=== PATIENT | male | born 1965 | race Caucasian/White ===

== ENCOUNTER → 2020-07-01 11:28 | Outpatient (BNVA) | payer MEDICARE, MEDICAID, SELFPAY | PROVIDERS: PCP Internal Medicine; Referring Provider Internal Medicine; Visit Provider Nurse Practitioner | DX: K21.9 Gastro-esophageal reflux disease without esophagitis (principal); K59.04 Chronic idiopathic constipation; K64.8 Other hemorrhoids; K22.70 Barrett's esophagus without dysplasia; Z79.899 Other long term (current) drug therapy | CPT/HCPCS: 99212 ==

== ENCOUNTER 2020-09-01 10:44 | Outpatient (REF) | payer MEDICARE, MEDICAID, SELFPAY | END 2020-09-01 10:45 | disposition home or self-care (01) | LOC: HO.LAB 10:44 | PROVIDERS: PCP Internal Medicine; Visit Provider Internal Medicine | DX: Z20.828 Contact with and (suspected) exposure to other viral communicable diseases (principal) | CPT/HCPCS: C9803; U0003 ==

== ENCOUNTER → 2020-12-08 13:27 | Outpatient (BNVA) | payer MEDICARE, MEDICAID, SELFPAY | PROVIDERS: PCP Internal Medicine; Visit Provider Nurse Practitioner ==

== ENCOUNTER 2020-12-29 15:49 | Outpatient (REF) | payer MEDICARE, MEDICAID, SELFPAY ==
[2020-12-29 18:36] LABS: Gamma Glutamyl Transpeptidase 95 U/L (11-51)
[2020-12-29 18:48] LABS: Ferritin 52 ng/mL (20-250)
[2020-12-31 08:50] LABS: HBc Num1 0.06 S/CO (0.00-0.79); HIV AB/AG Nonreactive (Nonreactive); HIV Num 1 0.11 S/CO (0.00-0.99); Hepatitis B Core Antibody Nonreactive (Nonreactive); ~Hepatitis B Surface Antibody NONREACTIVE (Nonreactive)
[2020-12-31 09:04] LABS: HBsAGNum1 0.16 S/CO (0.00-0.99); Hepatitis A Antibody IgM 0.09 Index (0-0.79); Hepatitis B Surface Antigen Negative (Negative); ~HepC Num1 0.05 S/CO (0.00-0.79); ~Hepatitis A Antibody IgM Nonreactive (Nonreactive); ~Hepatitis C Antibody Nonreactive (Nonreactive)
[2020-12-31 13:07] LABS: Alpha Fetoprotein 2.5 ng/mL (<6.1)
[2020-12-31 17:37] LABS: Mitochondrial Antibodies NEGATIVE (NEGATIVE)
[2020-12-31 23:52] LABS: Anti Nuclear Antibody Screen NEGATIVE (NEGATIVE)
[2021-01-05 12:42] LABS: Smooth Muscle Antibody <20 U (<20)
== END 2020-12-29 15:50 | disposition home or self-care (01) ==
LOC: HO.LAB 15:49
PROVIDERS: PCP Internal Medicine; Visit Provider Nurse Practitioner
DX: K21.9 Gastro-esophageal reflux disease without esophagitis (principal); K59.04 Chronic idiopathic constipation; K22.70 Barrett's esophagus without dysplasia; K64.8 Other hemorrhoids; R79.89 Other specified abnormal findings of blood chemistry; Z79.899 Other long term (current) drug therapy
CPT/HCPCS: 36415; 82105; 82728; 82977; 86038; 86039; 86255; 86256; 86704; 86706; 86709; 86803; 87340; 87389; 99212

== ENCOUNTER 2021-01-03 08:36 | Outpatient (REF) | payer MEDICARE, MEDICAID, SELFPAY ==
--- NOTE | 2021-01-03 08:41 | ECG_ITS ---
Test Reason : HTN Blood Pressure : / mmHG Vent. Rate : 065 BPM Atrial Rate : 065 BPM P-R Int : 176 ms QRS Dur : 082 ms QT Int : 424 ms P-R-T Axes : 064 -01 057 degrees QTc Int : 440 ms Normal sinus rhythm Normal ECG When compared with ECG of 22-JAN-2020 22:31, No significant change was found Referred By: Franchesca Batista Electronically Signed By:ELVIS SHERWOOD
[2021-01-03 09:22] LABS: MANUAL DIFF FLAG NO
[2021-01-03 09:29] LABS: Basophils Percent Auto 0.4 % (0-2); Eosinophils Absolute Auto 0.4 X10*3/uL (0.0-0.4); Eosinophils Percent Auto 3.6 % (0-4); Hematocrit 43.2 % (42-52); Hemoglobin 14.4 g/dl (14.0-18.0); Imm Gran Abs Auto 0.09 X10*3/uL (0.00-0.03); Imm Gran Pct Auto 0.9 % (0.0-0.4); Lymphocytes Absolute Auto 2.3 X10*3/uL (1.2-4.9); Lymphocytes Percent Auto 22.6 % (20-40); Mean Corpuscular HGB Conc 33.3 g/dl (31.0-36.0); Mean Corpuscular Volume 86.9 fL (80-98); Mean Platelet Volume 9.9 fL (9.4-12.4); Monocytes Absolute Auto 0.7 X10*3/uL (0.1-1.2); Monocytes Percent Auto 6.9 % (2-11); Neutrophils Absolute Auto 6.7 X10*3/uL (2.0-8.3); Neutrophils Percent Auto 65.6 % (45-73); Platelet Count 258 X10*3/uL (160-400); Red Blood Count 4.97 X10*6/uL (4.60-5.80); Red Cell Distribution Width 14.6 % (11.0-16.0); White Blood Count 10.3 X10*3/uL (4.8-10.8)
[2021-01-03 10:01] LABS: Alanine Aminotransferase 52 U/L (0-40); Anion Gap 12 (12-20); Aspartate Amino Transferase 35 U/L (5-37); Blood Urea Nitrogen 15 mg/dL (9-16); Calcium 9.7 mg/dL (8.4-10.2); Carbon Dioxide 26 mmol/L (22-29); Chloride 107 mmol/L (96-108); Cholesterol 168 mg/dL; Estimated Glomerular Filt Rate > 60; Glucose Fasting 140 mg/dL (60-99); HDL Cholesterol 40 mg/dL; LDL Cholesterol Calculated 74 mg/dl; Potassium 4.3 mmol/L (3.3-5.1); Sodium 141 mmol/L (135-145); Triglycerides 270 mg/dL
== END 2021-01-03 08:37 | disposition home or self-care (01) ==
LOC: HO.LAB 08:36
PROVIDERS: PCP Internal Medicine; Visit Provider Internal Medicine
DX: I11.0 Hypertensive heart disease with heart failure (principal); I50.30 Unspecified diastolic (congestive) heart failure; E78.5 Hyperlipidemia, unspecified; I25.10 Atherosclerotic heart disease of native coronary artery without angina pectoris; K22.70 Barrett's esophagus without dysplasia; G47.31 Primary central sleep apnea; K64.8 Other hemorrhoids
CPT/HCPCS: 36415; 80048; 80061; 84450; 84460; 85025; 93005

== ENCOUNTER 2021-01-17 10:34 | Outpatient (REF) | payer MEDICARE, MEDICAID, SELFPAY ==
--- NOTE | ~2021-01-17 | US_ITS ---
EXAMINATION: US COMPLETE ABDOMEN WITH LIVER ELASTOGRAPHY CLINICAL INFORMATION: Elevated liver function tests COMPARISON: Previous CT of the abdomen and pelvis June 2018 TECHNIQUE: Real-time imaging of the abdominal viscera. Noninvasive ultrasound liver fibrosis assessment is performed using [place] ElastPQ point quantification shear wave elastography (pSWE) with a C5-2 MHz transducer. Multiple elastography samples are obtained. FINDINGS: PANCREAS: Not well visualized due to bowel gas ABDOMINAL AORTA: Not well visualized due to bowel gas INFERIOR VENA CAVA: Not well visualized due to bowel gas LIVER: Liver echotexture is increased probably representing fatty infiltration. There is a focal hypoechoic area adjacent to the gallbladder, characteristic location of focal fatty sparing. There is a 1.6 x 1.7 x 1.6 cm cyst in the right lobe of the liver. No other focal liver lesion is seen. The liver is enlarged.. No intrahepatic biliary duct dilatation. The right lobe measures 19 cm in length. The left lobe measures 9 cm in length. Portal flow is normal/hepatopedal Shear wave liver elastography median stiffness is 1.4 m/s (reference: normal median stiffness is 1.3 m/s or less). IQR/median stiffness to assess sampling precision is 0.2 (reference: good quality data set is IQR/median stiffness of 0.15 or less). GALLBLADDER: Normal. The gallbladder is physiologically distended without evidence of stones, sludge, polyps, wall thickening or pericholecystic fluid. COMMON BILE DUCT: Normal in caliber measuring 0.2 cm in diameter. RIGHT KIDNEY: Normal. No hydronephrosis. No renal calculi or focal parenchymal lesions. The kidney measures 14 cm in maximum dimension. LEFT KIDNEY: There is mild left renal cortical thinning. No hydronephrosis. No renal calculi or focal parenchymal lesion. The kidney measures 12 cm in maximum dimension. SPLEEN: Normal. The spleen measures 11.6 cm in maximum dimension. FREE FLUID: None. US/US abdomen comp w elastography IMPRESSION: 1. Impression: Echogenic liver probably representing fatty infiltration. Limited visualization of the pancreas, aorta and IVC. 2. Liver elastography: Slightly limited due to sampling error. In the absence of other known clinical signs, suggests no evidence of compensated advanced chronic liver disease. REFERENCE: Society of Radiologists in Ultrasound Liver Stiffness Thresholds (2020): LIVER STIFFNESS THRESHOLDS: *Liver Stiffness equal or less than 1.3 m/s: High probability of being normal. *Liver Stiffness less than 1.7 m/s: In the absence of other known clinical signs, rules out compensated advanced chronic liver disease. *Liver Stiffness 1.7-2.1 m/s: Suggestive of compensated advanced chronic liver disease but need further test for confirmation. *Liver Stiffness over 2.1 m/s: Rules in compensated advanced chronic liver disease. *Liver Stiffness over 2.4 m/s: Suggestive of clinically significant portal hypertension. QUALITY OF DATA SET: *IQR/Median value equal or less than 0.15 implies a quality data set. *IQR/Median value over 0.15 implies a poor quality data set. SIGNIFICANT CHANGE FROM PRIOR EXAM: Significant change if liver stiffness measurement is 10% or greater from prior exam. OTHER CONSIDERATIONS: The stage of liver fibrosis may be overestimated in the setting of acute hepatitis, liver inflammation, elevated liver function tests, hepatic vascular congestion, obstructive cholestasis, non-fasting state, and infiltrative diseases such as amyloidosis and lymphoma. In some patients with NAFLD, the liver stiffness thresholds for compensated advanced chronic liver disease may be lower. In causes other than viral hepatitis and NAFLD, liver stiffness thresholds are not well established.
== END 2021-01-17 10:35 | disposition home or self-care (01) ==
LOC: HO.US 10:34
PROVIDERS: Visit Provider Nurse Practitioner
DX: R79.89 Other specified abnormal findings of blood chemistry (principal)
CPT/HCPCS: 76705; 76981

== ENCOUNTER → 2021-01-21 08:56 | Outpatient (BNVA) | payer MEDICARE, MEDICAID, SELFPAY | PROVIDERS: PCP Internal Medicine; Visit Provider Nurse Practitioner | DX: K59.04 Chronic idiopathic constipation (principal); K21.9 Gastro-esophageal reflux disease without esophagitis; K22.70 Barrett's esophagus without dysplasia; K64.8 Other hemorrhoids; K75.81 Nonalcoholic steatohepatitis (NASH) | CPT/HCPCS: Q3014 ==

== ENCOUNTER 2021-04-01 11:15 | Inpatient (IN) | payer MEDICARE, MEDICAID, SELFPAY ==
[2021-04-01] VITALS (7 sets, daily range): BP systolic 105–157; BP diastolic 61–94; PULSE 62–82; RESP 16–22; TEMP 37.2–37.4; O2SAT 90–98; BMI 35.9; BMI 36.0
--- NOTE | ~2021-04-01 | CT_ITS ---
EXAMINATION: CT ANGIOGRAM OF THE CHEST WITH AND WITHOUT CONTRAST (CT PULMONARY ANGIOGRAM FOR PE) CLINICAL INFORMATION: Reason for Exam chest pain, h/o DVT COMPARISON: None TECHNIQUE: Prior to contrast administration, noncontrast localization images were obtained. Subsequently, multidetector volumetric imaging was performed from the thoracic inlet to below the diaphragms following the administration of 80 mL Omnipaque 350 intravenous contrast. No contrast reaction reported Sagittal, coronal, and MIP oblique sagittal reformatted images were obtained on the CT workstation, uploaded to PACS, and reviewed. This CT examination was performed using dose optimization techniques as appropriate, variously including the following: *Automated exposure control *Adjustment of mA and/or kV according to patient size (this includes techniques or standardized protocols for targeted exams where dose is matched to indication/reason for exam; i.e. extremities or head) *Use of iterative reconstruction technique Total exam dose-length product 363 mGy-cm FINDINGS: QUALITY OF STUDY/CONTRAST BOLUS: Satisfactory. PULMONARY ARTERIES: No central or segmental pulmonary emboli. THORACIC AORTA: No aneurysm or dissection. LUNG: The lungs are expanded with diffuse groundglass attenuation seen in both upper lobes, right lower lobe, right middle lobe and lingular infectious inflammatory etiology. No consolidation seen. PLEURA: No pleural effusion or pneumothorax. MEDIASTINUM: Normal heart size. No pericardial effusion. Few scattered para-aortic and pretracheal lymph nodes are seen. No evidence of septal bowing or right heart strain. CHEST WALL/AXILLA: No axillary or internal mammary lymphadenopathy. OSSEOUS STRUCTURES: There is mild ventral spondylosis dorsal spine. No lytic process seen. UPPER ABDOMEN: There is a 1.6 cm lesion in the right hepatic lobe No reflux of contrast into the hepatic veins to suggest elevated right heart pressures. CT/CT angio chest PE protocol IMPRESSION: No evidence of PE. No evidence of aortic dissection or aneurysm. Diffuse groundglass inflammatory changes in both lungs. Question Covid related infection Right hepatic lobe lesion likely cyst VTE: negative
--- NOTE | ~2021-04-01 | XR_ITS ---
EXAMINATION: XR CHEST CLINICAL INFORMATION: SOB. COMPARISON: Chest 01/06/2020 TECHNIQUE: 2 views of the chest were obtained. FINDINGS: The lungs are well-expanded with patchy opacities seen in right middle and lower lobe suggestive of developing infiltrates. The left lung is expanded and clear. The heart size and pulmonary vascularity is normal. There is mild spondylosis dorsal spine. No lytic process seen. XR/XR chest 2V IMPRESSION: Patchy infiltrate right middle lobe and right lower lobe.
--- NOTE | ~2021-04-01 | XR_ITS ---
EXAMINATION: XR CHEST CLINICAL INFORMATION: Dyspnea COMPARISON: Previous chest x-ray and chest CTA 04/01/2021 TECHNIQUE: Frontal view of the chest was obtained. FINDINGS: The cardiac and mediastinal contours are stable. There is significant improvement in the bilateral pulmonary infiltrates from previous exam 04/01/2021. There is no pleural effusion or pneumothorax. There is mild thoracic scoliosis and degenerative changes of the spine. XR/XR chest 1V IMPRESSION: Significant improvement in the bilateral pulmonary infiltrates from 04/01/2021.
--- NOTE | 2021-04-01 13:24 | ED.URI ---
HPI - URI/Sore Throat General Chief Complaint: Upper Respiratory Symptoms Stated Complaint: flu like symptoms Time Seen by Provider: 04/01/21 13:19 Source: patient Mode of arrival: ambulatory Limitations: no limitations History of Present Illness HPI Narrative: THIS IS A 55 YEARS OLD MALE PRESENTED TO THE ED WITH BODY ACHES COUGH X3 DAYS CHILLS. HE HAS BEEN FULLY VACCINATED FOR COVID IN OCTOBER DENIES ANY FEVER VOMITING MD elicited complaint: cough Onset (ago): day(s) (3) Consistency: constant Severity: moderate Description of mucous: clear Able to tolerate fluids by mouth: Yes Exacerbating factors: nothing Relieving factors: nothing Related Data Home Medications Medication Instructions Recorded Confirmed amlodipine 5 mg tablet 5 mg PO DAILY 10/05/20 04/01/21 aspirin 81 mg tablet,delayed 81 mg PO DAILY 10/05/20 04/01/21 release atorvastatin 80 mg tablet 80 mg PO BEDTIME 10/05/20 04/01/21 clopidogrel 75 mg tablet 75 mg PO DAILY 10/05/20 04/01/21 lisinopril 5 mg tablet 5 mg PO DAILY 10/05/20 04/01/21 venlafaxine 150 mg 300 mg PO DAILY 10/05/20 04/01/21 capsule,extended release 24 hr furosemide 20 mg tablet 20 mg PO DAILY 12/08/20 04/01/21 zolpidem 5 mg tablet 5 mg PO BEDTIME 12/29/20 04/01/21 metoprolol succinate 50 mg 150 mg PO DAILY tab 01/21/21 04/01/21 tablet,extended release 24 hr acetaminophen 325 mg tablet 650 mg PO Q4H PRN 04/01/21 04/01/21 aripiprazole 20 mg tablet 20 mg PO DAILY 04/01/21 04/01/21 aripiprazole 5 mg tablet 5 mg PO DAILY 04/01/21 04/01/21 clonidine HCl 0.2 mg tablet 0.2 mg PO BID 04/01/21 04/01/21 gabapentin 300 mg capsule 300 mg PO TID 04/01/21 04/01/21 hydroxyzine pamoate 50 mg capsule 50 mg PO BID PRN 04/01/21 04/01/21 mirtazapine 15 mg tablet 15 mg PO BEDTIME 04/01/21 04/01/21 wnhefdmsqfha-hphrouda-fhwfwn tablet 1 tab PO DAILY 04/01/21 04/01/21 Previous Rx's Medication Instructions Recorded pantoprazole 40 mg tablet,delayed 40 mg PO BID 30 Days #60 tab 03/15/21 release Allergies Allergy/AdvReac Type Severity Reaction Status Date / Time No Known Allergies Allergy Verified 01/21/21 08:49 [No Known Allergies*] Review of Systems Review of Systems: Yes all other systems are reviewed and are negative Constitutional: Constitutional: Reports no additional constitutional complaints ENT: Reports system reviewed and no additional complaints, except as documented Cardiovascular: Cardiovascular: Reports no additional cardiovascular complaints and Denies dyspnea Respiratory: Respiratory: Reports cough, Denies hemoptysis, Denies pain on inspiration and Denies dyspnea Gastrointestinal: Gastrointestinal: Denies diarrhea and Denies vomiting Neurologic: Reports system reviewed and no additional complaints, except as documented [facility] Past Medical History Attestation statement: The following information was validated with the patient. Medical History Farias's esophagus CAD (coronary artery disease) Central sleep apnea Reid-Demarco breathing disorder Chronic idiopathic constipation Degenerative joint disease of left knee Depression Diastolic congestive heart failure Dyslipidemia Essential hypertension Hiatal hernia History of deep venous thrombosis (DVT) of distal vein of left lower extremity Lesion of skin of face SILVA (nonalcoholic steatohepatitis) Recurrent kidney stones Skin cancer STEMI (ST elevation myocardial infarction) Surgical History History of esophagogastroduodenoscopy (EGD) History of total knee arthroplasty Hx of colonoscopy Family History Family History Father Brain cancer Lung cancer Mother Emphysema, unspecified Social History Social History (Updated 04/01/21 @ 16:38 by ROSANNA Moseley) Household Members: Spouse Housing: House Do you presently have visiting nurse or other home services: No Alcohol intake: current Alcohol intake frequency: does not drink Patient Tobacco Use Status: Current everyday Tobacco user Tobacco use type: Cigarette Cigarette Packs Per Day: 1 Cigarettes Per Day: 20.0 Years Smoked: 40 Smoked in Last 30 Days: Yes Patient Interested in Nicotine Replacement: Yes Patient Given Instructions on How to Stop Smoking: Yes Date Education Initiated: 04/01/21 Second Hand Smoke Exposure: No Use of substances other than those prescribed or required for medical reasons: No Currently Displaying Signs/Symptoms of Drug Intoxication Withdrawal: No Any prior treatment program specific to substance use: No Have you been hit, kicked, punched, or otherwise hurt by someone within the past year? If so, by whom?: No Do you feel safe in your current relationship?: Yes Is there a partner from a previous relationship who is making you feel unsafe now?: No Are you made to feel afraid or neglected: No Advance Directives: No Advance Directives Information Provided: No Advance Directives on File: No Do you have thoughts of harming others: None Do you have a plan to hurt others: No Plan Recently lost weight without trying: Unsure How much weight loss: Unsure Eating poorly because of decreased appetite: No Nutrition screen score: 4 Nutrition Risks: No Nutritional Risk Poor oral hygiene: No Physical Exam Vital Signs: Vital Signs: Last Vital Signs Temp 98.1 F 04/02/21 03:41 Pulse 74 04/02/21 03:41 Resp 18 04/02/21 03:41 BP 130/71 04/02/21 03:41 Pulse Ox 95 04/02/21 03:41 Oxygen Flow Rate 2 04/01/21 14:50 Body Mass Index 35.9 Const: Other: HE IS NOT IN DISTRESS, SITTING UP IN THE BED APPEAR COMFORTABLE General: cooperative Orientation/consciousness: oriented to person, oriented to place, oriented to time and patient oriented x3 HENMT: Head: Yes normal to inspection Ears: hearing grossly normal bilaterally General nose exam: Normal external nose present Face and sinus: Yes normal facial exam Neck: Other: SUPPLE Chest: Chest palpation & inspection: normal inspection of the chest Resp: Effort & Inspection: normal respiratory effort Auscultation: clear to auscultation bilaterally Cardio: Jugular venous distension: no JVD Rate: regular rate Rhythm: regular rhythm GI: Inspection: Yes normal to inspection Palpation (GI): Soft to palpation, nontender and no guarding Auscultation: normal bowel sounds Skin: General skin exam: no rashes or lesions noted Neuro: General: oriented to person, oriented to place, oriented to time and patient oriented x3 Cranial nerves: Yes CN's II-XII intact bilaterally Course Course Course Narrative: HIS CHEST X-RAY SHOWS PATCHY INFILTRATE IN THE RIGHT MIDDLE LOBE AND RIGHT LOWER LOBE AT THIS POINT WE ARE GOING TO DO CBC CHEMISTRY BLOOD CULTURE WE GIVE A DOSE OF IV ANTIBIOTIC AND IV FLUIDS WILL REASSESS AFTER ABOVE Reevaluation(s) Reevaluation #1: Patient drop with the Sat to 90% at 2.45 PM at this time will admit the patient he has an oxygen requirement of 2 L and he has a bile about pneumonia Discharge Plan Discharge Clinical Impression: Pneumonia Patient Disposition: Admitted As Inpatient Interventions: Admission Worksheet (ED) Last Done: 04/01/21 19:18 Discharge Date/Time: 04/01/21 19:34
[2021-04-01 14:45] LABS: MANUAL DIFF FLAG NO
[2021-04-01] MEDS: cefTRIAXone sodium 1 GM in 0.9 % Sodium Chloride 50 ML IV (14:45)
[2021-04-01 14:49] LABS: Basophils Percent Auto 0.2 % (0-2); Eosinophils Absolute Auto 0.2 X10*3/uL (0.0-0.4); Hematocrit 38.1 % (42-52); Hemoglobin 12.7 g/dl (14.0-18.0); Imm Gran Pct Auto 0.7 % (0.0-0.4); Lymphocytes Absolute Auto 1.7 X10*3/uL (1.2-4.9); Lymphocytes Percent Auto 11.3 % (20-40); Mean Corpuscular HGB Conc 33.3 g/dl (31.0-36.0); Mean Corpuscular Hemoglobin 28.4 pg (27.0-33.0); Mean Corpuscular Volume 85.2 fL (80-98); Monocytes Absolute Auto 1.5 X10*3/uL (0.1-1.2); Neutrophils Absolute Auto 11.3 X10*3/uL (2.0-8.3); Neutrophils Percent Auto 76.8 % (45-73); Platelet Count 245 X10*3/uL (160-400); Red Blood Count 4.47 X10*6/uL (4.60-5.80); Red Cell Distribution Width 13.2 % (11.0-16.0); White Blood Count 14.7 X10*3/uL (4.8-10.8)
[2021-04-01 15:14] LABS: Alanine Aminotransferase 26 U/L (0-40); Albumin Level 4.1 g/dL (3.5-5.0); Alkaline Phosphatase 95 U/L (39-117); Anion Gap 14 (12-20); Aspartate Amino Transferase 23 U/L (5-37); Bilirubin Total 0.8 mg/dL (0.0-1.0); Blood Urea Nitrogen 19 mg/dL (9-16); Calcium 9.2 mg/dL (8.4-10.2); Carbon Dioxide 25 mmol/L (22-29); Chloride 107 mmol/L (96-108); Creatinine Clr Calc Pharmacy 66.9; Estimated Glomerular Filt Rate 58; Glucose Random 106 mg/dL (60-115); Potassium 4.2 mmol/L (3.3-5.1); Sodium 142 mmol/L (135-145); Total Protein 6.7 g/dL (6.5-8.0)
[2021-04-01 15:25] LABS: COVID-19 Test Negative (Negative)
[2021-04-01] MEDS: Doxycycline Hyclate 100 MG in 0.9 % Sodium Chloride 250 ML 166.67 MG IV (16:06)
--- NOTE | 2021-04-01 16:34 | PM.IMHP ---
History of Present Illness Date of Service: 04/01/21 <ROSANNA Moseley - Last Filed: 04/01/21 17:10> Chief Complaint: Shortness of breath <ROSANNA Moseley - Last Filed: 04/01/21 17:10> This is a 55-year-old male who presents to the emergency department with complaints of shortness of breath. For the past 3 days patient has had a dry cough, body aches, chills. He has had associated shortness of breath. He denies any recent sick contacts. He is fully vaccinated against COVID-19, received the pfizer vaccine and completed vaccination in October. He denies any recent travel. Labwork was significant for leukocytosis of 14.7. Chest x-ray showed multifocal pneumonia. COVID swab was negative. Patient was started on IV ceftriaxone and doxycycline. He had 1 low oxygen saturation documented at 90%. The decision was made to admit him for further management. <ROSANNA Moseley - Last Filed: 04/01/21 17:10> Review of Systems Review of Systems: Yes all other systems are reviewed and are negative <ROSANNA Moseley - Last Filed: 04/01/21 17:10> Constitutional: Constitutional: Reports body ache(s), Reports chills, Denies fever(s) and Reports malaise <ROSANNA Moseley - Last Filed: 04/01/21 17:10> Cardiovascular: Cardiovascular: Denies chest pain <ROSANNA Moseley - Last Filed: 04/01/21 17:10> Respiratory: Respiratory: Reports cough <ROSANNA Moseley Last Filed: 04/01/21 17:10> Gastrointestinal: Gastrointestinal: Denies abdominal pain <ROSANNA Moseley - Last Filed: 04/01/21 17:10> [facility], [facility] Medical History: Medical History (Updated 04/18/21 @ 00:34 by Franchesca Batista MD) Atherosclerotic cardiovascular disease Farias's esophagus CAD (coronary artery disease) Central sleep apnea Reid-Demarco breathing disorder Chronic idiopathic constipation Degenerative joint disease of left knee Depression Diastolic congestive heart failure Dyslipidemia Essential hypertension Hiatal hernia History of deep venous thrombosis (DVT) of distal vein of left lower extremity History of pneumonia Lesion of skin of face SILVA (nonalcoholic steatohepatitis) WILTON (obstructive sleep apnea) Pneumonitis Recurrent kidney stones Skin cancer STEMI (ST elevation myocardial infarction) <ROSANNA Moseley - Last Filed: 04/01/21 17:10> Functional capacity: independent ambulation <ROSANNA Moseley - Last Filed: 04/01/21 17:10> Family History: Family History Father Brain cancer Lung cancer Substance use disorder Mother Emphysema, unspecified Substance use disorder Mental health disorder <ROSANNA Moseley - Last Filed: 04/01/21 17:10> Surgical History: Surgical History History of esophagogastroduodenoscopy (EGD) History of total knee arthroplasty Hx of colonoscopy <ROSANNA Moseley - Last Filed: 04/01/21 17:10> Social History: Social History Household Members: Spouse Housing: House Do you presently have visiting nurse or other home services: No Alcohol intake: current Alcohol intake frequency: does not drink Patient Tobacco Use Status: Current everyday Tobacco user Tobacco use type: Cigarette Cigarette Packs Per Day: 1 Cigarettes Per Day: 20.0 Years Smoked: 40 Second Hand Smoke Exposure: No Current occupational status: employed 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 <ROSANNA Moseley - Last Filed: 04/01/21 17:10> Meds Allergies/Adverse reactions: Allergies Allergy/AdvReac Type Severity Reaction Status Date / Time No Known Allergies Allergy Verified 04/18/21 00:02 [No Known Allergies*] <ROSANNA Moseley - Last Filed: 04/01/21 17:10> Active Medications: Current Medications Generic Name Dose Route Start Last Admin Trade Name Freq PRN Reason Stop Dose Admin Ceftriaxone Sodium 1 gm/ 50 mls @ 100 mls/hr 04/01/21 14:15 04/01/21 15:32 Sodium Chloride IV Infused Q12H ALEC Infusion Doxycycline Hyclate 100 mg/ 250 mls @ 166.67 mls/hr 04/01/21 15:57 07/30/21 16:06 Sodium Chloride IV 04/01/21 17:26 166.67 mls/hr ONCE ONE Administration Pharmacy Consult 1 each 04/01/21 16:26 Consult Rx Perform Med Rec MISCELLANE ONCE PRN Consult order <ROSANNA Moseley - Last Filed: 04/01/21 17:10> Home medications: Home Medications Medication Instructions Recorded Confirmed Last Taken Type aspirin 81 mg tablet,delayed 81 mg PO DAILY 10/05/20 04/18/21 04/01/21 History release atorvastatin 80 mg tablet 80 mg PO BEDTIME 10/05/20 04/18/21 03/31/21 History clopidogrel 75 mg tablet 75 mg PO DAILY 10/05/20 04/18/21 04/01/21 History lisinopril 5 mg tablet 5 mg PO DAILY 10/05/20 04/18/21 04/01/21 History venlafaxine 150 mg 300 mg PO DAILY 10/05/20 04/18/21 04/01/21 History capsule,extended release 24 hr furosemide 20 mg tablet 20 mg PO DAILY 12/08/20 04/18/21 04/01/21 History zolpidem 5 mg tablet 5 mg PO BEDTIME 12/29/20 04/18/21 03/31/21 History acetaminophen 325 mg tablet 650 mg PO Q4H PRN 04/01/21 04/18/21 Unknown History aripiprazole 20 mg tablet 20 mg PO DAILY 04/01/21 04/18/21 04/01/21 History aripiprazole 5 mg tablet 5 mg PO DAILY 04/01/21 04/18/21 04/01/21 History gabapentin 300 mg capsule 300 mg PO TID 04/01/21 04/18/21 04/01/21 History hydroxyzine pamoate 50 mg capsule 50 mg PO BID PRN 04/01/21 04/18/21 04/01/21 History mirtazapine 15 mg tablet 15 mg PO BEDTIME 04/01/21 04/18/21 03/31/21 History zsjfxhtirwtn-tbxqdtre-kvfyln tablet 1 tab PO DAILY 04/01/21 04/18/21 04/01/21 History <ROSANNA Moseley - Last Filed: 04/01/21 17:10> Physical Exam Vital Signs and Narrative: Vital Signs: Last Vital Signs Temp 99.0 F 04/01/21 13:04 Pulse 62 04/01/21 16:11 Resp 16 04/01/21 16:11 BP 105/61 04/01/21 16:11 Pulse Ox 98 04/01/21 16:11 Oxygen Flow Rate 2 04/01/21 14:50 Body Mass Index 35.9 <ROSANNA Moseley - Last Filed: 04/01/21 17:10> Const: General: comfortable, no acute distress, alert and awake <ROSANNA Moseley - Last Filed: 04/01/21 17:10> Nutritional Appearance: overweight <ROSANNA Moseley - Last Filed: 04/01/21 17:10> Orientation/consciousness: patient oriented x3 <ROSANNA Moseley - Last Filed: 04/01/21 17:10> HENMT: Head: Yes normocephalic and Yes atraumatic <ROSANNA Moseley - Last Filed: 04/01/21 17:10> Eyes: Sclerae: sclerae normal <ROSANNA Moseley - Last Filed: 04/01/21 17:10> Pupils: Equal, round and reactive pupils present <ROSANNA Moseley - Last Filed: 04/01/21 17:10> EOM: EOMs intact bilaterally <ROSANNA Moseley - Last Filed: 04/01/21 17:10> Resp: Effort & Inspection: normal respiratory effort and no respiratory distress <ROSANNA Moseley - Last Filed: 04/01/21 17:10> Cardio: Jugular venous distension: no JVD <RSOANNA Moseley - Last Filed: 04/01/21 17:10> Rate: regular rate <ROSANNA Moseley - Last Filed: 04/01/21 17:10> Rhythm: regular rhythm <ROSANNA Moseley - Last Filed: 04/01/21 17:10> GI: Palpation (GI): Soft to palpation and nontender <ROSANNA Moseley - Last Filed: 04/01/21 17:10> Neuro: General: patient oriented x3 <ROSANNA Moseley - Last Filed: 04/01/21 17:10> Cranial nerves: Yes CN's II-XII intact bilaterally, Yes Equal, round and reactive pupils present and Yes Bilaterally intact EOM present <ROSANNA Moseley - Last Filed: 04/01/21 17:10> Extrem: Other: no leg edema <ROSANNA Moseley - Last Filed: 04/01/21 17:10> Results Labs CBC and Chem 7: : 04/03/21 04:37 04/03/21 04:37 <ROSANNA Moseley - Last Filed: 04/01/21 17:10> Labs: Laboratory Results - last 24 hr 04/01/21 04/01/21 04/01/21 14:33 14:33 14:33 MCV 85.2 MCH 28.4 MCHC 33.3 RDW 13.2 Plt Count 245 MPV 10.0 Immature Gran % (Auto) 0.7 H Neut % (Auto) 76.8 H Lymph % (Auto) 11.3 L Traverse % (Auto) 10.0 Eos % (Auto) 1.0 Baso % (Auto) 0.2 Lymph # (Auto) 1.7 Traverse # (Auto) 1.5 H Eos # (Auto) 0.2 Baso # (Auto) 0.0 Abs Immat Gran (auto) 0.10 H Absolute Neuts (auto) 11.3 H Absolute Nucleated RBC 0.000 Nucleated RBC % (auto) 0.0 Anion Gap 14 Estim Creat Clear Calc 66.9 Estimated GFR 58 Random Glucose 106 Calcium 9.2 Total Bilirubin 0.8 AST 23 ALT 26 Alkaline Phosphatase 95 Total Protein 6.7 Albumin 4.1 COVID-19 (MIK) Negative COVID-19 Clin Com See Note <ROSANNA Moseley - Last Filed: 04/01/21 17:10> Imaging Radiologist's Impressions: Impressions Chest X-Ray 04/01/21 13:24 IMPRESSION: Patchy infiltrate right middle lobe and right lower lobe. <ROSANNA Moseley - Last Filed: 04/01/21 17:10> Assessment and Plan (1) Pneumonia: Status: Resolved <ROSANNA Moseley - Last Filed: 04/01/21 17:10> This is a 55-year-old male with history of CAD s/p stent placement, chronic diastolic CHF, hypertension, dyslipidemia, WILTON (no cpap machine at home), active smoker who presents to the emergency room with 3 day history of cough, chills, body aches found to have multifocal pneumonia Multifocal pneumonia No evidence of sepsis covid negative -IV ceftriaxone, doxycycline -cough suppresion Tobacco dependence Smoking cessation advised -NRT WILTON Officially diagnosed with sleep apnea but has not received CPAP machine -will order CPAP while in house Obesity BMI 35.9 Likely contributing to respiratory status weight reduction recommended med rec pending. will continue home meds when complete. dvt ppx - lovenox code status - full code attending: dr masters <ROSANNA Moseley - Last Filed: 04/01/21 17:10> Quality Stroke Does the patient have a stroke diagnosis?: No <ROSANNA Moseley - Last Filed: 04/01/21 17:10> VTE Prior VTE?: No <ROSANNA Moseley - Last Filed: 04/01/21 17:10> VTE Risk Level:: Medical - moderate - high <ROSANNA Moseley - Last Filed: 04/01/21 17:10> VTE Device Contraindication: Treatment Not Indicated <ROSANNA Moseley - Last Filed: 04/01/21 17:10> VTE Drug Contraindication: N/A - Med Ordered <ROSANNA Moseley - Last Filed: 04/01/21 17:10>
--- NOTE | 2021-04-01 17:01 | PC.NURSE ---
Patient O2 91 percent after walk to bathroom. Respirations 26. Oxygen up to 93 on RA after 1-2 minutes.
--- NOTE | 2021-04-01 17:07 | PM.EVENT ---
Event Note Date of Service: 04/01/21 Event Note: Patient seen and examined-patient came with 3 days symptom of cough shortness of breath found to have pneumonia and admission was given because of that. This patient is seen and examined with APC. Lab imaging, EKG reviewed. Physical exam : Cvs: rrr, [id number] , no murmur res: fair air entry, air entry diminshed breath. abd: no rebound or guarding ,nt, bs present. ext pulses present , no cyanosis neuro: axo3 , nonfocal. assessment and plan coordinated in APCs note, Agree with the plan in addition: continue iv antibiotics , blood culture pending
--- NOTE | 2021-04-01 17:13 | PHA.MEDREC ---
Pharmacy Consult ? Medication Reconciliation Pharmacy has completed the medication reconciliation. Patient's list stated metoprolol ER 50mg take 3 tablets however, patient's filled history has metoprolol 50mg daily and metoprolol 25mg daily being filled. Jada Weaver, PharmD
[2021-04-01] MEDS: Gabapentin 300 MG CAPSULE PO (21:00)
[2021-04-01] MEDS: Enoxaparin Sodium 40 MG/0.4 ML SYRINGE SUBCUT (21:00)
[2021-04-01] MEDS: Acetaminophen 325 MG TABLET 650 MG PO (21:00)
[2021-04-01] MEDS: Atorvastatin Calcium 80 MG TABLET PO (21:01)
[2021-04-01] MEDS: Zolpidem Tartrate 5 MG TABLET PO (21:01)
[2021-04-01] MEDS: cloNIDine HCL 0.2 MG TABLET PO (21:01)
[2021-04-01] MEDS: Mirtazapine 15 MG TABLET PO (21:01)
[2021-04-01] MEDS: 0.9 % Sodium Chloride Flush 3 ML SYRINGE IVFLUSH (21:08)
[2021-04-02] VITALS (9 sets, daily range): BP systolic 112–143; BP diastolic 68–82; PULSE 61–78; RESP 15–24; TEMP 36–36.9; O2SAT 92–95
[2021-04-02] MEDS: cefTRIAXone sodium 1 GM in 0.9 % Sodium Chloride 50 ML IV ×2 (03:00→14:39)
[2021-04-02] MEDS: Omeprazole 20 MG CAPSULE.DR PO ×2 (06:19→16:37)
[2021-04-02] MEDS: Doxycycline Hyclate 100 MG in 0.9 % Sodium Chloride 250 ML 166.67 MG IV ×2 (06:19→18:28)
--- NOTE | 2021-04-02 07:08 | PM.EVENT ---
Event Note Date of Service: 04/02/21 Event Note: pt with 3.6 seconds pause asymptomatic
[2021-04-02 07:28] LABS: Hematocrit 38.6 % (42-52); Hemoglobin 12.8 g/dl (14.0-18.0); Mean Corpuscular HGB Conc 33.2 g/dl (31.0-36.0); Mean Corpuscular Hemoglobin 28.4 pg (27.0-33.0); Mean Corpuscular Volume 85.6 fL (80-98); Mean Platelet Volume 10.5 fL (9.4-12.4); Platelet Count 278 X10*3/uL (160-400); Red Blood Count 4.51 X10*6/uL (4.60-5.80); Red Cell Distribution Width 13.1 % (11.0-16.0); White Blood Count 15.2 X10*3/uL (4.8-10.8)
[2021-04-02 07:40] LABS: Anion Gap 16 (12-20); Blood Urea Nitrogen 24 mg/dL (9-16); Calcium 9.1 mg/dL (8.4-10.2); Carbon Dioxide 22 mmol/L (22-29); Chloride 108 mmol/L (96-108); Estimated Glomerular Filt Rate > 60; Glucose Random 100 mg/dL (60-115); Potassium 4.2 mmol/L (3.3-5.1); Sodium 142 mmol/L (135-145)
[2021-04-02] MEDS: Clopidogrel Bisulfate 75 MG TABLET PO (08:18)
[2021-04-02] MEDS: Furosemide 20 MG TABLET PO (08:18)
[2021-04-02] MEDS: Venlafaxine HCl ER 150 MG CAP.ER.24H 300 MG PO (08:18)
[2021-04-02] MEDS: Gabapentin 300 MG CAPSULE PO ×3 (08:18→20:46)
[2021-04-02] MEDS: Aspirin Enteric Coated 81 MG TABLET.DR PO (08:18)
[2021-04-02] MEDS: Nicotine 14 MG PATCH.TD24 TRANSDERMA (08:19)
[2021-04-02] MEDS: 0.9 % Sodium Chloride Flush 3 ML SYRINGE IVFLUSH ×3 (08:19→20:47)
[2021-04-02] MEDS: cloNIDine HCL 0.2 MG TABLET PO ×2 (08:19→20:46)
[2021-04-02] MEDS: amLODIPine Besylate 5 MG TABLET PO (08:19)
[2021-04-02] MEDS: ARIPiprazole 5 MG TABLET PO (08:19)
[2021-04-02] MEDS: ARIPiprazole 20 MG TABLET PO (08:19)
--- NOTE | 2021-04-02 09:37 | HO.PM.IMPN ---
Subjective Subjective Date of Service: 04/02/21 <ROSANAN Moseley - Last Filed: 04/02/21 09:53> 04/02/21 <Holland Vargas MD - Last Filed: 04/02/21 10:47> Interval History: seen and examined this morning follow up for pneumonia still reporting dyspnea, dry cough had 3.6 second pause on telemetry overnight <ROSANNA Moseley - Last Filed: 04/02/21 09:53> Review of Systems Review of Systems: Yes all other systems are reviewed and are negative <ROSANNA Moseley - Last Filed: 04/02/21 09:53> Constitutional Constitutional: Denies chills and Denies fever(s) <ROSANNA Moseley - Last Filed: 04/02/21 09:53> Cardiovascular Cardiovascular: Reports dyspnea <ROSANNA Moseley - Last Filed: 04/02/21 09:53> Respiratory Respiratory: Reports cough, Reports pain with cough and Reports dyspnea <ROSANNA Moseley - Last Filed: 04/02/21 09:53> Gastrointestinal Gastrointestinal: Denies abdominal pain <ROSANNA Moseley Last Filed: 04/02/21 09:53> Physical Exam Vital Signs: Vital Signs: Last Vital Signs Temp 98.4 F 04/02/21 08:16 Pulse 75 04/02/21 08:19 Resp 24 H 04/02/21 08:16 BP 143/81 H 04/02/21 08:19 Pulse Ox 93 04/02/21 08:16 Oxygen Flow Rate 2 04/01/21 14:50 Body Mass Index 36.0 <ROSANNA Moseley - Last Filed: 04/02/21 09:53> Const: General: comfortable, no acute distress, alert and awake <ROSANNA Moseley Last Filed: 04/02/21 09:53> Nutritional Appearance: overweight <ROSANNA Moseley Last Filed: 04/02/21 09:53> Orientation/consciousness: patient oriented x3 <ROSANNA Moseley Last Filed: 04/02/21 09:53> HENMT: Head: Yes normocephalic and Yes atraumatic <ROSANNA Moseley Last Filed: 04/02/21 09:53> Eyes: Sclerae: sclerae normal <ROSANNA Moseley Last Filed: 04/02/21 09:53> Pupils: Equal, round and reactive pupils present <ROSANNA Moseley Last Filed: 04/02/21 09:53> EOM: EOMs intact bilaterally <ROSANNA Moseley Last Filed: 04/02/21 09:53> Resp: Effort & Inspection: no respiratory distress, tachypneic and no use of accessory muscles <ROSANNA Moseley Last Filed: 04/02/21 09:53> Cardio: Rate: regular rate <ROSANNA Moseley Last Filed: 04/02/21 09:53> Rhythm: regular rhythm <ROSANNA Moseley Last Filed: 04/02/21 09:53> GI: Palpation (GI): Soft to palpation and nontender <ROSANNA Moseley Last Filed: 04/02/21 09:53> Neuro: General: patient oriented x3 <ROSANNA Moseley Last Filed: 04/02/21 09:53> Cranial nerves: Yes CN's II-XII intact bilaterally, Yes Equal, round and reactive pupils present and Yes Bilaterally intact EOM present <ROSANNA Moseley Last Filed: 04/02/21 09:53> Extrem: Other: no leg edema <ROSANNA Moseley Last Filed: 04/02/21 09:53> Objective Data Current Medications Generic Name Dose Route Start Last Admin Trade Name Freq PRN Reason Stop Dose Admin Acetaminophen 650 mg 04/01/21 17:46 04/01/21 21:00 Acetaminophen 325 Mg Tablet PO 650 mg Q4H PRN Administration Pain Amlodipine Besylate 5 mg 04/02/21 09:00 04/02/21 08:19 Amlodipine Besylate 5 Mg Tablet PO 5 mg DAILY ALEC Administration Protocol Aripiprazole 5 mg 04/02/21 09:00 04/02/21 08:19 Aripiprazole 5 Mg Tablet PO 5 mg DAILY ALEC Administration Aripiprazole 20 mg 04/02/21 09:00 04/02/21 08:19 Aripiprazole 20 Mg Tablet PO 20 mg DAILY ALEC Administration Aspirin 81 mg 04/02/21 09:00 04/02/21 08:18 Aspirin Enteric Coated 81 Mg Tablet.Dr PO 81 mg DAILY ALEC Administration Atorvastatin Calcium 80 mg 04/01/21 21:00 04/01/21 21:01 Atorvastatin Calcium 80 Mg Tablet PO 80 mg BEDTIME ALEC Administration Benzonatate 100 mg 04/01/21 17:53 Benzonatate 100 Mg Capsule PO TID PRN Cough Clonidine HCl 0.2 mg 04/01/21 21:00 04/02/21 08:19 Clonidine Hcl 0.2 Mg Tablet PO 0.2 mg BID ALEC Administration Protocol Clopidogrel Bisulfate 75 mg 04/02/21 09:00 04/02/21 08:18 Clopidogrel Bisulfate 75 Mg Tablet PO 75 mg DAILY ALEC Administration Docusate Sodium 100 mg 04/01/21 17:53 Docusate Sodium 100 Mg Capsule PO DAILY PRN Constipation Enoxaparin Sodium 40 mg 04/01/21 20:00 04/01/21 21:00 Enoxaparin Sodium 40 Mg/0.4 Ml Syringe SUBCUT 40 mg Q24H ALEC Administration Furosemide 20 mg 04/02/21 09:00 04/02/21 08:18 Furosemide 20 Mg Tablet PO 20 mg DAILY ALEC Administration Protocol Gabapentin 300 mg 04/01/21 21:00 04/02/21 08:18 Gabapentin 300 Mg Capsule PO 300 mg TID ALEC Administration Guaifenesin/Dextromethorphan 5 ml 04/01/21 17:53 Guaifenesin Dm 100/10/5 Ml 5 Ml Syrup PO Q6H PRN Cough Hydroxyzine HCl 50 mg 04/01/21 17:46 Hydroxyzine Hcl 50 Mg Tablet PO BID PRN Anxiety Doxycycline Hyclate 100 mg/ 250 mls @ 166.67 mls/hr 04/02/21 06:00 04/02/21 08:03 Sodium Chloride IV Infused Q12H ALEC Infusion Ceftriaxone Sodium 1 gm/ 50 mls @ 100 mls/hr 04/02/21 14:00 Sodium Chloride IV Q24H ALEC Lisinopril 5 mg 04/02/21 09:00 04/02/21 08:18 Lisinopril 5 Mg Tablet PO 5 mg DAILY ALEC Administration Protocol Metoprolol Succinate 150 mg 04/02/21 09:00 Metoprolol Succinate Er 50 Mg Tab.Er.24h PO DAILY ALEC Protocol Mirtazapine 15 mg 04/01/21 21:00 04/01/21 21:01 Mirtazapine 15 Mg Tablet PO 15 mg BEDTIME ALEC Administration Multivitamins/Minerals 1 tab 04/02/21 09:00 04/02/21 08:19 Multivitamin With Minerals Tablet PO 1 tab DAILY ALEC Administration Nicotine 14 mg 04/01/21 17:53 04/02/21 08:19 Nicotine 14 Mg Patch.Td24 TRANSDERMA 14 mg DAILY ALEC Administration Omeprazole 20 mg 04/02/21 06:30 04/02/21 06:19 Omeprazole 20 Mg Capsule.Dr PO 20 mg BID@0630,0720 ALEC Administration Ondansetron HCl 4 mg 04/01/21 17:53 Ondansetron Hcl 4 Mg/2 Ml Vial IVPUSH Q8H PRN Nausea and Vomiting Pharmacy Consult 1 each 04/01/21 16:26 Consult Rx Perform Med Rec MISCELLANE ONCE PRN Consult order Sodium Chloride 3 ml 04/02/21 00:00 04/02/21 08:19 0.9 % Sodium Chloride Flush 3 Ml Syringe IVFLUSH 3 ml QSHIFT ALEC Administration Venlafaxine HCl 300 mg 04/02/21 09:00 04/02/21 08:18 Venlafaxine Hcl Er 150 Mg Cap.Er.24h PO 300 mg DAILY ALEC Administration Zolpidem Tartrate 5 mg 04/01/21 21:00 04/01/21 21:01 Zolpidem Tartrate 5 Mg Tablet PO 5 mg BEDTIME ALEC Administration <ROSANNA Moseley - Last Filed: 04/02/21 09:53> Labs CBC & Chem 7: : 04/02/21 05:56 04/02/21 05:56 <ROSANNA Moseley - Last Filed: 04/02/21 09:53> Labs: Laboratory Results - last 24 hr 04/01/21 04/01/21 04/01/21 14:33 14:33 14:33 MCV 85.2 MCH 28.4 MCHC 33.3 RDW 13.2 Plt Count 245 MPV 10.0 Immature Gran % (Auto) 0.7 H Neut % (Auto) 76.8 H Lymph % (Auto) 11.3 L [place] % (Auto) 10.0 Eos % (Auto) 1.0 Baso % (Auto) 0.2 Lymph # (Auto) 1.7 [place] # (Auto) 1.5 H Eos # (Auto) 0.2 Baso # (Auto) 0.0 Abs Immat Gran (auto) 0.10 H Absolute Neuts (auto) 11.3 H Absolute Nucleated RBC 0.000 Nucleated RBC % (auto) 0.0 Anion Gap 14 Estim Creat Clear Calc 66.9 Estimated GFR 58 Random Glucose 106 Calcium 9.2 Total Bilirubin 0.8 AST 23 ALT 26 Alkaline Phosphatase 95 Total Protein 6.7 Albumin 4.1 COVID-19 (MIK) Negative COVID-19 Clin Com See Note 04/02/21 04/02/21 05:56 05:56 MCV 85.6 MCH 28.4 MCHC 33.2 RDW 13.1 Plt Count 278 MPV 10.5 Immature Gran % (Auto) Neut % (Auto) Lymph % (Auto) [place] % (Auto) Eos % (Auto) Baso % (Auto) Lymph # (Auto) [place] # (Auto) Eos # (Auto) Baso # (Auto) Abs Immat Gran (auto) Absolute Neuts (auto) Absolute Nucleated RBC 0.000 Nucleated RBC % (auto) 0.0 Anion Gap 16 Estim Creat Clear Calc 74.0 Estimated GFR > 60 Random Glucose 100 Calcium 9.1 Total Bilirubin AST ALT Alkaline Phosphatase Total Protein Albumin COVID-19 (MIK) COVID-19 Clin Com <ROSANNA Moseley - Last Filed: 04/02/21 09:53> Assessment and Plan (1) Pneumonia: Status: Acute <ROSANNA Moseley - Last Filed: 04/02/21 09:53> Assessment and Plan: This is a 55-year-old male with history of CAD s/p stent placement, chronic diastolic CHF, hypertension, dyslipidemia, WILTON (no cpap machine at home), active smoker who presents to the emergency room with 3 day history of cough, chills, body aches found to have multifocal pneumonia Multifocal pneumonia. persistent leukocytosis No evidence of sepsis covid negative -Continue IV ceftriaxone, doxycycline (started 04/01) -cough suppression Sinus pause 3.6 second pause overnight -cardiology consult -BB on hold for now Tobacco dependence Smoking cessation advised -NRT WILTON Officially diagnosed with sleep apnea but has not received CPAP machine -will order CPAP while in house CAD -continue asa, plavix, statin HTN -continue norvasc, lisinopril, clonidine HFpEF no acute exacerbation -continue home dose of lasix Mood -continue abilify, remeron, effexor Obesity BMI 35.9 Likely contributing to respiratory status weight reduction recommended dvt ppx - lovenox code status - full code attending: dr vargas <ROSANNA Moseley - Last Filed: 04/02/21 09:53> Quality Stroke Does the patient have a stroke diagnosis?: No <ROSANNA Moseley - Last Filed: 04/02/21 09:53> VTE Prior VTE?: No <ROSANNA Moseley - Last Filed: 04/02/21 09:53> VTE Risk Level:: Medical - moderate - high <ROSANNA Moseley - Last Filed: 04/02/21 09:53> VTE Device Contraindication: Treatment Not Indicated <ROSANNA Moseley - Last Filed: 04/02/21 09:53> VTE Drug Contraindication: N/A - Med Ordered <ROSANNA Moseley - Last Filed: 04/02/21 09:53>
--- NOTE | 2021-04-02 11:17 | P.CONCA_ITS ---
History of Present Illness History of Present Illness Date of Service: 04/02/21 Consult reason: other (pause on telemetry) Chief complaint: pneumonia Narrative: This is a cardiology consultation for pause noted on telemetry for about 3.6 seconds. Patient has a history of coronary disease. He sees Dr. Farley. Per his last office note that is scanned, he had STEMI. Anatomy is not mentioned but from a different note there is also scanned in, it appears that he had STEMI in April 2019 for which she underwent drug-eluting stent to the 1st diagonal branch of the LAD. Otherwise, patient has multiple vascular risk factors include hypertension, dyslipidemia, smoking, alcohol excess among others. Current admission is for symptoms of dry cough, aches, chills, shortness of breath. No cardiac symptoms at all. He is diagnosed with pneumonia. While on telemetry he had a 3.2second pause and hence we have been asked to see him. He does not have any dizzy spells or syncopal episodes. He states that he has obstructive sleep apnea but he is not on CPAP. Review of Systems Review of Systems: Yes all other systems are reviewed and are negative Cardiovascular: Cardiovascular: Reports as per HPI, Reports no additional ca rdiovascular complaints, Denies acrocyanosis, Denies cool extremities, Denies painful fingertips, Denies chest pain, Denies chest pain at rest, Denies diaphoresis, Denies syncope, Denies irregular heart rhythm, Denies claudication, Denies leg edema, Denies lightheadedness, Denies palpitations and Reports dyspnea Respiratory: Respiratory: Reports cough and Reports dyspnea Neurologic: Denies syncope Endocrine: Endocrine: Denies palpitations [facility] Past Medical History Medical History (Updated 04/02/21 @ 11:23 by Adrian Sanchez MD) Atherosclerotic cardiovascular disease Farias's esophagus CAD (coronary artery disease) Central sleep apnea Reid-Demarco breathing disorder Chronic idiopathic constipation Degenerative joint disease of left knee Depression Diastolic congestive heart failure Dyslipidemia Essential hypertension Hiatal hernia History of deep venous thrombosis (DVT) of distal vein of left lower extremity Lesion of skin of face SILVA (nonalcoholic steatohepatitis) Recurrent kidney stones Skin cancer STEMI (ST elevation myocardial infarction) Functional capacity: independent ambulation Family History Family History Father Brain cancer Lung cancer Mother Emphysema, unspecified Surgical History Surgical History History of esophagogastroduodenoscopy (EGD) History of total knee arthroplasty Hx of colonoscopy Social History Social History (Updated 04/01/21 @ 16:38 by ROSANNA Moseley) Household Members: Spouse Housing: House Do you presently have visiting nurse or other home services: No Alcohol intake: current Alcohol intake frequency: does not drink Patient Tobacco Use Status: Current everyday Tobacco user Tobacco use type: Cigarette Cigarette Packs Per Day: 1 Cigarettes Per Day: 20.0 Years Smoked: 40 Smoked in Last 30 Days: Yes Patient Interested in Nicotine Replacement: Yes Patient Given Instructions on How to Stop Smoking: Yes Date Education Initiated: 04/01/21 Second Hand Smoke Exposure: No Use of substances other than those prescribed or required for medical reasons: No Currently Displaying Signs/Symptoms of Drug Intoxication Withdrawal: No Any prior treatment program specific to substance use: No Have you been hit, kicked, punched, or otherwise hurt by someone within the past year? If so, by whom?: No Do you feel safe in your current relationship?: Yes Is there a partner from a previous relationship who is making you feel unsafe now?: No Are you made to feel afraid or neglected: No Advance Directives: No Advance Directives Information Provided: No Advance Directives on File: No Do you have thoughts of harming others: None Do you have a plan to hurt others: No Plan Recently lost weight without trying: Unsure How much weight loss: Unsure Eating poorly because of decreased appetite: No Nutrition screen score: 4 Nutrition Risks: No Nutritional Risk Poor oral hygiene: No Meds Allergies Allergy/AdvReac Type Severity Reaction Status Date / Time No Known Allergies Allergy Verified 01/21/21 08:49 [No Known Allergies*] Active Medications: Current Medications Generic Name Dose Route Start Last Admin Trade Name Freq PRN Reason Stop Dose Admin Acetaminophen 650 mg 04/01/21 17:46 04/01/21 21:00 Acetaminophen 325 Mg Tablet PO 650 mg Q4H PRN Administration Pain Amlodipine Besylate 5 mg 04/02/21 09:00 04/02/21 08:19 Amlodipine Besylate 5 Mg Tablet PO 5 mg DAILY ALEC Administration Protocol Aripiprazole 5 mg 04/02/21 09:00 04/02/21 08:19 Aripiprazole 5 Mg Tablet PO 5 mg DAILY ALEC Administration Aripiprazole 20 mg 04/02/21 09:00 04/02/21 08:19 Aripiprazole 20 Mg Tablet PO 20 mg DAILY ALEC Administration Aspirin 81 mg 04/02/21 09:00 04/02/21 08:18 Aspirin Enteric Coated 81 Mg Tablet.Dr PO 81 mg DAILY ALEC Administration Atorvastatin Calcium 80 mg 04/01/21 21:00 04/01/21 21:01 Atorvastatin Calcium 80 Mg Tablet PO 80 mg BEDTIME ALEC Administration Benzonatate 100 mg 04/01/21 17:53 Benzonatate 100 Mg Capsule PO TID PRN Cough Clonidine HCl 0.2 mg 04/01/21 21:00 04/02/21 08:19 Clonidine Hcl 0.2 Mg Tablet PO 0.2 mg BID ALEC Administration Protocol Clopidogrel Bisulfate 75 mg 04/02/21 09:00 04/02/21 08:18 Clopidogrel Bisulfate 75 Mg Tablet PO 75 mg DAILY ALEC Administration Docusate Sodium 100 mg 04/01/21 17:53 Docusate Sodium 100 Mg Capsule PO DAILY PRN Constipation Enoxaparin Sodium 40 mg 04/01/21 20:00 04/01/21 21:00 Enoxaparin Sodium 40 Mg/0.4 Ml Syringe SUBCUT 40 mg Q24H ALEC Administration Furosemide 20 mg 04/02/21 09:00 04/02/21 08:18 Furosemide 20 Mg Tablet PO 20 mg DAILY ALEC Administration Protocol Gabapentin 300 mg 04/01/21 21:00 04/02/21 08:18 Gabapentin 300 Mg Capsule PO 300 mg TID [facility] Administration Guaifenesin/Dextromethorphan 5 ml 04/01/21 17:53 Guaifenesin Dm 100/10/5 Ml 5 Ml Syrup PO Q6H PRN Cough Hydroxyzine HCl 50 mg 04/01/21 17:46 Hydroxyzine Hcl 50 Mg Tablet PO BID PRN Anxiety Doxycycline Hyclate 100 mg/ 250 mls @ 166.67 mls/hr 04/02/21 06:00 04/02/21 08:03 Sodium Chloride IV Infused Q12H ALEC Infusion Ceftriaxone Sodium 1 gm/ 50 mls @ 100 mls/hr 04/02/21 14:00 Sodium Chloride IV Q24H [facility] Lisinopril 5 mg 04/02/21 09:00 04/02/21 08:18 Lisinopril 5 Mg Tablet PO 5 mg DAILY ALEC Administration Protocol Metoprolol Succinate 150 mg 04/02/21 09:00 Metoprolol Succinate Er 50 Mg Tab.Er.24h PO DAILY ALEC Protocol Mirtazapine 15 mg 04/01/21 21:00 04/01/21 21:01 Mirtazapine 15 Mg Tablet PO 15 mg BEDTIME ALEC Administration Multivitamins/Minerals 1 tab 04/02/21 09:00 04/02/21 08:19 Multivitamin With Minerals Tablet PO 1 tab DAILY ALEC Administration Nicotine 14 mg 04/01/21 17:53 04/02/21 08:19 Nicotine 14 Mg Patch.Td24 TRANSDERMA 14 mg DAILY ALEC Administration Omeprazole 20 mg 04/02/21 06:30 04/02/21 06:19 Omeprazole 20 Mg Capsule.Dr PO 20 mg BID@0630,2220 ALEC Administration Ondansetron HCl 4 mg 04/01/21 17:53 Ondansetron Hcl 4 Mg/2 Ml Vial IVPUSH Q8H PRN Nausea and Vomiting Pharmacy Consult 1 each 04/01/21 16:26 Consult Rx Perform Med Rec MISCELLANE ONCE PRN Consult order Sodium Chloride 3 ml 04/02/21 00:00 04/02/21 08:19 0.9 % Sodium Chloride Flush 3 Ml Syringe IVFLUSH 3 ml QSHIFT ALEC Administration Venlafaxine HCl 300 mg 04/02/21 09:00 04/02/21 08:18 Venlafaxine Hcl Er 150 Mg Cap.Er.24h PO 300 mg DAILY ALEC Administration Zolpidem Tartrate 5 mg 04/01/21 21:00 04/01/21 21:01 Zolpidem Tartrate 5 Mg Tablet PO 5 mg BEDTIME ALEC Administration Home Medications Medication Instructions Recorded Confirmed Last Taken Type amlodipine 5 mg tablet 5 mg PO DAILY 10/05/20 04/01/21 04/01/21 History aspirin 81 mg tablet,delayed 81 mg PO DAILY 10/05/20 04/01/21 04/01/21 History release atorvastatin 80 mg tablet 80 mg PO BEDTIME 10/05/20 04/01/21 03/31/21 History clopidogrel 75 mg tablet 75 mg PO DAILY 10/05/20 04/01/21 04/01/21 History lisinopril 5 mg tablet 5 mg PO DAILY 10/05/20 04/01/21 04/01/21 History venlafaxine 150 mg 300 mg PO DAILY 10/05/20 04/01/21 04/01/21 History capsule,extended release 24 hr furosemide 20 mg tablet 20 mg PO DAILY 12/08/20 04/01/21 04/01/21 History zolpidem 5 mg tablet 5 mg PO BEDTIME 12/29/20 04/01/21 03/31/21 History metoprolol succinate 50 mg 150 mg PO DAILY tab 01/21/21 04/01/21 04/01/21 History tablet,extended release 24 hr acetaminophen 325 mg tablet 650 mg PO Q4H PRN 04/01/21 04/01/21 Unknown History aripiprazole 20 mg tablet 20 mg PO DAILY 04/01/21 04/01/21 04/01/21 History aripiprazole 5 mg tablet 5 mg PO DAILY 04/01/21 04/01/21 04/01/21 History clonidine HCl 0.2 mg tablet 0.2 mg PO BID 04/01/21 04/01/21 04/01/21 History gabapentin 300 mg capsule 300 mg PO TID 04/01/21 04/01/21 04/01/21 History hydroxyzine pamoate 50 mg capsule 50 mg PO BID PRN 04/01/21 04/01/21 04/01/21 History mirtazapine 15 mg tablet 15 mg PO BEDTIME 04/01/21 04/01/21 03/31/21 History epyodvvwcvpc-yymxodkn-jfhuyl tablet 1 tab PO DAILY 04/01/21 04/01/21 04/01/21 History Physical Exam Vital Signs: Vital Signs: Last Vital Signs Temp 98.4 F 04/02/21 08:16 Pulse 75 04/02/21 08:19 Resp 24 H 04/02/21 08:16 BP 143/81 H 04/02/21 08:19 Pulse Ox 93 04/02/21 08:16 Oxygen Flow Rate 2 04/01/21 14:50 Body Mass Index 36.0 Const: General: cooperative and no acute distress HENMT: Other: Unremarkable Neck: Neck: Yes normal visual inspection Chest: Chest palpation & inspection: normal inspection of the chest Resp: Auscultation: clear to auscultation bilaterally, no crackles and no wheezes Cardio: Jugular venous distension: no JVD Palpation: normal PMI Heart sounds: S1 normal heart sound present, S2 normal heart sound present, no gallops, no murmurs and no rubs GI: Palpation (GI): Soft to palpation Back/Spine/Pelvis: Other: unremarkable Skin: General skin exam: no rashes or lesions noted Neuro: Cranial nerves: Yes Other cranial nerve findings present Extrem: General: Yes no clubbing, cyanosis or edema Psych: Mental Status: other Results Labs and Meds Result diagrams: 04/02/21 05:56 04/02/21 05:56 Lab results: Laboratory Results - last 24 hr 04/01/21 04/01/21 04/01/21 14:33 14:33 14:33 WBC 14.7 H RBC 4.47 L Hgb 12.7 L Hct 38.1 L MCV 85.2 MCH 28.4 MCHC 33.3 RDW 13.2 Plt Count 245 MPV 10.0 Immature Gran % (Auto) 0.7 H Neut % (Auto) 76.8 H Lymph % (Auto) 11.3 L [place] % (Auto) 10.0 Eos % (Auto) 1.0 Baso % (Auto) 0.2 Lymph # (Auto) 1.7 [place] # (Auto) 1.5 H Eos # (Auto) 0.2 Baso # (Auto) 0.0 Abs Immat Gran (auto) 0.10 H Absolute Neuts (auto) 11.3 H Absolute Nucleated RBC 0.000 Nucleated RBC % (auto) 0.0 Sodium 142 Potassium 4.2 Chloride 107 Carbon Dioxide 25 Anion Gap 14 BUN 19 H Creatinine 1.28 Estim Creat Clear Calc 66.9 Estimated GFR 58 Random Glucose 106 Calcium 9.2 Total Bilirubin 0.8 AST 23 ALT 26 Alkaline Phosphatase 95 Total Protein 6.7 Albumin 4.1 COVID-19 (MIK) Negative COVID-19 Clin Com See Note 04/02/21 04/02/21 05:56 05:56 WBC 15.2 H RBC 4.51 L Hgb 12.8 L Hct 38.6 L MCV 85.6 MCH 28.4 MCHC 33.2 RDW 13.1 Plt Count 278 MPV 10.5 Immature Gran % (Auto) Neut % (Auto) Lymph % (Auto) [place] % (Auto) Eos % (Auto) Baso % (Auto) Lymph # (Auto) [place] # (Auto) Eos # (Auto) Baso # (Auto) Abs Immat Gran (auto) Absolute Neuts (auto) Absolute Nucleated RBC 0.000 Nucleated RBC % (auto) 0.0 Sodium 142 Potassium 4.2 Chloride 108 Carbon Dioxide 22 Anion Gap 16 BUN 24 H Creatinine 1.16 Estim Creat Clear Calc 74.0 Estimated GFR > 60 Random Glucose 100 Calcium 9.1 Total Bilirubin AST ALT Alkaline Phosphatase Total Protein Albumin COVID-19 (MKI) COVID-19 Clin Com ECG Interpretation: Admission EKG with sinus rhythm and no acute ischemic changes. There is a short pauses of 3.6 seconds at 06:35 which seems to be rather a transient heart block as there are nonconducted P waves. Imaging Radiologist's impression: Impressions Chest X-Ray 04/01/21 13:24 IMPRESSION: Patchy infiltrate right middle lobe and right lower lobe. Assessment and Plan (1) Heart block atrioventricular: Status: Acute (2) WILTON (obstructive sleep apnea): Status: Acute (3) Atherosclerotic cardiovascular disease: Status: Acute Transiet AV block likely from untreated WILTON. No need for any pacing therapy. He sees in this regard but not recently. Needs evaluation and treatment of WILTON. Otherwise, doubt any ACS or any other acute cardiac issue, but considering the hx of STEMI, may check Trops. Procedures Date of Service Date of Service: 04/02/21
[2021-04-02 12:56] LABS: Troponin-I High Sensitivity 6.7 ng/L (<3.5-35.0)
--- NOTE | 2021-04-02 13:25 | PM.CNPUL ---
History of Present Illness History of Present Illness Consult date: 04/02/21 Chief complaint: pneumonia Narrative: This is a 55-year-old man with a history of complex sleep apnea, CAD, DVT now off anticoagulation who now presents with 3 days patient of worsening dry cough, body aches, chills and shortness and pleuritic chest pain. He denies any recent sick contacts.? He is fully vaccinated against COVID-19, received the pfizer vaccine and completed vaccination in October.? He denies any recent travel.? Labwork was significant for leukocytosis of 14.7.? Chest x-ray showed multifocal pneumonia.? COVID swab was negative.? Patient was started on IV ceftriaxone and doxycycline.? He had 1 low oxygen saturation documented at 90%. The decision was made to admit him for further management. He was evaluated by cardiology due to a cardiac pause and cardiology emphysized the importance of treating the underlying sleep apnea. The patient has had sleep studies in the past non that are available to me at this time. The patient's major complaint is the pleuritic chest pain the right that feels like a knife when breathing in. The patient did not have a Ddimer done, but he does have a history of DVT and has been off anticoagulation at this time. Review of Systems Constitutional: Constitutional: Reports chills and Denies night sweats ENT: Denies change in voice, Denies lip swelling, Denies mouth pain, Reports nasal congestion, Reports nasal discharge and Denies tongue swelling Cardiovascular: Cardiovascular: Denies chest pain and Reports dyspnea on exertion Respiratory: Respiratory: Denies chest congestion, Reports cough, Reports pain on inspiration, Reports pain with cough and Reports dyspnea on exertion Gastrointestinal: Gastrointestinal: Denies abdominal pain Musculoskeletal: Musculoskeletal: Denies no additional musculoskeletal complaints Neurologic: Denies Neuro-related abnormal movements Psychiatric: Psychiatric: Denies no additional psychiatric complaints Hematologic/Lymphatic: Hematologic/Lymphatic: Denies easy bleeding and Denies lymphadenopathy Allergic/Immunologic: Allergic/Immunologic: Denies lip swelling and Denies tongue swelling [facility] Past Medical History Medical History (Updated 04/02/21 @ 13:33 by Dustin Faria MD) Atherosclerotic cardiovascular disease Farias's esophagus CAD (coronary artery disease) Central sleep apnea Reid-Demarco breathing disorder Chronic idiopathic constipation Degenerative joint disease of left knee Depression Diastolic congestive heart failure Dyslipidemia Essential hypertension Hiatal hernia History of deep venous thrombosis (DVT) of distal vein of left lower extremity Lesion of skin of face SILVA (nonalcoholic steatohepatitis) Recurrent kidney stones Skin cancer Sleep apnea STEMI (ST elevation myocardial infarction) Functional capacity: independent ambulation Family History Family History Father Brain cancer Lung cancer Mother Emphysema, unspecified Surgical History Surgical History History of esophagogastroduodenoscopy (EGD) History of total knee arthroplasty Hx of colonoscopy Social History Social History (Updated 04/01/21 @ 16:38 by ROSANNA Moseley) Household Members: Spouse Housing: House Do you presently have visiting nurse or other home services: No Alcohol intake: current Alcohol intake frequency: does not drink Patient Tobacco Use Status: Current everyday Tobacco user Tobacco use type: Cigarette Cigarette Packs Per Day: 1 Cigarettes Per Day: 20.0 Years Smoked: 40 Smoked in Last 30 Days: Yes Patient Interested in Nicotine Replacement: Yes Patient Given Instructions on How to Stop Smoking: Yes Date Education Initiated: 04/01/21 Second Hand Smoke Exposure: No Use of substances other than those prescribed or required for medical reasons: No Currently Displaying Signs/Symptoms of Drug Intoxication Withdrawal: No Any prior treatment program specific to substance use: No Have you been hit, kicked, punched, or otherwise hurt by someone within the past year? If so, by whom?: No Do you feel safe in your current relationship?: Yes Is there a partner from a previous relationship who is making you feel unsafe now?: No Are you made to feel afraid or neglected: No Advance Directives: No Advance Directives Information Provided: No Advance Directives on File: No Do you have thoughts of harming others: None Do you have a plan to hurt others: No Plan Recently lost weight without trying: Unsure How much weight loss: Unsure Eating poorly because of decreased appetite: No Nutrition screen score: 4 Nutrition Risks: No Nutritional Risk Poor oral hygiene: No Meds Allergies Allergy/AdvReac Type Severity Reaction Status Date / Time No Known Allergies Allergy Verified 01/21/21 08:49 [No Known Allergies*] Active Medications: Current Medications Generic Name Dose Route Start Last Admin Trade Name Freq PRN Reason Stop Dose Admin Acetaminophen 650 mg 04/01/21 17:46 04/01/21 21:00 Acetaminophen 325 Mg Tablet PO 650 mg Q4H PRN Administration Pain Amlodipine Besylate 5 mg 04/02/21 09:00 04/02/21 08:19 Amlodipine Besylate 5 Mg Tablet PO 5 mg DAILY A[facility]C Administration Protocol Aripiprazole 5 mg 04/02/21 09:00 04/02/21 08:19 Aripiprazole 5 Mg Tablet PO 5 mg DAILY A[facility]C Administration Aripiprazole 20 mg 04/02/21 09:00 04/02/21 08:19 Aripiprazole 20 Mg Tablet PO 20 mg DAILY A[facility]C Administration Aspirin 81 mg 04/02/21 09:00 04/02/21 08:18 Aspirin Enteric Coated 81 Mg Tablet.Dr PO 81 mg DAILY ALEC Administration Atorvastatin Calcium 80 mg 04/01/21 21:00 04/01/21 21:01 Atorvastatin Calcium 80 Mg Tablet PO 80 mg BEDTIME ALEC Administration Benzonatate 100 mg 04/01/21 17:53 Benzonatate 100 Mg Capsule PO TID PRN Cough Clonidine HCl 0.2 mg 04/01/21 21:00 04/02/21 08:19 Clonidine Hcl 0.2 Mg Tablet PO 0.2 mg BID ALEC Administration Protocol Clopidogrel Bisulfate 75 mg 04/02/21 09:00 04/02/21 08:18 Clopidogrel Bisulfate 75 Mg Tablet PO 75 mg DAILY ALEC Administration Docusate Sodium 100 mg 04/01/21 17:53 Docusate Sodium 100 Mg Capsule PO DAILY PRN Constipation Enoxaparin Sodium 40 mg 04/01/21 20:00 04/01/21 21:00 Enoxaparin Sodium 40 Mg/0.4 Ml Syringe SUBCUT 40 mg Q24H ALEC Administration Furosemide 20 mg 04/02/21 09:00 04/02/21 08:18 Furosemide 20 Mg Tablet PO 20 mg DAILY ALEC Administration Protocol Gabapentin 300 mg 04/01/21 21:00 04/02/21 08:18 Gabapentin 300 Mg Capsule PO 300 mg TID ALEC Administration Guaifenesin/Dextromethorphan 5 ml 04/01/21 17:53 Guaifenesin Dm 100/10/5 Ml 5 Ml Syrup PO Q6H PRN Cough Hydroxyzine HCl 50 mg 04/01/21 17:46 Hydroxyzine Hcl 50 Mg Tablet PO BID PRN Anxiety Doxycycline Hyclate 100 mg/ 250 mls @ 166.67 mls/hr 04/02/21 06:00 04/02/21 08:03 Sodium Chloride IV Infused Q12H ALEC Infusion Ceftriaxone Sodium 1 gm/ 50 mls @ 100 mls/hr 04/02/21 14:00 Sodium Chloride IV Q24H ALEC Lisinopril 5 mg 04/02/21 09:00 04/02/21 08:18 Lisinopril 5 Mg Tablet PO 5 mg DAILY ALEC Administration Protocol Metoprolol Succinate 150 mg 04/02/21 09:00 Metoprolol Succinate Er 50 Mg Tab.Er.24h PO DAILY [facility] Protocol Mirtazapine 15 mg 04/01/21 21:00 04/01/21 21:01 Mirtazapine 15 Mg Tablet PO 15 mg BEDTIME ALEC Administration Multivitamins/Minerals 1 tab 04/02/21 09:00 04/02/21 08:19 Multivitamin With Minerals Tablet PO 1 tab DAILY [facility] Administration Nicotine 14 mg 04/01/21 17:53 04/02/21 08:19 Nicotine 14 Mg Patch.Td24 TRANSDERMA 14 mg DAILY [facility] Administration Omeprazole 20 mg 04/02/21 06:30 04/02/21 06:19 Omeprazole 20 Mg Capsule. PO 20 mg BID@0630,1630 ALEC Administration Ondansetron HCl 4 mg 04/01/21 17:53 Ondansetron Hcl 4 Mg/2 Ml Vial IVPUSH Q8H PRN Nausea and Vomiting Pharmacy Consult 1 each 04/01/21 16:26 Consult Rx Perform Med Rec MISCELLANE ONCE PRN Consult order Prednisone 20 mg 04/02/21 13:30 Prednisone 20 Mg Tablet PO DAILY [facility] Sodium Chloride 3 ml 04/02/21 00:00 04/02/21 08:19 0.9 % Sodium Chloride Flush 3 Ml Syringe IVFLUSH 3 ml QSHIFT ALEC Administration Venlafaxine HCl 300 mg 04/02/21 09:00 04/02/21 08:18 Venlafaxine Hcl Er 150 Mg Cap.Er.24h PO 300 mg DAILY [facility] Administration Zolpidem Tartrate 5 mg 04/01/21 21:00 04/01/21 21:01 Zolpidem Tartrate 5 Mg Tablet PO 5 mg BEDTIME [facility]C Administration Home Medications Medication Instructions Recorded Confirmed Last Taken Type amlodipine 5 mg tablet 5 mg PO DAILY 10/05/20 04/01/21 04/01/21 History aspirin 81 mg tablet,delayed 81 mg PO DAILY 10/05/20 04/01/21 04/01/21 History release atorvastatin 80 mg tablet 80 mg PO BEDTIME 10/05/20 04/01/21 03/31/21 History clopidogrel 75 mg tablet 75 mg PO DAILY 10/05/20 04/01/21 04/01/21 History lisinopril 5 mg tablet 5 mg PO DAILY 10/05/20 04/01/21 04/01/21 History venlafaxine 150 mg 300 mg PO DAILY 10/05/20 04/01/21 04/01/21 History capsule,extended release 24 hr furosemide 20 mg tablet 20 mg PO DAILY 12/08/20 04/01/21 04/01/21 History zolpidem 5 mg tablet 5 mg PO BEDTIME 12/29/20 04/01/21 03/31/21 History metoprolol succinate 50 mg 150 mg PO DAILY tab 01/21/21 04/01/21 04/01/21 History tablet,extended release 24 hr acetaminophen 325 mg tablet 650 mg PO Q4H PRN 04/01/21 04/01/21 Unknown History aripiprazole 20 mg tablet 20 mg PO DAILY 04/01/21 04/01/21 04/01/21 History aripiprazole 5 mg tablet 5 mg PO DAILY 04/01/21 04/01/21 04/01/21 History clonidine HCl 0.2 mg tablet 0.2 mg PO BID 04/01/21 04/01/21 04/01/21 History gabapentin 300 mg capsule 300 mg PO TID 04/01/21 04/01/21 04/01/21 History hydroxyzine pamoate 50 mg capsule 50 mg PO BID PRN 04/01/21 04/01/21 04/01/21 History mirtazapine 15 mg tablet 15 mg PO BEDTIME 04/01/21 04/01/21 03/31/21 History vxofugzhcqzb-sqwpukpl-ltfmuc tablet 1 tab PO DAILY 04/01/21 04/01/21 04/01/21 History Physical Exam Vital Signs: Vital Signs: Last Vital Signs Temp 98.3 F 04/02/21 12:40 Pulse 78 04/02/21 12:40 Resp 22 H 04/02/21 12:40 BP 112/82 04/02/21 12:40 Pulse Ox 93 04/02/21 12:40 Oxygen Flow Rate 2 04/01/21 14:50 Body Mass Index 36.0 Const: General: alert Neck: Neck: Yes normal visual inspection, Yes full ROM and Yes no lymphadenopathy Chest: Chest palpation & inspection: normal inspection of the chest Resp: Auscultation: diminished lung sounds Cardio: Rate: regular rate Rhythm: regular rhythm Heart sounds: S1 normal heart sound present and S2 normal heart sound present GI: Palpation (GI): Soft to palpation and nontender Auscultation: normal bowel sounds Skin: General skin exam: rashes and/or lesions noted Results Laboratory Findings CBC and BMP: 04/02/21 05:56 04/02/21 05:56 Abnormal lab findings: Abnormal Labs 04/01/21 04/01/21 04/02/21 14:33 14:33 05:56 WBC 14.7 H 15.2 H RBC 4.47 L 4.51 L Hgb 12.7 L 12.8 L Hct 38.1 L 38.6 L Immature Gran % (Auto) 0.7 H Neut % (Auto) 76.8 H Lymph % (Auto) 11.3 L [place] # (Auto) 1.5 H Abs Immat Gran (auto) 0.10 H Absolute Neuts (auto) 11.3 H BUN 19 H 04/02/21 05:56 WBC RBC Hgb Hct Immature Gran % (Auto) Neut % (Auto) Lymph % (Auto) [place] # (Auto) Abs Immat Gran (auto) Absolute Neuts (auto) BUN 24 H Assessment and Plan (1) Sleep apnea: Qualifiers: Sleep apnea type: central sleep apnea associated with underlying condition Qualified Code(s): G47.37 - Central sleep apnea in conditions classified elsewhere Status: Acute (2) Pneumonia: Qualifiers: Pneumonia type: due to unspecified organism Laterality: right Lung location: unspecified part of lung Qualified Code(s): J18.9 - Pneumonia, unspecified organism Status: Acute (3) Pleuritic chest pain: Status: Acute Will arrange f/u in our pulmonary office to make sure that his sleep apnea is dealt with In the meantime, will request a CTA to r/o PE Toradol x 1 Prednisone 20 mg to help with the pleurisy Continue CTX/Doxy Procedures Date of Service Date of Service: 04/02/21
[2021-04-02] MEDS: Ketorolac Tromethamine 15 MG/ML VIAL 30 MG IVPUSH (14:39)
[2021-04-02] MEDS: predniSONE 20 MG TABLET PO (14:39)
--- NOTE | 2021-04-02 16:08 | MHC.CM.PN ---
CM ATTEMPTED TO SEE PT WHO WAS SLEEPING. CM ATTEMPTED TO CONTACT PTS , [facility] AT THE NUMBER LISTED ) WHICH WAS OUT OF SERVICE. CM WILL REVISIT
[2021-04-02] MEDS: Atorvastatin Calcium 80 MG TABLET PO (20:46)
[2021-04-02] MEDS: Mirtazapine 15 MG TABLET PO (20:46)
[2021-04-02] MEDS: Enoxaparin Sodium 40 MG/0.4 ML SYRINGE SUBCUT (20:48)
[2021-04-03] VITALS (8 sets, daily range): BP systolic 113–165; BP diastolic 67–92; PULSE 68–80; RESP 16–22; TEMP 36.3–36.9; O2SAT 96–97
[2021-04-03 05:37] LABS: Hematocrit 37.9 % (42-52); Hemoglobin 12.6 g/dl (14.0-18.0); Mean Corpuscular HGB Conc 33.2 g/dl (31.0-36.0); Mean Corpuscular Hemoglobin 28.4 pg (27.0-33.0); Mean Corpuscular Volume 85.6 fL (80-98); Mean Platelet Volume 10.1 fL (9.4-12.4); Platelet Count 304 X10*3/uL (160-400); Red Blood Count 4.43 X10*6/uL (4.60-5.80); Red Cell Distribution Width 12.9 % (11.0-16.0); White Blood Count 13.6 X10*3/uL (4.8-10.8)
[2021-04-03] MEDS: Omeprazole 20 MG CAPSULE.DR PO ×2 (05:38→14:53)
[2021-04-03] MEDS: Doxycycline Hyclate 100 MG in 0.9 % Sodium Chloride 250 ML 166.67 MG IV ×2 (05:39→17:13)
[2021-04-03 06:05] LABS: Anion Gap 15 (12-20); Blood Urea Nitrogen 26 mg/dL (9-16); Calcium 9.1 mg/dL (8.4-10.2); Carbon Dioxide 24 mmol/L (22-29); Chloride 107 mmol/L (96-108); Creatinine Clr Calc Pharmacy 73.4; Estimated Glomerular Filt Rate > 60; Glucose Random 171 mg/dL (60-115); Potassium 4.5 mmol/L (3.3-5.1); Sodium 141 mmol/L (135-145)
[2021-04-03 07:59] LABS: Adenovirus PCR Not Detected (Not Detect.); Bordetella parapertussis PCR Not Detected (Not Detect.); Bordetella pertussis PCR Not Detected (Not Detect.); Chlamydia pneumoniae PCR Not Detected (Not Detect.); Coronavirus 229E PCR Not Detected (Not Detect.); Coronavirus HKU1 PCR Not Detected (Not Detect.); Coronavirus NL63 PCR Not Detected (Not Detect.); Coronavirus OC43 PCR Not Detected (Not Detect.); Human metapneumovirus PCR Not Detected (Not Detect.); Influenza A PCR Not Detected (Not Detect.); Influenza B PCR Not Detected (Not Detect.); Mycoplasma pneumoniae PCR Not Detected (Not Detect.); Parainfluenza 1 PCR Not Detected (Not Detect.); Parainfluenza 2 PCR Not Detected (Not Detect.); Parainfluenza 3 PCR Not Detected (Not Detect.); Parainfluenza 4 PCR Not Detected (Not Detect.); RSV PCR Not Detected (Not Detect.); Rhino/Enterovirus PCR Not Detected (Not Detect.); SARS-CoV-2 PCR Not Detected (Not Detect.)
[2021-04-03] MEDS: Nicotine 14 MG PATCH.TD24 TRANSDERMA (08:17)
[2021-04-03] MEDS: Gabapentin 300 MG CAPSULE PO ×3 (08:17→20:47)
[2021-04-03] MEDS: ARIPiprazole 20 MG TABLET PO (08:17)
[2021-04-03] MEDS: Venlafaxine HCl ER 150 MG CAP.ER.24H 300 MG PO (08:17)
[2021-04-03] MEDS: predniSONE 20 MG TABLET PO (08:17)
[2021-04-03] MEDS: Clopidogrel Bisulfate 75 MG TABLET PO (08:17)
[2021-04-03] MEDS: ARIPiprazole 5 MG TABLET PO (08:17)
[2021-04-03] MEDS: Aspirin Enteric Coated 81 MG TABLET.DR PO (08:17)
[2021-04-03] MEDS: Furosemide 20 MG TABLET PO (08:17)
[2021-04-03] MEDS: amLODIPine Besylate 5 MG TABLET PO (08:17)
[2021-04-03] MEDS: 0.9 % Sodium Chloride Flush 3 ML SYRINGE IVFLUSH ×2 (08:18→14:53)
--- NOTE | 2021-04-03 09:26 | HO.PM.IMPN ---
Subjective Subjective Date of Service: 04/03/21 <ROSANNA Moseley - Last Filed: 04/03/21 09:52> 04/04/21 <Holland Vargas MD - Last Filed: 04/04/21 13:14> Interval History: seen and examined this morning 8 second sinus pause noted on telemetry. has had multiple shorter pauses overnight during sleep. ongoing dry cough and pain with coughing. feels short of breath without oxygen although no hypoxia documented <ROSANNA Moseley - Last Filed: 04/03/21 09:52> Review of Systems Review of Systems: Yes all other systems are reviewed and are negative <ROSANNA Moseley Last Filed: 04/03/21 09:52> Constitutional Constitutional: Denies chills and Denies fever(s) <ROSANNA Moseley Last Filed: 04/03/21 09:52> Cardiovascular Cardiovascular: Reports dyspnea <ROSANNA Moseley Last Filed: 04/03/21 09:52> Respiratory Respiratory: Reports cough, Reports pain with cough and Reports dyspnea <ROSANNA Moseley - Last Filed: 04/03/21 09:52> Gastrointestinal Gastrointestinal: Denies abdominal pain <ROSANNA Moseley Last Filed: 04/03/21 09:52> Physical Exam Vital Signs: Vital Signs: Last Vital Signs Temp 97.4 F 04/03/21 07:33 Pulse 68 04/03/21 08:17 Resp 16 04/03/21 07:33 BP 152/86 H 04/03/21 08:17 Pulse Ox 97 04/03/21 07:33 Oxygen Flow Rate 2 04/01/21 14:50 Body Mass Index 36.0 <ROSANNA Moseley Last Filed: 04/03/21 09:52> Const: General: comfortable, no acute distress, alert and awake <ROSANNA Moseley Last Filed: 04/03/21 09:52> Nutritional Appearance: overweight <ROSANNA Moseley Last Filed: 04/03/21 09:52> Orientation/consciousness: patient oriented x3 <ROSANNA Moseley Last Filed: 04/03/21 09:52> HENMT: Head: Yes normocephalic and Yes atraumatic <ROSANNA Moseley Last Filed: 04/03/21 09:52> Eyes: Sclerae: sclerae normal <ROSANNA Moseley Last Filed: 04/03/21 09:52> Chest: Chest palpation & inspection: normal inspection of the chest <ROSANNA Moseley Last Filed: 04/03/21 09:52> Resp: Other: diminished, no wheezed, rales <ROSANNA Moseley Last Filed: 04/03/21 09:52> Effort & Inspection: normal respiratory effort and no respiratory distress <ROSANNA Moseley Last Filed: 04/03/21 09:52> Cardio: Rate: regular rate <ROSANNA Moseley Last Filed: 04/03/21 09:52> Rhythm: regular rhythm <ROSANNA Moseley Last Filed: 04/03/21 09:52> GI: Palpation (GI): Soft to palpation and nontender <ROSANNA Moseley Last Filed: 04/03/21 09:52> Neuro: General: patient oriented x3 <ROSANNA Moseley Last Filed: 04/03/21 09:52> Cranial nerves: Yes CN's II-XII intact bilaterally and Yes Bilaterally intact EOM present <ROSANNA Moseley Last Filed: 04/03/21 09:52> Extrem: General: Yes normal to inspection <ROSANNA Moseley Last Filed: 04/03/21 09:52> Objective Data Current Medications Generic Name Dose Route Start Last Admin Trade Name Freq PRN Reason Stop Dose Admin Acetaminophen 650 mg 04/01/21 17:46 04/01/21 21:00 Acetaminophen 325 Mg Tablet PO 650 mg Q4H PRN Administration Pain Amlodipine Besylate 5 mg 04/02/21 09:00 04/03/21 08:17 Amlodipine Besylate 5 Mg Tablet PO 5 mg DAILY [facility] Administration Protocol Aripiprazole 5 mg 04/02/21 09:00 04/03/21 08:17 Aripiprazole 5 Mg Tablet PO 5 mg DAILY [facility] Administration Aripiprazole 20 mg 04/02/21 09:00 04/03/21 08:17 Aripiprazole 20 Mg Tablet PO 20 mg DAILY [facility] Administration Aspirin 81 mg 04/02/21 09:00 04/03/21 08:17 Aspirin Enteric Coated 81 Mg Tablet.Dr PO 81 mg DAILY [facility] Administration Atorvastatin Calcium 80 mg 04/01/21 21:00 04/02/21 20:46 Atorvastatin Calcium 80 Mg Tablet PO 80 mg BEDTIME [facility] Administration Atropine Sulfate 0.5 mg 04/03/21 07:13 Atropine Sulfate 1 Mg/Ml Vial IVPUSH ONCE PRN HR<45 Benzonatate 100 mg 04/01/21 17:53 Benzonatate 100 Mg Capsule PO TID PRN Cough Clopidogrel Bisulfate 75 mg 04/02/21 09:00 04/03/21 08:17 Clopidogrel Bisulfate 75 Mg Tablet PO 75 mg DAILY [facility] Administration Docusate Sodium 100 mg 04/01/21 17:53 Docusate Sodium 100 Mg Capsule PO DAILY PRN Constipation Enoxaparin Sodium 40 mg 04/01/21 20:00 04/02/21 20:48 Enoxaparin Sodium 40 Mg/0.4 Ml Syringe SUBCUT 40 mg Q24H [facility] Administration Furosemide 20 mg 04/02/21 09:00 04/03/21 08:17 Furosemide 20 Mg Tablet PO 20 mg DAILY [facility] Administration Protocol Gabapentin 300 mg 04/01/21 21:00 04/03/21 08:17 Gabapentin 300 Mg Capsule PO 300 mg TID [facility] Administration Guaifenesin/Dextromethorphan 5 ml 04/01/21 17:53 Guaifenesin Dm 100/10/5 Ml 5 Ml Syrup PO Q6H PRN Cough Hydroxyzine HCl 50 mg 04/01/21 17:46 Hydroxyzine Hcl 50 Mg Tablet PO BID PRN Anxiety Doxycycline Hyclate 100 mg/ 250 mls @ 166.67 mls/hr 04/02/21 06:00 04/03/21 07:59 Sodium Chloride IV Infused Q12H [facility] Infusion Ceftriaxone Sodium 1 gm/ 50 mls @ 100 mls/hr 04/02/21 14:00 04/02/21 15:36 Sodium Chloride IV Infused Q24H [facility] Infusion Lisinopril 5 mg 04/02/21 09:00 04/03/21 08:17 Lisinopril 5 Mg Tablet PO 5 mg DAILY [facility] Administration Protocol Mirtazapine 15 mg 04/01/21 21:00 04/02/21 20:46 Mirtazapine 15 Mg Tablet PO 15 mg BEDTIME [facility] Administration Multivitamins/Minerals 1 tab 04/02/21 09:00 04/03/21 08:17 Multivitamin With Minerals Tablet PO 1 tab DAILY [facility] Administration Nicotine 14 mg 04/01/21 17:53 04/03/21 08:17 Nicotine 14 Mg Patch.Td24 TRANSDERMA 14 mg DAILY [facility] Administration Omeprazole 20 mg 04/02/21 06:30 04/03/21 05:38 Omeprazole 20 Mg Capsule. PO 20 mg BID@0630,9110 [facility] Administration Ondansetron HCl 4 mg 04/01/21 17:53 Ondansetron Hcl 4 Mg/2 Ml Vial IVPUSH Q8H PRN Nausea and Vomiting Pharmacy Consult 1 each 04/01/21 16:26 Consult Rx Perform Med Rec MISCELLANE ONCE PRN Consult order Prednisone 20 mg 04/02/21 13:30 04/03/21 08:17 Prednisone 20 Mg Tablet PO 20 mg DAILY [facility] Administration Sodium Chloride 3 ml 04/02/21 00:00 04/03/21 08:18 0.9 % Sodium Chloride Flush 3 Ml Syringe IVFLUSH 3 ml QSHIFT [facility] Administration Venlafaxine HCl 300 mg 04/02/21 09:00 04/03/21 08:17 Venlafaxine Hcl Er 150 Mg Cap.Er.24h PO 300 mg DAILY [facility] Administration Zolpidem Tartrate 5 mg 04/01/21 21:00 04/02/21 20:47 Zolpidem Tartrate 5 Mg Tablet PO Not Given BEDTIME [facility] <ROSANNA Moseley - Last Filed: 04/03/21 09:52> Labs CBC & Chem 7: : 04/03/21 04:37 04/03/21 04:37 <ROSANNA Moseley - Last Filed: 04/03/21 09:52> Labs: Laboratory Results - last 24 hr 04/02/21 04/03/21 04/03/21 12:23 04:37 04:37 MCV 85.6 MCH 28.4 MCHC 33.2 RDW 12.9 Plt Count 304 MPV 10.1 Absolute Nucleated RBC 0.000 Nucleated RBC % (auto) 0.0 Anion Gap 15 Estim Creat Clear Calc 73.4 Estimated GFR > 60 Random Glucose 171 H D Calcium 9.1 Troponin I High Sens 6.7 <ROSANNA Moseley - Last Filed: 04/03/21 09:52> Microbiology Microbiology Results: Microbiology 04/01/21 14:33 Blood Culture - Preliminary Blood - Venous No growth after 24 hours. 04/01/21 14:33 Blood Culture - Preliminary Blood - Venous No growth after 24 hours. <ROSANNA Moseley - Last Filed: 04/03/21 09:52> Assessment and Plan (1) Sleep apnea: Status: Acute <ROSANNA Moseley - Last Filed: 04/03/21 09:52> (2) Heart block atrioventricular: Status: Acute <ROSANNA Moseley - Last Filed: 04/03/21 09:52> (3) Pneumonia: Status: Acute <ROSANNA Moseley - Last Filed: 04/03/21 09:52> Assessment and Plan: This is a 55-year-old male with history of CAD s/p stent placement, chronic diastolic CHF, hypertension, dyslipidemia, WIL[place] (no cpap machine at home), active smoker who presents to the emergency room with 3 day history of cough, chills, body aches found to have multifocal pneumonia Multifocal pneumonia. leukocytosis trending down No evidence of sepsis covid negative seen by pulmonology CTA negative for PE -RPP pending -Continue IV ceftriaxone, doxycycline (started 04/01) -cough suppression -started on prednisone Sinus pause Initially thought to be related to [place]IL[place], 8 second pause overnight -pulm on board for management of [place] -cardiology consult, will re-eval -BB, clonidine on hold -pacer pads, prn atropine ordered WIL[place] Sleep study 06/2019, showing complex sleep apnea. CPAP titration not successful b/c central component got worse -seen by pulm, rec overnight oximetry test -pulmonology following Tobacco dependence Smoking cessation advised -NRT CAD -continue asa, plavix, statin HTN -continue norvasc, lisinopril -clonidine, metoprolol on hold HFpEF no acute exacerbation -continue home dose of lasix Mood -continue abilify, remeron, effexor Obesity BMI 35.9 Likely contributing to respiratory status weight reduction recommended dvt ppx - lovenox code status - full code attending: dr vargas <ROSANNA Moseley - Last Filed: 04/03/21 09:52> Quality Stroke Does the patient have a stroke diagnosis?: No <ROSANNA oMseley - Last Filed: 04/03/21 09:52> VTE Prior VTE?: No <ROSANNA Moseley - Last Filed: 04/03/21 09:52> VTE Risk Level:: Medical - moderate - high <ROSANNA Moseley - Last Filed: 04/03/21 09:52> VTE Device Contraindication: Treatment Not Indicated <ROSANNA Moseley - Last Filed: 04/03/21 09:52> VTE Drug Contraindication: N/A - Med Ordered <ROSANNA Moseley - Last Filed: 04/03/21 09:52>
--- NOTE | 2021-04-03 10:27 | P.PNCA_ITS ---
Subjective Subjective Date of Service: 04/03/21 Interval history: Had another pause this morning; at that time, he was sleeping but woke up from sleep. Review of Systems Review of Systems Yes all other systems are reviewed and are negative Cardiovascular: Reports as per HPI, Reports no additional cardiovascular complaints, Denies acrocyanosis, Denies cool extremities, Denies painful fingertips, Denies chest pain, Denies chest pain at rest, Denies diaphoresis, Denies syncope, Denies irregular heart rhythm, Denies claudication, Denies leg edema, Denies lightheadedness, Denies palpitations and Reports dyspnea Respiratory: Reports cough and Reports dyspnea Denies syncope Endocrine: Denies palpitations Physical Exam Vital Signs: Last Vital Signs Temp 97.4 F 04/03/21 07:33 Pulse 68 04/03/21 08:17 Resp 16 04/03/21 07:33 BP 152/86 H 04/03/21 08:17 Pulse Ox 97 04/03/21 07:33 Oxygen Flow Rate 2 04/01/21 14:50 Body Mass Index 36.0 Const General: cooperative and no acute distress [facility] Other: Unremarkable Neck Neck: Yes normal visual inspection Chest Chest palpation & inspection: normal inspection of the chest Resp Auscultation: clear to auscultation bilaterally, no crackles and no wheezes Cardio Jugular venous distension: no JVD Palpation: normal PMI Heart sounds: S1 normal heart sound present, S2 normal heart sound present, no gallops, no murmurs and no rubs GI Palpation (GI): Soft to palpation Back/Spine/Pelvis Other: unremarkable Skin General skin exam: no rashes or lesions noted Neuro Cranial nerves: Yes Other cranial nerve findings present Extrem General: Yes no clubbing, cyanosis or edema Psych Mental Status: other Results Labs and Meds Result diagrams: 04/03/21 04:37 04/03/21 04:37 Lab results: Laboratory Results - last 24 hr 04/02/21 04/03/21 04/03/21 12:23 04:37 04:37 WBC 13.6 H RBC 4.43 L Hgb 12.6 L Hct 37.9 L MCV 85.6 MCH 28.4 MCHC 33.2 RDW 12.9 Plt Count 304 MPV 10.1 Absolute Nucleated RBC 0.000 Nucleated RBC % (auto) 0.0 Sodium 141 Potassium 4.5 Chloride 107 Carbon Dioxide 24 Anion Gap 15 BUN 26 H Creatinine 1.17 Estim Creat Clear Calc 73.4 Estimated GFR > 60 Random Glucose 171 H D Calcium 9.1 Troponin I High Sens 6.7 Imaging Radiologist's impression: Impressions Chest CTA 04/02/21 14:25 IMPRESSION: No evidence of PE. No evidence of aortic dissection or aneurysm. Diffuse groundglass inflammatory changes in both lungs. Question Covid related infection Right hepatic lobe lesion likely cyst VTE: negative Progress Note: A&P Assessment and plan (1) Sinus arrest: Status: Acute (2) Heart block atrioventricular: Status: Acute (3) Atherosclerotic cardiovascular disease: Status: Acute (4) WILTON (obstructive sleep apnea): Status: Acute (5) Central sleep apnea: Status: Acute Assessment and Plan: Today am at around 6:55am, 8 sec pause; at that time, he woke up from sleep; he his central/obstructive sleep apnea will need to be treated as that is the most likely etiology. If still gets symptomatic daytime pauses (or nighttime which is profound/symptomatic), then possible pacemaker. Echo am. 12 lead EKG. Discussed with ROSANNA Mac; , Pulmonary. Fall Risk Details Current Medications: Current Medications Generic Name Dose Route Start Last Admin Trade Name Freq PRN Reason Stop Dose Admin Acetaminophen 650 mg 04/01/21 17:46 04/01/21 21:00 Acetaminophen 325 Mg Tablet PO 650 mg Q4H PRN Administration Pain Amlodipine Besylate 5 mg 04/02/21 09:00 04/03/21 08:17 Amlodipine Besylate 5 Mg Tablet PO 5 mg DAILY ALEC Administration Protocol Aripiprazole 5 mg 04/02/21 09:00 04/03/21 08:17 Aripiprazole 5 Mg Tablet PO 5 mg DAILY ALEC Administration Aripiprazole 20 mg 04/02/21 09:00 04/03/21 08:17 Aripiprazole 20 Mg Tablet PO 20 mg DAILY ALEC Administration Aspirin 81 mg 04/02/21 09:00 04/03/21 08:17 Aspirin Enteric Coated 81 Mg Tablet. PO 81 mg DAILY ALEC Administration Atorvastatin Calcium 80 mg 04/01/21 21:00 04/02/21 20:46 Atorvastatin Calcium 80 Mg Tablet PO 80 mg BEDTIME ALEC Administration Atropine Sulfate 0.5 mg 04/03/21 07:13 Atropine Sulfate 1 Mg/Ml Vial IVPUSH ONCE PRN HR<45 Benzonatate 100 mg 04/01/21 17:53 Benzonatate 100 Mg Capsule PO TID PRN Cough Clopidogrel Bisulfate 75 mg 04/02/21 09:00 04/03/21 08:17 Clopidogrel Bisulfate 75 Mg Tablet PO 75 mg DAILY ALEC Administration Docusate Sodium 100 mg 04/01/21 17:53 Docusate Sodium 100 Mg Capsule PO DAILY PRN Constipation Enoxaparin Sodium 40 mg 04/01/21 20:00 04/02/21 20:48 Enoxaparin Sodium 40 Mg/0.4 Ml Syringe SUBCUT 40 mg Q24H ALEC Administration Furosemide 20 mg 04/02/21 09:00 04/03/21 08:17 Furosemide 20 Mg Tablet PO 20 mg DAILY ALEC Administration Protocol Gabapentin 300 mg 04/01/21 21:00 04/03/21 08:17 Gabapentin 300 Mg Capsule PO 300 mg TID ALEC Administration Guaifenesin/Dextromethorphan 5 ml 04/01/21 17:53 Guaifenesin Dm 100/10/5 Ml 5 Ml Syrup PO Q6H PRN Cough Hydroxyzine HCl 50 mg 04/01/21 17:46 Hydroxyzine Hcl 50 Mg Tablet PO BID PRN Anxiety Doxycycline Hyclate 100 mg/ 250 mls @ 166.67 mls/hr 04/02/21 06:00 04/03/21 07:59 Sodium Chloride IV Infused Q12H ALEC Infusion Ceftriaxone Sodium 1 gm/ 50 mls @ 100 mls/hr 04/02/21 14:00 04/02/21 15:36 Sodium Chloride IV Infused Q24H ALEC Infusion Lisinopril 5 mg 04/02/21 09:00 04/03/21 08:17 Lisinopril 5 Mg Tablet PO 5 mg DAILY ALEC Administration Protocol Mirtazapine 15 mg 04/01/21 21:00 04/02/21 20:46 Mirtazapine 15 Mg Tablet PO 15 mg BEDTIME ALEC Administration Multivitamins/Minerals 1 tab 04/02/21 09:00 04/03/21 08:17 Multivitamin With Minerals Tablet PO 1 tab DAILY ALEC Administration Nicotine 14 mg 04/01/21 17:53 04/03/21 08:17 Nicotine 14 Mg Patch.Td24 TRANSDERMA 14 mg DAILY ALEC Administration Omeprazole 20 mg 04/02/21 06:30 04/03/21 05:38 Omeprazole 20 Mg Capsule. PO 20 mg BID@2533,4052 ALEC Administration Ondansetron HCl 4 mg 04/01/21 17:53 Ondansetron Hcl 4 Mg/2 Ml Vial IVPUSH Q8H PRN Nausea and Vomiting Pharmacy Consult 1 each 04/01/21 16:26 Consult Rx Perform Med Rec MISCELLANE ONCE PRN Consult order Prednisone 20 mg 04/02/21 13:30 04/03/21 08:17 Prednisone 20 Mg Tablet PO 20 mg DAILY ALEC Administration Sodium Chloride 3 ml 04/02/21 00:00 04/03/21 08:18 0.9 % Sodium Chloride Flush 3 Ml Syringe IVFLUSH 3 ml QSHIFT ALEC Administration Venlafaxine HCl 300 mg 04/02/21 09:00 04/03/21 08:17 Venlafaxine Hcl Er 150 Mg Cap.Er.24h PO 300 mg DAILY ALEC Administration Zolpidem Tartrate 5 mg 04/01/21 21:00 04/02/21 20:47 Zolpidem Tartrate 5 Mg Tablet PO Not Given BEDTIME [facility] Time Spent With Patient Time: Total time spent is greater than 50% in coordination of care (as documented) at patient's floor/unit and/or counseling patient: Time with patient: less than 15 minutes Progress Note: Quality Stroke Does the patient have a stroke diagnosis?: No Procedures Date of Service Date of Service: 04/03/21
--- NOTE | 2021-04-03 10:32 | ECG_ITS ---
Test Reason : CHEST PAIN Blood Pressure : / mmHG Vent. Rate : 063 BPM Atrial Rate : 063 BPM P-R Int : 182 ms QRS Dur : 078 ms QT Int : 416 ms P-R-T Axes : 052 024 045 degrees QTc Int : 425 ms Normal sinus rhythm Normal ECG When compared with ECG of 03-JAN-2021 08:59, No significant change was found Referred By: Nettie Mac Electronically Signed By:ELVIS SHERWOOD
[2021-04-03 11:06] LABS: Erythrocyte Sedimentation Rate 81 MM/HR (0-15)
--- NOTE | 2021-04-03 11:52 | PM.PNPUL ---
Subjective Subjective Date of Service: 04/03/21 Interval history: The patient was seen and examined. He is having more cardiac positive specially at nighttime. He has been evaluated for sleep apnea felt to be more complex central sleep apnea. Did not benefit from CPAP during the last evaluation by Pulmonary as an outpatient. In the meantime the patient is having increasing shortness of breath along with pleuritic chest pain. He did receive a dose of Toradol and also received a dose of prednisone with some partial improvement of the symptoms. His respiratory viral panel was all negative. 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 Denies any tick exposures that he is aware of. Objective Data Labs CBC & Chem 7: 04/03/21 04:37 04/03/21 04:37 Labs: Laboratory Results - last 24 hr 04/02/21 04/03/21 04/03/21 12:23 04:37 04:37 WBC 13.6 H RBC 4.43 L Hgb 12.6 L Hct 37.9 L MCV 85.6 MCH 28.4 MCHC 33.2 RDW 12.9 Plt Count 304 MPV 10.1 Absolute Nucleated RBC 0.000 Nucleated RBC % (auto) 0.0 ESR Sodium 141 Potassium 4.5 Chloride 107 Carbon Dioxide 24 Anion Gap 15 BUN 26 H Creatinine 1.17 Estim Creat Clear Calc 73.4 Estimated GFR > 60 Random Glucose 171 H D Calcium 9.1 Troponin I High Sens 6.7 Respiratory Panel Agarwal Adenovirus (Rapid PCR) B.pert (TEM-PCR) B.parapertussis DNA PCR C. pneumoniae DNA (PCR) Coronavirus OC43 (PCR) Coronavirus HKU1 (PCR) Coronavirus 229E (PCR) Coronavirus NL63 (PCR) Human Metapneumovir PCR Influenza A (RT-PCR) Influenza B (RT-PCR) M. pneumoniae (PCR) Parainfluenza 1 (PCR) Parainfluenza 2 (PCR) Parainfluenza 3 (PCR) Parainfluenza 4 (PCR) RSV (PCR) Entero/Rhino (PCR) SARS-CoV-2 RNA (RT-PCR) 04/03/21 04/03/21 04:37 07:48 WBC RBC Hgb Hct MCV MCH MCHC RDW Plt Count MPV Absolute Nucleated RBC Nucleated RBC % (auto) ESR 81 H Sodium Potassium Chloride Carbon Dioxide Anion Gap BUN Creatinine Estim Creat Clear Calc Estimated GFR Random Glucose Calcium Troponin I High Sens Respiratory Panel Agarwal See Note Adenovirus (Rapid PCR) Not Detected B.pert (TEM-PCR) Not Detected B.parapertussis DNA PCR Not Detected C. pneumoniae DNA (PCR) Not Detected Coronavirus OC43 (PCR) Not Detected Coronavirus HKU1 (PCR) Not Detected Coronavirus 229E (PCR) Not Detected Coronavirus NL63 (PCR) Not Detected Human Metapneumovir PCR Not Detected Influenza A (RT-PCR) Not Detected Influenza B (RT-PCR) Not Detected M. pneumoniae (PCR) Not Detected Parainfluenza 1 (PCR) Not Detected Parainfluenza 2 (PCR) Not Detected Parainfluenza 3 (PCR) Not Detected Parainfluenza 4 (PCR) Not Detected RSV (PCR) Not Detected Entero/Rhino (PCR) Not Detected SARS-CoV-2 RNA (RT-PCR) Not Detected Microbiology Microbiology Results: Microbiology 04/01/21 14:33 Blood - Venous Blood Culture - Preliminary No growth after 24 hours. 04/01/21 14:33 Blood - Venous Blood Culture - Preliminary No growth after 24 hours. Review of Systems Constitutional: Reports chills and Denies night sweats Denies change in voice, Denies lip swelling, Denies mouth pain, Reports nasal congestion, Reports nasal discharge and Denies tongue swelling Cardiovascular: Denies chest pain and Reports dyspnea on exertion Respiratory: Denies chest congestion, Reports cough, Reports pain on inspiration, Reports pain with cough and Reports dyspnea on exertion Gastrointestinal: Denies abdominal pain Musculoskeletal: Denies no additional musculoskeletal complaints Denies Neuro-related abnormal movements Psychiatric: Denies no additional psychiatric complaints Hematologic/Lymphatic: Denies easy bleeding and Denies lymphadenopathy Allergic/Immunologic: Denies lip swelling and Denies tongue swelling Physical Exam Vital Signs: Vital Signs: Last Vital Signs Temp 98.2 F 04/03/21 10:48 Pulse 79 04/03/21 10:48 Resp 18 04/03/21 10:48 BP 133/92 H 04/03/21 10:48 Pulse Ox 96 04/03/21 10:48 Oxygen Flow Rate 2 04/01/21 14:50 Body Mass Index 36.0 Const: General: alert Chest: Chest palpation & inspection: normal inspection of the chest Resp: Auscultation: diminished lung sounds Cardio: Rate: regular rate Rhythm: regular rhythm Heart sounds: S1 normal heart sound present and S2 normal heart sound present Skin: General skin exam: rashes and/or lesions noted Procedures Date of Service Date of Service: 04/03/21 Assessment and Plan Assessment and plan (1) Pleuritic chest pain: Status: Acute (2) Central sleep apnea: Status: Acute (3) Heart block atrioventricular: Status: Acute (4) Pneumonitis: Status: Acute Assessment and Plan: Stop prednisone Start Solu-Medrol Blood work pending looking for inflammatory conditions to explain the pneumonitis Lyme titers Overnight oximetry Will need to undergo a repeat titration study to address the question of benefit of PAP therapy. With his history of central sleep apnea he may benefit from Adaptive Servo Ventilation (ASV) Time Spent With Patient Time: Total time spent is greater than 50% in coordination of care (as documented) at patient's floor/unit and/or counseling patient: Time with patient: 25 - 35 minutes Progress Note: Quality Stroke Does the patient have a stroke diagnosis?: No
[2021-04-03] MEDS: Ketorolac Tromethamine 15 MG/ML VIAL IVPUSH (12:11)
[2021-04-03] MEDS: methylPREDNISolone Sod Succ 125 MG/2 ML VIAL 60 MG IVPUSH ×2 (12:11→20:47)
[2021-04-03] MEDS: hydrOXYzine HCL 50 MG TABLET PO (12:15)
[2021-04-03 13:10] LABS: Troponin-I High Sensitivity < 3.5 ng/L (<3.5-35.0)
[2021-04-03] MEDS: cefTRIAXone sodium 1 GM in 0.9 % Sodium Chloride 50 ML IV (14:53)
--- NOTE | 2021-04-03 16:28 | MHC.CM.PN ---
CM MET WITH PT WHO REPORTS HE LIVES AT HOME WITH HIS AND KIDS AND IS INDEPENDENT WITH ALL CARE. PT HAS NO SERVICES AND NO DME. PT BELIEVES HE HAS A HCP BUT IS AWARE CM CAN ASSIST IN COMPLETING ONE AT ANY TIME DURING HIS ADMISSION. PT CONFIRMS HIS PCP IS BRIDGER JOSHI. IMM DELIVERED CURRENT DC PLAN IS HOME WITH NO SERVICES FAMILY TO TRANSPORT
[2021-04-03] MEDS: Morphine Sulfate 2 MG/ML CARTRIDGE IVPUSH (17:42)
[2021-04-03] MEDS: Mirtazapine 15 MG TABLET PO (20:47)
[2021-04-03] MEDS: Atorvastatin Calcium 80 MG TABLET PO (20:47)
[2021-04-03] MEDS: Enoxaparin Sodium 40 MG/0.4 ML SYRINGE SUBCUT (20:48)
[2021-04-03] MEDS: guaiFENesin DM 100/10/5 ML 5 ML SYRUP PO (20:55)
[2021-04-03] MEDS: traMADoL HCL 50 MG TABLET PO (21:38)
[2021-04-03] MEDS: Zolpidem Tartrate 5 MG TABLET PO (22:15)
[2021-04-04] VITALS (8 sets, daily range): BP systolic 105–160; BP diastolic 54–90; PULSE 69–76; RESP 16–20; TEMP 36.2–37; O2SAT 96–98
--- NOTE | 2021-04-04 | ECG_ITS ---
Test Reason : chest pain Blood Pressure : / mmHG Vent. Rate : 082 BPM Atrial Rate : 082 BPM P-R Int : 186 ms QRS Dur : 084 ms QT Int : 400 ms P-R-T Axes : 036 -09 028 degrees QTc Int : 467 ms Normal sinus rhythm Normal ECG When compared with ECG of 03-APR-2021 12:21, No significant change was found Referred By: José Luis Adams Electronically Signed By:Michi Roy
[2021-04-04] MEDS: methylPREDNISolone Sod Succ 125 MG/2 ML VIAL 60 MG IVPUSH ×3 (04:05→20:15)
[2021-04-04] MEDS: 0.9 % Sodium Chloride Flush 3 ML SYRINGE IVFLUSH ×4 (04:07→20:15)
[2021-04-04] MEDS: Doxycycline Hyclate 100 MG in 0.9 % Sodium Chloride 250 ML 166.67 MG IV ×2 (05:33→18:20)
[2021-04-04] MEDS: Omeprazole 20 MG CAPSULE.DR PO ×2 (05:33→16:08)
[2021-04-04] MEDS: oxyCODONE HCl Immed Release 5 MG TABLET PO ×2 (05:52→22:22)
[2021-04-04] MEDS: guaiFENesin DM 100/10/5 ML 5 ML SYRUP PO (05:54)
[2021-04-04] MEDS: Ibuprofen 600 MG TABLET PO (06:33)
--- NOTE | 2021-04-04 07:30 | CA_ITS ---
Transthoracic Echocardiogram Patient (Last, First, Middle): Carlin Diaz M Gender: Male Date of : 1965 Age: 55 Procedure Date: 04/04/2021 Procedure Type: Transthoracic Echocardiogram Location: [facility] Height: 162.56 cm Weight: 95.26 kg BSA: 2.00 m2 Heart Rate: bpm BP: 153 / 78 mmHg Plasma Table Operator: NAPOLEON Referring MD: Adrian Sanchez MD Symptoms: Pauses on telemetry Study Quality: Fair/Contrast Conclusions: - Normal left ventricular size, thickness, systolic function, and wall motion. - Normal right ventricular cavity size and systolic function. - No significant valvular or pericardial pathology. Findings Procedure Information Contrast agent, definity, is being given per protocol without apparent complications. Left Ventricle Normal left ventricular size, thickness, systolic function, and wall motion. The visually estimated ejection fraction is between 55-60%. Diastolic function is normal for age. Right Ventricle Normal right ventricular cavity size and systolic function. Atria The left atrium is normal in size. Aortic Valve Normal aortic valve structure and function. There is no aortic valve stenosis. There is no aortic valve regurgitation. Mitral Valve Normal mitral valve structure and function. There is no mitral valve regurgitation. There is no mitral valve stenosis. Pulmonic Valve Normal pulmonic valve structure and function. There is trace pulmonic valve regurgitation. Tricuspid Valve Normal tricuspid valve structure and function. There is no tricuspid valve regurgitation. Normal right atrial pressure. There is no evidence of pulmonary hypertension. Great Vessels There is mild dilatation of the ascending aorta. The visualized portions of the pulmonary artery and branches are normal. Venous The inferior vena cava is normal in size and collapses greater than 50% with inspiration. Pericardium/Pleural There is no evidence of pericardial effusion. Prior Study Comparison No prior study available for comparison. Measurements 2D Linear Measurements IVSd: 0.89 0.6-0.9/0.6-1.0 cm LVIDd: 4.69 3.9-5.3/4.2-5.9 cm LVIDd Index: 2.35 2.4-3.2/2.2-3.1 cm/m2 LVIDs: 3.10 2.0-3.6 cm LVPWd: 0.85 0.7-1.1 cm Ao Root: 3.60 2.1-3.5 cm LA Diam: 3.70 2.7-3.8/3.0-4.0 cm LAIDs Index: 1.85 1.5-2.3 cm/m2 LV Mass: 169.58 67-162/88-224 g LV Mass Index: 84.79 43-95/49-115 g/m2 LVOT Diam: 2.00 3.0+(-)1.3 cm 2D Systolic Function EF 4C: 59.00 >55% EF 2C: 54.60 >55% EF BiP: 57.20 >55% Mitral Valve MV Pk E: 1.14 MV PK A: 1.39 MV Decel Time: 282.00 E/A: 0.80 E'Lateral: 9.36 E'Medial: 7.72 E/E' Med: 14.80 E/E' Lat: 12.20 PHT: 83.00 MVA PHT: 2.65 Decel [place]: 4.06 Aortic Valve AoV Pk Vitaliy: 1.78 AoV Mn Vitaliy: 1.21 AoV VTI: 0.37 AoV Pk Grad: 13.00 Aov Mn Grad: 7.00 MEHNAZ Cont.VTI: 2.38 LVOT LVOT Pk Vitaliy: 1.35 LVOT Mn Vitaliy: 0.91 LVOT VTI: 0.28 LVOT Pk Grad: 7.00 LVOT Mn Grad: 4.00 LVOT Diam: 2.00 LVOT Area: 3.14 Diastolic Function MV Pk E: 1.14 MV Pk A: 1.39 E/A: 0.80 E'Medial: 7.72 E/E' Med: 14.80 E' Laterial: 9.36 E/E' Lat: 12.20 Right Ventricle TAPSE (mm): 1.84 Tricuspid Valve TR Pk Vitaliy: 2.70 TR Pk Grad: 29.00 RA Press: 3.00 RVSP: 32.00 Great Vessels Aorta Ao Root-2D: 3.60 2.0-3.7 cm Ao Asc: 3.60 2.1-3.4 cm Updated in Other Vendor System with Status of Final Michi Roy MD electronically signed on 04/04/2021 9:11:12 PM with status of Final
[2021-04-04] MEDS: Aspirin Enteric Coated 81 MG TABLET.DR PO (07:44)
[2021-04-04] MEDS: Venlafaxine HCl ER 150 MG CAP.ER.24H 300 MG PO (07:45)
[2021-04-04] MEDS: Furosemide 20 MG TABLET PO (07:45)
[2021-04-04] MEDS: Gabapentin 300 MG CAPSULE PO ×3 (07:48→20:14)
[2021-04-04] MEDS: ARIPiprazole 5 MG TABLET PO (07:49)
[2021-04-04] MEDS: Clopidogrel Bisulfate 75 MG TABLET PO (07:49)
[2021-04-04] MEDS: ARIPiprazole 20 MG TABLET PO (07:50)
[2021-04-04] MEDS: Nicotine 14 MG PATCH.TD24 TRANSDERMA (07:50)
[2021-04-04] MEDS: amLODIPine Besylate 5 MG TABLET PO (07:50)
--- NOTE | 2021-04-04 11:43 | P.PNCA_ITS ---
Subjective Subjective Date of Service: 04/04/21 <FERMÍN Riddle - Last Filed: 04/04/21 12:55> 04/04/21 <Michi Roy MD - Last Filed: 04/04/21 14:50> Principal diagnosis: PNA, sinus arrest ( pause), WILTON <FERMÍN Riddle - Last Filed: 04/04/21 12:55> Interval history: Cardiology follow up for sinus pause. Seen at 1000. Today he reports that his breathing is improved since admission. He is wearing O2 with nasal cannula. States he had restless night sleep. No dizziness, presyncope, syncope. No sob, palpitations PND, orthopnea or edema. He does have discomfort in his chest with deep inspiration. Steady on feet this am. <FERMÍN Riddle - Last Filed: 04/04/21 12:55> Review of Systems Review of Systems as above <FERMÍN Riddle - Last Filed: 04/04/21 12:55> Yes all other systems are reviewed and are negative <FERMÍN Riddle - Last Filed: 04/04/21 12:55> Physical Exam Vital Signs: Last Vital Signs Temp 98.2 F 04/04/21 11:27 Pulse 76 04/04/21 11:27 Resp 20 04/04/21 11:27 BP 140/80 H 04/04/21 11:27 Pulse Ox 97 04/04/21 11:27 Oxygen Flow Rate 2 04/01/21 14:50 Body Mass Index 36.0 <FERMÍN Riddle - Last Filed: 04/04/21 12:55> Const General: cooperative, no acute distress, alert and awake <FERMÍN Riddle - Last Filed: 04/04/21 12:55> Orientation/consciousness: patient oriented x3 <FERMÍN Riddle Last Filed: 04/04/21 12:55> Neck Neck: Yes normal visual inspection and Yes no JVD <FERMÍN Riddle Last Filed: 04/04/21 12:55> Resp Effort & Inspection: normal respiratory effort, able to speak in complete sentences and not labored <FERMÍN Riddle Last Filed: 04/04/21 12:55> Auscultation: clear to auscultation bilaterally, no crackles, no rales, no rhonchi and no wheezes <Anne-Marie Figueroa CHRISTIANC - Last Filed: 04/04/21 12:55> Cardio Palpation: normal PMI <Anne-Marie Figueroa CHRISTIANC - Last Filed: 04/04/21 12:55> Rate: regular rate <Anne-Marie Figueroa INSURANCE MARKETING SPECIALISTC - Last Filed: 04/04/21 12:55> Rhythm: regular rhythm <Anne-Marie Figueroa INSURANCE MARKETING SPECIALISTC - Last Filed: 04/04/21 12:55> Heart sounds: S1 normal heart sound present and S2 normal heart sound present <Anne-Marie FigueroaSENTHILC - Last Filed: 04/04/21 12:55> Peripheral pulses: Peripheral pulses 2+ throughout <Anne-Marie FigueroaSENTHIL-C - Last Filed: 04/04/21 12:55> GI Inspection: Yes normal to inspection <Anne-Marie FigueroaSENTHIL-C - Last Filed: 04/04/21 12 :55> Neuro General: patient oriented x3 <Anne-Marie Figueroa CHRISTIANC - Last Filed: 04/04/21 12:55> Extrem General: Yes normal to inspection and No edema <Anne-Marie FigueroaSENTHIL-C - Last Filed: 04/04/21 12:55> Results Labs and Meds Result diagrams: : 04/03/21 04:37 04/03/21 04:37 <Anne-Marie FigueroaSENTHILC - Last Filed: 04/04/21 12:55> Lab results: Laboratory Results - last 24 hr 04/03/21 11:56 Troponin I High Sens < 3.5 <Anne-Marie Figueroa INSURANCE MARKETING SPECIALIST-C - Last Filed: 04/04/21 12:55> Progress Note: A&P Assessment and plan (1) Sinus arrest: Status: Acute <Anne-Marie Figueroa SENTHILKermitC - Last Filed: 04/04/21 12:55> Assessment and Plan: This admit with 3.6 sec transient heart block in early am, then the following day had a 8 sec sinus pause early am during sleep. He has known hx of untreated sleep apnea. Pulmonology is following him. No pauses last night or this am. No daytime pauses. Wearing O2 with nasal cannula. Lyme testing is pending. Echo pending. Ongoing Tele monitoring while inpt. Discussed case with Dr Roy - longer pause could be vasovagal type event. - Will plan for Cardiac event monitoring following discharge. If he continues to have pauses, inspite of WILTON treatment or symptomatic events during daytime then may need PPM. He is aware of this possibility. We will follow. <FERMÍN Riddle - Last Filed: 04/04/21 12:55> (2) Heart block atrioventricular: Status: Acute <FERMÍN Riddle - Last Filed: 04/04/21 12:55> Assessment and Plan: episode as above <FERMÍN Riddle - Last Filed: 04/04/21 12:55> (3) WILTON (obstructive sleep apnea): Status: Acute <FERMÍN Riddle - Last Filed: 04/04/21 12:55> Assessment and Plan: Needs treatment. Pulmonology following. <FERMÍN Riddle - Last Filed: 04/04/21 12:55> (4) Pneumonia: Status: Acute <FERMÍN Riddle - Last Filed: 04/04/21 12:55> Assessment and Plan: Improving clinically. Being managed by Hospitalist/ pulmonology. <FERMÍN Riddle - Last Filed: 04/04/21 12:55> Fall Risk Details Current Medications: Current Medications Generic Name Dose Route Start Last Admin Trade Name Freq PRN Reason Stop Dose Admin Acetaminophen 650 mg 04/01/21 17:46 04/01/21 21:00 Acetaminophen 325 Mg Tablet PO 650 mg Q4H PRN Administration Pain Amlodipine Besylate 5 mg 04/02/21 09:00 04/04/21 07:50 Amlodipine Besylate 5 Mg Tablet PO 5 mg DAILY ALEC Administration Protocol Aripiprazole 5 mg 04/02/21 09:00 04/04/21 07:49 Aripiprazole 5 Mg Tablet PO 5 mg DAILY ALEC Administration Aripiprazole 20 mg 04/02/21 09:00 04/04/21 07:50 Aripiprazole 20 Mg Tablet PO 20 mg DAILY ALEC Administration Aspirin 81 mg 04/02/21 09:00 04/04/21 07:44 Aspirin Enteric Coated 81 Mg Tablet.Dr PO 81 mg DAILY ALEC Administration Atorvastatin Calcium 80 mg 04/01/21 21:00 04/03/21 20:47 Atorvastatin Calcium 80 Mg Tablet PO 80 mg BEDTIME ALEC Administration Atropine Sulfate 0.5 mg 04/03/21 07:13 Atropine Sulfate 1 Mg/Ml Vial IVPUSH ONCE PRN HR<45 Benzonatate 100 mg 04/01/21 17:53 Benzonatate 100 Mg Capsule PO TID PRN Cough Clopidogrel Bisulfate 75 mg 04/02/21 09:00 04/04/21 07:49 Clopidogrel Bisulfate 75 Mg Tablet PO 75 mg DAILY ALEC Administration Docusate Sodium 100 mg 04/01/21 17:53 Docusate Sodium 100 Mg Capsule PO DAILY PRN Constipation Enoxaparin Sodium 40 mg 04/01/21 20:00 04/03/21 20:48 Enoxaparin Sodium 40 Mg/0.4 Ml Syringe SUBCUT 40 mg Q24H ALEC Administration Furosemide 20 mg 04/02/21 09:00 04/04/21 07:45 Furosemide 20 Mg Tablet PO 20 mg DAILY ALEC Administration Protocol Gabapentin 300 mg 04/01/21 21:00 04/04/21 07:48 Gabapentin 300 Mg Capsule PO 300 mg TID ALEC Administration Guaifenesin/Dextromethorphan 5 ml 04/01/21 17:53 04/04/21 05:54 Guaifenesin Dm 100/10/5 Ml 5 Ml Syrup PO 5 ml Q6H PRN Administration Cough Hydroxyzine HCl 50 mg 04/01/21 17:46 04/03/21 12:15 Hydroxyzine Hcl 50 Mg Tablet PO 50 mg BID PRN Administration Anxiety Doxycycline Hyclate 100 mg/ 250 mls @ 166.67 mls/hr 04/02/21 06:00 04/04/21 07:25 Sodium Chloride IV Infused Q12H ALEC Infusion Ceftriaxone Sodium 1 gm/ 50 mls @ 100 mls/hr 04/02/21 14:00 04/03/21 15:56 Sodium Chloride IV Infused Q24H ALEC Infusion Lisinopril 5 mg 04/02/21 09:00 04/04/21 07:49 Lisinopril 5 Mg Tablet PO 5 mg DAILY ALEC Administration Protocol Methylprednisolone Sodium Succinate 60 mg 04/03/21 12:00 04/04/21 04:05 Methylprednisolone Sod Succ 125 Mg/2 Ml Vial IVPUSH 60 mg Q8H ALEC Administration Mirtazapine 15 mg 04/01/21 21:00 04/03/21 20:47 Mirtazapine 15 Mg Tablet PO 15 mg BEDTIME ALEC Administration Multivitamins/Minerals 1 tab 04/02/21 09:00 04/04/21 07:49 Multivitamin With Minerals Tablet PO 1 tab DAILY ALEC Administration Nicotine 14 mg 04/01/21 17:53 04/04/21 07:50 Nicotine 14 Mg Patch.Td24 TRANSDERMA 14 mg DAILY ALEC Administration Omeprazole 20 mg 04/02/21 06:30 04/04/21 05:33 Omeprazole 20 Mg Capsule.Dr PO 20 mg BID@0630,6720 ALEC Administration Ondansetron HCl 4 mg 04/01/21 17:53 Ondansetron Hcl 4 Mg/2 Ml Vial IVPUSH Q8H PRN Nausea and Vomiting Pharmacy Consult 1 each 04/01/21 16:26 Consult Rx Perform Med Rec MISCELLANE ONCE PRN Consult order Sodium Chloride 3 ml 04/02/21 00:00 04/04/21 07:51 0.9 % Sodium Chloride Flush 3 Ml Syringe IVFLUSH 3 ml QSHIFT ALEC Administration Venlafaxine HCl 300 mg 04/02/21 09:00 04/04/21 07:45 Venlafaxine Hcl Er 150 Mg Cap.Er.24h PO 300 mg DAILY ALEC Administration Zolpidem Tartrate 5 mg 04/01/21 21:00 04/03/21 22:15 Zolpidem Tartrate 5 Mg Tablet PO 5 mg BEDTIME ALEC Administration <FERMÍN Riddle - Last Filed: 04/04/21 12:55> Time Spent With Patient Time: Total time spent is greater than 50% in coordination of care (as documented) at patient's floor/unit and/or counseling patient: <FERMÍN Riddle - Last Filed: 04/04/21 12:55> Time with patient: 15 - 24 minutes <FERMÍN Riddle - Last Filed: 04/04/21 12:55> Progress Note: Quality Stroke Does the patient have a stroke diagnosis?: No <FERMÍN Riddle - Last Filed: 04/04/21 12:55> Procedures Date of Service Date of Service: 04/04/21 <FERMÍN Riddle - Last Filed: 04/04/21 12:55>
--- NOTE | 2021-04-04 12:02 | MHC.CLN ---
RE; CONSULT RECOMMEND 1700CALORIES PER DAY TO PROMOTE SLOW WT LOSS UPON DISCHARGE CURRENT DIET 2GM NA-APPROPRIATE
--- NOTE | 2021-04-04 13:18 | HO.PM.IMPN ---
Subjective Subjective Date of Service: 04/04/21 Interval History: seen and examined this morning No more long pause on monitor, feels good otherwise Physical Exam Vital Signs: Vital Signs: Last Vital Signs Temp 98.2 F 04/04/21 11:27 Pulse 76 04/04/21 11:27 Resp 20 04/04/21 11:27 BP 140/80 H 04/04/21 11:27 Pulse Ox 97 04/04/21 11:27 Oxygen Flow Rate 2 04/01/21 14:50 Body Mass Index 36.0 Const: General: comfortable, no acute distress, alert and awake Nutritional Appearance: overweight Orientation/consciousness: patient oriented x3 Eyes: Pupils: Equal, round and reactive pupils present Resp: Other: diminished, no wheezed, rales Effort & Inspection: normal respiratory effort, no respiratory distress, tachypneic and no use of accessory muscles Cardio: Jugular venous distension: no JVD Rate: regular rate Rhythm: regular rhythm GI: Palpation (GI): Soft to palpation and nontender Neuro: General: patient oriented x3 Cranial nerves: Yes CN's II-XII intact bilaterally, Yes Equal, round and reactive pupils present and Yes Bilaterally intact EOM present Extrem: Other: no leg edema General: Yes normal to inspection Objective Data Current Medications Generic Name Dose Route Start Last Admin Trade Name Freq PRN Reason Stop Dose Admin Acetaminophen 650 mg 04/01/21 17:46 04/01/21 21:00 Acetaminophen 325 Mg Tablet PO 650 mg Q4H PRN Administration Pain Amlodipine Besylate 5 mg 04/02/21 09:00 04/04/21 07:50 Amlodipine Besylate 5 Mg Tablet PO 5 mg DAILY ALEC Administration Protocol Aripiprazole 5 mg 04/02/21 09:00 04/04/21 07:49 Aripiprazole 5 Mg Tablet PO 5 mg DAILY ALEC Administration Aripiprazole 20 mg 04/02/21 09:00 04/04/21 07:50 Aripiprazole 20 Mg Tablet PO 20 mg DAILY ALEC Administration Aspirin 81 mg 04/02/21 09:00 04/04/21 07:44 Aspirin Enteric Coated 81 Mg Tablet. PO 81 mg DAILY ALEC Administration Atorvastatin Calcium 80 mg 04/01/21 21:00 04/03/21 20:47 Atorvastatin Calcium 80 Mg Tablet PO 80 mg BEDTIME ALEC Administration Atropine Sulfate 0.5 mg 04/03/21 07:13 Atropine Sulfate 1 Mg/Ml Vial IVPUSH ONCE PRN HR<45 Benzonatate 100 mg 04/01/21 17:53 Benzonatate 100 Mg Capsule PO TID PRN Cough Clopidogrel Bisulfate 75 mg 04/02/21 09:00 04/04/21 07:49 Clopidogrel Bisulfate 75 Mg Tablet PO 75 mg DAILY ALEC Administration Docusate Sodium 100 mg 04/01/21 17:53 Docusate Sodium 100 Mg Capsule PO DAILY PRN Constipation Enoxaparin Sodium 40 mg 04/01/21 20:00 04/03/21 20:48 Enoxaparin Sodium 40 Mg/0.4 Ml Syringe SUBCUT 40 mg Q24H ALEC Administration Furosemide 20 mg 04/02/21 09:00 04/04/21 07:45 Furosemide 20 Mg Tablet PO 20 mg DAILY ALEC Administration Protocol Gabapentin 300 mg 04/01/21 21:00 04/04/21 07:48 Gabapentin 300 Mg Capsule PO 300 mg TID ALEC Administration Guaifenesin/Dextromethorphan 5 ml 04/01/21 17:53 04/04/21 05:54 Guaifenesin Dm 100/10/5 Ml 5 Ml Syrup PO 5 ml Q6H PRN Administration Cough Hydroxyzine HCl 50 mg 04/01/21 17:46 04/03/21 12:15 Hydroxyzine Hcl 50 Mg Tablet PO 50 mg BID PRN Administration Anxiety Doxycycline Hyclate 100 mg/ 250 mls @ 166.67 mls/hr 04/02/21 06:00 04/04/21 07:25 Sodium Chloride IV Infused Q12H ALEC Infusion Ceftriaxone Sodium 1 gm/ 50 mls @ 100 mls/hr 04/02/21 14:00 04/03/21 15:56 Sodium Chloride IV Infused Q24H ALEC Infusion Lisinopril 5 mg 04/02/21 09:00 04/04/21 07:49 Lisinopril 5 Mg Tablet PO 5 mg DAILY ALEC Administration Protocol Methylprednisolone Sodium Succinate 60 mg 04/03/21 12:00 04/04/21 04:05 Methylprednisolone Sod Succ 125 Mg/2 Ml Vial IVPUSH 60 mg Q8H ALEC Administration Mirtazapine 15 mg 04/01/21 21:00 04/03/21 20:47 Mirtazapine 15 Mg Tablet PO 15 mg BEDTIME ALEC Administration Multivitamins/Minerals 1 tab 04/02/21 09:00 04/04/21 07:49 Multivitamin With Minerals Tablet PO 1 tab DAILY ALEC Administration Nicotine 14 mg 04/01/21 17:53 04/04/21 07:50 Nicotine 14 Mg Patch.Td24 TRANSDERMA 14 mg DAILY ALEC Administration Omeprazole 20 mg 04/02/21 06:30 04/04/21 05:33 Omeprazole 20 Mg Capsule.Dr PO 20 mg BID@0630,7290 ALEC Administration Ondansetron HCl 4 mg 04/01/21 17:53 Ondansetron Hcl 4 Mg/2 Ml Vial IVPUSH Q8H PRN Nausea and Vomiting Pharmacy Consult 1 each 04/01/21 16:26 Consult Rx Perform Med Rec MISCELLANE ONCE PRN Consult order Sodium Chloride 3 ml 04/02/21 00:00 04/04/21 07:51 0.9 % Sodium Chloride Flush 3 Ml Syringe IVFLUSH 3 ml QSHIFT ALEC Administration Venlafaxine HCl 300 mg 04/02/21 09:00 04/04/21 07:45 Venlafaxine Hcl Er 150 Mg Cap.Er.24h PO 300 mg DAILY ALEC Administration Zolpidem Tartrate 5 mg 04/01/21 21:00 04/03/21 22:15 Zolpidem Tartrate 5 Mg Tablet PO 5 mg BEDTIME ALEC Administration Labs CBC & Chem 7: 04/03/21 04:37 04/03/21 04:37 Microbiology Microbiology Results: Microbiology 04/01/21 14:33 Blood Culture - Preliminary Blood - Venous No growth after 48 hours. 04/01/21 14:33 Blood Culture - Preliminary Blood - Venous No growth after 48 hours. Assessment and Plan (1) Pneumonitis: Status: Acute Assessment and Plan: 55-year-old male with history of CAD s/p stent placement, chronic diastolic CHF, hypertension, dyslipidemia, PRIYANKA (no cpap machine at home), active smoker who presents to the emergency room with 3 day history of cough, chills, body aches found to have multifocal pneumonia Multifocal pneumonia. leukocytosis trending down No evidence of sepsis covid negative seen by pulmonology CTA negative for PE -Respiratory panel negative for covid -Continue IV ceftriaxone, doxycycline (started 04/01) -cough suppression -Continue Prednisone for now Sinus pause--up to 8 sec Probably related to PRIYANKA, no significant day time pauses, -pulm on board for management of priyanka -Cardiology recommend monitor for now -BB, clonidine on hold -pacer pads, prn atropine ordered PRIYANKA Sleep study 06/2019, showing complex sleep apnea. CPAP titration not successful b/c central component got worse -seen by pulm, rec overnight oximetry test--result pending -pulmonology following Tobacco dependence Smoking cessation advised -NRT CAD -continue asa, plavix, statin HTN -continue norvasc, lisinopril -clonidine, metoprolol on hold HFpEF no acute exacerbation -continue home dose of lasix Mood -continue abilify, remeron, effexor Obesity BMI 35.9 Likely contributing to respiratory status weight reduction recommended DC by tomorrow dvt ppx - lovenox code status - full code attending: dr tomas Quality Stroke Does the patient have a stroke diagnosis?: No VTE Prior VTE?: No VTE Risk Level:: Medical - moderate - high VTE Device Contraindication: Treatment Not Indicated VTE Drug Contraindication: N/A - Med Ordered
[2021-04-04] MEDS: cefTRIAXone sodium 1 GM in 0.9 % Sodium Chloride 50 ML IV (13:19)
[2021-04-04] MEDS: Acetaminophen 325 MG TABLET 650 MG PO (13:25)
[2021-04-04] MEDS: Atorvastatin Calcium 80 MG TABLET PO (20:14)
[2021-04-04] MEDS: Mirtazapine 15 MG TABLET PO (20:14)
[2021-04-04] MEDS: Enoxaparin Sodium 40 MG/0.4 ML SYRINGE SUBCUT (20:15)
[2021-04-04] MEDS: Zolpidem Tartrate 5 MG TABLET PO (22:08)
[2021-04-04 23:32] LABS: Anti Nuclear Antibody Screen NEGATIVE (NEGATIVE)
[2021-04-05] VITALS (7 sets, daily range): BP systolic 142–166; BP diastolic 82–93; PULSE 73–87; RESP 17–20; TEMP 36.3–36.9; O2SAT 91–98
[2021-04-05] MEDS: methylPREDNISolone Sod Succ 125 MG/2 ML VIAL 60 MG IVPUSH ×3 (03:56→20:38)
[2021-04-05] MEDS: Doxycycline Hyclate 100 MG in 0.9 % Sodium Chloride 250 ML 166.67 MG IV ×2 (05:38→17:50)
[2021-04-05] MEDS: Omeprazole 20 MG CAPSULE.DR PO ×2 (05:39→15:22)
[2021-04-05] MEDS: 0.9 % Sodium Chloride Flush 3 ML SYRINGE IVFLUSH ×3 (07:50→20:38)
[2021-04-05] MEDS: Venlafaxine HCl ER 150 MG CAP.ER.24H 300 MG PO (08:32)
[2021-04-05] MEDS: Clopidogrel Bisulfate 75 MG TABLET PO (08:32)
[2021-04-05] MEDS: Aspirin Enteric Coated 81 MG TABLET.DR PO (08:32)
[2021-04-05] MEDS: oxyCODONE HCl Immed Release 5 MG TABLET PO ×2 (08:33→15:23)
[2021-04-05] MEDS: amLODIPine Besylate 5 MG TABLET PO (08:33)
[2021-04-05] MEDS: ARIPiprazole 20 MG TABLET PO (08:33)
[2021-04-05] MEDS: ARIPiprazole 5 MG TABLET PO (08:33)
[2021-04-05] MEDS: Gabapentin 300 MG CAPSULE PO ×3 (08:33→20:38)
[2021-04-05] MEDS: Nicotine 14 MG PATCH.TD24 TRANSDERMA (08:34)
[2021-04-05] MEDS: Furosemide 20 MG TABLET PO (08:34)
--- NOTE | 2021-04-05 10:25 | PM.PNCARD ---
Subjective Subjective Date of Service: 04/05/21 <FERMÍN Riddle - Last Filed: 04/05/21 10:47> 04/05/21 <Michi Roy MD - Last Filed: 04/05/21 12:14> Principal diagnosis: PNA, sinus arrest ( pause), WILTON <FERMÍN Riddle - Last Filed: 04/05/21 10:47> Interval history: Cardiology follow up for sinus pause. Seen at 0930. Today he reports feeling good. He states he breathing is improved, not coughing. Not wearing O2 at present. Has anterior chest discomfort with deep breath in, unchanged from prior. No palpitation, dizziness, presyncope, syncope, falls. No PND, orthopnea or edema. <FERMÍN Riddle - Last Filed: 04/05/21 10:47> Review of Systems Review of Systems as above <FERMÍN Riddle - Last Filed: 04/05/21 10:47> Yes all other systems are reviewed and are negative <FERMÍN Riddle - Last Filed: 04/05/21 10:47> Physical Exam Vital Signs: Last Vital Signs Temp 97.5 F 04/05/21 07:13 Pulse 81 04/05/21 08:33 Resp 17 04/05/21 07:13 BP 144/93 H 04/05/21 08:33 Pulse Ox 98 04/05/21 07:13 Oxygen Flow Rate 2 04/01/21 14:50 Body Mass Index 36.0 <FERMÍN Riddle - Last Filed: 04/05/21 10:47> Const General: cooperative, no acute distress, alert and awake <FERMÍN Riddle - Last Filed: 04/05/21 10:47> Orientation/consciousness: patient oriented x3 <FERMÍN Riddle Last Filed: 04/05/21 10:47> Neck Neck: Yes normal visual inspection and Yes no JVD <FERMÍN Riddle Last Filed: 04/05/21 10:47> Resp Effort & Inspection: normal respiratory effort, able to speak in complete sentences and not labored <FERMÍN Riddle - Last Filed: 04/05/21 10:47> Auscultation: clear to auscultation bilaterally, no crackles, no rales, no rhonchi and no wheezes <CHRISTIAN RiddleC - Last Filed: 04/05/21 10:47> Cardio Palpation: normal PMI <CHRISTIAN RiddleC - Last Filed: 04/05/21 10:47> Rate: regular rate <CHRISTIAN RiddleC - Last Filed: 04/05/21 10:47> Rhythm: regular rhythm <Anne-Marie Figueroa NP-C - Last Filed: 04/05/21 10:47> Heart sounds: S1 normal heart sound present and S2 normal heart sound present <CHRISTIAN RiddleC - Last Filed: 04/05/21 10:47> Peripheral pulses: Peripheral pulses 2+ throughout <Anne-Marie Figueroa NP-C - Last Filed: 04/05/21 10:47> GI Inspection: Yes normal to inspection <CHRISTIAN RiddleC - Last Filed: 04/05/21 10:47> Neuro General: patient oriented x3 <Anne-Marie Figueroa NP-C - Last Filed: 04/05/21 10:47> Extrem General: Yes normal to inspection and No edema <Anne-Marie Figueroa NP-C - Last Filed: 04/05/21 10:47> Results Labs and Meds Result diagrams: : 04/03/21 04:37 04/03/21 04:37 <Anne-Marie Figueroa CHRISTIANC - Last Filed: 04/05/21 10:47> Lab results: Laboratory Results - last 24 hr 04/03/21 11:56 HANSA Screen NEGATIVE HANSA Titer TNP HANSA Titer 2 TNP HANSA Titer 3 TNP HANSA Pattern TNP HANSA Pattern 2 TNP HANSA Pattern 3 TNP <Anne-Marie Figueroa NP-C - Last Filed: 04/05/21 10:47> Progress Note: A&P Assessment and plan (1) Sinus arrest: Status: Acute <Anne-Marie Figueroa CHRISTIANC - Last Filed: 04/05/21 10:47> Assessment and Plan: This admit with 3.6 sec transient heart block in early am, then the following day (04/03) had a 8 sec sinus pause early am during sleep. He has known hx of untreated sleep apnea. Pulmonology is following him and he reports having a sleep study last night. No recurrent pauses noted since 04/03 am. Lyme testing is pending. Echo shows normal LV and RV. Ongoing Tele monitoring while inpt. ? Dr Roy reviewed his tele strips yesterday and stated that longer pause could be vasovagal type event. - Will plan for Cardiac event monitoring following discharge. If he continues to have pauses, inspite of WILTON treatment or symptomatic events during daytime then may need PPM. He is aware of this possibility. We will arrange for outpt DAVID and follow up. <FERMÍN Riddle - Last Filed: 04/05/21 10:47> (2) WILTON (obstructive sleep apnea): Status: Acute <FERMÍN Riddle - Last Filed: 04/05/21 10:47> Assessment and Plan: Pulmonology following <FERMÍN Riddle - Last Filed: 04/05/21 10:47> (3) Pneumonia: Status: Acute <FERMÍN Riddle - Last Filed: 04/05/21 10:47> Assessment and Plan: Hospitalist and pulmonology following. Clinically improved. <FERMÍN Riddle - Last Filed: 04/05/21 10:47> Fall Risk Details Current Medications: Current Medications Generic Name Dose Route Start Last Admin Trade Name Freq PRN Reason Stop Dose Admin Acetaminophen 650 mg 04/01/21 17:46 04/04/21 13:25 Acetaminophen 325 Mg Tablet PO 650 mg Q4H PRN Administration Pain Acetaminophen/Codeine Phosphate 1 tab 04/04/21 15:11 04/04/21 16:07 Acetaminophen With Codeine # 3 Tablet PO 1 tab Q6H PRN Administration Pain, Mild (Pain Scale 1-3) Amlodipine Besylate 5 mg 04/02/21 09:00 04/05/21 08:33 Amlodipine Besylate 5 Mg Tablet PO 5 mg DAILY ALEC Administration Protocol Aripiprazole 5 mg 04/02/21 09:00 04/05/21 08:33 Aripiprazole 5 Mg Tablet PO 5 mg DAILY ALEC Administration Aripiprazole 20 mg 04/02/21 09:00 04/05/21 08:33 Aripiprazole 20 Mg Tablet PO 20 mg DAILY ALEC Administration Aspirin 81 mg 04/02/21 09:00 04/05/21 08:32 Aspirin Enteric Coated 81 Mg Tablet.Dr PO 81 mg DAILY ALEC Administration Atorvastatin Calcium 80 mg 04/01/21 21:00 04/04/21 20:14 Atorvastatin Calcium 80 Mg Tablet PO 80 mg BEDTIME ALEC Administration Atropine Sulfate 0.5 mg 04/03/21 07:13 Atropine Sulfate 1 Mg/Ml Vial IVPUSH ONCE PRN HR<45 Benzonatate 100 mg 04/01/21 17:53 Benzonatate 100 Mg Capsule PO TID PRN Cough Clopidogrel Bisulfate 75 mg 04/02/21 09:00 04/05/21 08:32 Clopidogrel Bisulfate 75 Mg Tablet PO 75 mg DAILY ALEC Administration Docusate Sodium 100 mg 04/01/21 17:53 Docusate Sodium 100 Mg Capsule PO DAILY PRN Constipation Enoxaparin Sodium 40 mg 04/01/21 20:00 04/04/21 20:15 Enoxaparin Sodium 40 Mg/0.4 Ml Syringe SUBCUT 40 mg Q24H ALEC Administration Furosemide 20 mg 04/02/21 09:00 04/05/21 08:34 Furosemide 20 Mg Tablet PO 20 mg DAILY ALEC Administration Protocol Gabapentin 300 mg 04/01/21 21:00 04/05/21 08:33 Gabapentin 300 Mg Capsule PO 300 mg TID ALEC Administration Guaifenesin/Dextromethorphan 5 ml 04/01/21 17:53 04/04/21 05:54 Guaifenesin Dm 100/10/5 Ml 5 Ml Syrup PO 5 ml Q6H PRN Administration Cough Hydroxyzine HCl 50 mg 04/01/21 17:46 04/03/21 12:15 Hydroxyzine Hcl 50 Mg Tablet PO 50 mg BID PRN Administration Anxiety Doxycycline Hyclate 100 mg/ 250 mls @ 166.67 mls/hr 04/02/21 06:00 04/05/21 07:30 Sodium Chloride IV Infused Q12H ALEC Infusion Ceftriaxone Sodium 1 gm/ 50 mls @ 100 mls/hr 04/02/21 14:00 04/04/21 13:53 Sodium Chloride IV Infused Q24H ALEC Infusion Lisinopril 5 mg 04/02/21 09:00 04/05/21 08:33 Lisinopril 5 Mg Tablet PO 5 mg DAILY ALEC Administration Protocol Methylprednisolone Sodium Succinate 60 mg 04/03/21 12:00 04/05/21 03:56 Methylprednisolone Sod Succ 125 Mg/2 Ml Vial IVPUSH 60 mg Q8H ALEC Administration Mirtazapine 15 mg 04/01/21 21:00 04/04/21 20:14 Mirtazapine 15 Mg Tablet PO 15 mg BEDTIME ALEC Administration Multivitamins/Minerals 1 tab 04/02/21 09:00 04/05/21 08:33 Multivitamin With Minerals Tablet PO 1 tab DAILY ALEC Administration Nicotine 14 mg 04/01/21 17:53 04/05/21 08:34 Nicotine 14 Mg Patch.Td24 TRANSDERMA 14 mg DAILY ALEC Administration Omeprazole 20 mg 04/02/21 06:30 04/05/21 05:39 Omeprazole 20 Mg Capsule. PO 20 mg BID@6874,9220 ALEC Administration Ondansetron HCl 4 mg 04/01/21 17:53 Ondansetron Hcl 4 Mg/2 Ml Vial IVPUSH Q8H PRN Nausea and Vomiting Oxycodone HCl 5 mg 04/04/21 21:59 04/05/21 08:33 Oxycodone Hcl Immed Release 5 Mg Tablet PO 5 mg Q6H PRN Administration [facility] Consult 1 each 04/01/21 16:26 Consult Rx Perform Med Rec MISCELLANE ONCE PRN Consult order Sodium Chloride 3 ml 04/02/21 00:00 04/05/21 07:50 0.9 % Sodium Chloride Flush 3 Ml Syringe IVFLUSH 3 ml QSHIFT ALEC Administration Venlafaxine HCl 300 mg 04/02/21 09:00 04/05/21 08:32 Venlafaxine Hcl Er 150 Mg Cap.Er.24h PO 300 mg DAILY ALEC Administration Zolpidem Tartrate 5 mg 04/01/21 21:00 04/04/21 22:08 Zolpidem Tartrate 5 Mg Tablet PO 5 mg BEDTIME ALEC Administration <FERMÍN Riddle - Last Filed: 04/05/21 10:47> Time Spent With Patient Time: Total time spent is greater than 50% in coordination of care (as documented) at patient's floor/unit and/or counseling patient: <FERMÍN Riddle - Last Filed: 04/05/21 10:47> Time with patient: 15 - 24 minutes <FERMÍN Riddle - Last Filed: 04/05/21 10:47> Progress Note: Quality Stroke Does the patient have a stroke diagnosis?: No <FERMÍN Riddle - Last Filed: 04/05/21 10:47> Procedures Date of Service Date of Service: 04/05/21 <FERMÍN Riddle - Last Filed: 04/05/21 10:47>
--- NOTE | 2021-04-05 12:19 | HO.PM.IMPN ---
Subjective Subjective Date of Service: 04/05/21 Interval History: seen and examined this morning, no sob, no sinus pause since 04/03 Physical Exam Vital Signs: Vital Signs: Last Vital Signs Temp 98.0 F 04/05/21 10:51 Pulse 87 04/05/21 10:51 Resp 18 04/05/21 10:51 BP 161/83 H 04/05/21 10:51 Pulse Ox 97 04/05/21 10:51 Oxygen Flow Rate 2 04/01/21 14:50 Body Mass Index 36.0 Const: General: comfortable, no acute distress, alert and awake Nutritional Appearance: overweight Orientation/consciousness: patient oriented x3 Eyes: Pupils: Equal, round and reactive pupils present Resp: Other: diminished, no wheezed, rales Effort & Inspection: normal respiratory effort, no respiratory distress, tachypneic and no use of accessory muscles Cardio: Jugular venous distension: no JVD Rate: regular rate Rhythm: regular rhythm GI: Palpation (GI): Soft to palpation and nontender Neuro: General: patient oriented x3 Cranial nerves: Yes CN's II-XII intact bilaterally, Yes Equal, round and reactive pupils present and Yes Bilaterally intact EOM present Extrem: Other: no leg edema General: Yes normal to inspection Objective Data Current Medications Generic Name Dose Route Start Last Admin Trade Name Freq PRN Reason Stop Dose Admin Acetaminophen 650 mg 04/01/21 17:46 04/04/21 13:25 Acetaminophen 325 Mg Tablet PO 650 mg Q4H PRN Administration Pain Acetaminophen/Codeine Phosphate 1 tab 04/04/21 15:11 04/04/21 16:07 Acetaminophen With Codeine # 3 Tablet PO 1 tab Q6H PRN Administration Pain, Mild (Pain Scale 1-3) Amlodipine Besylate 5 mg 04/02/21 09:00 04/05/21 08:33 Amlodipine Besylate 5 Mg Tablet PO 5 mg DAILY ALEC Administration Protocol Aripiprazole 5 mg 04/02/21 09:00 04/05/21 08:33 Aripiprazole 5 Mg Tablet PO 5 mg DAILY ALEC Administration Aripiprazole 20 mg 04/02/21 09:00 04/05/21 08:33 Aripiprazole 20 Mg Tablet PO 20 mg DAILY ALEC Administration Aspirin 81 mg 04/02/21 09:00 04/05/21 08:32 Aspirin Enteric Coated 81 Mg Tablet. PO 81 mg DAILY ALEC Administration Atorvastatin Calcium 80 mg 04/01/21 21:00 04/04/21 20:14 Atorvastatin Calcium 80 Mg Tablet PO 80 mg BEDTIME ALEC Administration Atropine Sulfate 0.5 mg 04/03/21 07:13 Atropine Sulfate 1 Mg/Ml Vial IVPUSH ONCE PRN HR<45 Benzonatate 100 mg 04/01/21 17:53 Benzonatate 100 Mg Capsule PO TID PRN Cough Clopidogrel Bisulfate 75 mg 04/02/21 09:00 04/05/21 08:32 Clopidogrel Bisulfate 75 Mg Tablet PO 75 mg DAILY ALEC Administration Docusate Sodium 100 mg 04/01/21 17:53 Docusate Sodium 100 Mg Capsule PO DAILY PRN Constipation Enoxaparin Sodium 40 mg 04/01/21 20:00 04/04/21 20:15 Enoxaparin Sodium 40 Mg/0.4 Ml Syringe SUBCUT 40 mg Q24H ALEC Administration Furosemide 20 mg 04/02/21 09:00 04/05/21 08:34 Furosemide 20 Mg Tablet PO 20 mg DAILY ALEC Administration Protocol Gabapentin 300 mg 04/01/21 21:00 04/05/21 08:33 Gabapentin 300 Mg Capsule PO 300 mg TID ALEC Administration Guaifenesin/Dextromethorphan 5 ml 04/01/21 17:53 04/04/21 05:54 Guaifenesin Dm 100/10/5 Ml 5 Ml Syrup PO 5 ml Q6H PRN Administration Cough Hydroxyzine HCl 50 mg 04/01/21 17:46 04/03/21 12:15 Hydroxyzine Hcl 50 Mg Tablet PO 50 mg BID PRN Administration Anxiety Doxycycline Hyclate 100 mg/ 250 mls @ 166.67 mls/hr 04/02/21 06:00 04/05/21 07:30 Sodium Chloride IV Infused Q12H ALEC Infusion Ceftriaxone Sodium 1 gm/ 50 mls @ 100 mls/hr 04/02/21 14:00 04/04/21 13:53 Sodium Chloride IV Infused Q24H ALEC Infusion Lisinopril 5 mg 04/02/21 09:00 04/05/21 08:33 Lisinopril 5 Mg Tablet PO 5 mg DAILY ALEC Administration Protocol Methylprednisolone Sodium Succinate 60 mg 04/03/21 12:00 04/05/21 03:56 Methylprednisolone Sod Succ 125 Mg/2 Ml Vial IVPUSH 60 mg Q8H ALEC Administration Mirtazapine 15 mg 04/01/21 21:00 04/04/21 20:14 Mirtazapine 15 Mg Tablet PO 15 mg BEDTIME ALEC Administration Multivitamins/Minerals 1 tab 04/02/21 09:00 04/05/21 08:33 Multivitamin With Minerals Tablet PO 1 tab DAILY ALEC Administration Nicotine 14 mg 04/01/21 17:53 04/05/21 08:34 Nicotine 14 Mg Patch.Td24 TRANSDERMA 14 mg DAILY ALEC Administration Omeprazole 20 mg 04/02/21 06:30 04/05/21 05:39 Omeprazole 20 Mg Capsule. PO 20 mg BID@0630,1630 ALEC Administration Ondansetron HCl 4 mg 04/01/21 17:53 Ondansetron Hcl 4 Mg/2 Ml Vial IVPUSH Q8H PRN Nausea and Vomiting Oxycodone HCl 5 mg 04/04/21 21:59 04/05/21 08:33 Oxycodone Hcl Immed Release 5 Mg Tablet PO 5 mg Q6H PRN Administration [facility] Consult 1 each 04/01/21 16:26 Consult Rx Perform Med Rec MISCELLANE ONCE PRN Consult order Sodium Chloride 3 ml 04/02/21 00:00 04/05/21 07:50 0.9 % Sodium Chloride Flush 3 Ml Syringe IVFLUSH 3 ml QSHIFT ALEC Administration Venlafaxine HCl 300 mg 04/02/21 09:00 04/05/21 08:32 Venlafaxine Hcl Er 150 Mg Cap.Er.24h PO 300 mg DAILY ALEC Administration Zolpidem Tartrate 5 mg 04/01/21 21:00 04/04/21 22:08 Zolpidem Tartrate 5 Mg Tablet PO 5 mg BEDTIME ALEC Administration Labs CBC & Chem 7: 04/03/21 04:37 04/03/21 04:37 Labs: Laboratory Results - last 24 hr 04/03/21 11:56 HANSA Screen NEGATIVE HANSA Titer TNP HANSA Titer 2 TNP HANSA Titer 3 TNP HANSA Pattern TNP HANSA Pattern 2 TNP HANSA Pattern 3 TNP Assessment and Plan (1) Pneumonitis: Status: Acute Assessment and Plan: 55-year-old male with history of CAD s/p stent placement, chronic diastolic CHF, hypertension, dyslipidemia, WILTON (no cpap machine at home), active smoker who presents to the emergency room with 3 day history of cough, chills, body aches found to have multifocal pneumonia Multifocal pneumonia. leukocytosis trending down No evidence of sepsis covid negative seen by pulmonology CTA negative for PE -Respiratory panel negative for covid -Continue IV ceftriaxone, doxycycline (started 04/01) -cough suppression -Continue Prednisone for now -change Abx to Ceftin and PO Doxy in anticipation of DC Sinus pause--up to 8 sec on 04/03, none since, believed to be realted to untreated WILTON, plan is if he gets pauseds with treatment of WILTON then will need PPM. For now avoid, BB, clonidine or CCB. WILTON--Overnight sleep study was positive, awaiting what he will need after discharge Tobacco dependence Smoking cessation advised -NRT CAD -continue asa, plavix, statin HTN -continue norvasc, lisinopril -clonidine, metoprolol on hold HFpEF no acute exacerbation -continue home dose of lasix Mood -continue abilify, remeron, effexor Obesity BMI 35.9 Likely contributing to respiratory status weight reduction recommended dvt ppx - lovenox code status - full code Quality Stroke Does the patient have a stroke diagnosis?: No VTE Prior VTE?: No VTE Risk Level:: Medical - moderate - high VTE Device Contraindication: Treatment Not Indicated VTE Drug Contraindication: N/A - Med Ordered
[2021-04-05] MEDS: cefTRIAXone sodium 1 GM in 0.9 % Sodium Chloride 50 ML IV (13:07)
[2021-04-05] MEDS: Enoxaparin Sodium 40 MG/0.4 ML SYRINGE SUBCUT (20:37)
[2021-04-05] MEDS: Atorvastatin Calcium 80 MG TABLET PO (20:38)
[2021-04-05] MEDS: Mirtazapine 15 MG TABLET PO (20:38)
[2021-04-05] MEDS: Zolpidem Tartrate 5 MG TABLET PO (20:38)
[2021-04-06] VITALS (7 sets, daily range): BP systolic 139–168; BP diastolic 76–95; PULSE 65–87; RESP 16–20; TEMP 36.4–36.8; O2SAT 94–97
[2021-04-06 01:46] LABS: Lyme Abs Screen <0.90 index
[2021-04-06 03:02] LABS: Immunoglobulin E 46 kU/L (<OR=114)
[2021-04-06] MEDS: methylPREDNISolone Sod Succ 125 MG/2 ML VIAL 60 MG IVPUSH ×2 (03:29→11:48)
[2021-04-06] MEDS: Omeprazole 20 MG CAPSULE.DR PO (05:53)
[2021-04-06] MEDS: Doxycycline Hyclate 100 MG in 0.9 % Sodium Chloride 250 ML 166.67 MG IV (05:53)
[2021-04-06] MEDS: Nicotine 14 MG PATCH.TD24 TRANSDERMA (07:49)
[2021-04-06] MEDS: 0.9 % Sodium Chloride Flush 3 ML SYRINGE IVFLUSH (07:50)
[2021-04-06] MEDS: ARIPiprazole 5 MG TABLET PO (07:51)
[2021-04-06] MEDS: Furosemide 20 MG TABLET PO (07:51)
[2021-04-06] MEDS: Venlafaxine HCl ER 150 MG CAP.ER.24H 300 MG PO (07:51)
[2021-04-06] MEDS: Clopidogrel Bisulfate 75 MG TABLET PO (07:51)
[2021-04-06] MEDS: Aspirin Enteric Coated 81 MG TABLET.DR PO (07:52)
[2021-04-06] MEDS: Gabapentin 300 MG CAPSULE PO ×2 (07:52→14:21)
[2021-04-06] MEDS: amLODIPine Besylate 5 MG TABLET PO (09:47)
[2021-04-06] MEDS: ARIPiprazole 20 MG TABLET PO (09:48)
--- NOTE | 2021-04-06 11:43 | MHC.CM.PN ---
PER MULTIDISCIPLINARY ROUNDS PT MAY D/C HOWEVER HOSPITALIST NEEDS TO CONSULT W/RESPIRATORY WAS TESTED AND FOUND TO HAVE SLEEP APNEA, POSSIBILITY PT WILL NEED CPAP SET UP PRIOR TO D/C. D/C PLAN: HOME SELF-CARE, ?NEW CPAP, TO TRANSPORT.
--- NOTE | 2021-04-06 13:26 | MHC.CM.PN ---
Addendum entered by Kacie Booth RN 04/06/21 14:33: PER RESPIRATORY PT WILL BE SET UP W/HOME O2 W/INSTRUSTIONS TO USE 2L NC AT NIGHT D/T NOT BEING ABLE TO D/C ON CPAP. Original Note: CM MET W/RESPIRATORY THERAPY WHO REPORTED PT WILL NEED TO COME IN FOR AN INPT OVERNIGHT SLEEP STUDY, RESPIRATORY ALSO REPORTED THEY COULD NOT LOCATE PREVIOUS SLEEP STUDY THAT PT HAD REPORTED IN THE PAST AND PT DOES NOT HAVE APPROPRIATE DIAGNOSIS FOR RESPIRATORY TO SET PT UP W/CPAP. PER RESPIRATORY REFERRAL WILL NEED TO COME FROM PCP, CM CONTACTED DR BRIDGER JOSHI OFFICE AND LEFT MESSAGE AT 1310, CM MET W/ PT WHO SIGNED IMM AND GAVE CM AN ADDITIONAL CONTACT NUMBER HE HAS LOST HIS PHONE AND UNSURE OF 'S NUMBER. PER RESPIRATORY PT WILL BE PLACED ON A WAIT LIST SO HE CAN BE SEEN SOONER THEN NEXT AVAILABLE APPT ON 05/11/21. D/C PLAN: HOME TODAY SELF-CARE, PT TO ARRANGE TRANSPORT, CM TO FOLLOW UP IF NEEDED REGARDING SLEEP STUDY AND NEW CONTACT INFO GIVEN TO JUICE TESTER WHO IS FOLLOWING PT. PLEASE CONTACT PT THROUGH FRIEND CLAYTON ROBERTS [phone]
--- NOTE | 2021-04-06 13:35 | HO.PM.IMPN ---
Subjective Subjective Date of Service: 05/14/21 Interval History: seen and examined this morning, no sob, no sinus pause since 04/03 Physical Exam Vital Signs: Vital Signs: Last Vital Signs Temp 98.2 F 04/06/21 11:19 Pulse 86 04/06/21 11:19 Resp 18 04/06/21 11:19 BP 156/93 H 04/06/21 11:19 Pulse Ox 95 04/06/21 11:19 Oxygen Flow Rate 2 04/01/21 14:50 Body Mass Index 36.0 Const: General: comfortable, no acute distress, alert and awake Nutritional Appearance: overweight Orientation/consciousness: patient oriented x3 Eyes: Pupils: Equal, round and reactive pupils present Resp: Other: diminished, no wheezed, rales Effort & Inspection: normal respiratory effort, no respiratory distress, tachypneic and no use of accessory muscles Cardio: Jugular venous distension: no JVD Rate: regular rate Rhythm: regular rhythm GI: Palpation (GI): Soft to palpation and nontender Neuro: General: patient oriented x3 Cranial nerves: Yes CN's II-XII intact bilaterally, Yes Equal, round and reactive pupils present and Yes Bilaterally intact EOM present Extrem: Other: no leg edema General: Yes normal to inspection Objective Data Current Medications Generic Name Dose Route Start Last Admin Trade Name Freq PRN Reason Stop Dose Admin Acetaminophen 650 mg 04/01/21 17:46 04/04/21 13:25 Acetaminophen 325 Mg Tablet PO 650 mg Q4H PRN Administration Pain Acetaminophen/Codeine Phosphate 1 tab 04/04/21 15:11 04/06/21 07:52 Acetaminophen With Codeine # 3 Tablet PO 1 tab Q6H PRN Administration Pain, Mild (Pain Scale 1-3) Amlodipine Besylate 5 mg 04/02/21 09:00 04/06/21 09:47 Amlodipine Besylate 5 Mg Tablet PO 5 mg DAILY ALEC Administration Protocol Aripiprazole 5 mg 04/02/21 09:00 04/06/21 07:51 Aripiprazole 5 Mg Tablet PO 5 mg DAILY ALEC Administration Aripiprazole 20 mg 04/02/21 09:00 04/06/21 09:48 Aripiprazole 20 Mg Tablet PO 20 mg DAILY ALEC Administration Aspirin 81 mg 04/02/21 09:00 04/06/21 07:52 Aspirin Enteric Coated 81 Mg Tablet. PO 81 mg DAILY ALEC Administration Atorvastatin Calcium 80 mg 04/01/21 21:00 04/05/21 20:38 Atorvastatin Calcium 80 Mg Tablet PO 80 mg BEDTIME ALEC Administration Atropine Sulfate 0.5 mg 04/03/21 07:13 Atropine Sulfate 1 Mg/Ml Vial IVPUSH ONCE PRN HR<45 Benzonatate 100 mg 04/01/21 17:53 Benzonatate 100 Mg Capsule PO TID PRN Cough Clopidogrel Bisulfate 75 mg 04/02/21 09:00 04/06/21 07:51 Clopidogrel Bisulfate 75 Mg Tablet PO 75 mg DAILY ALEC Administration Docusate Sodium 100 mg 04/01/21 17:53 Docusate Sodium 100 Mg Capsule PO DAILY PRN Constipation Enoxaparin Sodium 40 mg 04/01/21 20:00 04/05/21 20:37 Enoxaparin Sodium 40 Mg/0.4 Ml Syringe SUBCUT 40 mg Q24H ALEC Administration Furosemide 20 mg 04/02/21 09:00 04/06/21 07:51 Furosemide 20 Mg Tablet PO 20 mg DAILY ALEC Administration Protocol Gabapentin 300 mg 04/01/21 21:00 04/06/21 07:52 Gabapentin 300 Mg Capsule PO 300 mg TID ALEC Administration Guaifenesin/Dextromethorphan 5 ml 04/01/21 17:53 04/04/21 05:54 Guaifenesin Dm 100/10/5 Ml 5 Ml Syrup PO 5 ml Q6H PRN Administration Cough Hydroxyzine HCl 50 mg 04/01/21 17:46 04/03/21 12:15 Hydroxyzine Hcl 50 Mg Tablet PO 50 mg BID PRN Administration Anxiety Doxycycline Hyclate 100 mg/ 250 mls @ 166.67 mls/hr 04/02/21 06:00 04/06/21 07:54 Sodium Chloride IV Infused Q12H ALEC Infusion Ceftriaxone Sodium 1 gm/ 50 mls @ 100 mls/hr 04/02/21 14:00 04/05/21 13:41 Sodium Chloride IV Infused Q24H ALEC Infusion Lisinopril 5 mg 04/02/21 09:00 04/06/21 07:53 Lisinopril 5 Mg Tablet PO 5 mg DAILY ALEC Administration Protocol Methylprednisolone Sodium Succinate 60 mg 04/03/21 12:00 04/06/21 11:48 Methylprednisolone Sod Succ 125 Mg/2 Ml Vial IVPUSH 60 mg Q8H ALEC Administration Mirtazapine 15 mg 04/01/21 21:00 04/05/21 20:38 Mirtazapine 15 Mg Tablet PO 15 mg BEDTIME ALEC Administration Multivitamins/Minerals 1 tab 04/02/21 09:00 04/06/21 07:51 Multivitamin With Minerals Tablet PO 1 tab DAILY ALEC Administration Nicotine 14 mg 04/01/21 17:53 04/06/21 07:49 Nicotine 14 Mg Patch.Td24 TRANSDERMA 14 mg DAILY ALEC Administration Omeprazole 20 mg 04/02/21 06:30 04/06/21 05:53 Omeprazole 20 Mg Capsule. PO 20 mg BID@0630,1630 ALEC Administration Ondansetron HCl 4 mg 04/01/21 17:53 Ondansetron Hcl 4 Mg/2 Ml Vial IVPUSH Q8H PRN Nausea and Vomiting Oxycodone HCl 5 mg 04/04/21 21:59 04/05/21 15:23 Oxycodone Hcl Immed Release 5 Mg Tablet PO 5 mg Q6H PRN Administration [facility] Consult 1 each 04/01/21 16:26 Consult Rx Perform Med Rec MISCELLANE ONCE PRN Consult order Sodium Chloride 3 ml 04/02/21 00:00 04/06/21 07:50 0.9 % Sodium Chloride Flush 3 Ml Syringe IVFLUSH 3 ml QSHIFT ALEC Administration Venlafaxine HCl 300 mg 04/02/21 09:00 04/06/21 07:51 Venlafaxine Hcl Er 150 Mg Cap.Er.24h PO 300 mg DAILY ALEC Administration Zolpidem Tartrate 5 mg 04/01/21 21:00 04/05/21 20:38 Zolpidem Tartrate 5 Mg Tablet PO 5 mg BEDTIME ALEC Administration Labs CBC & Chem 7: 04/03/21 04:37 04/03/21 04:37 Labs: Laboratory Results - last 24 hr 04/03/21 04/03/21 17:38 Unknown IgE 46 Lyme Screen IgG & IgM <0.90 Lyme Progressive Test TNP Assessment and Plan (1) CAD (coronary artery disease): Status: Acute Assessment and Plan: 55-year-old male with history of CAD s/p stent placement, chronic diastolic CHF, hypertension, dyslipidemia, WILTON (no cpap machine at home), active smoker who presents to the emergency room with 3 day history of cough, chills, body aches found to have multifocal pneumonia Multifocal pneumonia. leukocytosis trending down No evidence of sepsis covid negative seen by pulmonology CTA negative for PE -Respiratory panel negative for covid -Continue IV ceftriaxone, doxycycline (started 04/01) -cough suppression -Continue Prednisone for now -change Abx to Ceftin and PO Doxy in anticipation of DC Sinus pause--up to 8 sec on 04/03, none since, believed to be realted to untreated WILTON, plan is if he gets pauseds with treatment of WILTON then will need PPM. For now avoid, BB, clonidine or CCB. WILTON--Overnight sleep study was positive, awaiting what he will need after discharge Tobacco dependence Smoking cessation advised -NRT CAD -continue asa, plavix, statin HTN -continue norvasc, lisinopril -clonidine, metoprolol on hold HFpEF no acute exacerbation -continue home dose of lasix Mood -continue abilify, remeron, effexor Obesity BMI 35.9 Likely contributing to respiratory status weight reduction recommended dvt ppx - lovenox code status - full code Quality Stroke Does the patient have a stroke diagnosis?: No VTE Prior VTE?: No VTE Risk Level:: Medical - moderate - high VTE Device Contraindication: Treatment Not Indicated VTE Drug Contraindication: N/A - Med Ordered
[2021-04-06] MEDS: cefTRIAXone sodium 1 GM in 0.9 % Sodium Chloride 50 ML IV (14:20)
--- NOTE | 2021-04-06 14:34 | P.PNPL_ITS ---
Subjective Subjective Date of Service: 04/06/21 Principal diagnosis: PNA, sinus arrest ( pause), WILTON Interval history: 55-year-old gentleman with underlying what appears to be a combination of central and obstructive sleep apnea with loss study of a 3 years ago, noted to have nocturnal hypoxemia on overnight oximetry and possible pneumonitis versus pulmonary edema on chest imaging, now significantly improved after diuresis and systemic glucocorticoids. Objective Data Labs CBC & Chem 7: 04/03/21 04:37 04/03/21 04:37 Labs: Laboratory Results - last 24 hr 04/03/21 04/03/21 17:38 Unknown IgE 46 Lyme Screen IgG & IgM <0.90 Lyme Progressive Test TNP Microbiology Microbiology Results: Microbiology 04/01/21 14:33 Blood - Venous Blood Culture - Preliminary No growth after 48 hours. 04/01/21 14:33 Blood - Venous Blood Culture - Preliminary No growth after 48 hours. Review of Systems Constitutional: Denies daytime sleepiness, Denies excessive sweating, Denies fatigue, Denies fever(s), Denies lethargy, Denies malaise, Denies night sweats, Denies snoring and Denies weight loss Eyes: Denies blurry vision and Denies itchy eyes Denies nasal congestion, Denies post nasal drip, Denies sinus pain, Denies sinus pressure and Denies other ( Thrush) Cardiovascular: Denies chest pain, Denies pedal edema, Denies dyspnea, Denies orthopnea and Denies paroxysmal nocturnal dyspnea Respiratory: Denies cough, Denies hemoptysis, Denies excessive phlegm production, Denies dyspnea, Denies snoring and Denies wheezing Gastrointestinal: Denies abdominal pain and Denies heartburn Musculoskeletal: Denies myalgias, Denies arthralgias and Denies joint swelling Skin/Breast: Denies rash Denies memory loss and Denies seizure-like activity Psychiatric: Denies abnormal sleep pattern, Denies anxiety and Denies memory loss Endocrine: Denies excessive sweating, Denies fatigue and Denies heat intolerance Hematologic/Lymphatic: Denies easy bruising Allergic/Immunologic: Denies itchy eyes, Denies seasonal rhinorrhea and Denies wheezing Physical Exam Vital Signs: Vital Signs: Last Vital Signs Temp 98.2 F 04/06/21 11:19 Pulse 86 04/06/21 11:19 Resp 18 04/06/21 11:19 BP 156/93 H 04/06/21 11:19 Pulse Ox 95 04/06/21 11:19 Oxygen Flow Rate 2 04/01/21 14:50 Body Mass Index 36.0 Const: General: no acute distress, alert and awake Eyes: Sclerae: sclerae normal EOM: EOMs intact bilaterally Neck: Neck: Yes no lymphadenopathy, Yes trachea midline and Yes supple Resp: Effort & Inspection: normal respiratory effort and no respiratory distress Auscultation: clear to auscultation bilaterally Cardio: Rate: regular rate Rhythm: regular rhythm Heart sounds: no gallops, no murmurs and no rubs GI: Palpation (GI): Soft to palpation and Other GI palpation findings present ( Nontender) Auscultation: normal bowel sounds Extrem: General: Yes no pedal edema, No clubbing and No cyanosis Procedures Date of Service Date of Service: 04/06/21 Assessment and Plan Assessment and plan (1) Sleep apnea: Status: Acute Assessment and Plan: Impression: Underlying history of complex obstructive sleep apnea with no recent sleep study available, however noted to have nocturnal hypoxemia on overnight oximetry. Also, hypoxemia with peribronchovascular ground-glass infiltrates on CT chest of unclear etiology, pulmonary edema vs. pneumonitis. Now thin Shiley resolved. Recommendation: Would suggest to start on supplemental oxygen at 2 L continuous flow at night until patient gets a titration sleep outpatient study. Etiology of pulmonary infiltrates is not clear, but likely related to underlying right- sided dysfunction that improved with diuresis. (2) Pulmonary infiltrates: Status: Acute Time Spent With Patient Time: Total time spent is greater than 50% in coordination of care (as documented) at patient's floor/unit and/or counseling patient: Time with patient: 25 - 35 minutes Progress Note: Quality Stroke Does the patient have a stroke diagnosis?: No
--- NOTE | 2021-04-06 14:47 | P.DS_ITS ---
DS: Providers Provider Date of Service: 04/06/21 Date of admission: 04/01/21 16:34 Primary care physician: Franchesca Batista MD Consults: 04/02/21 07:56 Consult to Cardiology Routine Consulting Provider: Adrian Sanchez Reason for consultation: Bradycardia, 3.6 sec pause 04/02/21 10:59 Consult to Pulmonology Routine Consulting Provider: Dustin Faria Reason for consultation: sleep apnea Has provider been notified: No DS: Diagnosis Discharge Diagnosis (1) Sleep apnea: Status: Deleted (2) Pulmonary infiltrates: Status: Deleted DS: Summary Hospital Course Hospital Course: 55-year-old male with history of CAD s/p stent placement, chronic diastolic CHF, hypertension, dyslipidemia, WILTON (no cpap machine at home), active smoker who p resents to the emergency room with 3 day history of cough, chills, body aches found to have multifocal pneumonia and during hospitalization was noted to have cardiac pauses and bradycardia when sleeping. Apparaently he has history WILTON and has sleep study done in the pass but did not go through titration. Multifocal pneumonia and pneumonitits--No sepsis No evidence of sepsis covid negative seen by pulmonology CTA negative for PE -Respiratory panel negative for covid. He has been treated with Ceftriaxone and Doxyclyine and clinically is doing much better, no hypoxia. Will transition to oral Ceftin for total of 10 days of antiboitics. For compoment of penumonitis pulmonology recommended steroid and has been on IV solumedrol and will transition to oral Prednisone. He was also diurese for possible component of pulmonry edema Sinus pause--up to 8 sec on 04/03, this happened while asleep, believed to be realted to untreated WILTON, never during the day, he has been having episodes of bradycardia however into 30s with no signficant pauses, cardillogy is recommending PPM only after WILTON is treate, unfortunately he does not qualify for CPAP until he can hav sleep study done again with proper titration, in place of this he had overnight oxygen study done and qualify for nocturnal O2 and therefore will discharge home with O2 at night and respiratory is helping coordinating home O2. Should avoid BB, clonidine or CCB. Discuss with cardilogy and there is high degree of confidence that this is related to WILTON and oxygen should help and ultimtely CPAP as definitive treatment--patient is confident with plan WILTON--Overnight sleep study was positive--SEE above Tobacco dependence Smoking cessation advised CAD -continue asa, plavix, statin HTN -continue norvasc, lisinopril -clonidine, metoprolol discontinued due to bradycardia above. HFpEF no acute exacerbation -continue home dose of lasix Mood -continue abilify, remeron, effexor Obesity BMI 35.9 Likely contributing to respiratory status weight reduction recommended dvt ppx - lovenox code status - full code He would like to go home with home O2 since he's unable to get CPAP or bipap while in the hospital and will use oxgyen at night Time Spent with Patient Time attestation: Total time spent providing and/or coordinating discharge services: Discharge coordination time: Greater than 30 minutes Quality: Stroke Does the patient have a stroke diagnosis?: No Physical Exam Vital Signs: Vital Signs: Last Vital Signs Temp 98.2 F 04/06/21 11:19 Pulse 86 04/06/21 11:19 Resp 18 04/06/21 11:19 BP 156/93 H 04/06/21 11:19 Pulse Ox 95 04/06/21 11:19 Oxygen Flow Rate 2 04/01/21 14:50 Body Mass Index 36.0 DS: Data Data Completed and Pending Labs on day of discharge: Laboratory Results - last 24 hr 04/03/21 04/03/21 17:38 Unknown IgE 46 Lyme Screen IgG & IgM <0.90 Lyme Progressive Test TNP Preliminary micro results at discharge 04/01/21 14:33 Blood Culture - Preliminary Blood - Venous No growth after 48 hours. 04/01/21 14:33 Blood Culture - Preliminary Blood - Venous No growth after 48 hours. Discharge Plan Discharge Anticipated Discharge Date/Time: 04/06/21 14:34 Patient Disposition: Home, Self-Care Discharge Diagnosis: Pneumonitis, WILTON, sinus pause Referrals: Franchesca Batista MD [Primary Care Provider] - 1 Week Discharge Medications: New amlodipine [Norvasc] 10 mg tablet 10 mg PO DAILY Qty: 30 RF: 0 prednisone 20 mg tablet 20 mg PO DAILY Qty: 5 RF: 0 Continued pantoprazole 40 mg tablet,delayed release (DR/EC) 40 mg PO BID 30 Days Qty: 60 RF: 2 gabapentin 300 mg capsule 300 mg PO TID RF: 0 mirtazapine 15 mg tablet 15 mg PO BEDTIME RF: 0 aripiprazole 20 mg tablet 20 mg PO DAILY RF: 0 aripiprazole 5 mg tablet 5 mg PO DAILY RF: 0 acetaminophen 325 mg Tablet 650 mg PO Q4H PRN (Reason: Pain) RF: 0 glwlfbqkkvio-knolmqqj-pzpiby Tablet 1 tab PO DAILY RF: 0 lisinopril 5 mg tablet 5 mg PO DAILY RF: 0 clopidogrel 75 mg tablet 75 mg PO DAILY RF: 0 atorvastatin 80 mg tablet 80 mg PO BEDTIME RF: 0 venlafaxine 150 mg capsule,extended release 24hr 300 mg PO DAILY RF: 0 aspirin 81 mg tablet,delayed release (DR/EC) 81 mg PO DAILY RF: 0 furosemide 20 mg tablet 20 mg PO DAILY RF: 0 zolpidem 5 mg tablet 5 mg PO BEDTIME RF: 0 Discontinued clonidine HCl 0.2 mg tablet 0.2 mg PO BID RF: 0 metoprolol succinate 50 mg tablet extended release 24 hr 150 mg PO DAILY RF: 0 No Action venlafaxine 150 mg capsule,extended release 24hr 300 mg PO QPM RF: 0 Discharge Orders: Discharge Order (Routine); Ordered 04/06/21 Ordered By: Holland Vargas Diet: advance to usual diet Activity on Discharge: As tolerated Stand Alone Forms: Patient Portal Discharge page Care Plan Goals: prevent rehospitalization Health Concerns: Sleep apnea, bradycardia with sleep apne Plan of Treatment: Do not take Clonidine or Metoprolol, follow up with Dr. Huff Follow up with Sleep lab to get Sleep study and ultimately CPAP Use oxygen at night while sleeping Assessment: as above Discharge Date/Time: 04/06/21 17:03
[2021-04-07 22:36] LABS: Angiotensin Converting Enzyme 7 U/L (9-67)
== END 2021-04-06 17:03 | disposition home or self-care (01) | DRG 194 ==
LOC: HO.ED 16:22 → HO.IMC 17:23
PROVIDERS: Hospitalist; Admitting Provider Physician Assistant Medical; Emergency Provider Emergency Medicine; PCP Internal Medicine; Visit Provider Internal Medicine
DX: J18.9 Pneumonia, unspecified organism (principal); I50.32 Chronic diastolic (congestive) heart failure; I49.5 Sick sinus syndrome; I25.10 Atherosclerotic heart disease of native coronary artery without angina pectoris; D72.829 Elevated white blood cell count, unspecified; F17.210 Nicotine dependence, cigarettes, uncomplicated; I11.0 Hypertensive heart disease with heart failure; E66.9 Obesity, unspecified; I44.30 Unspecified atrioventricular block; Z68.35 Body mass index [BMI] 35.0-35.9, adult; I25.2 Old myocardial infarction; G47.31 Primary central sleep apnea; Z86.718 Personal history of other venous thrombosis and embolism; Z71.6 Tobacco abuse counseling; Z79.02 Long term (current) use of antithrombotics/antiplatelets; Z79.82 Long term (current) use of aspirin; Z79.899 Other long term (current) drug therapy
CPT/HCPCS: 11104; 36415; 71045; 71046; 71275; 80048; 80053; 82164; 82785; 84484; 85025; 85027; 85652; 86038; 86039; 86617; 86618; 87040; 87633; 87635; 93005; 93306; 94660; 96365; 96366; 96367; 99285; J0696; J1650; J1885; J2270; J2930; Q9957

== ENCOUNTER → 2021-04-15 10:59 | Outpatient (REF) | payer MEDICARE, MEDICAID, SELFPAY ==
--- NOTE | 2021-04-15 11:03 | HM_ITS ---
The patient is a 55-year-old female. REQUESTING PROVIDER: Anne-Marie Figueroa NP. REASON FOR THE TEST: Unspecified heart block. FINDINGS: The patient was hooked up to cardiac event monitor from 04/15/2021 to 05/15/2021 for a total period of 30 days. Only 1 rhythm strip was provided, which was at baseline with no symptoms. This showed sinus rhythm with PVCs. There were no other strips provided. There were no other patient reported events. CONCLUSION: 1. Cardiac event monitor is unremarkable from baseline normal sinus rhythm with isolated PVCs. 2. No other strips were provided and the patient did not report any symptoms. Pedro Luis Caputo MD NRS/MODL / [id number]
== END ==
LOC: HO.CARD 10:59
PROVIDERS: Visit Provider Nurse Practitioner Family
DX: I45.5 Other specified heart block (principal); G47.37 Central sleep apnea in conditions classified elsewhere; G47.33 Obstructive sleep apnea (adult) (pediatric)
CPT/HCPCS: 93270

== ENCOUNTER → 2021-04-19 14:38 | Outpatient (BNVA) | payer MEDICARE, MEDICAID, SELFPAY | PROVIDERS: PCP Internal Medicine; Visit Provider Internal Medicine | DX: G47.31 Primary central sleep apnea (principal); G47.34 Idiopathic sleep related nonobstructive alveolar hypoventilation; E66.9 Obesity, unspecified; I25.10 Atherosclerotic heart disease of native coronary artery without angina pectoris; I50.30 Unspecified diastolic (congestive) heart failure; Z87.01 Personal history of pneumonia (recurrent) | CPT/HCPCS: 99212 ==

== ENCOUNTER → 2021-05-15 20:21 | Outpatient (REF) | payer MEDICARE, MEDICAID, SELFPAY | LOC: HO.SL 20:21 | PROVIDERS: PCP Internal Medicine; Visit Provider Internal Medicine | DX: G47.31 Primary central sleep apnea (principal) | CPT/HCPCS: 95811 ==

== ENCOUNTER → 2021-05-25 10:33 | Outpatient (BNVA) | payer MEDICARE, MEDICAID, SELFPAY | PROVIDERS: PCP Internal Medicine; Visit Provider Internal Medicine | DX: G47.34 Idiopathic sleep related nonobstructive alveolar hypoventilation (principal); G47.31 Primary central sleep apnea; E66.9 Obesity, unspecified | CPT/HCPCS: 99212 ==

== ENCOUNTER 2021-08-25 12:34 | Emergency (ER) | payer MEDICARE, MEDICAID, SELFPAY ==
[2021-08-25 13:26] VITALS: BP 118/72; PULSE 76; RESP 16; TEMP 36.6; O2SAT 94; BMI 34.3
--- NOTE | 2021-08-25 14:16 | ED.GENADULT ---
HPI - General Adult General Chief complaint: Upper Respiratory Symptoms Stated complaint: Covid Symptoms Time Seen by Provider: 08/25/21 14:16 Source: patient Limitations: no limitations History of Present Illness HPI narrative: Patient presents to the ER with a 1 day history of sinus congestion nasal pressure. Patient states the onset of symptoms yesterday. Patient does have a longstanding history of heart disease. Patient states he has been fully vaccinated for COVID-19 but on has been not been boosted yet. Patient has no past history of COVID-19. No cough shortness of breath at this time. Patient states some body aches. Related Data Home Medications Medication Instructions Recorded Confirmed aspirin 81 mg tablet,delayed 81 mg PO DAILY 10/05/20 04/18/21 release atorvastatin 80 mg tablet 80 mg PO BEDTIME 10/05/20 04/18/21 clopidogrel 75 mg tablet 75 mg PO DAILY 10/05/20 04/18/21 lisinopril 5 mg tablet 5 mg PO DAILY 10/05/20 04/18/21 venlafaxine 150 mg 300 mg PO DAILY 10/05/20 04/18/21 capsule,extended release 24 hr furosemide 20 mg tablet 20 mg PO DAILY 12/08/20 04/18/21 zolpidem 5 mg tablet 5 mg PO BEDTIME 12/29/20 04/18/21 acetaminophen 325 mg tablet 650 mg PO Q4H PRN 04/01/21 04/18/21 aripiprazole 20 mg tablet 20 mg PO DAILY 04/01/21 04/18/21 mirtazapine 15 mg tablet 15 mg PO BEDTIME 04/01/21 04/18/21 wbnnxygxqrkh-bqztsayo-topzeh tablet 1 tab PO DAILY 04/01/21 04/18/21 Previous Rx's Medication Instructions Recorded amlodipine 10 mg tablet (Norvasc) 10 mg PO DAILY #30 tab 04/06/21 pantoprazole 40 mg tablet,delayed 40 mg PO BID 30 Days #60 tab 06/17/21 release azithromycin 250 mg tablet 250 mg PO DAILY #6 tab 08/25/21 (Zithromax Z-Donte) Allergies Allergy/AdvReac Type Severity Reaction Status Date / Time No Known Allergies Allergy Verified 05/25/21 10:43 [No Known Allergies*] Review of Systems Constitutional: Constitutional: Reports body ache(s), Denies chills, Denies fever(s) and Denies headache(s) ENT: Denies headache(s), Reports nasal congestion, Denies nasal obstruction and Denies sore throat Comments: Sinus pressure Cardiovascular: Cardiovascular: Denies chest pain and Denies dyspnea Respiratory: Respiratory: Denies dyspnea Gastrointestinal: Gastrointestinal: Denies nausea and Denies vomiting Musculoskeletal: Musculoskeletal: Denies back pain Neurologic: Denies headache(s) [facility] Past Medical History Medical History Atherosclerotic cardiovascular disease Farias's esophagus CAD (coronary artery disease) Central sleep apnea Reid-Demarco breathing disorder Chronic idiopathic constipation Complex sleep apnea 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 Depression Diastolic congestive heart failure Dyslipidemia Essential hypertension Hiatal hernia History of deep venous thrombosis (DVT) of distal vein of left lower extremity History of pneumonia Lesion of skin of face SILVA (nonalcoholic steatohepatitis) Nocturnal hypoxemia Obesity (BMI 30-39.9) WILTON (obstructive sleep apnea) Pneumonitis Recurrent kidney stones Skin cancer STEMI (ST elevation myocardial infarction) Surgical History History of esophagogastroduodenoscopy (EGD) History of total knee arthroplasty Hx of colonoscopy Family History Family History Father Brain cancer Lung cancer Substance use disorder Mother Emphysema, unspecified Substance use disorder Mental health disorder Social History Social History Household Members: Spouse Housing: House Do you presently have visiting nurse or other home services: No Alcohol intake: current Alcohol intake frequency: does not drink Patient Tobacco Use Status: Current everyday Tobacco user Tobacco use type: Cigarette Cigarette Packs Per Day: 1 Cigarettes Per Day: 20.0 Years Smoked: 40 Second Hand Smoke Exposure: No Advance Directives: No Advance Directives Information Provided: Yes Current occupational status: employed 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 Blood pressure normal. Heart rate normal. Respiration rate normal. Temperature normal. Oxygen saturation normal. Appearance: Alert. Oriented X3. No acute distress. Head: Normal external exam. Normocephalic. Atraumatic. Eyes: PERRLA. EOMI. Conjunctiva and sclera normal. Eyelids normal. ENT: Pharynx normal. Uvula midline. Moist mucous membranes. Sinus pressure nasal discharge Neck: Soft full range of motion, no JVD CVS: Heart regular rate and rhythm no murmurs and rubs Respiratory: Breath sounds are clear to auscultation bilaterally. No accessory muscle use noted. Back: Full range of motion noted. Skin: Skin warm dry no rashes no ecchymosis Extremities: No lower extremity edema. Extremities exhibit normal range of motion. Extremities nontender. Neuro: Oriented X 3. No motor deficit. No sensory deficit. Reflexes normal. Course Course Course Narrative: COVID-19. Viral URI Sinusitis Pharyngitis 2:48 p.m. Patient is negative for COVID-19 influenza a and B and RSV. Patient has symptoms concerning for sinusitis will treat at this time. Medical Decision Making Lab Data Labs: Lab Results 08/25/21 Range/Units 13:32 Influenza Type A (PCR) NEGATIVE (Negative) Influenza Type B (PCR) NEGATIVE (Negative) RSV RNA Qual (PCR) NEGATIVE (Negative) SARS-CoV-2 RNA (RT-PCR) NEGATIVE (Negative) Discharge Plan Discharge Clinical Impression: Sinusitis Qualifiers: Sinusitis location: frontal Chronicity: acute Recurrence: non-recurrent Qualified Code(s): J01.10 - Acute frontal sinusitis, unspecified Patient Disposition: Home, Self-Care Instructions: Sinusitis (ED) Additional Instructions: Your swab was negative for COVID-19 influenza a and B and RSV. Your symptoms are somewhat concerning for sinusitis will treat with antibiotics at this time If her symptoms continue after treatment is recommended you get recent 1 for COVID-19. Prescriptions: New azithromycin [Zithromax Z-Donte] 250 mg tablet 250 mg PO DAILY Qty: 6 RF: 0 No Action pantoprazole 40 mg tablet,delayed release (DR/EC) 40 mg PO BID 30 Days Qty: 60 RF: 2 mirtazapine 15 mg tablet 15 mg PO BEDTIME RF: 0 aripiprazole 20 mg tablet 20 mg PO DAILY RF: 0 acetaminophen 325 mg Tablet 650 mg PO Q4H PRN (Reason: Pain) RF: 0 lsejpesdyfyx-sebccmlq-ekuaqo Tablet 1 tab PO DAILY RF: 0 amlodipine [Norvasc] 10 mg tablet 10 mg PO DAILY Qty: 30 RF: 0 lisinopril 5 mg tablet 5 mg PO DAILY RF: 0 clopidogrel 75 mg tablet 75 mg PO DAILY RF: 0 atorvastatin 80 mg tablet 80 mg PO BEDTIME RF: 0 venlafaxine 150 mg capsule,extended release 24hr 300 mg PO DAILY RF: 0 aspirin 81 mg tablet,delayed release (DR/EC) 81 mg PO DAILY RF: 0 furosemide 20 mg tablet 20 mg PO DAILY RF: 0 zolpidem 5 mg tablet 5 mg PO BEDTIME RF: 0
[2021-08-25 14:29] LABS: Influenza A PCR NEGATIVE (Negative); Influenza B PCR NEGATIVE (Negative); Resp Syncy Virus RNA Qual PCR NEGATIVE (Negative); SARS COV2 PCR INHOUSE NEGATIVE (Negative)
== END 2021-08-25 14:58 | disposition home or self-care (01) ==
PROVIDERS: Emergency Provider Emergency Medicine; PCP Internal Medicine
DX: J01.10 Acute frontal sinusitis, unspecified (principal); I11.0 Hypertensive heart disease with heart failure; I50.30 Unspecified diastolic (congestive) heart failure; Z86.718 Personal history of other venous thrombosis and embolism; I25.2 Old myocardial infarction; Z20.822 Contact with and (suspected) exposure to COVID-19
CPT/HCPCS: 0241U; 99283

== ENCOUNTER 2021-09-11 12:06 | Emergency (ER) | payer MEDICARE, MEDICAID, SELFPAY ==
--- NOTE | ~2021-09-11 | XR_ITS ---
EXAMINATION: XR CHEST CLINICAL INFORMATION: Cough COMPARISON: Chest x-ray 04/06/2021 TECHNIQUE: 2 views of the chest were obtained. FINDINGS: Cardiac silhouette is normal in size. The lungs are well aerated. There is no lobar consolidation. No pleural effusion or pneumothorax. A few small nodular foci bilaterally statistically represent vessels on end. Mild to moderate degenerative changes of the spine. XR/XR chest 2V IMPRESSION: No acute pulmonary pathology.
[2021-09-11 12:23] VITALS: BP 108/63; PULSE 76; RESP 20; TEMP 35.9; O2SAT 96; BMI 30.9
[2021-09-11 12:59] LABS: COVID-19 Test Negative (Negative)
--- NOTE | 2021-09-11 14:44 | ED_ITS ---
HPI - URI/Sore Throat General Chief Complaint: Upper Respiratory Symptoms Stated Complaint: Sinus infection? Time Seen by Provider: 09/11/21 13:54 Source: patient Mode of arrival: ambulatory Limitations: no limitations History of Present Illness HPI Narrative: 55-year-old male here with reports of sinus pressure, sinus pain, headache, cough for 3-4 days patient has received COVID vaccine and booster. He denies any shortness of breath, chest pain, fevers or chills. Related Data Home Medications Medication Instructions Recorded Confirmed aspirin 81 mg tablet,delayed 81 mg PO DAILY 10/05/20 04/18/21 release atorvastatin 80 mg tablet 80 mg PO BEDTIME 10/05/20 04/18/21 clopidogrel 75 mg tablet 75 mg PO DAILY 10/05/20 04/18/21 lisinopril 5 mg tablet 5 mg PO DAILY 10/05/20 04/18/21 venlafaxine 150 mg 300 mg PO DAILY 10/05/20 04/18/21 capsule,extended release 24 hr furosemide 20 mg tablet 20 mg PO DAILY 12/08/20 04/18/21 zolpidem 5 mg tablet 5 mg PO BEDTIME 12/29/20 04/18/21 acetaminophen 325 mg tablet 650 mg PO Q4H PRN 04/01/21 04/18/21 aripiprazole 20 mg tablet 20 mg PO DAILY 04/01/21 04/18/21 mirtazapine 15 mg tablet 15 mg PO BEDTIME 04/01/21 04/18/21 bgkypezfnccy-fjflrlmm-enfbpb tablet 1 tab PO DAILY 04/01/21 04/18/21 Previous Rx's Medication Instructions Recorded amlodipine 10 mg tablet (Norvasc) 10 mg PO DAILY #30 tab 04/06/21 pantoprazole 40 mg tablet,delayed 40 mg PO BID 30 Days #60 tab 06/17/21 release azithromycin 250 mg tablet 250 mg PO DAILY #6 tab 08/25/21 (Zithromax Z-Donte) amoxicillin 875 mg-potassium 1 tab PO BID #14 tab 09/11/21 clavulanate 125 mg tablet (Augmentin) Allergies Allergy/AdvReac Type Severity Reaction Status Date / Time No Known Allergies Allergy Verified 05/25/21 10:43 [No Known Allergies*] Review of Systems Review of Systems: Yes all other systems are reviewed and are negative Constitutional: Constitutional: Reports no additional constitutional complaints, Denies body ache(s), Denies chills, Denies fever(s), Reports headache(s) and Denies weakness Eyes: Eyes: Reports no additional eye complaints and Denies change in vision ENT: Reports system reviewed and no additional complaints, except as documented, Denies dizziness, Reports headache(s), Reports nasal congestion, Denies nasal discharge, Denies neck pain, Reports sinus pain and Reports sinus pressure Cardiovascular: Cardiovascular: Reports no additional cardiovascular complaints, Denies chest pain, Denies leg edema and Denies dyspnea Respiratory: Respiratory: Reports no additional respiratory complaints, Reports cough and Denies dyspnea Gastrointestinal: Gastrointestinal: Reports no additional gastrointestinal complaints, Denies abdominal pain, Denies diarrhea, Denies nausea and Denies vomiting Genitourinary: Genitourinary: Denies urinary incontinence Musculoskeletal: Musculoskeletal: Reports no additional musculoskeletal complaints, Denies back pain, Denies arthralgias, Denies joint swelling, Denies neck pain, Denies numbness and Denies tingling Integumentary/Breasts: Skin/Breast: Reports system reviewed and no additional complaints, except as docu and Denies rash Neurologic: Reports system reviewed and no additional complaints, except as documented, Denies Abnormal speech present, Denies dizziness, Reports headache(s), Denies numbness, Denies tingling and Denies weakness [facility] Past Medical History Attestation statement: The following information was validated with the patient. 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 Depression Diastolic congestive heart failure Dyslipidemia Essential hypertension Hiatal hernia History of deep venous thrombosis (DVT) of distal vein of left lower extremity History of pneumonia Lesion of skin of face SILVA (nonalcoholic steatohepatitis) Nocturnal hypoxemia Obesity (BMI 30-39.9) WILTON (obstructive sleep apnea) Pneumonitis Recurrent kidney stones Skin cancer STEMI (ST elevation myocardial infarction) Surgical History History of esophagogastroduodenoscopy (EGD) History of total knee arthroplasty Hx of colonoscopy Family History Family History Father Brain cancer Lung cancer Substance use disorder Mother Emphysema, unspecified Substance use disorder Mental health disorder Social History Social History Household Members: Spouse Housing: House Do you presently have visiting nurse or other home services: No Alcohol intake: current Alcohol intake frequency: does not drink Patient Tobacco Use Status: Current everyday Tobacco user Tobacco use type: Cigarette Cigarette Packs Per Day: 1 Cigarettes Per Day: 20.0 Years Smoked: 40 Second Hand Smoke Exposure: No Advance Directives: No Current occupational status: employed 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 Physical Exam Vital Signs: Vital Signs: Last Vital Signs Temp 96.7 F L 09/11/21 12:23 Pulse 76 09/11/21 12:23 Resp 20 09/11/21 12:23 BP 108/63 09/11/21 12:23 Pulse Ox 96 09/11/21 12:23 BMI result Body Mass Index 30.9 Const: General: cooperative, healthy appearing, comfortable and no acute distress Orientation/consciousness: patient oriented x3 Limitations: no limitations HENMT: Head: Yes normal to inspection Ears: hearing grossly normal bilaterally and TM abnormal (Bilateral bulging with no erythema) General nose exam: Normal external nose present and Other nasal findings present (Bilateral nasal turbinate erythema) Face and sinus: Yes normal facial exam and Yes sinus tenderness (Frontal and maxillary) Mouth: Normal oral and palatal mucosa present Throat: Yes posterior oropharynx normal Eyes: General: appearance normal, both eyes and all related structures Pupils: Equal, round and reactive pupils present Neck: Neck: Yes normal visual inspection Chest: Chest palpation & inspection: normal inspection of the chest Resp: Effort & Inspection: normal respiratory effort Auscultation: clear to auscultation bilaterally Cardio: Rate: regular rate Rhythm: regular rhythm Peripheral pulses: Peripheral pulses 2+ throughout GI: Inspection: Yes normal to inspection Palpation (GI): Soft to palpation and nontender Auscultation: normal bowel sounds Back/Spine/Pelvis: Thoracic/Lumbar Spine: thoracic and lumbar spine normal to inspection Skin: General skin exam: no rashes or lesions noted Neuro: General: patient oriented x3, no focal motor deficits and normal sensation to monofilament Cranial nerves: Yes Equal, round and reactive pupils present Cognition (Neuro): normal cognition Speech: No Abnormal speech present Gait exam (Neuro): Normal gait present Motor exam (neuro): 5/5 motor strength present throughout Extrem: General: Yes normal to inspection, Yes no pedal edema and Yes no calf tenderness Course Course Course Narrative: [age] year old male here with complaints of nasal congestion, headache, sinus pressure and sinus sprain for several days. Rapid COVID and chest x-ray are negative. Exam is consistent with sinusitis. Will treat with course of antibiotics. Reviewed worrisome signs and symptoms of when to return to the emergency department. Comfortable discharge home. MDM - URI/Sore Throat Medical Records Attestation: I reviewed the patient's medical records. Lab Data Attestation: I reviewed the patient's lab results. Labs: Lab Results 09/11/21 Range/Units 12:29 COVID-19 (MIK) Negative (Negative) COVID-19 Clin Com See Note Imaging Data Chest x-ray: Attestation: I personally reviewed and interpreted this imaging study as follows: Radiologist's impression: EXAMINATION: XR CHEST CLINICAL INFORMATION: Cough COMPARISON: Chest x-ray 04/06/2021 TECHNIQUE: 2 views of the chest were obtained. FINDINGS: Cardiac silhouette is normal in size. The lungs are well aerated. There is no lobar consolidation. No pleural effusion or pneumothorax. A few small nodular foci bilaterally statistically represent vessels on end. Mild to moderate degenerative changes of the spine. XR/XR chest 2V IMPRESSION: No acute pulmonary pathology. Discharge Plan Discharge Clinical Impression: Sinusitis Patient Disposition: Home, Self-Care Instructions: Sinusitis (ED) Additional Instructions: COVID test is negative Chest x-ray is normal Buy an ygaf-guc-fqneclu nasal spray like Nasacort or Flonase and use daily Buy an eozs-vtb-isxwoas allergy medication like Claritin and Zyrtec and use daily Increase fluids, rest Prescriptions: New amoxicillin-pot clavulanate [Augmentin] 875-125 mg tablet 1 tab PO BID Qty: 14 RF: 0 No Action pantoprazole 40 mg tablet,delayed release (DR/EC) 40 mg PO BID 30 Days Qty: 60 RF: 2 mirtazapine 15 mg tablet 15 mg PO BEDTIME RF: 0 aripiprazole 20 mg tablet 20 mg PO DAILY RF: 0 acetaminophen 325 mg Tablet 650 mg PO Q4H PRN (Reason: Pain) RF: 0 klmcdantlkcs-njkakrpi-vtclqq Tablet 1 tab PO DAILY RF: 0 amlodipine [Norvasc] 10 mg tablet 10 mg PO DAILY Qty: 30 RF: 0 azithromycin [Zithromax Z-Donte] 250 mg tablet 250 mg PO DAILY Qty: 6 RF: 0 lisinopril 5 mg tablet 5 mg PO DAILY RF: 0 clopidogrel 75 mg tablet 75 mg PO DAILY RF: 0 atorvastatin 80 mg tablet 80 mg PO BEDTIME RF: 0 venlafaxine 150 mg capsule,extended release 24hr 300 mg PO DAILY RF: 0 aspirin 81 mg tablet,delayed release (DR/EC) 81 mg PO DAILY RF: 0 furosemide 20 mg tablet 20 mg PO DAILY RF: 0 zolpidem 5 mg tablet 5 mg PO BEDTIME RF: 0 Referrals: Franchesca Batista MD [Primary Care Provider] - 2 days Stand Alone Forms: Work/School Release Interventions: ED Discharge Assessment Last Done: 09/11/21 13:59 Discharge Date/Time: 09/11/21 13:59
== END 2021-09-11 13:59 | disposition home or self-care (01) ==
PROVIDERS: Emergency Provider Internal Medicine; PCP Internal Medicine
DX: J32.9 Chronic sinusitis, unspecified (principal); Z20.822 Contact with and (suspected) exposure to COVID-19; I11.0 Hypertensive heart disease with heart failure; I50.32 Chronic diastolic (congestive) heart failure; E78.5 Hyperlipidemia, unspecified; F17.200 Nicotine dependence, unspecified, uncomplicated; Z86.718 Personal history of other venous thrombosis and embolism; Z79.02 Long term (current) use of antithrombotics/antiplatelets; Z79.899 Other long term (current) drug therapy; Z79.82 Long term (current) use of aspirin
CPT/HCPCS: 71046; 87635; 99283

== ENCOUNTER 2022-06-09 10:58 | Outpatient (REF) | payer MEDICARE, MEDICAID, SELFPAY ==
[2022-06-09 13:48] LABS: MANUAL DIFF FLAG NO
[2022-06-09 13:52] LABS: Basophils Absolute Auto 0.1 X10*3/uL (0.0-0.2); Basophils Percent Auto 0.8 % (0-2); Eosinophils Absolute Auto 0.2 X10*3/uL (0.0-0.4); Eosinophils Percent Auto 1.9 % (0-4); Hematocrit 40.6 % (42.0-52.0); Hemoglobin 13.2 g/dl (14.0-18.0); Imm Gran Abs Auto 0.06 X10*3/uL (0.00-0.03); Imm Gran Pct Auto 0.7 % (0.0-0.4); Lymphocytes Percent Auto 22.1 % (20-40); Mean Corpuscular HGB Conc 32.5 g/dl (31.0-36.0); Mean Corpuscular Hemoglobin 26.9 pg (27.0-33.0); Mean Corpuscular Volume 82.9 fL (80.0-98.0); Mean Platelet Volume 9.7 fL (9.4-12.4); Monocytes Absolute Auto 0.5 X10*3/uL (0.1-1.2); Monocytes Percent Auto 5.6 % (2-11); Neutrophils Absolute Auto 6.3 x10*3/uL (2.0-8.3); Neutrophils Percent Auto 68.9 % (45-73); Platelet Count 353 X10*3/uL (160-400); Red Cell Distribution Width 14.1 % (11.0-16.0); White Blood Count 9.1 X10*3/uL (4.8-10.8)
[2022-06-09 14:02] LABS: Anion Gap 17 (12-20); Blood Urea Nitrogen 15 mg/dL (9-16); Calcium 9.2 mg/dL (8.4-10.2); Carbon Dioxide 23 mmol/L (22-29); Chloride 104 mmol/L (96-108); Cholesterol 214 mg/dL; Estimated Glomerular Filt Rate > 60; Glucose Random 128 mg/dL (60-115); HDL Cholesterol 25 mg/dL; INTERNATIONAL NORM RATIO 1.1 (0.9-1.1); LDL Cholesterol Calculated 153 mg/dl; Potassium 3.8 mmol/L (3.3-5.1); Prothrombin Time 12.3 SEC (10.0-13.1); Sodium 140 mmol/L (135-145); Triglycerides 183 mg/dL
== END 2022-06-09 10:59 | disposition home or self-care (01) ==
LOC: HO.HMGCLDS 10:58
PROVIDERS: PCP Internal Medicine; Visit Provider Internal Medicine Cardiovascular Disease
DX: R07.9 Chest pain, unspecified (principal); E78.5 Hyperlipidemia, unspecified
CPT/HCPCS: 36415; 80048; 80061; 85025; 85610

== ENCOUNTER 2023-01-30 09:03 | Outpatient (REF) | payer MEDICARE, MEDICAID, SELFPAY ==
--- NOTE | ~2023-01-30 | XR_ITS ---
EXAMINATION: XR CHEST CLINICAL INFORMATION: Hemoptysis COMPARISON: Previous chest x-ray September 2021 TECHNIQUE: 2 views of the chest were obtained. FINDINGS: The cardiac and mediastinal contours are stable. Small 2 mm right upper lobe nodule unchanged. Lungs are otherwise clear. No pleural effusion or pneumothorax. Degenerative changes of the spine. XR/XR chest 2V IMPRESSION: No evidence for acute disease in the chest. If hemoptysis persists, follow-up contrast-enhanced chest CT or bronchoscopy should be considered.
== END 2023-01-30 09:04 | disposition home or self-care (01) ==
LOC: HO.HMGCX 09:03
PROVIDERS: PCP Internal Medicine; Visit Provider Internal Medicine
DX: R04.2 Hemoptysis (principal)
CPT/HCPCS: 71046

== ENCOUNTER 2023-09-08 08:21 | Emergency (ER) | payer MEDICARE, MEDICAID, SELFPAY ==
[2023-09-08 08:27] VITALS: BP 111/67; PULSE 102; RESP 18; TEMP 36.7; O2SAT 96; BMI 32.7
--- NOTE | 2023-09-08 09:40 | ED.GENADULT ---
HPI - General Adult General Chief complaint: Ear Problems Stated complaint: blockage in both ears Time Seen by Provider: 09/08/23 09:28 Source: patient Mode of arrival: ambulatory Limitations: no limitations History of Present Illness HPI narrative: Patient is a 57 year old assigned male at with a history of HTN presenting to the emergency department today with bilateral ear irritations. Patient states that over the last 4 days he has felt like he has wax stuck in his ear and has been trying to get out with different means. Patient denies any dizziness, lightheadedness, abdominal pain, nausea, vomiting, fever, chills, blurry vision, double vision, loss of vision, chest pain, difficulty breathing, shortness of breath, back pain, night sweats, pain with urination, increased urinary frequency, increased urinary urgency, blood in his urine or stool, syncope or a near syncopal episode, recent trauma or falls, bowel incontinence, bladder incontinence, bowel retention, bladder retention, or any other complaints at this time. Onset (ago): day(s) (4) Severity: mild Severity scale (1-10): 3 Relieving factors: none Exacerbating factors: none Associated symptoms: denies other symptoms Treatments prior to arrival: other (wax removal) Related Data Home Medications Medication Instructions Recorded Confirmed aspirin 81 mg tablet,delayed 81 mg PO DAILY 10/05/20 01/30/23 release atorvastatin 80 mg tablet 80 mg PO BEDTIME 10/05/20 01/30/23 lisinopril 5 mg tablet 5 mg PO DAILY 10/05/20 01/30/23 venlafaxine 150 mg 300 mg PO DAILY 10/05/20 01/30/23 capsule,extended release 24 hr aripiprazole 20 mg tablet 20 mg PO DAILY 04/01/21 01/30/23 kuoqmgeknvpb-bgzfrrbx-hbmatx tablet 1 tab PO DAILY 04/01/21 01/30/23 amlodipine 5 mg tablet 5 mg PO DAILY 09/12/22 01/30/23 aripiprazole 5 mg tablet 5 mg PO DAILY 09/12/22 01/30/23 clonidine HCl 0.2 mg tablet 0.2 mg PO BID 09/12/22 01/30/23 clopidogrel 75 mg tablet 75 mg PO DAILY 09/12/22 01/30/23 hydroxyzine pamoate 50 mg capsule 50 mg PO BID PRN 09/12/22 01/30/23 Previous Rx's Medication Instructions Recorded pantoprazole 40 mg tablet,delayed 40 mg PO BID 30 days #60 tabs 12/13/21 release azithromycin 250 mg tablet See Rx Instructions PO .COMPLEX #6 01/30/23 tabs prednisone 20 mg tablet 60 mg (3 x 20 mg) PO DAILY #9 tabs 01/30/23 amoxicillin 875 mg-potassium 1 tab PO BID 7 days #14 tabs 09/08/23 clavulanate 125 mg tablet loratadine 10 mg tablet 10 mg PO DAILY #30 tabs 09/08/23 Allergies Allergy/AdvReac Type Severity Reaction Status Date / Time No Known Allergies Allergy Verified 09/08/23 08:27 [No Known Allergies*] Review of Systems Constitutional: Constitutional: Reports no additional constitutional complaints, Denies chills, Denies fever(s) and Denies night sweats Eyes: Eyes: Reports no additional eye complaints, Denies blurry vision, Denies change in vision, Denies diplopia, Denies eye discharge, Denies loss of vision and Denies eye pain ENT: Denies dizziness Comments: bilateral ear irritation / feeling of fullness Cardiovascular: Cardiovascular: Reports no additional cardiovascular complaints, Denies chest pain, Denies lightheadedness, Denies Loss of Consciousness and Denies dyspnea Respiratory: Respiratory: Reports no additional respiratory complaints and Denies dyspnea Gastrointestinal: Gastrointestinal: Reports no additional gastrointestinal complaints, Denies abdominal pain, Denies melena, Denies hematochezia, Denies change in bowel habits and Denies change in stool character Genitourinary: Genitourinary: Reports no additional male genitourinary complaints, Denies hematuria, Denies oliguria, Denies difficulty urinating, Denies dysuria, Denies urinary frequency, Denies urinary hesitancy, Denies urinary incontinence and Denies urinary urgency Musculoskeletal: Musculoskeletal: Reports no additional musculoskeletal complaints, Denies numbness and Denies tingling Neurologic: Denies dizziness, Denies loss of vision, Denies numbness and Denies tingling Psychiatric: Psychiatric: Reports no additional psychiatric complaints Endocrine: Endocrine: Reports no additional endocrine complaints Hematologic/Lymphatic: Hematologic/Lymphatic: Reports no additional hematologic/lymphatic complaints Allergic/Immunologic: Allergic/Immunologic: Reports no additional allergic/immunologic complaints PMFSH Past Medical History Attestation statement: The following information was validated with the patient. Source: old records reviewed and nursing notes reviewed Onset Date is defined in the Problem List Problems that require an onset date and time if occurred within 24 hrs of arrival to the ED Aortic Dissection and Rupture; Neurologic impairment; Cardiopulmonary Arrest; Endotracheal Intubation; Insertion or Replacement of Mechanical Circulatory Assist Device Medical History Acute pharyngitis Nocturnal hypoxemia Obesity (BMI 30-39.9) History of pneumonia Central sleep apnea Complex sleep apnea syndrome Pneumonitis Atherosclerotic cardiovascular disease WILTON (obstructive sleep apnea) SILVA (nonalcoholic steatohepatitis) History of deep venous thrombosis (DVT) of distal vein of left lower extremity Skin cancer Depression Recurrent kidney stones Dyslipidemia Essential hypertension Central sleep apnea Reid-Demarco breathing disorder Hiatal hernia Degenerative joint disease of left knee Diastolic congestive heart failure STEMI (ST elevation myocardial infarction) CAD (coronary artery disease) Lesion of skin of face Farias's esophagus Chronic idiopathic constipation Surgical History Hx of colonoscopy History of total knee arthroplasty History of esophagogastroduodenoscopy (EGD) Family History Family History Father Brain cancer Lung cancer Substance use disorder Mother Emphysema, unspecified Substance use disorder Mental health disorder Social History Social History Household Members: Spouse Housing: House Do you presently have visiting nurse or other home services: No Alcohol intake: current Alcohol intake frequency: does not drink Patient Tobacco Use Status: Current everyday Tobacco user Tobacco use type: Cigarette Cigarette Packs Per Day: 1 Cigarettes Per Day: 20.0 Years Smoked: 40 Second Hand Smoke Exposure: No Advance Directives: No Advance Directives Information Provided: Yes Current occupational status: employed 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 Physical Exam ED Vital Signs: Vital Signs - 24 hr 09/08/23 08:27 Temperature 98.1 F Pulse Rate 102 H Respiratory Rate 18 Blood Pressure 111/67 Pulse Oximetry 96 Oxygen Delivery Method Room Air BMI result Body Mass Index 32.7 Const General: cooperative, no acute distress, alert and awake Nutritional Appearance: well nourished Orientation/consciousness: patient oriented x3 Limitations: no limitations HENMT Head: Yes normal to inspection and Yes atraumatic Ears: hearing grossly normal bilaterally, external ears normal, TM's normal bilaterally and Abnormal EAC present (erythema) General nose exam: Normal external nose present, no nasal discharge noted and no epistaxis Face and sinus: Yes normal facial exam, No abrasion and No laceration Mouth: Normal oral and palatal mucosa present, no drooling and no muffled voice Eyes General: appearance normal, both eyes and all related structures Periorbital: periorbital findings normal Eyelids: Yes eyelids normal Conjunctivae: conjunctivae normal Pupils: Equal, round and reactive pupils present EOM: EOMs intact bilaterally Neck Neck: Yes normal visual inspection, Yes full ROM and Yes no lymphadenopathy Chest Chest palpation & inspection: normal inspection of the chest Resp Effort & Inspection: normal respiratory effort and able to speak in complete sentences GI Inspection: Yes normal to inspection Neuro General: patient oriented x3 and moves all extremities Cranial nerves: Yes Equal, round and reactive pupils present Cognition (Neuro): normal cognition Motor exam (neuro): 5/5 motor strength present throughout Sensory Exam: Normal double simultaneous stimulation for sensation Coordination: kipmqh-[id number]-[id number] test normal Extrem General: Yes normal to inspection, Yes full ROM and Yes capillary refill normal Psych Appearance: grossly normal Mental Status: mental status grossly normal Affect: normal affect Attitude: cooperative Thought process: Normal thought process present Thought content: Normal thought content present Insight: Good insight present (Psych) Procedures Ear Wax Removal Both Ears: Cerumenolytic Used: other (elephant ear with warm water) Results: Re-examined: cerumen removed completely TM Examination: TM(s) intact, normal appearance Ear Canal Exam: atraumatic Patient Tolerated Procedure: well Complications: no problems Technique: ear canal irrigated Medical Decision Making Medical Decision Making MDM Narrative: Patient is a 57 year old assigned male at with a history of HTN presenting to the emergency department today with bilateral ear irritation and fullness. Patient's physical exam showed bilateral erythema of the ear canals with very minimal wax. I explained my physical exam findings to the patient. I answered all questions asked by the patient. Patient insisted on having his ears irrigated. Patient's ears were irrigated with little to no cerumen dislodged from the ear canals. I stressed the importance of the patient taking his medication as prescribed. I stressed the importance of the patient following up with his primary care provider and an ENT. I stressed the importance of the patient returning to the emergency department immediately if his symptoms were to worsen or if he were to develop any dizziness, shortness of breath, difficulty breathing, chest pain, blurry vision, loss of vision, nausea, vomiting, abdominal pain, fever, chills, back pain, or any other complaints. Patient verbalized agreement and understanding with this treatment plan and discharge. Differential Diagnosis Differential Diagnoses: The differential diagnosis associated with the presentation includes Otitis externa Otitis media Ear irritation Cerumen impaction Admission/Observation Consideration of admission/observation: Escalation of care including admission/observation considered Patient would have been admitted to the hospital had his clinical presentation warranted hospital admission. Prescription Management I considered prescription management with: Antibiotic (patient prescribed an antibiotic to cover for otitis media / externa.) Discharge Plan Discharge Clinical Impression: Irritation of ear Patient Disposition: Home, Self-Care Instructions: Tinnitus (ED) Additional Instructions: Follow up with your primary care provider and an ENT. Return to the emergency department immediately if your symptoms worsen or if you develop any dizziness, shortness of breath, difficulty breathing, chest pain, blurry vision, loss of vision, nausea, vomiting, abdominal pain, fever, chills, back pain, or any other complaints. Prescriptions: New amoxicillin-pot clavulanate 875-125 mg tablet 1 tab PO BID 7 Days Qty: 14 0RF loratadine 10 mg tablet 10 mg PO DAILY Qty: 30 0RF No Action pantoprazole 40 mg tablet,delayed release (DR/EC) 40 mg PO BID 30 Days Qty: 60 1RF aripiprazole 20 mg tablet 20 mg PO DAILY [id number] Tablet 1 tab PO DAILY lisinopril 5 mg tablet 5 mg PO DAILY atorvastatin 80 mg tablet 80 mg PO BEDTIME venlafaxine 150 mg capsule,extended release 24hr 300 mg PO DAILY aspirin 81 mg tablet,delayed release (DR/EC) 81 mg PO DAILY aripiprazole 5 mg tablet 5 mg PO DAILY hydroxyzine pamoate 50 mg capsule 50 mg PO BID PRN clonidine HCl 0.2 mg tablet 0.2 mg PO BID amlodipine 5 mg tablet 5 mg PO DAILY clopidogrel 75 mg tablet 75 mg PO DAILY azithromycin 250 mg tablet See Rx Instructions PO .COMPLEX Qty: 6 0RF Rx Instructions: take 500 mg today (day 1), then 250 mg for 4 days (days 2-5) PO prednisone 20 mg tablet 60 mg PO DAILY Qty: 9 0RF Referrals: [facility] [Provider Group] (Call to establish and follow up with an ENT.) Franchesca Batista MD [Primary Care Provider] - Interventions: ED Discharge Assessment Last Done: 09/08/23 10:21 Discharge Date/Time: 09/08/23 10:22 Print Language: Portuguese
== END 2023-09-08 10:22 | disposition home or self-care (01) ==
PROVIDERS: Emergency Provider Student in an Organized Health Care Education/Training Program; PCP Internal Medicine
DX: H61.23 Impacted cerumen, bilateral (principal); H92.03 Otalgia, bilateral
CPT/HCPCS: 69209; 99283

== ENCOUNTER 2024-04-15 20:39 | Emergency (ER) | payer MEDICARE, MEDICAID, SELFPAY ==
--- NOTE | ~2024-04-15 | XR_ITS ---
EXAMINATION: XR CHEST, 2 VIEWS CLINICAL INFORMATION: Productive cough. COMPARISON: 01/30/2023 TECHNIQUE: PA and lateral views of the chest were obtained. FINDINGS: Lungs are clear. No consolidation, pneumothorax, or pleural effusion. Cardiac and mediastinal contours are normal. Pulmonary vasculature is unremarkable. Trachea is midline. Mild multilevel degenerative disc disease is present in the thoracic spine. XR/XR chest 2V IMPRESSION: No acute cardiopulmonary findings.
[2024-04-15 20:53] VITALS: BP 147/81; PULSE 88; RESP 16; TEMP 37.1; O2SAT 96; BMI 32.2
--- NOTE | 2024-04-15 20:55 | ED_ITS ---
HPI - URI/Sore Throat General Chief Complaint: General Medical Stated Complaint: URI Time Seen by Provider: 04/15/24 22:45 History of Present Illness ED Provider: Jacinta JOHNS Narrative: The patient is a 58-year-old male who has felt unwell with a cough for about 3 days. He is a smoker but has never been diagnosed with COPD. He has been coughing and bringing up green sputum. No definite fever. Related Data Home Medications ?Medication ?Instructions ?Recorded ?Confirmed aspirin 81 mg tablet,delayed 81 mg PO DAILY 10/05/20 01/30/23 release atorvastatin 80 mg tablet 80 mg PO BEDTIME 10/05/20 01/30/23 lisinopril 5 mg tablet 5 mg PO DAILY 10/05/20 01/30/23 venlafaxine 150 mg 300 mg PO DAILY 10/05/20 01/30/23 capsule,extended release 24 hr aripiprazole 20 mg tablet 20 mg PO DAILY 04/01/21 01/30/23 [id number]-wcestcop-sxgcsx tablet 1 tab PO DAILY 04/01/21 01/30/23 amlodipine 5 mg tablet 5 mg PO DAILY 09/12/22 01/30/23 aripiprazole 5 mg tablet 5 mg PO DAILY 09/12/22 01/30/23 clonidine HCl 0.2 mg tablet 0.2 mg PO BID 09/12/22 01/30/23 clopidogrel 75 mg tablet 75 mg PO DAILY 09/12/22 01/30/23 hydroxyzine pamoate 50 mg capsule 50 mg PO BID PRN 09/12/22 01/30/23 Previous Rx's ?Medication ?Instructions ?Recorded pantoprazole 40 mg tablet,delayed 40 mg PO BID 30 days #60 tabs 12/13/21 release azithromycin 250 mg tablet See Rx Instructions PO .COMPLEX #6 01/30/23 tabs prednisone 20 mg tablet 60 mg (3 x 20 mg) PO DAILY #9 tabs 01/30/23 amoxicillin 875 mg-potassium 1 tab PO BID 7 days #14 tabs 09/08/23 clavulanate 125 mg tablet loratadine 10 mg tablet 10 mg PO DAILY #30 tabs 09/08/23 albuterol sulfate 90 mcg/actuation 2 puff inhalation Q4-6H PRN 04/16/24 aerosol inhaler shortness of breath or wheezing #8.5 grams azithromycin 250 mg tablet 250 mg PO DAILY 4 days #4 tabs 04/16/24 Allergies Allergy/AdvReac Type Severity Reaction Status Date / Time No Known Allergies Allergy Verified 04/15/24 20:56 [No Known Allergies*] Review of Systems Review of Systems: Yes all other systems are reviewed and are negative [facility] Past Medical History Medical History Acute pharyngitis Nocturnal hypoxemia Obesity (BMI 30-39.9) History of pneumonia Central sleep apnea Complex sleep apnea syndrome Pneumonitis Atherosclerotic cardiovascular disease WILTON (obstructive sleep apnea) SILVA (nonalcoholic steatohepatitis) History of deep venous thrombosis (DVT) of distal vein of left lower extremity Skin cancer Depression Recurrent kidney stones Dyslipidemia Essential hypertension Central sleep apnea Reid-Demarco breathing disorder Hiatal hernia Degenerative joint disease of left knee Diastolic congestive heart failure STEMI (ST elevation myocardial infarction) CAD (coronary artery disease) Lesion of skin of face Farias's esophagus Chronic idiopathic constipation Surgical History Hx of colonoscopy History of total knee arthroplasty History of esophagogastroduodenoscopy (EGD) Family History Family History Father Brain cancer Lung cancer Substance use disorder Mother Emphysema, unspecified Substance use disorder Mental health disorder Social History Social History Household Members: Spouse Housing: House Do you presently have visiting nurse or other home services: No Alcohol intake: current Alcohol intake frequency: does not drink Patient Tobacco Use Status: Current everyday Tobacco user Tobacco use type: Cigarette Cigarette Packs Per Day: 1 Cigarettes Per Day: 20.0 Years Smoked: 40 Second Hand Smoke Exposure: No Advance Directives: No Advance Directives Information Provided: No Do you have a plan to hurt others: No Plan Current occupational status: employed 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 He awoke easily. He did not seem in obvious distress. HEENT: Other: Face is symmetrical. Mucous membranes moist. Posterior pharynx is unremarkable. Eyes: General: appearance normal, both eyes and all related structures Neck: Neck: Yes full ROM and Yes no lymphadenopathy Resp: Other: Some very slight wheezes. For the most part air entry was fairly good. No crackles. Breath sounds were equal. Cardio: Rate: regular rate Rhythm: regular rhythm Heart sounds: S1 normal heart sound present and S2 normal heart sound present GI: Other: Abdomen is soft and nontender Skin: Other: Skin is dry and unremarkable Neuro: Other: The patient was sleeping but woke easily to a normal mental status. Cranial nerves are grossly intact. He moves his extremities normally and seems grossly neurologically intact. Extrem: Other: No calf swelling, no tenderness, no asymmetry, no pedal edema Course Course Course Narrative: This is a Rapid Medical Examination (RME) performed by Austin Haskins PA-C in triage. Full HPI, ROS, assessment and treatment plan per primary provider in the Main ED. 58 yo male presents to the ER for evaluation of 3 days of URI symptoms and productive cough. Patient recently exposed to his son who was sick with similar symptoms. Productive cough w/ green phlegm, chest wall pain with coughing, low grade fevers, nasal congestion. Active smoker, no hx COPD or asthma. No difficulty breathing. Plan: CXR, COVID swab, EKG Medications Administered Discontinued Medications Generic Name Dose Route Start Last Admin Trade Name Freq PRN Reason Stop Dose Admin Albuterol Sulfate 4 puff 04/16/24 00:00 04/16/24 00:10 Albuterol Sulfate 90 Mcg 8 Gm Inhaler INHALE 04/16/24 00:01 4 puff ONCE ONE Administration Azithromycin 500 mg 04/16/24 00:00 04/16/24 00:08 Azithromycin 500 Mg Tablet PO 04/16/24 00:01 500 mg ONCE ONE Administration Medical Decision Making Medical Decision Making [facility] Narrative: The patient is a 58-year-old male who presents with symptoms of a respiratory illness including nasal congestion, coughing, chest pain with coughing, and green sputum production. The patient does not appear obviously acutely ill. He has some very slight wheezes on his lung exam. A viral swab is negative for COVID, RSV, and the flu. Chest x-ray does not demonstrate a pneumonia. The patient has been a long-time smoker. He has some very slight wheezes on exam. I think he may have some element of asthmatic bronchitis in the setting of a viral respiratory infection. He will be instructed in the use of an albuterol inhaler and placed on a course of azithromycin. He should follow up with his PCP. Lab Data Labs: Lab Results 04/15/24 04/15/24 Range/Units 21:20 23:04 COVID-19 ([facility]K) Cancelled COVID-19 Clin Com Cancelled Influenza Type A (PCR) NEGATIVE (Negative) Influenza Type B (PCR) NEGATIVE (Negative) RSV RNA Qual (PCR) NEGATIVE (Negative) SARS-CoV-2 RNA (RT-PCR) NEGATIVE (Negative) Independent Interpretation I performed an independent interpretation of an: EKG Interpretation: EKG at 21:13 shows normal sinus rhythm at 80 beats per minute. No acute ischemic changes. Discharge Plan Discharge Clinical Impression: Acute asthmatic bronchitis Patient Disposition: Home, Self-Care Additional Instructions: Your chest x-ray is clear. You have tested negative for COVID, the flu, and RSV. I think you have a mild case of asthmatic bronchitis. Please take the antibiotic once a day as prescribed. Please use the albuterol inhaler 2 puffs every 4-6 hours as needed for cough or wheezing. Drink lot of fluids. Please plan on making a follow up appointment with your regular doctor in the next week or 2 for a recheck. Return to the emergency room if you feel significantly worse. Prescriptions: New albuterol sulfate 90 mcg/actuation HFA aerosol inhaler 2 puff inhalation Q4-6H PRN (Reason: shortness of breath or wheezing) Qty: 8.5 0RF azithromycin 250 mg tablet 250 mg PO DAILY 4 Days Qty: 4 0RF Rx Instructions: start on day 2 of therapy No Action pantoprazole 40 mg tablet,delayed release (DR/EC) 40 mg PO BID 30 Days Qty: 60 1RF aripiprazole 20 mg tablet 20 mg PO DAILY [id number] Tablet 1 tab PO DAILY amoxicillin-pot clavulanate 875-125 mg tablet 1 tab PO BID 7 Days Qty: 14 0RF loratadine 10 mg tablet 10 mg PO DAILY Qty: 30 0RF lisinopril 5 mg tablet 5 mg PO DAILY atorvastatin 80 mg tablet 80 mg PO BEDTIME venlafaxine 150 mg capsule,extended release 24hr 300 mg PO DAILY aspirin 81 mg tablet,delayed release (DR/EC) 81 mg PO DAILY aripiprazole 5 mg tablet 5 mg PO DAILY hydroxyzine pamoate 50 mg capsule 50 mg PO BID PRN clonidine HCl 0.2 mg tablet 0.2 mg PO BID amlodipine 5 mg tablet 5 mg PO DAILY clopidogrel 75 mg tablet 75 mg PO DAILY azithromycin 250 mg tablet See Rx Instructions PO .COMPLEX Qty: 6 0RF Rx Instructions: take 500 mg today (day 1), then 250 mg for 4 days (days 2-5) PO prednisone 20 mg tablet 60 mg PO DAILY Qty: 9 0RF Referrals: Franchesca Batista MD [Primary Care Provider] - (asthmatic bronchitis (early COPD?)) Stand Alone Forms: Work/School Release Interventions: ED Discharge Assessment Last Done: 04/16/24 00:13 Discharge Date/Time: 04/16/24 00:14 Print Language: Indian
--- NOTE | 2024-04-15 20:57 | ECG_ITS ---
Test Reason : chest discomfort with cough Blood Pressure : / mmHG Vent. Rate : 080 BPM Atrial Rate : 080 BPM P-R Int : 172 ms QRS Dur : 082 ms QT Int : 400 ms P-R-T Axes : 021 -53 044 degrees QTc Int : 461 ms Normal sinus rhythm Left anterior fascicular block Possible Inferior infarct , age undetermined Anteroseptal infarct , age undetermined Abnormal ECG When compared with ECG of 04-APR-2021 06:00, Left anterior fascicular block is now Present Anteroseptal infarct is now Present Referred By: Abigail Haskins Electronically Signed By:ELVIS SHERWOOD
[2024-04-15 23:12] VITALS: BP 148/76; PULSE 76; RESP 20; TEMP 36.9; O2SAT 97
[2024-04-15 23:47] LABS: Influenza A PCR NEGATIVE (Negative); Influenza B PCR NEGATIVE (Negative); Resp Syncy Virus RNA Qual PCR NEGATIVE (Negative); SARS COV2 PCR INHOUSE NEGATIVE (Negative)
[2024-04-16] MEDS: Azithromycin 500 MG TABLET PO (00:08)
[2024-04-16] MEDS: Albuterol Sulfate 90 MCG 8 GM INHALER 4 PUFF INHALE (00:10)
[2024-04-16 00:13] VITALS: BP 148/76; PULSE 76; RESP 20; TEMP 36.9; O2SAT 97
== END 2024-04-16 00:14 | disposition home or self-care (01) ==
PROVIDERS: Emergency Provider Emergency Medicine; PCP Internal Medicine
DX: J20.9 Acute bronchitis, unspecified (principal); R05.9 Cough, unspecified; Z03.818 Encounter for observation for suspected exposure to other biological agents ruled out; J44.9 Chronic obstructive pulmonary disease, unspecified
CPT/HCPCS: 0241U; 71046; 87635; 93005; 99284

== ENCOUNTER → 2024-04-15 20:57 | Outpatient (BNV) | payer MEDICARE, MEDICAID, SELFPAY | PROVIDERS: Emergency Provider Emergency Medicine; PCP Internal Medicine; Visit Provider Internal Medicine | DX: R94.31 Abnormal electrocardiogram [ECG] [EKG] (principal) | CPT/HCPCS: 93010 ==

== ENCOUNTER 2024-09-30 11:09 | Emergency (ER) | payer MEDICARE, MEDICAID, SELFPAY ==
[2024-09-30 11:55] VITALS: BP 163/92; PULSE 86; RESP 18; TEMP 37.3; O2SAT 95; BMI 34.3
--- NOTE | 2024-09-30 11:56 | ED.GENADULT ---
HPI - General Adult General Chief complaint: Ear Problems Stated complaint: Eye/ear infections Time Seen by Provider: 09/30/24 14:10 Source: patient and RN notes reviewed Mode of arrival: ambulatory Limitations: no limitations History of Present Illness ED Provider: Kay Whittaker PA-C HPI narrative: This is a 58-year-old male who presents emergency department with concerns for bilateral ear pain, and eye itchiness for the last 3 days. Patient denies any ear drainage. He does report decreased hearing from his left ear. Denies any changes to his vision. He does not wear contact lenses. He also reports coughing congestion. He denies any fevers, chills, chest pain, shortness of breath, palpitations, abdominal pain, nausea, vomiting or diarrhea. Denies any sick contacts. Denies any other complaints or concerns at this time. MD complaint: Bilateral ear pain, eye itchiness Onset (ago): day(s) Associated symptoms: denies other symptoms Treatments prior to arrival: none Related Data Home Medications ?Medication ?Instructions ?Recorded ?Confirmed aspirin 81 mg tablet,delayed 81 mg PO DAILY 10/05/20 01/30/23 release atorvastatin 80 mg tablet 80 mg PO BEDTIME 10/05/20 01/30/23 lisinopril 5 mg tablet 5 mg PO DAILY 10/05/20 01/30/23 venlafaxine 150 mg 300 mg PO DAILY 10/05/20 01/30/23 capsule,extended release 24 hr aripiprazole 20 mg tablet 20 mg PO DAILY 04/01/21 01/30/23 dvgicvgytvnn-jfbqsjcf-vkiwsk tablet 1 tab PO DAILY 04/01/21 01/30/23 amlodipine 5 mg tablet 5 mg PO DAILY 09/12/22 01/30/23 aripiprazole 5 mg tablet 5 mg PO DAILY 09/12/22 01/30/23 clonidine HCl 0.2 mg tablet 0.2 mg PO BID 09/12/22 01/30/23 clopidogrel 75 mg tablet 75 mg PO DAILY 09/12/22 01/30/23 hydroxyzine pamoate 50 mg capsule 50 mg PO BID PRN 09/12/22 01/30/23 Previous Rx's ?Medication ?Instructions ?Recorded pantoprazole 40 mg tablet,delayed 40 mg PO BID 30 days #60 tabs 12/13/21 release azithromycin 250 mg tablet See Rx Instructions PO .COMPLEX #6 01/30/23 tabs prednisone 20 mg tablet 60 mg (3 x 20 mg) PO DAILY #9 tabs 01/30/23 amoxicillin 875 mg-potassium 1 tab PO BID 7 days #14 tabs 09/08/23 clavulanate 125 mg tablet loratadine 10 mg tablet 10 mg PO DAILY #30 tabs 09/08/23 albuterol sulfate 90 mcg/actuation 2 puff inhalation Q4-6H PRN 04/16/24 aerosol inhaler shortness of breath or wheezing #8.5 grams azithromycin 250 mg tablet 250 mg PO DAILY 4 days #4 tabs 04/16/24 amoxicillin 875 mg tablet 875 mg PO BID 7 days #14 tabs 09/30/24 benzonatate 100 mg capsule 100 mg PO TID PRN cough #14 caps 09/30/24 erythromycin 5 mg/gram (0.5 %) eye 0.5 inch ophthalmic (eye) QID #3.5 09/30/24 ointment grams Allergies Allergy/AdvReac Type Severity Reaction Status Date / Time No Known Allergies Allergy Verified 09/30/24 11:57 [No Known Allergies*] Review of Systems Review of Systems: Yes all other systems are reviewed and are negative Constitutional: Constitutional: Reports as per HPI [facility] Past Medical History Medical History Acute pharyngitis Nocturnal hypoxemia Obesity (BMI 30-39.9) History of pneumonia Central sleep apnea Complex sleep apnea syndrome Pneumonitis Atherosclerotic cardiovascular disease WILTON (obstructive sleep apnea) SILVA (nonalcoholic steatohepatitis) History of deep venous thrombosis (DVT) of distal vein of left lower extremity Skin cancer Depression Recurrent kidney stones Dyslipidemia Essential hypertension Central sleep apnea Reid-Demarco breathing disorder Hiatal hernia Degenerative joint disease of left knee Diastolic congestive heart failure STEMI (ST elevation myocardial infarction) CAD (coronary artery disease) Lesion of skin of face Farias's esophagus Chronic idiopathic constipation Surgical History Hx of colonoscopy History of total knee arthroplasty History of esophagogastroduodenoscopy (EGD) Family History Family History Father Brain cancer Lung cancer Substance use disorder Mother Emphysema, unspecified Substance use disorder Mental health disorder Social History Social History Household Members: Spouse Housing: House Do you presently have visiting nurse or other home services: No Alcohol intake: current Alcohol intake frequency: does not drink Patient Tobacco Use Status: Current everyday Tobacco user Tobacco use type: Cigarette Cigarette Packs Per Day: 1 Cigarettes Per Day: 20.0 Years Smoked: 40 Second Hand Smoke Exposure: No Advance Directives: No Advance Directives Information Provided: Yes Current occupational status: employed 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 Right is erythematous and edematous; TM is intact. Head: Yes normal to inspection, Yes normocephalic and Yes atraumatic Ears: hearing grossly normal bilaterally General nose exam: Normal external nose present Face and sinus: Yes normal facial exam Mouth: Normal oral and palatal mucosa present, oropharynx normal and moist mucous membranes Throat: Yes posterior oropharynx normal Eyes Other: Bilateral conjunctiva is slightly injected, no excessive drainage seen bilaterally. No periorbital edema or erythema. EOMI, PERRLA intact General: appearance normal, both eyes and all related structures Eyelids: Yes eyelids normal Sclerae: sclerae normal Pupils: Equal, round and reactive pupils present EOM: EOMs intact bilaterally Neck Neck: Yes normal visual inspection, Yes full ROM and Yes no lymphadenopathy Lymphatic: no lymphadenopathy noted Chest Chest palpation & inspection: normal inspection of the chest Resp Effort & Inspection: normal respiratory effort and able to speak in complete sentences Auscultation: clear to auscultation bilaterally, no crackles, no rales, no rhonchi and no wheezes Cardio Rate: regular rate Rhythm: regular rhythm Heart sounds: S1 normal heart sound present and S2 normal heart sound present GI Inspection: Yes normal to inspection Skin General skin exam: no rashes or lesions noted Trauma: no lacerations or abrasions Wounds: no wounds Neuro General: patient oriented x3 and moves all extremities Cranial nerves: Yes Equal, round and reactive pupils present Extrem General: Yes normal to inspection Right upper extremity: normal to inspection Left upper extremity: normal to inspection Right lower extremity: normal to inspection Left lower extremity: normal to inspection Course Course Course Narrative: This is an RME: Additional HPI, ROS, PE not included below will be deferred to primary provider. RME assessment and note performed by: Kay Whittaker PA-C This is a 30-qmvk-tsi-male with a hx of STEMI with stents, who presents to the ER with complaints of BL ear pain and eye itchiness. Left TM is perforated, erythematous. Right TM is erythematous and bulging. He has had no chest pain, shortness for breath. Mildly hypertensive, he is speaking in full sentences under no acute distress. Plan: Viral swabs, further ER evaluation needed Medical Decision Making Medical Decision Making MDM Narrative: This is a 58-year-old male who presents emergency department with complaints of bilateral ear pain, and eye itching for the last several days. Dry cough heard during examination. He states that he has been sick with cold-like symptoms over the last several days. He denies any chest pain, shortness of breath. Bilateral conjunctiva is slightly injected, no periorbital edema or erythema. Bilateral ears are infected. Left TM is perforated. Patient's blood pressure mildly elevated 163/92. Patient was tested for flu, COVID and RSV. These are all negative. Lungs are clear to auscultation bilaterally. He is speaking full sentences under no acute distress. Patient will be discharged on a course of amoxicillin, also given prescription for Tessalon to help with cough as well as erythromycin ointment to help with conjunctivitis. Conjunctivitis is likely viral however will treat as bacterial. He has no vision changes therefore no further workup indicated. Given strict return precautions. He understands and agrees with plan. Patient stable for discharge. Differential Diagnosis Differential Diagnoses: The differential diagnosis associated with the presentation includes Otitis media, otitis externa, TM perforation, otalgia, conjunctivitis, viral URI, COVID, flu, RSV Lab Data [facility] Lab Attestation statement: I reviewed the patient's lab results. Labs: Lab Results 09/30/24 Range/Units 12:15 Influenza Type A (PCR) NEGATIVE (Negative) Influenza Type B (PCR) NEGATIVE (Negative) RSV RNA Qual (PCR) NEGATIVE (Negative) SARS-CoV-2 RNA (RT-PCR) NEGATIVE (Negative) Discharge Plan Discharge Clinical Impression: Conjunctivitis Otitis media Qualifiers: Otitis media type: unspecified Chronicity: acute Qualified Code(s): H66.90 - Otitis media, unspecified, unspecified ear Perforated tympanic membrane Qualifiers: Laterality: left Qualified Code(s): H72.92 - Unspecified perforation of tympanic membrane, left ear Patient Disposition: Home, Self-Care Instructions: Ear Infection (ED) Additional Instructions: You were seen in the emergency department due to bilateral ear pain and eye itchiness. You tested negative for COVID, flu, RSV. I am also treating your eyes with an antibiotic ointment. use as prescribed. Your left ear drum is perforated, you need follow-up with your primary care physician, they may refer you to an social sciences research scientist. Please take full course of antibiotics even if your symptoms improve. Drink plenty of fluids get plenty of rest. Alternate between ibuprofen and or Tylenol as needed for pain and symptoms. If any new or worsening symptoms occur including but not limited to severe chest pain or shortness of breath, please seek emergent care. Prescriptions: New amoxicillin 875 mg tablet 875 mg PO BID 7 Days Qty: 14 0RF benzonatate 100 mg capsule 100 mg PO TID PRN (Reason: cough) Qty: 14 0RF erythromycin 5 mg/gram (0.5 %) ointment 0.5 inch ophthalmic (eye) QID Qty: 3.5 0RF No Action pantoprazole 40 mg tablet,delayed release (DR/EC) 40 mg PO BID 30 Days Qty: 60 1RF aripiprazole 20 mg tablet 20 mg PO DAILY [id number]-gjzmqfgt-mptryq Tablet 1 tab PO DAILY amoxicillin-pot clavulanate 875-125 mg tablet 1 tab PO BID 7 Days Qty: 14 0RF loratadine 10 mg tablet 10 mg PO DAILY Qty: 30 0RF albuterol sulfate 90 mcg/actuation HFA aerosol inhaler 2 puff inhalation Q4-6H PRN (Reason: shortness of breath or wheezing) Qty: 8.5 0RF azithromycin 250 mg tablet 250 mg PO DAILY 4 Days Qty: 4 0RF Rx Instructions: start on day 2 of therapy lisinopril 5 mg tablet 5 mg PO DAILY atorvastatin 80 mg tablet 80 mg PO BEDTIME venlafaxine 150 mg capsule,extended release 24hr 300 mg PO DAILY aspirin 81 mg tablet,delayed release (DR/EC) 81 mg PO DAILY aripiprazole 5 mg tablet 5 mg PO DAILY hydroxyzine pamoate 50 mg capsule 50 mg PO BID PRN clonidine HCl 0.2 mg tablet 0.2 mg PO BID amlodipine 5 mg tablet 5 mg PO DAILY clopidogrel 75 mg tablet 75 mg PO DAILY azithromycin 250 mg tablet See Rx Instructions PO .COMPLEX Qty: 6 0RF Rx Instructions: take 500 mg today (day 1), then 250 mg for 4 days (days 2-5) PO prednisone 20 mg tablet 60 mg PO DAILY Qty: 9 0RF Interventions: ED Discharge Assessment Last Done: 09/30/24 14:12 Discharge Date/Time: 09/30/24 14:19 Print Language: [place]ese
[2024-09-30 13:23] LABS: Influenza A PCR NEGATIVE (Negative); Influenza B PCR NEGATIVE (Negative); Resp Syncy Virus RNA Qual PCR NEGATIVE (Negative); SARS COV2 PCR INHOUSE NEGATIVE (Negative)
[2024-09-30 14:12] VITALS: BP 163/92; PULSE 86; RESP 18; TEMP 37.3; O2SAT 95
--- OUTSIDE RECORDS SUMMARY | 2024-09-30 15:07 | XMS_ITS | Clinical Summary ---
Author Organization [facility] Address [address] [place] [address] Care Team Providers Care Police Commissioner Name Role Phone Unavailable Primary Care Provider Unavailabl e Surgical History Surgery Date Site/Laterality Comments OTHER SURGICAL HISTORY PROCEDURE: ---- OTHER ----; COMMENT: R inguinal hernia COLONOSCOPY February PROCEDURE: HISTORICAL COLONOSCOPY; COMMENT: hemorrhoids; repeat in ten years ESOPHAGOGASTRODUODENOSCOPY 02/07/10 PROCEDURE: [place] ESOPHAGOGASTRODUODENOSCOPY TRANSORAL DIAGNOSTIC; COMMENT: Farias's esophagus and Schatzki ring; 50 F dilator passed; repeat in two yrs ESOPHAGOGASTRODUODENOSCOPY 04/09/12 PROCEDURE: [place] EGD TRANSORAL BIOPSY SINGLE/MULTIPLE; COMMENT: Farias's esophagus and non-critical Schatzki ring; repeat in 3 yrs OTHER SURGICAL HISTORY 06/25/13 PROCEDURE: [place] EGD BALLOON DILATION ESOPHAGUS <30 MM DIAM; COMMENT: Schatzki ring dilated to 54 F; Farias's esophagus (not biopsied) with erosions; HH ESOPHAGOGASTRODUODENOSCOPY 21/03/15 PROCEDURE: [place] ESOPHAGOGASTRODUODENOSCOPY TRANSORAL DIAGNOSTIC; COMMENT: Farias's esophagus and HH; no dysplasia; repeat in 3 yrs. Medical History Medical History Date Comments Alcohol abuse DX:Alcohol abuse Back pain with radiation DX:Back pain with radiation Depression DX:Depression Esophageal reflux DX:Esophageal reflux Nonalcoholic hepatosteatosis 04/23/2013 DX: Nonalcoholic hepatosteatosis Nephrolithiasis 04/23/2013 DX:Nephrolithias is DVT (deep venous thrombosis) (CMS/HCC) 05/2018 DX:DVT (deep venous thrombosis) (HCC) Family History Medical History Relation Name Comments Lung cancer Father from lung ca at 62 Heart attack Maternal Grandfather 40's Other: blood clot Maternal Grandmother No her leg- No details available - maybe in her 70's Hypertension Mother 70,s Other: Other Paternal Grandfather unknown cancer Other: Other Paternal Grandmother unknown cancer No Known Problems Sister No Known Problems Son 1 No Known Problems Son 2 Blindness Neg Hx Cataracts Neg Hx Colon cancer Neg Hx Glaucoma Neg Hx Macular degeneration Neg Hx Strabismus Neg Hx Relation Name Status Comments Father (Age 63) brain and lung cancer Maternal Grandfather Maternal Grandmother Mother (Age 69) htn, dm,ca d Paternal Grandfather Paternal Grandmother Sister Alive Son 1 Alive Son 2 Alive Social History Tobacco Use Types Packs/Day Years Used Date Smoking Tobacco: Every Day Cigarettes 0.5 42.8 Started: 1981 Smokeless Tobacco: Never Alcohol Use Standard Drinks/Week Comments No 0 (1 standard drink = 0.6 oz pur e alcohol) Sex and Gender Information Value Date Recorded Sex Assigned at Not on file Gender Identity Not on file Sexual Orientation Not on file Obstetrics History Plan of Treatment Health Maintenance Due Date Last Done Comments Hepatitis B Vaccines (1 of 3 - 19+ 3-dose series) 12/13/1983 Zoster Vaccines (1 of 2) 2014 DTaP,Tdap,and Td Vaccines (2 - Td or Tdap) 11/10/2018 11/10/2008 COVID-19 Vaccine ( - 2023-2 5 season) 2024 Influenza Vaccine (#1) 2024 RSV Immunization Patients 60 + Years Old (1 - 1-dose 75+ series) 12/13/2039 HIB Vaccines Aged Out No longer eligi ble based on patient's age to complete this topic HPV Vaccines Aged Out No longer eligi ble based on patient's age to complete this topic Hepatitis A Vaccines Aged Out No long er eligible based on patient's age to complete this topic IPV Vaccines Aged Out No longer eligi ble based on patient's age to complete this topic MMR Vaccines Aged Out No longer eligi ble based on patient's age to complete this topic Meningococcal ACWY Vaccine Aged Out N o longer eligible based on patient's age to complete this topic Pneumococcal Vaccine: Pediat rics (0 to 5 Years) and At-Risk Patients (6 to 64 Years) Aged Out No longer eligi ble based on patient's age to complete this topic RSV Immunization Patients Un pardeep 20 months Aged Out No longer eligible b ased on patient's age to complete this topic Varicella Vaccines Aged Out No longer eligible based on patient's age to complete this topic
--- OUTSIDE RECORDS SUMMARY | 2024-09-30 15:07 | XMS_ITS ---
Author Organization [facility] on Address Unknown Problems Problem Status Start Date End Date ENCEPHALOPATHY, UNSPECIFIED (G93.40 - ICD-10-CM) ACTIV E 09/15/2016 OTHER SPECIFIED ARTHRITIS, M ULTIPLE SITES (M13.89 - ICD-10-CM) ACTIVE 09/15/2016 OTHER SEIZURES (G40.89 - ICD-10-CM) ACTIVE 09/15 ANXIETY DISORDER, UNSPECIFIED (F41.9 - ICD-10-CM) ACTI VE 09/15/2016 BIPOLAR DISORDER, UNSPECIFIED (F31.9 - ICD-10-CM) ACTI VE 09/15/2016 POST-TRAUMATIC STRESS DISORD ER, UNSPECIFIED (F43.10 - ICD-10-CM) ACTIVE 09/15/2016 ALCOHOL DEPENDENCE WITH WITH DRAWAL, UNSPECIFIED (F10.239 - ICD-10-CM) ACTIVE 09/15/2016 DIFFICULTY IN WALKING, NOT E LSEWHERE CLASSIFIED (R26.2 - ICD-10-CM) ACTIVE 09/15/2016 MUSCLE WEAKNESS (GENERALIZED) (M62.81 - ICD-10-CM) ACT ELI 09/15/2016 Results * BOUCHRA DOPPLER EXTREM/LONG Performed by: [employer] Component Value Range Date BOUCHRA DOPPLER EXTREM/LONG BOUCHRA DOPPLER EXTRE M/LIMVEN DOPPLER EXTREM/LONG, RIGHTClinical Indications: EDEMA, UNSPECIFIEDFindings: Right Lower Extremity Venous Duplex Ultrasound:ClinicalHistory: Pain and swelling.High-resolution real-time and Doppler ultrasound, including grayscale and color flowof the right lower extremity was performed. The vessels evaluated include the commonfemoral, superficial femoral, proximal deep femoral, greater saphenous, popliteal,posterior tibial, and calf veins.There is normal response to vascular compression and normal Doppler responses areobserved with spontaneous and augmented flow. No intraluminal thrombus is identified.Imaging of the contralateral common femoral vein demonstrates normal respiratorywaveform variation. No Gooden's cyst is identified.Impression: No evidence for deep venous thrombosis or Gooden's cyst.Ultrasoundis only of moderate sensitivity for the diagnosis of deep vein thrombosis of thecalf. If deep vein thrombosis of the calf is of clinical concern, follow-upultrasound examination in 4 to 7 days would be of value to exclude propagation ofclot from the calf.Electronically signed by KORIN MARTINEZ M.D. 09/22/2016 7:20:07 AM EST.Reason for Study: R60.9 EDEMA, UNSPECIFIEDPrincipal Result Erector Operator: KORIN MARTINEZ ([id number])Lead Cargoman: LAINA ZIMMERMAN ([email or web address])Harbormaster Lead Cargoman: JUAN 09/22/2016 07:22 am EST * KNEE AP OR LAT 1- 2V Performed by: [employer] Component Value Range Date KNEE AP OR LAT 1- 2V KNEE AP OR LAT 1- 2 VKNEE AP OR LAT 1- 2V, RIGHTResults: Views of the knee show mild joint space loss and subchondral sclerosiscompatible with osteoarthritis. No acute fracture or dislocation is seen. Nosignificant joint effusion is noted.Conclusion: Mild osteoarthritis, without fracture.Electronically signed by JAYSON GOOD M.D. 09/17/2016 4:51:35 PM EST.Reason for Study: R22.9 LOCALIZED SWELLING, MASS AND LUMP, UNSPECIFIEDPrincipal Result Erector Operator: JAYSON GOOD ([id number])Lead Cargoman: KELSEY CHURCH (BBIRKS)Harbormaster Lead Cargoman: JUAN 09/17/2016 04:55 pm EST Encounters Encounter Performer Performer Role Encounter Diagnoses Location Date Discharge - Discharged to home or self care - Home - Private home/apt. with no home health services [facility] 09/15/2016 12:00 am EST - 09/29/2016 04:03 pm EST Social History
== END 2024-09-30 14:19 | disposition home or self-care (01) ==
PROVIDERS: Physician Assistant Medical; Emergency Provider Emergency Medicine; PCP Internal Medicine
DX: H66.93 Otitis media, unspecified, bilateral (principal); H72.92 Unspecified perforation of tympanic membrane, left ear; R05.9 Cough, unspecified; F17.210 Nicotine dependence, cigarettes, uncomplicated; Z03.818 Encounter for observation for suspected exposure to other biological agents ruled out
CPT/HCPCS: 0241U; 99282; 99283

== ENCOUNTER 2024-10-14 11:31 | Outpatient (AMB) | payer MEDICARE, MEDICAID, SELFPAY ==
[2024-10-14 11:34] VITALS: BP 150/90; PULSE 66; O2SAT 98; BMI 31.9
--- NOTE | 2024-10-14 11:34 | MHC.PC.OV ---
Vital Signs 10/14/24 11:34 Height 5 ft 4 in Weight 186 lb BMI 31.9 BP 150/90 H Blood Pressure Location Lt brachial Position Sitting Pulse 66 Pulse Source Pulse Oximeter Pulse Oximetry (%) 98 Oxygen Delivery Method Room Air Intake Visit Reasons: ear infection Intake Note: Pt is here today c/o bilateral ear pain Allergies No Known Allergies [No Known Allergies*] Allergy (Verified 10/19/24 23:50) Medication List - Last Reconciled 10/14/24 by Franchesca Batista MD amlodipine 5 mg PO DAILY aripiprazole 20 mg PO DAILY aripiprazole 5 mg PO DAILY aspirin 81 mg PO DAILY atorvastatin 80 mg PO BEDTIME clonidine HCl 0.2 mg PO BID clopidogrel 75 mg PO DAILY lisinopril 5 mg PO DAILY loratadine 10 mg PO DAILY rfmtvktuzorr-pcfzvwrp-yevkgu 1 tab PO DAILY oavzglsx-vjylnzowj-BX 3.5-10,000-1 mg/mL-unit/mL-% 4 drps otic (ear) right Q8H 10 days venlafaxine ER 300 mg PO DAILY Tobacco use date assessed: 10/14/24 Dental Screening Dental Screen Date: 10/14/24 Did you have a dental visit in the last 12 months?: No Did you have a dental problem in the last 6 months where you did not have access to dental care?: No Was dental information given to patient?: Patient has dentist HPI ear infection HPI Details - The patient is a 58-year-old male presenting with ear and eye complaints. - Diagnosed with conjunctivitis and bilateral acute otitis media at the walk-in, the patient experienced a perforated left tympanic membrane and was treated with Amoxicillin and ocular ointments with limited effectiveness. - Persistent symptoms include grit sensation and heat in the right ear, mild redness remains without hearing loss. - Influenza, COVID-19, and RSV were ruled out initially; lungs were clear on examination. - Symptoms included no runny nose, and minimal cough was reported. [facility] Medical History (Updated 10/19/24 @ 23:54 by Franchesca Batista MD) Bipolar disorder Acute pharyngitis Nocturnal hypoxemia Obesity (BMI 30-39.9) History of pneumonia Central sleep apnea Complex sleep apnea syndrome Pneumonitis Atherosclerotic cardiovascular disease WILTON (obstructive sleep apnea) SILVA (nonalcoholic steatohepatitis) History of deep venous thrombosis (DVT) of distal vein of left lower extremity Skin cancer Depression Recurrent kidney stones Dyslipidemia Essential hypertension Central sleep apnea Reid-Demarco breathing disorder Hiatal hernia Degenerative joint disease of left knee Diastolic congestive heart failure STEMI (ST elevation myocardial infarction) CAD (coronary artery disease) Lesion of skin of face Farias's esophagus Chronic idiopathic constipation Surgical History Hx of colonoscopy History of total knee arthroplasty History of esophagogastroduodenoscopy (EGD) Family History Father Brain cancer Lung cancer Substance use disorder Mother Emphysema, unspecified Substance use disorder Mental health disorder Social History Household Members: Spouse Housing: House Do you presently have visiting nurse or other home services: No Alcohol intake: current Alcohol intake frequency: does not drink Patient Tobacco Use Status: Current everyday Tobacco user Tobacco use type: Cigarette Cigarette Packs Per Day: 1 Cigarettes Per Day: 20.0 Years Smoked: 40 e-Cigarette/Vaping Use: Never Used Second Hand Smoke Exposure: No service: No Current occupational status: unemployed 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 Cognitive needs: No Hearing needs: No Vision needs: Yes Review of Systems Const All systems reviewed & are unremarkable except as noted in HPI and below Physical exam (Primary Care) Vital Signs: Last Vital Signs Pulse 66 10/14/24 11:34 BP 150/90 H 10/14/24 11:34 Pulse Ox 98 10/14/24 11:34 Oxygen Delivery Method Room Air 10/14/24 11:34 BMI result Body Mass Index 31.9 Tobacco/Smoking Status: Tobacco use Status Tobacco use date assessed 10/14/24 10/14/24 11:43 Patient Tobacco Use Status Current everyday Tobacco 10/14/24 11:43 Tobacco use type Cigarette 10/14/24 11:43 e-Cigarette/Vaping Use Never Used 10/14/24 11:43 Const Other: Obese, Alert oriented x3, no acute distress noted ambulatory normal gait HENMT Head: Yes normocephalic and Yes atraumatic Ears: external ears normal and Abnormal EAC present erythema on the right and bilateral and EAC tenderness; no otic discharge General nose exam: Normal external nose present Face and sinus: Yes sinuses nontender Mouth: Normal oral and palatal mucosa present and moist mucous membranes Neck Neck: Yes full ROM, Yes no lymphadenopathy and Yes supple Resp Auscultation: clear to auscultation bilaterally Cardio Other: S1-S2 present regular rate and rhythm Coding Level of Care Code Est Pt Level 3 (00590) Diagnoses Otitis externa of both ears H60.93 Otitis externa type: unspecified type Assessment & Plan Assessment & Plan (1) Otitis externa of both ears: Code(s): H60.93 - Unspecified otitis externa, bilateral Category: Medical Qualifiers: Otitis externa type: unspecified type Plan: Prescription sent for neomycin polymyxin-HC otic solution, . Directions on how to apply drops given to patient. Do clinic if after 1 week no improvement of symptoms instill 4 drops in ear canal every 8 hours for 10 days Medications: New dunghoje-zwwbqbxzf-WR 3.5-10,000-1 mg/mL-unit/mL-% 4 drps otic (ear) right Q8H 10 mL 0RF 10 days
--- OUTSIDE RECORDS SUMMARY | 2024-10-14 13:10 | XMS_ITS | Clinical Summary ---
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 Name Role Phone Unavailable Primary Care Provider Unavailabl e Surgical History Surgery Date Site/Laterality Comments OTHER SURGICAL HISTORY PROCEDURE: ---- OTHER ----; COMMENT: R inguinal hernia COLONOSCOPY February PROCEDURE: HISTORICAL COLONOSCOPY; COMMENT: hemorrhoids; repeat in ten years ESOPHAGOGASTRODUODENOSCOPY 02/07/10 PROCEDURE: [place] ESOPHAGOGASTRODUODENOSCOPY TRANSORAL DIAGNOSTIC; COMMENT: Farias's esophagus and Schatzki ring; 50 F dilator passed; repeat in two yrs ESOPHAGOGASTRODUODENOSCOPY 04/09/12 PROCEDURE: IA EGD TRANSORAL BIOPSY SINGLE/MULTIPLE; COMMENT: Farias's esophagus and non-critical Schatzki ring; repeat in 3 yrs OTHER SURGICAL HISTORY 06/25/13 PROCEDURE: IA EGD BALLOON DILATION ESOPHAGUS <30 MM DIAM; COMMENT: Schatzki ring dilated to 54 F; Farias's esophagus (not biopsied) with erosions; HH ESOPHAGOGASTRODUODENOSCOPY 21/03/15 PROCEDURE: [place] ESOPHAGOGASTRODUODENOSCOPY TRANSORAL DIAGNOSTIC; COMMENT: Farias's esophagus and [...] Recorded Sex Assigned at Not on file Legal Sex Male 6:03 AM EST Gender Identity Not on file Sexual Orientation Not on file Obstetrics History Plan of Treatment Health Maintenance Due Date Last Done Comments Hepatitis B Vaccines (1 of 3 - 19+ 3-dose series) 12/13/1983 DTaP,Tdap,and Td Vaccines (2 - Td or Tdap) 12/08/2008 11/10/2008 Pneumococcal Vaccine: 50+ Ye ars (1 of 1 - PCV) 2014 Zoster Vaccines (1 of 2) 2014 COVID-19 Vaccine (2023-2 5 season) 2024 Influenza Vaccine (#1) 2024 [...] patient's age to complete this topic Meningococcal B Vacine Aged Out No lo nger eligible based on patient's age to complete [...]
== END 2024-10-14 12:04 | disposition home or self-care (01) ==
PROVIDERS: PCP Internal Medicine; Visit Provider Internal Medicine
DX: H60.93 Unspecified otitis externa, bilateral (principal)

== ENCOUNTER → 2024-10-14 11:31 | Outpatient (BNVA) | payer MEDICARE, MEDICAID, SELFPAY | PROVIDERS: PCP Internal Medicine; Visit Provider Internal Medicine | DX: H60.93 Unspecified otitis externa, bilateral (principal) | CPT/HCPCS: 99212 ==

== ENCOUNTER 2024-10-30 14:52 | Outpatient (AMB) | payer MEDICARE, MEDICAID, SELFPAY ==
[2024-10-30 15:01] VITALS: BP 140/88; PULSE 78; RESP 14; TEMP 36.7; O2SAT 96; BMI 32.3
--- NOTE | 2024-10-30 15:01 | MHC.PC.OV ---
Vital Signs 10/30/24 15:01 Height 5 ft 4 in Weight 188 lb BMI 32.3 BP 140/88 H Blood Pressure Location Rt brachial Position Sitting Respiration 14 Pulse 78 Pulse Source Pulse Oximeter Temp 98.0 F Temp Source Oral Pulse Oximetry (%) 96 Oxygen Delivery Method Room Air Intake Visit Reasons: object stuck R ear Allergies No Known Allergies [No Known Allergies*] Allergy (Verified 10/30/24 15:29) Medication List - Last Reconciled 10/30/24 by Franchesca Batista MD amlodipine 5 mg PO DAILY aripiprazole 20 mg PO DAILY aripiprazole 5 mg PO DAILY aspirin 81 mg PO DAILY atorvastatin 80 mg PO BEDTIME clonidine HCl 0.2 mg PO BID clopidogrel 75 mg PO DAILY lisinopril 5 mg PO DAILY loratadine 10 mg PO DAILY gffdfiuneyjo-nywpzmou-gjrsce 1 tab PO DAILY venlafaxine ER 300 mg PO DAILY Tobacco use date assessed: 10/30/24 Dental Screening Dental Screen Date: 10/30/24 Did you have a dental visit in the last 12 months?: No Did you have a dental problem in the last 6 months where you did not have access to dental care?: No Was dental information given to patient?: Patient has dentist HPI object stuck R ear HPI Details 58-year-old male here today complaining pain in his right ear canal , which has not improved with using Cortisporin otic drops, and has a sensation of something stuck inside his right ear. Denies any accompanying fever, no decreased hearing, no difficulty swallowing sore throat.. [facility] Medical History (Updated 10/30/24 @ 23:16 by Franchesca Batista MD) Acute otitis media Bipolar disorder Acute pharyngitis Nocturnal hypoxemia Obesity (BMI 30-39.9) History of pneumonia Central sleep apnea Complex sleep apnea syndrome Pneumonitis Atherosclerotic cardiovascular disease WILTON (obstructive sleep apnea) SILVA (nonalcoholic steatohepatitis) History of deep venous thrombosis (DVT) of distal vein of left lower extremity Skin cancer Depression Recurrent kidney stones Dyslipidemia Essential hypertension Central sleep apnea Erid-Demarco breathing disorder Hiatal hernia Degenerative joint disease of left knee Diastolic congestive heart failure STEMI (ST elevation myocardial infarction) CAD (coronary artery disease) Lesion of skin of face Farias's esophagus Chronic idiopathic constipation Surgical History Hx of colonoscopy History of total knee arthroplasty History of esophagogastroduodenoscopy (EGD) Family History Father Brain cancer Lung cancer Substance use disorder Mother Emphysema, unspecified Substance use disorder Mental health disorder Social History Household Members: Spouse Housing: House Do you presently have visiting nurse or other home services: No Alcohol intake: current Alcohol intake frequency: does not drink Patient Tobacco Use Status: Current everyday Tobacco user Tobacco use type: Cigarette Cigarette Packs Per Day: 1 Cigarettes Per Day: 20.0 Years Smoked: 40 Packs Per Year: 40 Packs per year/per ci.00 e-Cigarette/Vaping Use: Never Used Second Hand Smoke Exposure: No service: No Current occupational status: unemployed 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 Cognitive needs: No Hearing needs: No Vision needs: Yes Review of Systems Const All systems reviewed & are unremarkable except as noted in HPI and below Physical exam (Primary Care) Vital Signs: Last Vital Signs Temp 98.0 F 10/30/24 15:01 Pulse 78 10/30/24 15:01 Resp 14 10/30/24 15:01 BP 140/88 H 10/30/24 15:01 Pulse Ox 96 10/30/24 15:01 Oxygen Delivery Method Room Air 10/30/24 15:01 BMI result Body Mass Index 32.3 Tobacco/Smoking Status: Tobacco use Status Tobacco use date assessed 10/30/24 10/30/24 15:12 Patient Tobacco Use Status Current everyday Tobacco 10/30/24 15:12 Tobacco use type Cigarette 10/30/24 15:12 e-Cigarette/Vaping Use Never Used 10/30/24 15:12 Const Other: Obese, Alert oriented x3, no acute distress noted ambulatory normal gait HENMT Ears: external ears normal and Abnormal EAC present erythema on the right and bilateral and EAC tenderness; no otic discharge General nose exam: Normal external nose present Face and sinus: Yes sinuses nontender Mouth: Normal oral and palatal mucosa present and moist mucous membranes Neck Neck: Yes full ROM, Yes no lymphadenopathy and Yes supple Resp Auscultation: clear to auscultation bilaterally Cardio Other: S1-S2 present regular rate and rhythm Coding Level of Care Code Est Pt Level 3 (51741) Diagnoses Right acute serous otitis media, recurrence not specified H65.01 Otitis media type: serous Laterality: right Recurrence: not specified as recurrent Assessment & Plan Assessment & Plan (1) Acute otitis media: Code(s): H66.90 - Otitis media, unspecified, unspecified ear Category: Medical Qualifiers: Otitis media type: serous Laterality: right Recurrence: not specified as recurrent Qualified Code(s): H65.01 - Acute serous otitis media, right ear Plan: Prescription sent for amoxicillin clavulanic acid, 875 mg-125 mg per tablet to take 1 every 12 hours for 10 days. Advised patient to take it always with food, side effects discussed with patient which may include diarrhea abdominal cramping , return to clinic if no improvement of symptoms after completion of antibiotics Medications: New amoxicillin-pot clavulanate 875-125 mg 1 tab PO Q12H 20 tabs 0RF H66.90 - Otitis media, unspecified, unspecified ear
--- OUTSIDE RECORDS SUMMARY | 2024-10-30 18:08 | XMS_ITS | Clinical Summary ---
Author Organization [facility] Address [address] [place] [address] Care Team Providers Care Silver Cleaner Name Role Phone Unavailable Primary Care Provider Unavailabl e Surgical History Surgery Date Site/Laterality Comments OTHER SURGICAL HISTORY PROCEDURE: ---- OTHER ----; COMMENT: R inguinal hernia COLONOSCOPY February PROCEDURE: HISTORICAL COLONOSCOPY; COMMENT: hemorrhoids; repeat in ten years ESOPHAGOGASTRODUODENOSCOPY 02/07/10 PROCEDURE: [place] ESOPHAGOGASTRODUODENOSCOPY TRANSORAL DIAGNOSTIC; COMMENT: Farias's esophagus and Schatzki ring; 50 F dilator passed; repeat in two yrs ESOPHAGOGASTRODUODENOSCOPY 04/09/12 PROCEDURE: MA EGD TRANSORAL BIOPSY SINGLE/MULTIPLE; COMMENT: Farias's esophagus and non-critical Schatzki ring; repeat in 3 yrs OTHER SURGICAL HISTORY 06/25/13 PROCEDURE: MA EGD BALLOON DILATION ESOPHAGUS <30 MM DIAM; COMMENT: Schatzki ring dilated to 54 F; Farias's esophagus (not biopsied) with erosions; HH ESOPHAGOGASTRODUODENOSCOPY 21/03/15 PROCEDURE: [place] ESOPHAGOGASTRODUODENOSCOPY TRANSORAL DIAGNOSTIC; COMMENT: Farias's esophagus and [...] Date Smoking Tobacco: Every Day Cigarettes 0.5 42.9 Started: 1981 Smokeless Tobacco: Never Alcohol Use [...] of 3 - 19+ 3-dose series) 12/13/1983 Pneumococcal Vaccine: 50+ Ye ars (1 of 1 - PCV) 2014 Zoster Vaccines (1 of 2) 2014 DTaP,Tdap,and [...]
== END 2024-10-30 16:25 | disposition home or self-care (01) ==
PROVIDERS: PCP Internal Medicine; Visit Provider Internal Medicine
DX: H65.01 Acute serous otitis media, right ear (principal)

== ENCOUNTER → 2024-10-30 14:52 | Outpatient (BNVA) | payer MEDICARE, MEDICAID, SELFPAY | PROVIDERS: PCP Internal Medicine; Visit Provider Internal Medicine | DX: H65.01 Acute serous otitis media, right ear (principal) | CPT/HCPCS: 99212 ==

== ENCOUNTER 2024-11-28 09:51 | Outpatient (REF) | payer MEDICARE, MEDICAID, SELFPAY | END 2024-11-28 09:52 | disposition home or self-care (01) | LOC: HO.LAB 09:51 | PROVIDERS: PCP Internal Medicine; Visit Provider Internal Medicine | DX: N48.1 Balanitis (principal); N45.1 Epididymitis | CPT/HCPCS: 81003; 87086; 99212 ==

== ENCOUNTER 2024-11-28 10:10 | Outpatient (AMB) | payer MEDICARE, MEDICAID, SELFPAY ==
--- NOTE | 2024-11-28 10:19 | MHC.OFFWIV ---
Intake Vital Signs 11/28/24 10:20 Weight 191 lb BP 130/72 Blood Pressure Location Lt brachial Position Sitting Pulse 60 Pulse Source Pulse Oximeter Pulse Oximetry (%) 97 Oxygen Delivery Method Room Air Intake Visit Reasons: EP problem w/testicles Intake Note: Patient here for swollen testicles and pain that started about 1 week ago. Patient Tobacco Use Status: Current everyday Tobacco user Allergies No Known Allergies [No Known Allergies*] Allergy (Verified 11/28/24 10:20) Do you need a note to return to daycare/school/sports/work: No HPI EP problem w/testicles HPI Details This is a 58-year-old male patient who presents to the walk-in clinic today with a report of a one-week history of bilateral testicle pain and swelling. Also reports some pain near the head of his penis. Denies any dysuria. Denies any trauma to testicles denies any STI risk. States this pain/swelling had a gradual onset. Denies any new sexual partners. Denies pain with ejaculation or blood in semen. Recent bilateral ear infection, treated with Augmentin. Otherwise no recent illnesses. [facility] Medical History Acute otitis media Bipolar disorder Acute pharyngitis Nocturnal hypoxemia Obesity (BMI 30-39.9) History of pneumonia Central sleep apnea Complex sleep apnea syndrome Pneumonitis Atherosclerotic cardiovascular disease WILTON (obstructive sleep apnea) SILVA (nonalcoholic steatohepatitis) History of deep venous thrombosis (DVT) of distal vein of left lower extremity Skin cancer Depression Recurrent kidney stones Dyslipidemia Essential hypertension Central sleep apnea Reid-Demarco breathing disorder Hiatal hernia Degenerative joint disease of left knee Diastolic congestive heart failure STEMI (ST elevation myocardial infarction) CAD (coronary artery disease) Lesion of skin of face Farias's esophagus Chronic idiopathic constipation Surgical History Hx of colonoscopy History of total knee arthroplasty History of esophagogastroduodenoscopy (EGD) Family History Father Brain cancer Lung cancer Substance use disorder Mother Emphysema, unspecified Substance use disorder Mental health disorder Social History Household Members: Spouse Housing: House Do you presently have visiting nurse or other home services: No Alcohol intake: current Alcohol intake frequency: does not drink Patient Tobacco Use Status: Current everyday Tobacco user Tobacco use type: Cigarette Cigarette Packs Per Day: 1 Cigarettes Per Day: 20.0 Years Smoked: 40 e-Cigarette/Vaping Use: Never Used Second Hand Smoke Exposure: No service: No Current occupational status: unemployed 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 Cognitive needs: No Hearing needs: No Vision needs: Yes Review of Systems Const All systems reviewed & are unremarkable except as noted in HPI and below Physical Exam Vital Signs: Last Vital Signs Pulse 60 11/28/24 10:20 BP 130/72 11/28/24 10:20 Pulse Ox 97 11/28/24 10:20 Oxygen Delivery Method Room Air 11/28/24 10:20 Const General: cooperative, healthy appearing, comfortable and no acute distress Resp Effort & Inspection: normal respiratory effort Auscultation: clear to auscultation bilaterally Cardio Rate: regular rate Rhythm: regular rhythm General: Yes bladder normal to palpation and Yes no CVA tenderness Penis: circumcised and edematous (mild edema and ttp at base of glans of penis, anterior aspect) Meatus: meatus normal Scrotum: scrotum normal Testes: Testes normal and testicular swelling (mild) bilateral Back/Spine/Pelvis Back: no CVA tenderness Skin General skin exam: no rashes or lesions noted Assessment & Plan Assessment & Plan (1) Balanitis: Code(s): N48.1 - Balanitis Plan: Presentation consistent with balanitis, we will send miconazole to apply topically. We reviewed use of this. (2) Epididymitis, bilateral: Code(s): N45.1 - Epididymitis Plan: On exam, testicles are very mildly tender to palpation. Subjectively, they are swollen, per patient. He does not have pain over epididymis upon palpation. I will send doxycycline empirically for this. We reviewed indications, use, possible side effects. I will also send his urine for culture and CT NG. This reviewed with patient. He verbalizes understanding and agrees to plan. If he does not symptoms worsen/new symptoms develop, he can return to the clinic for further evaluate. Orders: Orders CT NG by PCR Today N45.1 - Epididymitis, N48.1 - Balanitis Urine Culture Today N45.1 - Epididymitis Medications: New miconazole nitrate 2% (Antifungal (miconazole)) Apply to affected area twice a day for 10 days 1 appl topical BID 10 days 15 grams 1RF N48.1 - Balanitis doxycycline hyclate Take one capsule twice a day for 10 days 100 mg PO BID 10 days 20 caps 0RF N45.1 - Epididymitis Coding Level of Care Code Est Pt Level 4 (75660) Diagnoses Balanitis N48.1 Epididymitis, bilateral N45.1
[2024-11-28 10:20] VITALS: BP 130/72; PULSE 60; O2SAT 97
== END 2024-11-28 11:28 | disposition home or self-care (01) ==
PROVIDERS: PCP Internal Medicine; Visit Provider Nurse Practitioner Family
DX: N48.1 Balanitis (principal); N45.1 Epididymitis; Z13.9 Encounter for screening, unspecified

== ENCOUNTER 2024-12-19 22:02 | Emergency (ER) | payer MEDICARE, MEDICAID, SELFPAY ==
--- NOTE | ~2024-12-19 | CT_ITS ---
CLINICAL HISTORY: lower abd pain, tender suprapubic, wt loss. CT abdomen and pelvis with contrast Comparison: None Findings: Lung bases clear. No acute bony abnormalities. Hepatomegaly with right hepatic cysts. Splenomegaly without focal abnormality. Pancreas and adrenal glands unremarkable. Gallbladder is within normal limits. No significant focal renal abnormalities. No renal stones or hydronephrosis. Abdominal aorta is normal in caliber. No free fluid or adenopathy in the pelvis. No diverticulitis. Appendix unremarkable. Left inguinal hernia contains fat. Impression: No acute process This document has been electronically signed by: Migel Gardner MD on 12/20/2024 01:27:42
[2024-12-19 22:16] VITALS: BP 184/97; PULSE 64; RESP 16; TEMP 37.1; O2SAT 96; BMI 30.7
[2024-12-19 22:32] LABS: MANUAL DIFF FLAG NO
[2024-12-19 22:33] LABS: Basophils Absolute Auto 0.1 X10*3/uL (0.0-0.2); Basophils Percent Auto 0.7 % (0-2); Eosinophils Absolute Auto 0.2 X10*3/uL (0.0-0.4); Hematocrit 48.6 % (42.0-52.0); Hemoglobin 16.7 g/dl (14.0-18.0); Imm Gran Abs Auto 0.04 X10*3/uL (0.00-0.03); Imm Gran Pct Auto 0.3 % (0.0-0.4); Lymphocytes Absolute Auto 3.2 X10*3/uL (1.2-4.9); Mean Corpuscular HGB Conc 34.4 g/dl (31.0-36.0); Mean Corpuscular Volume 84.4 fL (80.0-98.0); Mean Platelet Volume 9.2 fL (9.4-12.4); Monocytes Absolute Auto 0.8 X10*3/uL (0.1-1.2); Monocytes Percent Auto 6.7 % (2-11); Neutrophils Absolute Auto 7.2 x10*3/uL (2.0-8.3); Neutrophils Percent Auto 62.3 % (45-73); Platelet Count 164 X10*3/uL (160-400); Red Blood Count 5.76 X10*6/uL (4.60-5.80); Red Cell Distribution Width 13.3 % (11.0-16.0); White Blood Count 11.6 X10*3/uL (4.8-10.8)
[2024-12-19 22:46] LABS: Alanine Aminotransferase 52 U/L (0-40); Albumin Level 4.5 g/dL (3.5-5.0); Alkaline Phosphatase 86 U/L (39-117); Aspartate Amino Transferase 38 U/L (5-37); Bilirubin Total 0.6 mg/dL (0.0-1.0); Blood Urea Nitrogen 14 mg/dL (9-16); Calcium 9.9 mg/dL (8.4-10.2); Creatinine Clr Calc Pharmacy 75.5; Estimated Glomerular Filt Rate > 60; Glucose Random 162 mg/dL (60-115); Total Protein 7.7 g/dL (6.5-8.0)
[2024-12-19 22:50] LABS: Anion Gap 14 (12-20); Carbon Dioxide 27 mmol/L (22-29); Chloride 105 mmol/L (96-108); Potassium 4.3 mmol/L (3.3-5.1); Sodium 142 mmol/L (135-145)
[2024-12-20] MEDS: Ketorolac Tromethamine 15 MG/ML VIAL IVPUSH (00:19)
--- NOTE | 2024-12-20 00:19 | ED_ITS ---
HPI - Abdominal Pain General Chief Complaint: Abdominal Pain Stated Complaint: lower extremity pain Time Seen by Provider: 12/19/24 23:53 History of Present Illness ED Provider: Huber Richard MD HPI narrative: 59-year-old male with a remote history of kidney stones reports several days of suprapubic ?prostate region ?burning type pain. Says a few days ago he ?passed something looked like a stone ?. He feels like he has lost significant amount of weight in the past several days. No flank pain no upper abdominal pain no nausea vomiting diarrhea denies fevers no cough difficulty breathing leg swelling rash or other symptoms Related Data Home Medications ?Medication ?Instructions ?Recorded ?Confirmed aspirin 81 mg tablet,delayed 81 mg PO DAILY 10/05/20 10/14/24 release lisinopril 5 mg tablet 5 mg PO DAILY 10/05/20 10/14/24 [id number]-[id number] tablet 1 tab PO DAILY 04/01/21 10/14/24 amlodipine 5 mg tablet 5 mg PO DAILY 09/12/22 10/14/24 clonidine HCl 0.2 mg tablet 0.2 mg PO BID 09/12/22 10/14/24 clopidogrel 75 mg tablet 75 mg PO DAILY 09/12/22 10/14/24 quetiapine 300 mg tablet,extended 300 mg PO BEDTIME 11/28/24 release 24 hr venlafaxine 37.5 mg 37.5 mg PO DAILY 11/28/24 tablet,extended release 24 hr Previous Rx's ?Medication ?Instructions ?Recorded loratadine 10 mg tablet 10 mg PO DAILY #30 tabs 09/08/23 doxycycline hyclate 100 mg capsule 100 mg PO BID 10 days #20 caps 11/28/24 miconazole nitrate 2 % topical 1 appl topical BID 10 days #15 11/28/24 cream (Antifungal (miconazole)) grams Allergies Allergy/AdvReac Type Severity Reaction Status Date / Time No Known Allergies Allergy Verified 12/19/24 22:18 [No Known Allergies*] [facility] Past Medical History Medical History Acute otitis media Bipolar disorder Acute pharyngitis Nocturnal hypoxemia Obesity (BMI 30-39.9) History of pneumonia Central sleep apnea Complex sleep apnea syndrome Pneumonitis Atherosclerotic cardiovascular disease WILTON (obstructive sleep apnea) SILVA (nonalcoholic steatohepatitis) History of deep venous thrombosis (DVT) of distal vein of left lower extremity Skin cancer Depression Recurrent kidney stones Dyslipidemia Essential hypertension Central sleep apnea Reid-Demarco breathing disorder Hiatal hernia Degenerative joint disease of left knee Diastolic congestive heart failure STEMI (ST elevation myocardial infarction) CAD (coronary artery disease) Lesion of skin of face Farias's esophagus Chronic idiopathic constipation Surgical History Hx of colonoscopy History of total knee arthroplasty History of esophagogastroduodenoscopy (EGD) Family History Family History Father Brain cancer Lung cancer Substance use disorder Mother Emphysema, unspecified Substance use disorder Mental health disorder Social History Social History Household Members: Spouse Housing: House Do you presently have visiting nurse or other home services: No Alcohol intake: current Alcohol intake frequency: does not drink Patient Tobacco Use Status: Current everyday Tobacco user Tobacco use type: Cigarette Cigarette Packs Per Day: 1 Cigarettes Per Day: 20.0 Years Smoked: 40 Smoked in Last 30 Days: Yes e-Cigarette/Vaping Use: Never Used Second Hand Smoke Exposure: No Use of substances other than those prescribed or required for medical reasons: No Advance Directives: No Advance Directives Information Provided: Yes service: No Current occupational status: unemployed 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 Head: Atraumatic Eyes: Anicteric, Normal conjunctiva. ENT: Moist mucosa, no pallor. ? Neck: Supple. Respiratory: Breathing comfortably, No distress.Clear to auscultation bilaterally, symmetric chest expansion, No wheeze, rales, ronchi. Cardiovascular: Regular rate and rhythm. No murmurs or rub. Well perfused periphery, warm extremities. No edema. ? Abdominal: Obese. Soft, no objective distension. No palpable masses or obvious organomegaly. No focal tenderness, no guarding, no rebound tenderness or other peritoneal findings. : Tenderness on deep palpation in the suprapubic region Neuro: Alert. Gross movement of all extremities intact. ? Vital signs: See flowsheet Procedures Procedure Narrative Procedure Narrative: EMERGENCY ULTRASOUND INTERPRETATION-Limited Retroperitoneal (Renal) [This study was ordered, performed, and interpreted by myself. The study reveals: Impression: NO EVIDENCE OF UROLOGIC OBSTRUCTION] [Indication: FLANK PAIN Bladder: ANECHOIC URINE Right Kidney: NO HYDRONEPHROSIS Left Kidney: NO HYDRONEPHROSIS Performed by: Huber Richard MD CPT: 51597] Medical Decision Making Medical Decision Making MDM Narrative: 59-year-old male with suprapubic pain self-reported weight loss. Awake alert oriented hemodynamic stable. No fever. Tenderness on deep palpation in the suprapubic region. Reassuring point of care ultrasound of the kidneys. Given the patient's age symptoms and self-reported weight loss CT is ordered __ Labs urine CT old reassuring Lab Data 12/19/24 22:28 12/19/24 22:28 Labs: Lab Results 12/19/24 12/20/24 Range/Units 22:28 01:32 WBC 11.6 H (4.8-10.8) X10*3/uL RBC 5.76 (4.60-5.80) X10*6/uL Hgb 16.7 D (14.0-18.0) g/dl Hct 48.6 (42.0-52.0) % MCV 84.4 (80.0-98.0) fL MCH 29.0 (27.0-33.0) pg MCHC 34.4 (31.0-36.0) g/dl RDW 13.3 (11.0-16.0) % Plt Count 164 D (160-400) X10*3/uL MPV 9.2 L (9.4-12.4) fL Immature Gran % (Auto) 0.3 (0.0-0.4) % Neut % (Auto) 62.3 (45-73) % Lymph % (Auto) 28.0 (20-40) % [place] % (Auto) 6.7 (2-11) % Eos % (Auto) 2.0 (0-4) % Baso % (Auto) 0.7 (0-2) % Lymph # (Auto) 3.2 (1.2-4.9) X10*3/uL [place] # (Auto) 0.8 (0.1-1.2) X10*3/uL Eos # (Auto) 0.2 (0.0-0.4) X10*3/uL Baso # (Auto) 0.1 (0.0-0.2) X10*3/uL Abs Immat Gran (auto) 0.04 H (0.00-0.03) X10*3/uL Absolute Neuts (auto) 7.2 (2.0-8.3) x10*3/uL Absolute Nucleated RBC 0.000 (0.0-0.012) X10*3/uL Nucleated RBC % (auto) 0.0 (0.0-0.2) /100WBC Sodium 142 (135-145) mmol/L Potassium 4.3 (3.3-5.1) mmol/L Chloride 105 (96-108) mmol/L Carbon Dioxide 27 (22-29) mmol/L Anion Gap 14 (12-20) BUN 14 (9-16) mg/dL Creatinine 1.00 (0.5-1.4) mg/dL Estim Creat Clear Calc 75.5 Estimated GFR > 60 Random Glucose 162 H (60-115) mg/dL Calcium 9.9 D (8.4-10.2) mg/dL Total Bilirubin 0.6 (0.0-1.0) mg/dL AST 38 H (5-37) U/L ALT 52 H (0-40) U/L Alkaline Phosphatase 86 (39-117) U/L Total Protein 7.7 (6.5-8.0) g/dL Albumin 4.5 (3.5-5.0) g/dL Urine Color Yellow Urine Appearance Clear Urine pH 6.0 (5.0-9.0) Ur Specific [place] >= 1.030 H (1.005-1.025) Urine Protein 100 (2+) H (Neg-Trace) mg/dL Urine Glucose (UA) 100 H (Negative) mg/dL Urine Ketones Trace (Negative) mg/dL Urine Blood Negative (Negative) Urine Nitrite Negative (Negative) Ur Leukocyte Esterase Negative (Negative) Urine RBC 0-2 (0-2) /HPF Urine WBC 0-5 (0-5) /HPF Ur Squamous Epith Cells 0-2 (0-2) /HPF Urine Bacteria None Seen (None Seen) Hyaline Casts 0-2 (0-2) /LPF Medications Administered Discontinued Medications Generic Name Dose Route Start Last Admin Trade Name Sheridan PRN Reason Stop Dose Admin Iohexol 85 ml 12/20/24 00:39 12/20/24 00:39 Iohexol 350 Mg/Ml 100 Ml Infus..Btl IV 12/20/24 00:40 85 ml ONCE ONE Administration Ketorolac Tromethamine 15 mg 12/20/24 00:04 12/20/24 00:19 Ketorolac Tromethamine 15 Mg/Ml Vial IVPUSH 12/20/24 00:05 15 mg ONCE ONE Administration Discharge Plan Discharge Clinical Impression: Abdominal pain Patient Disposition: Home, Self-Care Instructions: Abdominal Pain (ED) Additional Instructions: _ DISCHARGE DIAGNOSES: Lower abdominal pain of unclear cause Weight loss of unclear cause HISTORY OF PRESENTATION: Weight loss and lower abdominal pain EMERGENCY DEPARTMENT COURSE,TESTS, TREATMENTS: While in the ED today you had a CT scan of your abdomen which did not show any acute abnormalities You had lab work and urinalysis without any acute abnormalities seen DISCHARGE MEDICATIONS: ?[We have made no changes to your regular medication regimen] FOLLOW-UP: ?Call your primary or general physician soon as possible to discuss your symptoms, your ED visit and to discuss follow up plans Call your primary doctor for follow-up INSTRUCTIONS ?& RETURN PRECAUTIONS: If any symptoms change first call your primary physician, if it is after-hours your primary doctors office should have a provider content engineer you can speak with. If the symptoms are severe or very concerning to you then call 911 or return to the ED. Return for severe worsening abdominal pain Huber Richard MD Emergency Physician [facility] Prescriptions: No Action [id number]-[id number] Tablet 1 tab PO DAILY loratadine 10 mg tablet 10 mg PO DAILY Qty: 30 0RF lisinopril 5 mg tablet 5 mg PO DAILY aspirin 81 mg tablet,delayed release (DR/EC) 81 mg PO DAILY clonidine HCl 0.2 mg tablet 0.2 mg PO BID amlodipine 5 mg tablet 5 mg PO DAILY clopidogrel 75 mg tablet 75 mg PO DAILY venlafaxine 37.5 mg tablet extended release 24hr 37.5 mg PO DAILY quetiapine 300 mg tablet extended release 24 hr 300 mg PO BEDTIME doxycycline hyclate 100 mg capsule 100 mg PO BID 10 Days Qty: 20 0RF Rx Instructions: Take one capsule twice a day for 10 days miconazole nitrate [Antifungal (miconazole)] 2 % cream 1 appl topical BID 10 Days Qty: 15 1RF Rx Instructions: Apply to affected area twice a day for 10 days Interventions: ED Discharge Assessment Last Done: 12/20/24 03:55 Discharge Date/Time: 12/20/24 03:57 Print Language: Macanese
[2024-12-20 00:21] VITALS: BP 158/96; PULSE 61; RESP 19; TEMP 37; O2SAT 95
--- OUTSIDE RECORDS SUMMARY | 2024-12-20 00:31 | XMS_ITS | Clinical Summary ---
Author Organization [facility] Address [address] [place] [address] Care Team Providers Care Salesperson Books Name Role Phone Unavailable Primary Care Provider Unavailabl e Surgical History Surgery Date Site/Laterality Comments OTHER SURGICAL HISTORY PROCEDURE: ---- OTHER ----; COMMENT: R inguinal hernia COLONOSCOPY February PROCEDURE: HISTORICAL COLONOSCOPY; COMMENT: hemorrhoids; repeat in ten years ESOPHAGOGASTRODUODENOSCOPY 02/07/10 PROCEDURE: IN ESOPHAGOGASTRODUODENOSCOPY TRANSORAL DIAGNOSTIC; COMMENT: Farias's esophagus and Schatzki ring; 50 F dilator passed; repeat in two yrs ESOPHAGOGASTRODUODENOSCOPY 04/09/12 PROCEDURE: IN EGD TRANSORAL BIOPSY SINGLE/MULTIPLE; COMMENT: Farias's esophagus and non-critical Schatzki ring; repeat in 3 yrs OTHER SURGICAL HISTORY 06/25/13 PROCEDURE: IN EGD BALLOON DILATION ESOPHAGUS <30 MM DIAM; COMMENT: Schatzki ring dilated to 54 F; Farias's esophagus (not biopsied) with erosions; HH ESOPHAGOGASTRODUODENOSCOPY 21/03/15 PROCEDURE: IN ESOPHAGOGASTRODUODENOSCOPY TRANSORAL DIAGNOSTIC; COMMENT: Farias's esophagus and HH; no dysplasia; repeat in 3 yrs. Medical History Medical History Date Comments Alcohol abuse DX:Alcohol abuse Back pain with radiation DX:Back pain with radiation Depression DX:Depression Esophageal reflux DX:Esophageal reflux Nonalcoholic hepatosteatosis 04/23/2013 DX: Nonalcoholic hepatosteatosis Nephrolithiasis 04/23/2013 DX:Nephrolithias is DVT (deep venous thrombosis) (CMS/HCC V24, CMS/HCC V28) 05/2018 DX:DVT (deep venous thrombos is) (HCC) Family History Medical History Relation Name [...] Date Smoking Tobacco: Every Day Cigarettes 0.5 43 Started: 1981 Smokeless Tobacco: Never Alcohol Use [...] - 2023-2 5 season) 2024 Influenza Vaccine (Season Ended) 2025 RSV Immunization Adult Patie nts (1 - 1-dose 75+ series) 12/13/2039 HIB [...] age to complete this topic Meningococcal B Vaccine Aged Out No l onger eligible based on patient's age to complete [...]
[2024-12-20] MEDS: iohexoL 350 MG/ML 100 ML INFUS..BTL 85 ML IV (00:39)
[2024-12-20 01:39] LABS: Appearance Urine Clear; Color Urine Yellow; Glucose Urine UA 100 mg/dL (Negative); Leukocyte Esterase Urine Negative (Negative); Nitrite Urine Negative (Negative); Specific Gravity - Urine >= 1.030 (1.005-1.025); UMIC TRIGGER UACC YES; Urine Blood Negative (Negative); Urine Ketones Trace mg/dL (Negative); Urine Protein 100 (2+) mg/dL (Neg-Trace)
[2024-12-20 01:42] LABS: Bacteria Urine None Seen (None Seen); Hyaline Casts Urine 0-2 /LPF (0-2); RBC Urine 0-2 /HPF (0-2); Squamous Epithelial Cell Urine 0-2 /HPF (0-2); WBC Urine 0-5 /HPF (0-5)
[2024-12-20 03:48] VITALS: BP 159/84; PULSE 62; RESP 18; TEMP 36.8; O2SAT 98
[2024-12-20 03:55] VITALS: BP 159/84; PULSE 62; RESP 18; TEMP 36.8; O2SAT 98
== END 2024-12-20 03:57 | disposition home or self-care (01) ==
PROVIDERS: Emergency Provider Emergency Medicine; PCP Internal Medicine
DX: R10.30 Lower abdominal pain, unspecified (principal); I25.10 Atherosclerotic heart disease of native coronary artery without angina pectoris; I10 Essential (primary) hypertension; Z87.442 Personal history of urinary calculi; Z79.899 Other long term (current) drug therapy
CPT/HCPCS: 36415; 74177; 80053; 81001; 85025; 96374; 99284; J1885; Q9967

== ENCOUNTER → 2024-12-20 00:03 | Outpatient (BNV) | payer MEDICARE, MEDICAID, SELFPAY | PROVIDERS: Emergency Provider Emergency Medicine; PCP Internal Medicine; Visit Provider Radiology Diagnostic Radiology | DX: R10.9 Unspecified abdominal pain (principal); R63.4 Abnormal weight loss | CPT/HCPCS: 74177 ==

== ENCOUNTER 2025-02-16 11:31 | Outpatient (AMB) | payer MEDICARE, MEDICAID, SELFPAY ==
[2025-02-16 11:42] VITALS: BP 134/86; PULSE 80; TEMP 36.7; O2SAT 97; BMI 28.5
--- NOTE | 2025-02-16 11:42 | MHC.OFFWIV ---
Intake Vital Signs 02/16/25 11:42 Height 5 ft 4 in Weight 166 lb 4 oz BMI 28.5 BP 134/86 Blood Pressure Location Lt brachial Position Sitting Pulse 80 Pulse Source Pulse Oximeter Temp 98.1 F Temp Source Oral Pulse Oximetry (%) 97 Oxygen Delivery Method Room Air Intake Visit Reasons: PE pink eye in LT eye? Intake Note: Left eye crusted in the morning times 4 days Patient Tobacco Use Status: Current someday Tobacco user Allergies No Known Allergies [No Known Allergies*] Allergy (Verified 02/16/25 11:48) Do you need a note to return to daycare/school/sports/work: No HPI HPI Comments History of Present Illness Details History - The patient is a 59-year-old male presenting with eye discharge and irritation. - Started in his left eye and now is in his right eye - The eye discharge began four to five days ago, worsening over time, with crusting noted in the morning. - The patient reports irritation when blinking, without vision changes. - The patient also experiences itching in both ears, with no history of allergies or ear infections however his chart shows a hx of OM and OE -Denies fevers or cough. - Does not take a daily allergy med Physical Exam General: Cooperative, healthy appearing, comfortable and no acute distress Orientation/consciousness: Patient oriented x3 Limitations: No limitations Head: Normal to inspection Ears: normal external ears and normal hearing bilaterally. EAC's with erythema, left TM with purulence, right TM with fluid Nose: Normal external nose present, Normal nares present and No nasal discharge present Face and sinus: Normal facial exam Mouth: Normal oral and palatal mucosa present and moist mucous membranes Throat: Yes tonsils normal, Yes uvula midline. Posterior oropharynx erythema, no exudates Eyes: left eye with green exudates and injection. right eye with injection, otherwise normal appearance of bilateral eyes Neck: Normal visual inspection, full ROM Respiratory: . Normal respiratory effort, able to speak in complete sentences Skin: No rashes or lesions noted Neuro: Patient oriented x3 Extremities: Normal to inspection and Yes no clubbing, cyanosis or edema [facility] Medical History Acute otitis media Bipolar disorder Acute pharyngitis Nocturnal hypoxemia Obesity (BMI 30-39.9) History of pneumonia Central sleep apnea Complex sleep apnea syndrome Pneumonitis Atherosclerotic cardiovascular disease WILTON (obstructive sleep apnea) SILVA (nonalcoholic steatohepatitis) History of deep venous thrombosis (DVT) of distal vein of left lower extremity Skin cancer Depression Recurrent kidney stones Dyslipidemia Essential hypertension Central sleep apnea Reid-Demarco breathing disorder Hiatal hernia Degenerative joint disease of left knee Diastolic congestive heart failure STEMI (ST elevation myocardial infarction) CAD (coronary artery disease) Lesion of skin of face Farias's esophagus Chronic idiopathic constipation Surgical History Hx of colonoscopy History of total knee arthroplasty History of esophagogastroduodenoscopy (EGD) Family History Father Brain cancer Lung cancer Substance use disorder Mother Emphysema, unspecified Substance use disorder Mental health disorder Social History Household Members: Spouse Housing: House Do you presently have visiting nurse or other home services: No Alcohol intake: current Alcohol intake frequency: does not drink Patient Tobacco Use Status: Current someday Tobacco user Tobacco use type: Cigarette Cigarette Packs Per Day: 1 Cigarettes Per Day: 20.0 Years Smoked: 40 e-Cigarette/Vaping Use: Never Used Second Hand Smoke Exposure: No service: No Current occupational status: unemployed 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 Cognitive needs: No Hearing needs: No Vision needs: Yes Review of Systems Const All systems reviewed & are unremarkable except as noted in HPI and below Physical Exam Vital Signs: Last Vital Signs Temp 98.1 F 02/16/25 11:42 Pulse 80 02/16/25 11:42 BP 134/86 02/16/25 11:42 Pulse Ox 97 02/16/25 11:42 Oxygen Delivery Method Room Air 02/16/25 11:42 BMI result Body Mass Index 28.5 Assessment & Plan Assessment & Plan (1) Acute otitis media: Code(s): H66.90 - Otitis media, unspecified, unspecified ear Qualifiers: Laterality: right Otitis media type: serous Recurrence: not specified as recurrent Qualified Code(s): H65.01 - Acute serous otitis media, right ear Plan: Plan - Prescribe oral amoxicillin for seven days to treat the ear infection. - Prescribe erythromycin ointment for both eyes, to be applied four times a day for seven days. - Send prescriptions electronically to the patient's preferred pharmacy. Patient was informed and verbally consented to the use of an ambient scribe for clinic note documentation during this visit (2) Bacterial conjunctivitis of both eyes: Code(s): H10.9 - Unspecified conjunctivitis; B96.89 - Other specified bacterial agents as the cause of diseases classified elsewhere Plan: as above Medications: New erythromycin Apply to both eyes 4 times a day while awake 0.5 inches ophthalmic (eye) QID 7 grams 0RF amoxicillin 875 mg PO Q12H 14 tabs 0RF Coding Level of Care Code Est Pt Level 4 (09244) Diagnoses Right acute serous otitis media, recurrence not specified H65.01 Laterality: right Otitis media type: serous Recurrence: not specified as recurrent Bacterial conjunctivitis of both eyes H10.9; B96.89
--- OUTSIDE RECORDS SUMMARY | 2025-02-16 13:05 | XMS_ITS | Clinical Summary ---
Author Organization [facility] Address [address] [place] [address] Care Team Providers Care Legal Administrator Name Role Phone Unavailable Primary Care Provider Unavailabl e Surgical History Surgery Date Site/Laterality Comments OTHER SURGICAL HISTORY PROCEDURE: ---- OTHER ----; COMMENT: R inguinal hernia COLONOSCOPY February PROCEDURE: HISTORICAL COLONOSCOPY; COMMENT: hemorrhoids; repeat in ten years ESOPHAGOGASTRODUODENOSCOPY 02/07/10 PROCEDURE: CO ESOPHAGOGASTRODUODENOSCOPY TRANSORAL DIAGNOSTIC; COMMENT: Farias's esophagus and Schatzki ring; 50 F dilator passed; repeat in two yrs ESOPHAGOGASTRODUODENOSCOPY 04/09/12 PROCEDURE: CO EGD TRANSORAL BIOPSY SINGLE/MULTIPLE; COMMENT: Farias's esophagus and non-critical Schatzki ring; repeat in 3 yrs OTHER SURGICAL HISTORY 06/25/13 PROCEDURE: CO EGD BALLOON DILATION ESOPHAGUS <30 MM DIAM; COMMENT: Schatzki ring dilated to 54 F; Farias's esophagus (not biopsied) with erosions; HH ESOPHAGOGASTRODUODENOSCOPY 21/03/15 PROCEDURE: CO ESOPHAGOGASTRODUODENOSCOPY TRANSORAL DIAGNOSTIC; COMMENT: Farias's esophagus and [...] Date Smoking Tobacco: Every Day Cigarettes 0.5 43.2 Started: 1981 Smokeless Tobacco: Never Alcohol Use Standard Drinks/Week Comments No 0 (1 standard drink = 0.6 oz pur e alcohol) Sex and Gender Information Value Date Recorded Sex Assigned at Not on file Legal Sex Male 6:03 AM EST Gender Identity Not on file Sexual Orientation Not on file Obstetrics History Plan of Treatment Health Maintenance Due Date Last Done Comments Pneumococcal Vaccine: 50+ Ye ars (1 of [...] patient's age to complete this topic Hepatitis B Vaccines Aged Out No long er eligible [...]
== END 2025-02-16 12:18 | disposition home or self-care (01) ==
PROVIDERS: PCP Internal Medicine; Visit Provider Physician Assistant
DX: H65.01 Acute serous otitis media, right ear (principal); H10.9 Unspecified conjunctivitis; B96.89 Other specified bacterial agents as the cause of diseases classified elsewhere

== ENCOUNTER → 2025-02-16 11:31 | Outpatient (BNVA) | payer MEDICARE, MEDICAID, SELFPAY | PROVIDERS: PCP Internal Medicine; Visit Provider Physician Assistant | DX: H65.01 Acute serous otitis media, right ear (principal); H10.9 Unspecified conjunctivitis; B96.89 Other specified bacterial agents as the cause of diseases classified elsewhere | CPT/HCPCS: 99212 ==

== ENCOUNTER 2025-02-23 17:43 | Emergency (ER) | payer MEDICARE, MEDICAID, SELFPAY ==
[2025-02-23 18:15] VITALS: BP 157/88; PULSE 84; RESP 18; TEMP 36.9; O2SAT 97; BMI 28.8
--- NOTE | 2025-02-23 18:16 | ED.GENADULT ---
HPI - General Adult General Chief complaint: Skin/Abscess/Foreign Body Stated complaint: infection Related Data Home Medications ?Medication ?Instructions ?Recorded ?Confirmed aspirin 81 mg tablet,delayed 81 mg PO DAILY 10/05/20 10/14/24 release lisinopril 5 mg tablet 5 mg PO DAILY 10/05/20 10/14/24 ozrdjwcxsqcj-agbnhqzk-zkpdsk tablet 1 tab PO DAILY 04/01/21 10/14/24 amlodipine 5 mg tablet 5 mg PO DAILY 09/12/22 10/14/24 clonidine HCl 0.2 mg tablet 0.2 mg PO BID 09/12/22 10/14/24 clopidogrel 75 mg tablet 75 mg PO DAILY 09/12/22 10/14/24 venlafaxine 75 mg capsule,extended 75 mg PO DAILY 02/16/25 release 24 hr Previous Rx's ?Medication ?Instructions ?Recorded miconazole nitrate 2 % topical 1 appl topical BID 10 days #15 11/28/24 cream (Antifungal (miconazole)) grams erythromycin 5 mg/gram (0.5 %) eye 0.5 inch ophthalmic (eye) QID #7 02/16/25 ointment grams amoxicillin 875 mg tablet 875 mg PO Q12H #14 tabs 02/24/25 cetirizine 5 mg-pseudoephedrine ER 1 tab PO BID 7 days #14 tabs 02/25/25 120 mg tablet,extended release,12hr fluticasone propionate 50 1 spray intranasal Q12H #16 grams 02/25/25 mcg/actuation nasal spray,suspension methylprednisolone 4 mg tablets in See Rx Instructions PO PER PKG DIR 02/25/25 a dose pack #21 ea Allergies Allergy/AdvReac Type Severity Reaction Status Date / Time No Known Allergies (No Known Allergy Verified 02/25/25 09:36 Allergies*) [facility] Past Medical History Medical History Acute otitis media Bipolar disorder Acute pharyngitis Nocturnal hypoxemia Obesity (BMI 30-39.9) History of pneumonia Central sleep apnea Complex sleep apnea syndrome Pneumonitis Atherosclerotic cardiovascular disease WILTON (obstructive sleep apnea) SILVA (nonalcoholic steatohepatitis) History of deep venous thrombosis (DVT) of distal vein of left lower extremity Skin cancer Depression Recurrent kidney stones Dyslipidemia Essential hypertension Central sleep apnea Reid-Demarco breathing disorder Hiatal hernia Degenerative joint disease of left knee Diastolic congestive heart failure STEMI (ST elevation myocardial infarction) CAD (coronary artery disease) Lesion of skin of face Farias's esophagus Chronic idiopathic constipation Surgical History Hx of colonoscopy History of total knee arthroplasty History of esophagogastroduodenoscopy (EGD) Family History Family History Father Brain cancer Lung cancer Substance use disorder Mother Emphysema, unspecified Substance use disorder Mental health disorder Social History Social History Household Members: Spouse Housing: House Do you presently have visiting nurse or other home services: No Alcohol intake: current Alcohol intake frequency: does not drink Patient Tobacco Use Status: Current someday Tobacco user Tobacco use type: Cigarette Cigarette Packs Per Day: 1 Cigarettes Per Day: 20.0 Years Smoked: 40 e-Cigarette/Vaping Use: Never Used Second Hand Smoke Exposure: No service: No Current occupational status: unemployed 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 RME assessment and note performed by: Kay Helms PA-C This is a 72-ezmi-otb-male, with a PMHx of HTN, HLD, GERD, who presents to the ER with concerns for ear infection, BL eye burning, and diffuse body rash. No CP/SOB. Endorsing nausea. He was recently treated for bilateral ear infection and was on amoxicillin, also was prescribed erythromycin. Patient reports that he has scabbing rashes throughout his body. Patient states that he believes that he has a staph infection, denies history of staph infections in the past. Plan: Labs, further ER evaluation needed Reevaluation(s) Reevaluation #1: Patient left without completing treatment. Medical Decision Making Lab Data 02/23/25 19:01 02/23/25 19:02 Labs: Lab Results 02/23/25 02/23/25 Range/Units 19:01 19:02 WBC 11.2 H (4.8-10.8) X10*3/uL RBC 5.12 (4.60-5.80) X10*6/uL Hgb 15.1 (14.0-18.0) g/dl Hct 42.0 (42.0-52.0) % MCV 82.0 (80.0-98.0) fL MCH 29.5 (27.0-33.0) pg MCHC 36.0 (31.0-36.0) g/dl RDW 14.0 (11.0-16.0) % Plt Count 164 (160-400) X10*3/uL MPV 9.7 (9.4-12.4) fL Immature Gran % (Auto) 0.4 (0.0-0.4) % Neut % (Auto) 67.8 (45-73) % Lymph % (Auto) 23.0 (20-40) % [place] % (Auto) 6.1 (2-11) % Eos % (Auto) 2.0 (0-4) % Baso % (Auto) 0.7 (0-2) % Lymph # (Auto) 2.6 (1.2-4.9) X10*3/uL [place] # (Auto) 0.7 (0.1-1.2) X10*3/uL Eos # (Auto) 0.2 (0.0-0.4) X10*3/uL Baso # (Auto) 0.1 (0.0-0.2) X10*3/uL Abs Immat Gran (auto) 0.05 H (0.00-0.03) X10*3/uL Absolute Neuts (auto) 7.6 (2.0-8.3) x10*3/uL Absolute Nucleated RBC 0.000 (0.0-0.012) X10*3/uL Nucleated RBC % (auto) 0.0 (0.0-0.2) /100WBC Sodium 140 (135-145) mmol/L Potassium 3.6 (3.3-5.1) mmol/L Chloride 105 (96-108) mmol/L Carbon Dioxide 25 (22-29) mmol/L Anion Gap 14 (12-20) BUN 8 L (9-16) mg/dL Creatinine 0.81 (0.5-1.4) mg/dL Estim Creat Clear Calc 90.5 Estimated GFR > 60 Random Glucose 128 H (60-115) mg/dL Calcium 9.8 (8.4-10.2) mg/dL Magnesium 1.9 (1.6-2.6) mg/dL Total Bilirubin 0.5 (0.0-1.0) mg/dL Direct Bilirubin 0.2 (0.0-0.5) mg/dL AST 29 (5-37) U/L ALT 43 H (0-40) U/L Alkaline Phosphatase 80 (39-117) U/L Total Protein 7.2 (6.5-8.0) g/dL Albumin 4.4 (3.5-5.0) g/dL Influenza Type A (PCR) NEGATIVE (Negative) Influenza Type B (PCR) NEGATIVE (Negative) RSV RNA Qual (PCR) NEGATIVE (Negative) SARS-CoV-2 RNA (RT-PCR) NEGATIVE (Negative) Discharge Plan Discharge Clinical Impression: Ear pain Patient Disposition: Left W/O Completing Treatment Prescriptions: No Action amoxicillin 875 mg tablet 875 mg PO Q12H Qty: 14 0RF jvfgdddiypfq-xavrqybo-hjpwmv Tablet 1 tab PO DAILY lisinopril 5 mg tablet 5 mg PO DAILY aspirin 81 mg tablet,delayed release (DR/EC) 81 mg PO DAILY clonidine HCl 0.2 mg tablet 0.2 mg PO BID amlodipine 5 mg tablet 5 mg PO DAILY clopidogrel 75 mg tablet 75 mg PO DAILY miconazole nitrate [Antifungal (miconazole)] 2 % cream 1 appl topical BID 10 Days Qty: 15 1RF Rx Instructions: Apply to affected area twice a day for 10 days cetirizine-pseudoephedrine 5-120 mg tablet extended release 12 hr 1 tab PO BID 7 Days Qty: 14 0RF fluticasone propionate 50 mcg/actuation spray,suspension 1 spray intranasal Q12H Qty: 16 0RF Rx Instructions: administer into each nostril methylprednisolone 4 mg tablets,dose pack See Rx Instructions PO PER PKG DIR Qty: 21 0RF Rx Instructions: PO PER PKG DIR for 6 days venlafaxine 75 mg capsule,extended release 24hr 75 mg PO DAILY erythromycin 5 mg/gram (0.5 %) ointment 0.5 inch ophthalmic (eye) QID Qty: 7 0RF Rx Instructions: Apply to both eyes 4 times a day while awake Discharge Date/Time: 02/23/25 23:40
[2025-02-23 19:17] LABS: Basophils Absolute Auto 0.1 X10*3/uL (0.0-0.2); Basophils Percent Auto 0.7 % (0-2); Eosinophils Absolute Auto 0.2 X10*3/uL (0.0-0.4); Hemoglobin 15.1 g/dl (14.0-18.0); Imm Gran Abs Auto 0.05 X10*3/uL (0.00-0.03); Imm Gran Pct Auto 0.4 % (0.0-0.4); Lymphocytes Absolute Auto 2.6 X10*3/uL (1.2-4.9); MANUAL DIFF FLAG NO; Mean Corpuscular Hemoglobin 29.5 pg (27.0-33.0); Mean Platelet Volume 9.7 fL (9.4-12.4); Monocytes Absolute Auto 0.7 X10*3/uL (0.1-1.2); Monocytes Percent Auto 6.1 % (2-11); Neutrophils Absolute Auto 7.6 x10*3/uL (2.0-8.3); Neutrophils Percent Auto 67.8 % (45-73); Platelet Count 164 X10*3/uL (160-400); Red Blood Count 5.12 X10*6/uL (4.60-5.80); White Blood Count 11.2 X10*3/uL (4.8-10.8)
[2025-02-23 19:31] LABS: Alanine Aminotransferase 43 U/L (0-40); Albumin Level 4.4 g/dL (3.5-5.0); Alkaline Phosphatase 80 U/L (39-117); Anion Gap 14 (12-20); Aspartate Amino Transferase 29 U/L (5-37); Bilirubin Direct 0.2 mg/dL (0.0-0.5); Bilirubin Total 0.5 mg/dL (0.0-1.0); Blood Urea Nitrogen 8 mg/dL (9-16); Calcium 9.8 mg/dL (8.4-10.2); Carbon Dioxide 25 mmol/L (22-29); Chloride 105 mmol/L (96-108); Creatinine Clr Calc Pharmacy 90.5; Estimated Glomerular Filt Rate > 60; Glucose Random 128 mg/dL (60-115); Magnesium 1.9 mg/dL (1.6-2.6); Potassium 3.6 mmol/L (3.3-5.1); Sodium 140 mmol/L (135-145); Total Protein 7.2 g/dL (6.5-8.0)
[2025-02-23 19:56] LABS: Influenza A PCR NEGATIVE (Negative); Influenza B PCR NEGATIVE (Negative); Resp Syncy Virus RNA Qual PCR NEGATIVE (Negative); SARS COV2 PCR INHOUSE NEGATIVE (Negative)
--- OUTSIDE RECORDS SUMMARY | 2025-02-23 23:36 | XMS_ITS | Clinical Summary ---
Author Organization [facility] Address [address] [place] [address] Care Team Providers Care Asphalt Patcher Name Role Phone Unavailable Primary Care Provider Unavailabl e Surgical History Surgery Date Site/Laterality Comments OTHER SURGICAL HISTORY PROCEDURE: ---- OTHER ----; COMMENT: R inguinal hernia COLONOSCOPY February PROCEDURE: HISTORICAL COLONOSCOPY; COMMENT: hemorrhoids; repeat in ten years ESOPHAGOGASTRODUODENOSCOPY 02/07/10 PROCEDURE: [place] ESOPHAGOGASTRODUODENOSCOPY TRANSORAL DIAGNOSTIC; COMMENT: Farias's esophagus and Schatzki ring; 50 F dilator passed; repeat in two yrs ESOPHAGOGASTRODUODENOSCOPY 04/09/12 PROCEDURE: [place] EGD TRANSORAL BIOPSY SINGLE/MULTIPLE; COMMENT: Farias's esophagus and non-critical Schatzki ring; repeat in 3 yrs OTHER SURGICAL HISTORY 06/25/13 PROCEDURE: [place] EGD BALLOON DILATION ESOPHAGUS <30 MM DIAM; COMMENT: Schatzki ring dilated to 54 F; Farias's esophagus (not biopsied) with erosions; HH ESOPHAGOGASTRODUODENOSCOPY 21/03/15 PROCEDURE: [place] ESOPHAGOGASTRODUODENOSCOPY TRANSORAL DIAGNOSTIC; COMMENT: Farias's esophagus and [...]
== END 2025-02-23 23:40 | disposition left against medical advice (07) ==
PROVIDERS: Physician Assistant Medical; Emergency Provider Emergency Medicine; PCP Internal Medicine
DX: H92.03 Otalgia, bilateral (principal); Z03.818 Encounter for observation for suspected exposure to other biological agents ruled out
CPT/HCPCS: 0241U; 36415; 80048; 80076; 83735; 85025; 87040; 99281; 99283

== ENCOUNTER 2025-02-25 09:31 | Outpatient (REF) | payer MEDICARE, MEDICAID, SELFPAY ==
[2025-02-25 13:32] LABS: MANUAL DIFF FLAG NO
[2025-02-25 13:34] LABS: Basophils Absolute Auto 0.1 X10*3/uL (0.0-0.2); Basophils Percent Auto 0.7 % (0-2); Eosinophils Absolute Auto 0.1 X10*3/uL (0.0-0.4); Eosinophils Percent Auto 1.4 % (0-4); Hematocrit 44.7 % (42.0-52.0); Hemoglobin 15.3 g/dl (14.0-18.0); Imm Gran Abs Auto 0.07 X10*3/uL (0.00-0.03); Imm Gran Pct Auto 0.7 % (0.0-0.4); Lymphocytes Absolute Auto 2.2 X10*3/uL (1.2-4.9); Lymphocytes Percent Auto 22.6 % (20-40); Mean Corpuscular HGB Conc 34.2 g/dl (31.0-36.0); Mean Corpuscular Hemoglobin 29.1 pg (27.0-33.0); Mean Platelet Volume 10.2 fL (9.4-12.4); Monocytes Absolute Auto 0.6 X10*3/uL (0.1-1.2); Monocytes Percent Auto 6.5 % (2-11); Neutrophils Absolute Auto 6.5 x10*3/uL (2.0-8.3); Neutrophils Percent Auto 68.1 % (45-73); Platelet Count 162 X10*3/uL (160-400); Red Blood Count 5.26 X10*6/uL (4.60-5.80); Red Cell Distribution Width 14.5 % (11.0-16.0); White Blood Count 9.6 X10*3/uL (4.8-10.8)
== END 2025-02-25 09:32 | disposition home or self-care (01) ==
LOC: HO.HMGCLDS 09:31
PROVIDERS: PCP Internal Medicine; Visit Provider Physician Assistant Medical
DX: L29.9 Pruritus, unspecified (principal)
CPT/HCPCS: 36415; 85025; 99212

== ENCOUNTER 2025-02-25 09:31 | Outpatient (AMB) | payer MEDICARE, MEDICAID, SELFPAY ==
[2025-02-25 09:33] VITALS: BP 124/82; PULSE 73; TEMP 36.7; O2SAT 97; BMI 29.1
--- NOTE | 2025-02-25 09:33 | MHC.OFFWIV ---
Intake Vital Signs 02/25/25 09:33 Height 5 ft 4 in Weight 169 lb 6 oz BMI 29.1 BP 124/82 Blood Pressure Location Lt brachial Position Sitting Pulse 73 Pulse Source Pulse Oximeter Temp 98.1 F Temp Source Oral Pulse Oximetry (%) 97 Oxygen Delivery Method Room Air Intake Visit Reasons: EP-staff infection Intake Note: Patient state he is rapidly worst overnight Patient Tobacco Use Status: Current someday Tobacco user Allergies No Known Allergies (No Known Allergies*) Allergy (Verified 02/25/25 09:36) Do you need a note to return to daycare/school/sports/work: No HPI HPI Comments History of Present Illness Details History of Present Illness - The patient is a 59-year-old male presenting with systemic symptoms including itching, ear discharge, and fatigue, suspecting a staph infection. - The patient reports his symptoms began approximately six months ago. - The patient states that it started with ear pain and itching. - The patient experiences bilateral ear itching, with no fever reported. - He was treated for an ear infection on 02/16 with amoxicillin. - Symptoms have progressively worsened, with the patient feeling increasingly fatigued and he thinks weight loss. - The patient visited the ER on for blood work but was advised to come to today to obtain a culture, which has not yet been done. - He states that his health is deteriorating . He feels awful. - The patient denies any recent fever, sore throat, or gastrointestinal symptoms. - The patient reports a tearing and crusting of the eyes, and generalized pruritus affecting the entire body. - The patient has a rash on the ankles. - He wants a culture done to r/o staph infection. - He denies any exposure. He denies tick bites. - He denies joint pain, CP, SOB, abd pain, n/v/d. - He denies fever or chills but has body aches. Physical Exam General: Cooperative, healthy appearing, comfortable, no acute distress and well developed Orientation: Patient oriented x3 Limitations: No limitations Head: Normal to inspection Ears: Hearing grossly normal bilaterally. No tragus tenderness noted. No mastoid tenderness noted. Auditory canals clear, TMs normal not bulging with some effusion noted. Nose: Normal external nose present Face and sinus: Normal facial exam. No sinus tenderness noted. Eyes: Sclera erythematous, conjunctiva is pink. Tearing noted. PERRLA bilaterally. Neck: Normal visual inspection and Yes full ROM. No lymphadenoapathy noted. Respiratory: Normal respiratory effort and able to speak in complete sentences. Clear to auscultation bilaterally Cardiovascular: Regular rate and rhythm. Normal S1 and S2 GI: Normal to inspection. Soft to palpation and nontender Skin: no rashes or lesions noted Neuro: Patient oriented x3 Extremities: Normal to inspection Patient was informed and verbally consented to the use of an ambient scribe for clinic note documentation during this visit. FORMERLY [facility], [facility]1983 Medical History Acute otitis media Bipolar disorder Acute pharyngitis Nocturnal hypoxemia Obesity (BMI 30-39.9) History of pneumonia Central sleep apnea Complex sleep apnea syndrome Pneumonitis Atherosclerotic cardiovascular disease WILTON (obstructive sleep apnea) SILVA (nonalcoholic steatohepatitis) History of deep venous thrombosis (DVT) of distal vein of left lower extremity Skin cancer Depression Recurrent kidney stones Dyslipidemia Essential hypertension Central sleep apnea Reid-Demarco breathing disorder Hiatal hernia Degenerative joint disease of left knee Diastolic congestive heart failure STEMI (ST elevation myocardial infarction) CAD (coronary artery disease) Lesion of skin of face Farias's esophagus Chronic idiopathic constipation Surgical History Hx of colonoscopy History of total knee arthroplasty History of esophagogastroduodenoscopy (EGD) Family History Father Brain cancer Lung cancer Substance use disorder Mother Emphysema, unspecified Substance use disorder Mental health disorder Social History Household Members: Spouse Housing: House Do you presently have visiting nurse or other home services: No Alcohol intake: current Alcohol intake frequency: does not drink Patient Tobacco Use Status: Current someday Tobacco user Tobacco use type: Cigarette Cigarette Packs Per Day: 1 Cigarettes Per Day: 20.0 Years Smoked: 40 e-Cigarette/Vaping Use: Never Used Second Hand Smoke Exposure: No service: No Current occupational status: unemployed 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 - Initiate treatment with antihistamines or topical agents as appropriate. - Address generalized pruritus with appropriate antipruritic medications. - Monitor weight loss and fatigue, consider further workup if symptoms persist or worsen. Orders: Orders Complete Blood Count Auto Diff Today L29.9 - Pruritus, unspecified Medications: New cetirizine-pseudoephedrine 5-120 mg ER 1 tab PO BID 14 tabs 0RF 7 days methylprednisolone PO PER PKG DIR for 6 days 21 ea 0RF fluticasone propionate 50 mcg/actuation administer into each nostril 1 spray intranasal Q12H 16 grams 0RF Coding Level of Care Code Est Pt Level 4 (91635) Diagnoses Itching L29.9
--- OUTSIDE RECORDS SUMMARY | 2025-02-25 10:30 | XMS_ITS | Clinical Summary ---
Author Organization [facility] Address [address] [place] [address] Care Team Providers Care Idea Worker Name Role Phone Unavailable Primary Care Provider Unavailabl e Surgical History Surgery Date Site/Laterality Comments OTHER SURGICAL HISTORY PROCEDURE: ---- OTHER ----; COMMENT: R inguinal hernia COLONOSCOPY February PROCEDURE: HISTORICAL COLONOSCOPY; COMMENT: hemorrhoids; repeat in ten years ESOPHAGOGASTRODUODENOSCOPY 02/07/10 PROCEDURE: [place] ESOPHAGOGASTRODUODENOSCOPY TRANSORAL DIAGNOSTIC; COMMENT: Farias's esophagus and Schatzki ring; 50 F dilator passed; repeat in two yrs ESOPHAGOGASTRODUODENOSCOPY 04/09/12 PROCEDURE: [place] EGD TRANSORAL BIOPSY SINGLE/MULTIPLE; COMMENT: Farias's esophagus and non-critical Schatzki ring; repeat in 3 yrs OTHER SURGICAL HISTORY 06/25/13 PROCEDURE: [place] EGD BALLOON DILATION ESOPHAGUS <30 MM DIAM; COMMENT: Schatzki ring dilated to 54 F; Farias's esophagus (not biopsied) with erosions; HH ESOPHAGOGASTRODUODENOSCOPY 21/03/15 PROCEDURE: [place] ESOPHAGOGASTRODUODENOSCOPY TRANSORAL DIAGNOSTIC; COMMENT: Farias's esophagus and [...]
== END 2025-02-25 10:22 | disposition home or self-care (01) ==
PROVIDERS: PCP Internal Medicine; Visit Provider Physician Assistant Medical
DX: L29.9 Pruritus, unspecified (principal)

== ENCOUNTER 2025-03-23 10:23 | Outpatient (AMB) | payer MEDICARE, MEDICAID, SELFPAY ==
[2025-03-23 10:46] VITALS: BP 114/60; PULSE 67; RESP 15; TEMP 36.6; O2SAT 97; BMI 29.9
--- NOTE | 2025-03-23 10:46 | A.OFFPC_ITS ---
Vital Signs 03/23/25 10:46 Height 5 ft 4 in Weight 174 lb BMI 29.9 BP 114/60 Blood Pressure Location Rt brachial Position Sitting Respiration 15 Pulse 67 Pulse Source Pulse Oximeter Temp 97.9 F Temp Source Oral Pulse Oximetry (%) 97 Oxygen Delivery Method Room Air Intake Visit Reasons: follow up Intake Note: Pt is here today c/o bilateral ears itchy and scabby Allergies No Known Allergies (No Known Allergies*) Allergy (Verified 03/23/25 11:04) Medication List - Last Reconciled 03/23/25 by Franchesca Batista MD amlodipine 5 mg PO DAILY aspirin 81 mg PO DAILY clonidine HCl 0.2 mg PO BID clopidogrel 75 mg PO DAILY lisinopril 5 mg PO DAILY Tobacco use date assessed: 03/23/25 Dental Screening Dental Screen Date: 03/23/25 Did you have a dental visit in the last 12 months?: No Did you have a dental problem in the last 6 months where you did not have access to dental care?: No Was dental information given to patient?: Patient has dentist [facility] Medical History (Updated 03/23/25 @ 11:24 by Franchesca Batista MD) 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 Dysuria Acute otitis media Bipolar disorder Acute pharyngitis Nocturnal hypoxemia Obesity (BMI 30-39.9) History of pneumonia Central sleep apnea Complex sleep apnea syndrome Pneumonitis Atherosclerotic cardiovascular disease WILTON (obstructive sleep apnea) SILVA (nonalcoholic steatohepatitis) History of deep venous thrombosis (DVT) of distal vein of left lower extremity Skin cancer Depression Recurrent kidney stones Dyslipidemia Essential hypertension Central sleep apnea Reid-Demarco breathing disorder Hiatal hernia Degenerative joint disease of left knee Diastolic congestive heart failure STEMI (ST elevation myocardial infarction) CAD (coronary artery disease) Lesion of skin of face Farias's esophagus Chronic idiopathic constipation Surgical History Hx of colonoscopy History of total knee arthroplasty History of esophagogastroduodenoscopy (EGD) Family History Father Brain cancer Lung cancer Substance use disorder Mother Emphysema, unspecified Substance use disorder Mental health disorder Social History Household Members: Children Housing: Apartment Are you a primary day care director to a significant other at home: No Do you presently have visiting nurse or other home services: No Alcohol intake: current Alcohol intake frequency: 3 or more drinks per day Alcohol type: hard liquor Comment: 1 pint vodka/24 hrs Patient Tobacco Use Status: Current someday Tobacco user Tobacco use type: Cigarette Cigarette Packs Per Day: 1 Cigarettes Per Day: 20.0 Years Smoked: 40 e-Cigarette/Vaping Use: Never Used Second Hand Smoke Exposure: No service: No Current occupational status: unemployed Sexual orientation: Straight/Heterosexual Gender identity: Male Cognitive needs: Yes (Memory Changes) Hearing needs: No Vision needs: Yes Questionnaire PHQ-9 Over the last 2 weeks, how often have you been bothered by any of the following problems? 80030 - PHQ-9 Billing: Patient declined-do not bill Source: Developed by Drs. Satinder Borrero, Winsome Yip, Jon Tai and colleagues, with an educational helen from [employer]. Thrive Questionnaire Date Thrive assessed: 03/23/25 I am a: Patient What is your living situation today?: I choose not to answer this question Within the past 12 months, did the food you bought not last and you didn't have the money to get more?: I choose not to answer this question Within the past 12 months, did you worry whether your food would run out before you got money to buy more?: I choose not to answer this question Do you have trouble paying for medicines?: I choose not to answer this question Do you have trouble getting transportation to medical appointments?: I choose not to answer this question Do you have trouble paying your heating and electricity bill?: I choose not to answer this question Do you have trouble taking care of your child, family member or friend?: I choose not to answer this question Do you have trouble with day-to-day activities such as bathing, preparing meals, shopping, managing finances, etc.?: I choose not to answer this question Are you currently unemployed and looking for a job?: I choose not to answer this question Are you interested in more education?: I choose not to answer this question Currently or been in a relationship where the following occur: I choose not to answer THRIVE Score: 0 Review of Systems Eyes Reports no additional complaints, Reports requires corrective lenses, Reports seeing flashes, Reports photophobia and Denies spots in vision Physical exam (Primary Care) Vital Signs: Last Vital Signs Temp 97.9 F 03/23/25 10:46 Pulse 67 03/23/25 10:46 Resp 15 03/23/25 10:46 BP 114/60 03/23/25 10:46 Pulse Ox 97 03/23/25 10:46 Oxygen Delivery Method Room Air 03/23/25 10:46 BMI result Body Mass Index 29.9 Tobacco/Smoking Status: Tobacco use Status Tobacco use date assessed 03/23/25 03/23/25 10:52 Patient Tobacco Use Status Current someday Tobacco 03/23/25 10:52 Tobacco use type Cigarette 03/23/25 10:52 e-Cigarette/Vaping Use Never Used 03/23/25 10:52 Thrive Assessment: Date of Thrive Assessment Date Thrive assessed 03/23/25 03/23/25 10:55 Currently or been in a relationship where the following occur: I choose not to answer HENMT Ears: external ears normal, TM's normal bilaterally and EAC's normal Eyes Direct Ophthalmoscopy: photophobia Results AMB Urinalysis, Automated UA Leukoctes 0 Jeanne/uL Last Edit by Bridget Bynum CMA on 03/23/25 11:34 UA Nitrite Negative Last Edit by Bridget Bynum CMA on 03/23/25 11:34 UA Urobilinogen 0.2 mg/dL Last Edit by Bridget Bynum CMA on 03/23/25 11:34 UA Protein 0 mg/dL Last Edit by Bridget Bynum CMA on 03/23/25 11:34 UA pH 6.0 Last Edit by Bridget Bynum CMA on 03/23/25 11:34 UA Blood 0 Vikas/uL Last Edit by Bridget Bynum CMA on 03/23/25 11:34 UA Specific [place] 1.010 Last Edit by Bridget Bynum CMA on 03/23/25 11:34 UA Ketone Negative Last Edit by Bridget Bynum CMA on 03/23/25 11:34 UA Bilirubin 0 mg/dL Last Edit by Bridget Bynum CMA on 03/23/25 11:34 UA Glucose 0 mg/dL Last Edit by Bridget Bynum CMA on 03/23/25 11:34 Results Reviewed Results Reviewed: Laboratory Last Values Urine pH (Auto) 6.0 03/23/25 11:32 Specific [place] (Auto) 1.010 03/23/25 11:32 Urine Protein (Auto) 0 mg/dL 03/23/25 11:32 Glucose (UA)(Auto) 0 mg/dL 03/23/25 11:32 Urine Ketones (Auto) Negative 03/23/25 11:32 Urine Blood (Auto) 0 Vikas/uL 03/23/25 11:32 Urine Nitrite (Auto) Negative 03/23/25 11:32 Urine Bilirubin (Auto) 0 mg/dL 03/23/25 11:32 Urine Urobilinogen (Auto) 0.2 mg/dL 03/23/25 11:32 Leukocyte Esterase (Auto) 0 Jeanne/uL 03/23/25 11:32 Coding Diagnoses Bipolar disorder F31.9 Dysuria R30.0 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 F13.11 Essential hypertension I10 Dyslipidemia E78.5 Assessment & Plan Assessment & Plan (1) Bipolar disorder: Comment: Followed at and by : SIMONE CHAPMAN Code(s): F31.9 - Bipolar disorder, unspecified Category: Medical (2) Dysuria: Code(s): R30.0 - Dysuria Category: Medical (3) 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: Code(s): F13.11 - Sedative, hypnotic or anxiolytic abuse, in remission Category: Medical (4) Essential hypertension: Code(s): I10 - Essential (primary) hypertension Category: Medical (5) Dyslipidemia: Code(s): E78.5 - Hyperlipidemia, unspecified Category: Medical Orders: Orders Alanine Aminotransferase Today E78.5 - Hyperlipidemia, unspecified, I10 - Essential (primary) hypertension, I50.30 - Unspecified diastolic (congestive) heart failure, R35.1 - Nocturia Lipid Panel Today E78.5 - Hyperlipidemia, unspecified, I10 - Essential (primary) hypertension, I50.30 - Unspecified diastolic (congestive) heart failure, R35.1 - Nocturia Basic Metabolic Panel Fasting Today E78.5 - Hyperlipidemia, unspecified, I10 - Essential (primary) hypertension, I50.30 - Unspecified diastolic (congestive) heart failure, R35.1 - Nocturia Aspartate Amino Transferase Today E78.5 - Hyperlipidemia, unspecified, I10 - Essential (primary) hypertension, I50.30 - Unspecified diastolic (congestive) heart failure, R35.1 - Nocturia PSA,Total (Free>4and<10) Today E78.5 - Hyperlipidemia, unspecified, I10 - Essential (primary) hypertension, I50.30 - Unspecified diastolic (congestive) heart failure, R35.1 - Nocturia Complete Blood Count Auto Diff Today E78.5 - Hyperlipidemia, unspecified, I10 - Essential (primary) hypertension, I50.30 - Unspecified diastolic (congestive) heart failure, R35.1 - Nocturia AMB Urinalysis Automated Today Z13.9 - Encounter for screening, unspecified
--- OUTSIDE RECORDS SUMMARY | 2025-03-23 11:23 | XMS_ITS | Clinical Summary ---
Author Organization [facility] Address [address] [place] [address] Care Team Providers Care Unit Aid Name Role Phone Unavailable Primary Care Provider Unavailabl e Surgical History Surgery Date Site/Laterality Comments OTHER SURGICAL HISTORY PROCEDURE: ---- OTHER ----; COMMENT: R inguinal hernia COLONOSCOPY February PROCEDURE: HISTORICAL COLONOSCOPY; COMMENT: hemorrhoids; repeat in ten years ESOPHAGOGASTRODUODENOSCOPY 02/07/10 PROCEDURE: [place] ESOPHAGOGASTRODUODENOSCOPY TRANSORAL DIAGNOSTIC; COMMENT: Farias's esophagus and Schatzki ring; 50 F dilator passed; repeat in two yrs ESOPHAGOGASTRODUODENOSCOPY 04/09/12 PROCEDURE: [place] EGD TRANSORAL BIOPSY SINGLE/MULTIPLE; COMMENT: Farias's esophagus and non-critical Schatzki ring; repeat in 3 yrs OTHER SURGICAL HISTORY 06/25/13 PROCEDURE: [place] EGD BALLOON DILATION ESOPHAGUS <30 MM DIAM; COMMENT: Schatzki ring dilated to 54 F; Farias's esophagus (not biopsied) with erosions; HH ESOPHAGOGASTRODUODENOSCOPY 21/03/15 PROCEDURE: [place] ESOPHAGOGASTRODUODENOSCOPY TRANSORAL DIAGNOSTIC; COMMENT: Farias's esophagus and [...] Date Smoking Tobacco: Every Day Cigarettes 0.5 43.3 Started: 1981 Smokeless Tobacco: Never Alcohol Use [...] Td or Tdap) 11/10/2018 11/10/2008 COVID-19 Vaccine (1 - 2023-2 5 season) 2024 Depression Screening 09/03/2024 Influenza Vaccine (#1) 2025 RSV Immunization Adult Patie nts (1 [...]
== END 2025-03-23 17:00 | disposition home or self-care (01) ==
LOC: HO.HMCC 10:24
PROVIDERS: PCP Internal Medicine; Visit Provider Internal Medicine
DX: Z13.9 Encounter for screening, unspecified (principal)

== ENCOUNTER → 2025-03-23 10:23 | Outpatient (BNVA) | payer MEDICARE, MEDICAID, SELFPAY | PROVIDERS: PCP Internal Medicine; Visit Provider Internal Medicine | DX: F31.9 Bipolar disorder, unspecified (principal); R30.0 Dysuria; F13.11 Sedative, hypnotic or anxiolytic abuse, in remission; E78.5 Hyperlipidemia, unspecified; I10 Essential (primary) hypertension | CPT/HCPCS: 81003; 99212 ==

== ENCOUNTER 2025-03-31 09:24 | Outpatient (REF) | payer MEDICARE, MEDICAID, SELFPAY ==
--- OUTSIDE RECORDS SUMMARY | 2025-03-31 09:51 | XMS_ITS | Clinical Summary ---
Author Organization [facility] Address [address] [place] [address] Care Team Providers Care Teacher Name Role Phone Unavailable Primary Care Provider Unavailabl e Surgical History Surgery Date Site/Laterality Comments OTHER SURGICAL HISTORY PROCEDURE: ---- OTHER ----; COMMENT: R inguinal hernia COLONOSCOPY February PROCEDURE: HISTORICAL COLONOSCOPY; COMMENT: hemorrhoids; repeat in ten years ESOPHAGOGASTRODUODENOSCOPY 02/07/10 PROCEDURE: [place] ESOPHAGOGASTRODUODENOSCOPY TRANSORAL DIAGNOSTIC; COMMENT: Farias's esophagus and Schatzki ring; 50 F dilator passed; repeat in two yrs ESOPHAGOGASTRODUODENOSCOPY 04/09/12 PROCEDURE: OR EGD TRANSORAL BIOPSY SINGLE/MULTIPLE; COMMENT: Farias's esophagus and non-critical Schatzki ring; repeat in 3 yrs OTHER SURGICAL HISTORY 06/25/13 PROCEDURE: OR EGD BALLOON DILATION ESOPHAGUS <30 MM DIAM; COMMENT: Schatzki ring dilated to 54 F; Farias's esophagus (not biopsied) with erosions; HH ESOPHAGOGASTRODUODENOSCOPY 21/03/15 PROCEDURE: [place] ESOPHAGOGASTRODUODENOSCOPY TRANSORAL DIAGNOSTIC; COMMENT: Farias's esophagus and [...]
[2025-03-31 13:11] LABS: MANUAL DIFF FLAG NO
[2025-03-31 13:31] LABS: Hematocrit 46.0 % (42.0-52.0); Hemoglobin 15.6 g/dl (14.0-18.0); Imm Gran Abs Auto 0.05 X10*3/uL (0.00-0.03); Imm Gran Pct Auto 0.5 % (0.0-0.4); Lymphocytes Absolute Auto 2.2 X10*3/uL (1.2-4.9); Mean Corpuscular HGB Conc 33.9 g/dl (31.0-36.0); Mean Corpuscular Hemoglobin 29.1 pg (27.0-33.0); Mean Corpuscular Volume 85.7 fL (80.0-98.0); NRBC Abs Auto 0.000 X10*3/uL (0.0-0.012); NRBC Pct Auto 0.0 /100WBC (0.0-0.2); Platelet Count 159 X10*3/uL (160-400); Red Blood Count 5.37 X10*6/uL (4.60-5.80); White Blood Count 9.5 X10*3/uL (4.8-10.8)
[2025-03-31 13:36] LABS: Alanine Aminotransferase 39 U/L (0-40); Anion Gap 14 (12-20); Aspartate Amino Transferase 38 U/L (5-37); Blood Urea Nitrogen 10 mg/dL (9-16); Calcium 9.4 mg/dL (8.4-10.2); Carbon Dioxide 25 mmol/L (22-29); Chloride 104 mmol/L (96-108); Cholesterol 198 mg/dL (<200); Estimated Glomerular Filt Rate > 60; HDL Cholesterol 30 mg/dL (>40); Potassium 4.0 mmol/L (3.3-5.1); Sodium 139 mmol/L (135-145); Triglycerides 175 mg/dL (<150)
[2025-03-31 14:01] LABS: PSA,Total (Free>4and<10) 0.50 ng/mL (0.00-4.00)
== END 2025-03-31 09:25 | disposition home or self-care (01) ==
LOC: HO.HMGCLDS 09:24
PROVIDERS: PCP Internal Medicine; Visit Provider Internal Medicine
DX: I11.0 Hypertensive heart disease with heart failure (principal); I50.30 Unspecified diastolic (congestive) heart failure; E78.5 Hyperlipidemia, unspecified; R35.1 Nocturia
CPT/HCPCS: 36415; 80048; 80061; 84153; 84450; 84460; 85025

== ENCOUNTER 2025-04-02 11:57 | Outpatient (AMB) | payer MEDICARE, MEDICAID, SELFPAY ==
[2025-04-02 12:03] VITALS: BP 120/66; PULSE 63; TEMP 36.7; O2SAT 98; BMI 30.8
--- NOTE | 2025-04-02 12:03 | MHC.OFFWIV ---
Intake Vital Signs 04/02/25 12:03 Height 5 ft 3 in Weight 174 lb BMI 30.8 BP 120/66 Blood Pressure Location Rt brachial Position Sitting Pulse 63 Pulse Source Pulse Oximeter Temp 98.1 F Temp Source Oral Pulse Oximetry (%) 98 Oxygen Delivery Method Room Air Intake Visit Reasons: EP Bilat leg swelling, hot, burning, hist of clots Intake Note: pt presents with swelling to lower legs up into groin, hot to the touch, burning sensation. pt reports h/o clots Patient Tobacco Use Status: Current someday Tobacco user Allergies No Known Allergies (No Known Allergies*) Allergy (Verified 04/02/25 12:08) Do you need a note to return to daycare/school/sports/work: No HPI HPI Comments History of Present Illness Details 59 y/o Male patient who presents to the walk in clinic with c/o B/L Lower extremities swelling and painful. Reports waking up this morning and noticing Left>Right Lower leg swelling, TTP and Warm to touch. He does have Prior H/o Clots but does not remember any details. He does have h/o B/L LE Varicose Veins, and it seems he had some type of procedure on the left Leg by Vascular surgery. 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 Pt has a Telemedicine Appointment with PCP tomorrow. Today Patient requesting U/S of LE to r/o DVT. 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 Dysuria Acute otitis media Bipolar disorder Acute pharyngitis Nocturnal hypoxemia Obesity (BMI 30-39.9) History of pneumonia Central sleep apnea Complex sleep apnea syndrome Pneumonitis Atherosclerotic cardiovascular disease WILTON (obstructive sleep apnea) SILVA (nonalcoholic steatohepatitis) History of deep venous thrombosis (DVT) of distal vein of left lower extremity Skin cancer Depression Recurrent kidney stones Dyslipidemia Essential hypertension Central sleep apnea Reid-Demarco breathing disorder Hiatal hernia Degenerative joint disease of left knee Diastolic congestive heart failure STEMI (ST elevation myocardial infarction) CAD (coronary artery disease) Lesion of skin of face Farias's esophagus Chronic idiopathic constipation Surgical History Hx of colonoscopy History of total knee arthroplasty History of esophagogastroduodenoscopy (EGD) Family History Father Brain cancer Lung cancer Substance use disorder Mother Emphysema, unspecified Substance use disorder Mental health disorder Social History Household Members: Children Housing: Apartment Are you a primary child care leader to a significant other at home: No Do you presently have visiting nurse or other home services: No Alcohol intake: current Alcohol intake frequency: 3 or more drinks per day Alcohol type: hard liquor Comment: 1 pint vodka/24 hrs Patient Tobacco Use Status: Current someday Tobacco user Tobacco use type: Cigarette Cigarette Packs Per Day: 1 Cigarettes Per Day: 20.0 Years Smoked: 40 e-Cigarette/Vaping Use: Never Used Second Hand Smoke Exposure: No service: No Current occupational status: unemployed Sexual orientation: Straight/Heterosexual Gender identity: Male Cognitive needs: Yes (Memory Changes) Hearing needs: No Vision needs: Yes Review of Systems Const All systems reviewed & are unremarkable except as noted in HPI and below Physical Exam Vital Signs: Last Vital Signs Temp 98.1 F 04/02/25 12:03 Pulse 63 04/02/25 12:03 BP 120/66 04/02/25 12:03 Pulse Ox 98 04/02/25 12:03 Oxygen Delivery Method Room Air 04/02/25 12:03 BMI result Body Mass Index 30.8 Const General: no acute distress and anxious Nutritional Appearance: well nourished Orientation/consciousness: patient oriented x3 Resp Effort & Inspection: normal respiratory effort Auscultation: clear to auscultation bilaterally Cardio Heart sounds: S1 normal heart sound present and S2 normal heart sound present Neuro General: patient oriented x3, gait normal and moves all extremities Extrem Right lower extremity: full ROM and lower leg (Varicose Veins engorged - Purplish in color. Skin pale and dry. Lt > RT) Details: no edema; no erythema and no tenderness Left lower extremity: full ROM and lower leg Details: tenderness, no edema and other (Varicose Veins engorged - Purplish in color. Skin pale and dry. ) Psych Speech and movement: Pressured speech present Affect: Anxious affect present Assessment & Plan Assessment & Plan (1) Left leg swelling: Code(s): M79.89 - Other specified soft tissue disorders Plan: Varicose Veins vs DVT Ordered Doppler U/S on Left LE. This Side more Tenderness with some bulging Veins. Right LE mild Tenderness, some Varicose veins no swelling. Pt will have U/S done here at 1330 Orders: Orders US venous duplex LE LT Today M79.89 - Other specified soft tissue disorders Coding Level of Care Code Est Pt Level 4 (63681) Diagnoses Left leg swelling M79.89 Time Spent (min) 20
--- OUTSIDE RECORDS SUMMARY | 2025-04-02 12:30 | XMS_ITS | Clinical Summary ---
Author Organization [facility] Address [address] [place] [address] Care Team Providers Care Temperature Inspector Name Role Phone Unavailable Primary Care Provider Unavailabl e Surgical History Surgery Date Site/Laterality Comments OTHER SURGICAL HISTORY PROCEDURE: ---- OTHER ----; COMMENT: R inguinal hernia COLONOSCOPY February PROCEDURE: HISTORICAL COLONOSCOPY; COMMENT: hemorrhoids; repeat in ten years ESOPHAGOGASTRODUODENOSCOPY 02/07/10 PROCEDURE: [place] ESOPHAGOGASTRODUODENOSCOPY TRANSORAL DIAGNOSTIC; COMMENT: Farias's esophagus and Schatzki ring; 50 F dilator passed; repeat in two yrs ESOPHAGOGASTRODUODENOSCOPY 04/09/12 PROCEDURE: [place] EGD TRANSORAL BIOPSY SINGLE/MULTIPLE; COMMENT: Farias's esophagus and non-critical Schatzki ring; repeat in 3 yrs OTHER SURGICAL HISTORY 06/25/13 PROCEDURE: [place] EGD BALLOON DILATION ESOPHAGUS <30 MM DIAM; COMMENT: Schatzki ring dilated to 54 F; Farias's esophagus (not biopsied) with erosions; HH ESOPHAGOGASTRODUODENOSCOPY 21/03/15 PROCEDURE: [place] ESOPHAGOGASTRODUODENOSCOPY TRANSORAL DIAGNOSTIC; COMMENT: Farias's esophagus and [...]
== END 2025-04-02 13:54 | disposition home or self-care (01) ==
PROVIDERS: PCP Internal Medicine; Visit Provider Nurse Practitioner Family
DX: M79.89 Other specified soft tissue disorders (principal)

== ENCOUNTER 2025-04-02 13:00 | Outpatient (REF) | payer MEDICARE, MEDICAID, SELFPAY ==
--- NOTE | ~2025-04-02 | US_ITS ---
EXAMINATION: US TRIPLEX LOWER EXTREMITY, LEFT CLINICAL INFORMATION: Pain and edema, left lower extremity. Varices.. COMPARISON: 04/21/2020. TECHNIQUE: Color-flow triplex imaging with spectral analysis and compression Doppler were performed on the left lower extremity. FINDINGS: Respiratory variation, normal compression and augmented flow are demonstrated in the interrogated left common femoral vein, superficial femoral vein, profunda femoral vein, popliteal vein and midcalf peroneal and posterior tibial venous segments. There is no Gooden's cyst. US/US venous duplex LE IMPRESSION: No acute deep venous thrombosis interrogated veins, left lower extremity. Negative for DVT. Electronically signed by: Marlon Rodriguez MD 04/02/2025 02:00 PM EDT
== END 2025-04-02 13:01 | disposition home or self-care (01) ==
LOC: HO.HMGCX 13:00
PROVIDERS: PCP Internal Medicine; Visit Provider Nurse Practitioner Family
DX: M79.661 Pain in right lower leg (principal); M79.662 Pain in left lower leg; M79.89 Other specified soft tissue disorders
CPT/HCPCS: 93971; 99212

== ENCOUNTER → 2025-04-02 13:08 | Outpatient (BNV) | payer MEDICARE, MEDICAID, SELFPAY | PROVIDERS: PCP Internal Medicine; Visit Provider Radiology Diagnostic Radiology | DX: R22.42 Localized swelling, mass and lump, left lower limb (principal) | CPT/HCPCS: 93971 ==

== ENCOUNTER 2025-04-03 11:00 | Outpatient (AMB) | payer MEDICARE, MEDICAID, SELFPAY ==
--- OUTSIDE RECORDS SUMMARY | 2025-04-03 11:07 | XMS_ITS | Clinical Summary ---
Author Organization [facility] Address [address] [place] [address] Care Team Providers Care Vacuum Tank Tender Name Role Phone Unavailable Primary Care Provider Unavailabl e Surgical History Surgery Date Site/Laterality Comments OTHER SURGICAL HISTORY PROCEDURE: ---- OTHER ----; COMMENT: R inguinal hernia COLONOSCOPY February PROCEDURE: HISTORICAL COLONOSCOPY; COMMENT: hemorrhoids; repeat in ten years ESOPHAGOGASTRODUODENOSCOPY 02/07/10 PROCEDURE: [place] ESOPHAGOGASTRODUODENOSCOPY TRANSORAL DIAGNOSTIC; COMMENT: Farias's esophagus and Schatzki ring; 50 F dilator passed; repeat in two yrs ESOPHAGOGASTRODUODENOSCOPY 04/09/12 PROCEDURE: [place] EGD TRANSORAL BIOPSY SINGLE/MULTIPLE; COMMENT: Farias's esophagus and non-critical Schatzki ring; repeat in 3 yrs OTHER SURGICAL HISTORY 06/25/13 PROCEDURE: [place] EGD BALLOON DILATION ESOPHAGUS <30 MM DIAM; COMMENT: Schatzki ring dilated to 54 F; Farias's esophagus (not biopsied) with erosions; HH ESOPHAGOGASTRODUODENOSCOPY 21/03/15 PROCEDURE: [place] ESOPHAGOGASTRODUODENOSCOPY TRANSORAL DIAGNOSTIC; COMMENT: Farias's esophagus and [...]
--- NOTE | 2025-04-03 11:11 | A.OFFPC_ITS ---
Intake Visit Reasons: psych referral Manager Consumer Insights Required: No Allergies No Known Allergies (No Known Allergies*) Allergy (Verified 04/03/25 11:28) Medication List - Last Reconciled 04/03/25 by Franchesca Batista MD amlodipine 5 mg PO DAILY aspirin (Adult Aspirin Regimen) 81 mg PO DAILY clonidine HCl 0.2 mg PO BID clopidogrel 75 mg PO DAILY lisinopril 5 mg PO DAILY Tobacco use date assessed: 03/23/25 Dental Screening Dental Screen Date: 03/23/25 HPI psych referral HPI Details 59-year-old male with history of bipolar disorder, and complex sleep apnea syndrome, requesting referral today to see a neurologist . Patient states that he has been noticing that has been forgetting things frequently, this has been present now for the last several months and seems to be getting worse. Has been forgetting where he places things, forgets dates and appointments, has to make notes about everything. He still is complaining of urinary frequency but not accompanied by any abdominal or back pain, no dysuria or hesitancy. Urinalysis was done on last visit which came back essentially unremarkable with no evidence of urinary tract infection. Last PSA obtain 03/31/2025 was normal at 0.5 ng/mL. Patient however would like a referral to see a urologist for further evaluation. 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 Dysuria Acute otitis media Bipolar disorder Acute pharyngitis Nocturnal hypoxemia Obesity (BMI 30-39.9) History of pneumonia Central sleep apnea Complex sleep apnea syndrome Pneumonitis Atherosclerotic cardiovascular disease WILTON (obstructive sleep apnea) SILVA (nonalcoholic steatohepatitis) History of deep venous thrombosis (DVT) of distal vein of left lower extremity Skin cancer Depression Recurrent kidney stones Dyslipidemia Essential hypertension Central sleep apnea Reid-Demarco breathing disorder Hiatal hernia Degenerative joint disease of left knee Diastolic congestive heart failure STEMI (ST elevation myocardial infarction) CAD (coronary artery disease) Lesion of skin of face Farias's esophagus Chronic idiopathic constipation Surgical History Hx of colonoscopy History of total knee arthroplasty History of esophagogastroduodenoscopy (EGD) Family History Father Brain cancer Lung cancer Substance use disorder Mother Emphysema, unspecified Substance use disorder Mental health disorder Social History Household Members: Children Housing: Apartment Are you a primary career law clerk to a significant other at home: No Do you presently have visiting nurse or other home services: No Alcohol intake: current Alcohol intake frequency: 3 or more drinks per day Alcohol type: hard liquor Comment: 1 pint vodka/24 hrs Patient Tobacco Use Status: Current someday Tobacco user Tobacco use type: Cigarette Cigarette Packs Per Day: 1 Cigarettes Per Day: 20.0 Years Smoked: 40 Packs Per Year: 40 Packs per year/per ci.00 e-Cigarette/Vaping Use: Never Used Second Hand Smoke Exposure: No service: No Current occupational status: unemployed Sexual orientation: Straight/Heterosexual Gender identity: Male Cognitive needs: Yes (Memory Changes) Hearing needs: No Vision needs: Yes Questionnaire Thrive Questionnaire Date Thrive assessed: 03/23/25 AUDIT C Alcohol Use Questionnaire (AUDIT-C) 1. How often do you have a drink containing alcohol?: Never 3. How often do you have six or more drinks on one occasion?: Never Total Score: 0 Score Reviewed/Action Taken: Yes KAITLYNN-7 AMB Questionnaire KAITLYNN-7 Date KAITLYNN - 7 assessed: 04/03/25 (patient declined ) Source: Developed by Drs. Satinder Borrero, Winsome Yip, Jon Tai and colleagues, with an educational helen from [employer]. KAITLYNN-7 Assessment Billing KAITLYNN-7 Assessment Tool: KAITLYNN-7 Assessment 08407 Review of Systems Const All systems reviewed & are unremarkable except as noted in HPI and below Physical exam (Primary Care) Tobacco/Smoking Status: Tobacco use Status Tobacco use date assessed 03/23/25 04/03/25 11:13 Patient Tobacco Use Status Current someday Tobacco 04/03/25 11:13 Tobacco use type Cigarette 04/03/25 11:13 e-Cigarette/Vaping Use Never Used 04/03/25 11:13 Thrive Assessment: Date of Thrive Assessment Date Thrive assessed 03/23/25 04/03/25 11:13 Telehealth Telehealth Telehealth Platform: [employer] Location of provider rendering services: practice address Location of patient: address on file Patient Identification confirmed using: Name, : Yes Telehealth method: video Patient verbally consented to treatment: Yes Patient verbally consented to billing insurance company: Yes Patient informed of any privacy concerns related to visit: Yes Minutes spent on Phone/Video with Pt.: 20 Coding Level of Care Code Tele Est Pt Level 4 (62002) Diagnoses Memory deficit R41.3 Urinary frequency R35.0 Additional Codes KAITLYNN-7 Assessment Billing - KAITLYNN-7 Assessment Tool: KAITLYNN-7 Assessment 55167 ([id number]) Assessment & Plan Assessment & Plan (1) Memory deficit: Code(s): R41.3 - Other amnesia Category: Medical Plan: Neurology consult ordered (2) Urinary frequency: Code(s): R35.0 - Frequency of micturition Category: Medical Plan: Referred to urology Orders: Referrals Neurology Referral R41.3 - Other amnesia Urology Referral R35.0 - Frequency of micturition
== END 2025-04-03 11:44 | disposition home or self-care (01) ==
LOC: HO.HMCC 11:00
PROVIDERS: PCP Internal Medicine; Visit Provider Internal Medicine
DX: R41.3 Other amnesia (principal); R35.0 Frequency of micturition

== ENCOUNTER → 2025-04-03 11:00 | Outpatient (BNVA) | payer MEDICARE, MEDICAID, SELFPAY | PROVIDERS: PCP Internal Medicine; Visit Provider Internal Medicine | DX: R41.3 Other amnesia (principal); R35.0 Frequency of micturition | CPT/HCPCS: 96127 ==

== ENCOUNTER 2025-04-17 09:37 | Outpatient (AMB) | payer MEDICARE, MEDICAID, SELFPAY ==
--- NOTE | 2025-04-17 09:44 | AM.OFFWIN_ITS ---
Intake Vital Signs 04/17/25 09:45 Height 5 ft 3 in Weight 169 lb BMI 29.9 BP 120/62 Blood Pressure Location Lt brachial Position Sitting Pulse 81 Pulse Source Pulse Oximeter Temp 98.0 F Temp Source Oral Pulse Oximetry (%) 98 Oxygen Delivery Method Room Air Intake Visit Reasons: EP-ears/sinus issue Intake Note: presents with unresolved sinus issues, c/o left ear feeling gritty with traveling discomfort to sinuses, eyes and right ear Patient Tobacco Use Status: Current someday Tobacco user Allergies No Known Allergies (No Known Allergies*) Allergy (Verified 04/17/25 09:48) Do you need a note to return to daycare/school/sports/work: No HPI HPI Comments History of Present Illness Details This is a 59-year-old male presenting for evaluation of an itchy sensation and a foreign body sensation in his left ear that has been ongoing for the past 2 weeks that he feels is now starting in his right ear. Patient states he has been using Q-tips because he feels there is something ?impacted? in his left ear. Patient describes the sensation as a dayanna and gritty sensation in his left ear. Patient denies having any decreased hearing, overt otalgia or sore throat. Patient has not used any medication for treatment of his symptoms. 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 Dysuria Acute otitis media Bipolar disorder Acute pharyngitis Nocturnal hypoxemia Obesity (BMI 30-39.9) History of pneumonia Central sleep apnea Complex sleep apnea syndrome Pneumonitis Atherosclerotic cardiovascular disease WILTON (obstructive sleep apnea) SILVA (nonalcoholic steatohepatitis) History of deep venous thrombosis (DVT) of distal vein of left lower extremity Skin cancer Depression Recurrent kidney stones Dyslipidemia Essential hypertension Central sleep apnea Reid-Demarco breathing disorder Hiatal hernia Degenerative joint disease of left knee Diastolic congestive heart failure STEMI (ST elevation myocardial infarction) CAD (coronary artery disease) Lesion of skin of face Farias's esophagus Chronic idiopathic constipation Surgical History Hx of colonoscopy History of total knee arthroplasty History of esophagogastroduodenoscopy (EGD) Family History Father Brain cancer Lung cancer Substance use disorder Mother Emphysema, unspecified Substance use disorder Mental health disorder Social History Household Members: Children Housing: Apartment Are you a primary healthcare marketer to a significant other at home: No Do you presently have visiting nurse or other home services: No Alcohol intake: current Alcohol intake frequency: 3 or more drinks per day Alcohol type: hard liquor Comment: 1 pint vodka/24 hrs Patient Tobacco Use Status: Current someday Tobacco user Tobacco use type: Cigarette Cigarette Packs Per Day: 1 Cigarettes Per Day: 20.0 Years Smoked: 40 e-Cigarette/Vaping Use: Never Used Second Hand Smoke Exposure: No service: No Current occupational status: unemployed Sexual orientation: Straight/Heterosexual Gender identity: Male Cognitive needs: Yes (Memory Changes) Hearing needs: No Vision needs: Yes Review of Systems Const All systems reviewed & are unremarkable except as noted in HPI and below Denies chills, Denies fatigue, Denies fever(s) and Denies headache(s) Eyes Reports no additional complaints ENT Reports otalgia ( dayanna and gritty sensation left ear), Denies headache(s), Denies hearing loss, Denies mouth lesions, Denies nasal congestion, Denies sinus pressure, Denies sore throat and Denies throat swelling Card Reports no additional complaints Skin/Breast Reports system reviewed and no additional complaints, except as documented Neuro Denies headache(s) Psych Reports no additional complaints Endo Denies fatigue Aller/Immun Denies throat swelling Physical Exam Vital Signs: Last Vital Signs Temp 98.0 F 04/17/25 09:45 Pulse 81 04/17/25 09:45 BP 120/62 04/17/25 09:45 Pulse Ox 98 04/17/25 09:45 Oxygen Delivery Method Room Air 04/17/25 09:45 BMI result Body Mass Index 29.9 Const General: cooperative, healthy appearing, comfortable, no acute distress, well developed, alert, awake, Physically active and anxious; No acute distress Nutritional Appearance: average body habitus Orientation/consciousness: patient oriented x3 Limitations: no limitations HEENT Head: Yes normal to inspection and Yes normocephalic Ears: hearing grossly normal bilaterally, external ears normal, TM's normal bilaterally and EAC's normal (no cerumen or evidence of foreign body in ears bilaterally) General nose exam: Normal external nose present, Normal nares present and Normal nasal mucous membranes and turbinates present Face and sinus: Yes normal facial exam Mouth: Normal oral and palatal mucosa present Throat: Yes posterior oropharynx normal Skin General skin exam: no rashes or lesions noted Neuro General: patient oriented x3 Psych Appearance: grossly normal Speech and movement: Normal speech and movement present Affect: Anxious affect present, No Hostile affect present and No Irritable affect present Attitude: cooperative and not belligerent Insight: Fair insight present (Psych) Judgement: Fair judgement present (Psych) Assessment & Plan Assessment & Plan (1) Abnormal ear sensation: Comment: There is no evidence of a foreign body, cerumen impaction, otitis media or otitis externa on examination of the ears bilaterally. Patient states that he has follow up scheduled with ENT in June 2025. Code(s): H93.8X9 - Other specified disorders of ear, unspecified ear Qualifiers: Laterality: bilateral Qualified Code(s): H93.8X3 - Other specified disorders of ear, bilateral Plan: ENT as an outpatient, patient states this appointment has been scheduled through his PCP. No medications were prescribed at this time. Coding Level of Care Code Est Pt Level 3 (50293) Diagnoses Abnormal sensation in both ears H93.8X3 Laterality: bilateral Time Spent (min) 20
[2025-04-17 09:45] VITALS: BP 120/62; PULSE 81; TEMP 36.7; O2SAT 98; BMI 29.9
--- OUTSIDE RECORDS SUMMARY | 2025-04-17 09:45 | XMS_ITS | Clinical Summary ---
Author Organization [facility] Address [address] [place] [address] Care Team Providers Care College Or University Registrar Name Role Phone Unavailable Primary Care Provider Unavailabl e Surgical History Surgery Date Site/Laterality Comments OTHER SURGICAL HISTORY PROCEDURE: ---- OTHER ----; COMMENT: R inguinal hernia COLONOSCOPY February PROCEDURE: HISTORICAL COLONOSCOPY; COMMENT: hemorrhoids; repeat in ten years ESOPHAGOGASTRODUODENOSCOPY 02/07/10 PROCEDURE: [place] ESOPHAGOGASTRODUODENOSCOPY TRANSORAL DIAGNOSTIC; COMMENT: Farias's esophagus and Schatzki ring; 50 F dilator passed; repeat in two yrs ESOPHAGOGASTRODUODENOSCOPY 04/09/12 PROCEDURE: [place] EGD TRANSORAL BIOPSY SINGLE/MULTIPLE; COMMENT: Farias's esophagus and non-critical Schatzki ring; repeat in 3 yrs OTHER SURGICAL HISTORY 06/25/13 PROCEDURE: [place] EGD BALLOON DILATION ESOPHAGUS <30 MM DIAM; COMMENT: Schatzki ring dilated to 54 F; Farias's esophagus (not biopsied) with erosions; HH ESOPHAGOGASTRODUODENOSCOPY 21/03/15 PROCEDURE: [place] ESOPHAGOGASTRODUODENOSCOPY TRANSORAL DIAGNOSTIC; COMMENT: Farias's esophagus and [...]
== END 2025-04-17 10:03 | disposition home or self-care (01) ==
PROVIDERS: PCP Internal Medicine; Visit Provider Physician Assistant
DX: H93.8X3 Other specified disorders of ear, bilateral (principal)

== ENCOUNTER → 2025-04-17 09:37 | Outpatient (BNVA) | payer MEDICARE, MEDICAID, SELFPAY | PROVIDERS: PCP Internal Medicine; Visit Provider Physician Assistant | DX: H93.8X3 Other specified disorders of ear, bilateral (principal) | CPT/HCPCS: 99212 ==

== ENCOUNTER 2025-04-21 07:35 | Emergency (ER) | payer MEDICARE, MEDICAID, SELFPAY ==
[2025-04-21 08:01] VITALS: BP 151/92; PULSE 64; RESP 18; TEMP 36.4; O2SAT 98; BMI 29.1
--- OUTSIDE RECORDS SUMMARY | 2025-04-21 09:30 | XMS_ITS | Clinical Summary ---
Author Organization [facility] Address [address] [place] [address] Care Team Providers Care Coordinator Volunteer Services Name Role Phone Unavailable Primary Care Provider Unavailabl e Surgical History Surgery Date Site/Laterality Comments OTHER SURGICAL HISTORY PROCEDURE: ---- OTHER ----; COMMENT: R inguinal hernia COLONOSCOPY February PROCEDURE: HISTORICAL COLONOSCOPY; COMMENT: hemorrhoids; repeat in ten years ESOPHAGOGASTRODUODENOSCOPY 02/07/10 PROCEDURE: DE ESOPHAGOGASTRODUODENOSCOPY TRANSORAL DIAGNOSTIC; COMMENT: Farias's esophagus and Schatzki ring; 50 F dilator passed; repeat in two yrs ESOPHAGOGASTRODUODENOSCOPY 04/09/12 PROCEDURE: DE EGD TRANSORAL BIOPSY SINGLE/MULTIPLE; COMMENT: Farias's esophagus and non-critical Schatzki ring; repeat in 3 yrs OTHER SURGICAL HISTORY 06/25/13 PROCEDURE: DE EGD BALLOON DILATION ESOPHAGUS <30 MM DIAM; COMMENT: Schatzki ring dilated to 54 F; Farias's esophagus (not biopsied) with erosions; HH ESOPHAGOGASTRODUODENOSCOPY 21/03/15 PROCEDURE: DE ESOPHAGOGASTRODUODENOSCOPY TRANSORAL DIAGNOSTIC; COMMENT: Farias's esophagus and [...] Date Smoking Tobacco: Every Day Cigarettes 0.5 43.4 Started: 1981 Smokeless Tobacco: Never Alcohol Use [...]
--- NOTE | 2025-04-21 11:14 | ED.GENADULT ---
HPI - General Adult General Chief complaint: Ear Problems Stated complaint: Irritation both ears Time Seen by Provider: 04/21/25 10:30 Source: patient, RN notes reviewed and old records reviewed Mode of arrival: ambulatory Limitations: no limitations History of Present Illness ED Provider: Lamine JOHNS narrative: 59-year-old male presents for evaluation of bilateral ear pain. Patient reports that he has had irritation to both of his ears for about 2 months now. He reports a burning/painful sensation in both ears. He feels ?like there is banking consultant or sand and there. ? He denies any actual drainage from the ears but feels as if there is something draining out of the ears. He also reports itchy eyes and itching in his nostrils He went to his primary doctor to be evaluated but was told that there was nothing wrong and has not tried any medications to help alleviate his symptoms The patient does have 4 cats and 1 dog. He did get to some he has cats about 1 month ago but his symptoms started prior to this He is due to see Dr. Franz next month for audiology but the patient denies any difficulty hearing Denies any fevers or chills Denies any sore throat Related Data Home Medications ?Medication ?Instructions ?Recorded ?Confirmed lisinopril 5 mg tablet 5 mg PO DAILY 10/05/20 03/19/25 amlodipine 5 mg tablet 5 mg PO DAILY 09/12/22 03/19/25 clonidine HCl 0.2 mg tablet 0.2 mg PO BID 09/12/22 10/14/24 clopidogrel 75 mg tablet 75 mg PO DAILY 09/12/22 03/19/25 aspirin 81 mg tablet,delayed 81 mg PO DAILY 04/02/25 release (Adult Aspirin Regimen) Previous Rx's ?Medication ?Instructions ?Recorded [id number]-hldefx-AU-thonzonm 3.3 4 drp otic (ears) QID #10 mL 04/21/25 mg-3 mg-10 mg-0.5 mg/mL ear drops,susp (Cortisporin-TC) Allergies Allergy/AdvReac Type Severity Reaction Status Date / Time No Known Allergies (No Known Allergy Verified 04/21/25 08:03 Allergies*) Review of Systems Constitutional: Constitutional: Denies body ache(s), Denies chills, Denies fever(s) and Denies headache(s) Eyes: Eyes: Reports irritation, Reports itchy eyes and Denies eye pain ENT: Denies ear discharge, Reports otalgia, Denies headache(s) and Denies sore throat Cardiovascular: Cardiovascular: Denies dyspnea on exertion Respiratory: Respiratory: Denies cough and Denies dyspnea on exertion Neurologic: Denies headache(s) Allergic/Immunologic: Allergic/Immunologic: Reports itchy eyes PMFSH Past Medical History Medical History (Updated 04/21/25 @ 11:16 by Demarco Raman) Varicose veins of both lower extremities Localized swelling of both lower legs Urinary frequency Memory deficit Left leg swelling Evaluation of hearing impairment 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 Dysuria Acute otitis media Bipolar disorder Acute pharyngitis Nocturnal hypoxemia Obesity (BMI 30-39.9) History of pneumonia Central sleep apnea Complex sleep apnea syndrome Pneumonitis Atherosclerotic cardiovascular disease WILTON (obstructive sleep apnea) SILVA (nonalcoholic steatohepatitis) History of deep venous thrombosis (DVT) of distal vein of left lower extremity Skin cancer Depression Recurrent kidney stones Dyslipidemia Essential hypertension Central sleep apnea Reid-Demarco breathing disorder Hiatal hernia Degenerative joint disease of left knee Diastolic congestive heart failure STEMI (ST elevation myocardial infarction) CAD (coronary artery disease) Lesion of skin of face Farias's esophagus Chronic idiopathic constipation Surgical History Hx of colonoscopy History of total knee arthroplasty History of esophagogastroduodenoscopy (EGD) Family History Family History Father Brain cancer Lung cancer Substance use disorder Mother Emphysema, unspecified Substance use disorder Mental health disorder Social History Social History Household Members: Children Housing: Apartment Are you a primary care connector to a significant other at home: No Do you presently have visiting nurse or other home services: No Alcohol intake: current Alcohol intake frequency: 3 or more drinks per day Alcohol type: hard liquor Comment: 1 pint vodka/24 hrs Patient Tobacco Use Status: Current someday Tobacco user Tobacco use type: Cigarette Cigarette Packs Per Day: 1 Cigarettes Per Day: 20.0 Years Smoked: 40 e-Cigarette/Vaping Use: Never Used Second Hand Smoke Exposure: No Advance Directives: No Advance Directives Information Provided: Yes Do you have a plan to hurt others: No Plan service: No Current occupational status: unemployed Sexual orientation: Straight/Heterosexual Gender identity: Male Cognitive needs: Yes (Memory Changes) Hearing needs: No Vision needs: Yes Physical Exam ED Vital Signs: Vital Signs - 24 hr 04/21/25 08:01 Temperature 97.5 F Pulse Rate 64 Respiratory Rate 18 Blood Pressure 151/92 H Pulse Oximetry 98 Oxygen Delivery Method Room Air BMI result Body Mass Index 29.1 Const General: healthy appearing, comfortable, no acute distress, alert and awake Nutritional Appearance: well nourished Orientation/consciousness: patient oriented x3 HENMT Other: Mild erythema/edema to the outer ear canals bilaterally. No pre or postauricular edema. No mastoid tenderness. TMs visualized bilaterally pearly white, no erythema, bulging or perforations. Head: Yes normocephalic and Yes atraumatic Throat: Yes posterior oropharynx normal Eyes Eyelids: Yes eyelids normal Conjunctivae: conjunctivae normal Sclerae: sclerae normal Corneas: corneas normal Pupils: Equal, round and reactive pupils present EOM: EOMs intact bilaterally Neck Neck: Yes full ROM Resp Effort & Inspection: normal respiratory effort, able to speak in complete sentences and not labored Skin General skin exam: elasticity normal Neuro General: patient oriented x3 Cranial nerves: Yes Equal, round and reactive pupils present and Yes Bilaterally intact EOM present Cognition (Neuro): normal cognition Extrem Other: Moving all extremities well without any obvious deformities Medical Decision Making Medical Decision Making MDM Narrative: 59-year-old male presents for evaluation of bilateral ear pain and itching. He also notes itching to his eyes and nostrils bilaterally. This is going on for several months. He does have some mild inflammation to the external ear canals bilaterally but no otorrhea. I do think that his symptoms I primarily allergic related and I recommended fluticasone nasal spray and an dqbl-ccw-mxtcigu allergy medication. Given that his primary complaint is bilateral ear pain I did agree to prescribe Cortisporin drops. The patient is already due to see audiology/ENT next month. There was no evidence to suggest otitis media, mastoiditis. There was no cerumen impaction. Differential Diagnosis Differential Diagnoses: The differential diagnosis associated with the presentation includes As above Discharge Plan Discharge Clinical Impression: Acute allergic otitis externa Patient Disposition: Home, Self-Care Instructions: Allergies (ED) Additional Instructions: Use his Cortisporin drops as directed for 1 week. I also recommend an apds-dpg-mezfdlg nasal spray such as fluticasone You may also wish to take an hxch-xkk-euhqdlm allergy medication once daily such as Yaneli, Zyrtec, Claritin Follow-up with Dr. Franz if your symptoms persist Prescriptions: New Cortisporin-TC 3.3-3-10-0.5 mg/mL drops,suspension 4 drp otic (ears) QID Qty: 10 0RF No Action lisinopril 5 mg tablet 5 mg PO DAILY clonidine HCl 0.2 mg tablet 0.2 mg PO BID amlodipine 5 mg tablet 5 mg PO DAILY clopidogrel 75 mg tablet 75 mg PO DAILY aspirin [Adult Aspirin Regimen] 81 mg tablet,delayed release (DR/EC) 81 mg PO DAILY Interventions: ED Discharge Assessment Last Done: 04/21/25 11:23 Print Language: Venezuelan
[2025-04-21 11:23] VITALS: BP 168/85; PULSE 54; RESP 18; TEMP 36.4; O2SAT 98
== END 2025-04-21 11:25 | disposition home or self-care (01) ==
PROVIDERS: Emergency Provider Emergency Medicine; PCP Internal Medicine
DX: H60.503 Unspecified acute noninfective otitis externa, bilateral (principal); H92.03 Otalgia, bilateral
CPT/HCPCS: 99282; 99283

== ENCOUNTER 2025-04-22 11:08 | Emergency (ER) | payer MEDICARE, MEDICAID, SELFPAY ==
--- NOTE | ~2025-04-22 | US_ITS ---
Examination: US Extremity Nonvas Limited Lt History of left groin mass, left groin pain and perineal pain COMPARISON: CT from April 21, 2025 TECHNIQUE: Color and grayscale imaging was performed in the left inguinal region. FINDINGS: On the prior examination, there is evidence of an indirect hernia in the left inguinal region containing adipose tissues. No definite mass or fluid collection was documented on left peroneal region ultrasound. US/US Extremity Nonvas Limited LT IMPRESSION: No mass or fluid collection was demonstrated in the left perineal region on the current study. On the CT scan performed yesterday, there is evidence of a left indirect hernia containing adipose tissue. Electronically signed by: Grant Choe MD 04/22/2025 11:58 AM EDT
--- NOTE | ~2025-04-22 | XR_ITS ---
CLINICAL HISTORY: rib pain Chest Radiographs, 2 views Comparison: 04/15/24 Findings: Prominent sized heart. Normal mediastinal contours. No pneumothorax. No opacity. No pleural effusion. Normal upper abdomen. No acute fracture. Impression: No acute findings. This document has been electronically signed by: Mary Buck MD on 04/22/2025 19:29:25
--- NOTE | ~2025-04-22 | XR_ITS ---
CLINICAL HISTORY: pain Radiographs of the pelvis and left hip, 3 views Comparison: CT/SR - CT ABDOMEN PELVIS W IV CON - 12/20/24 00:35 EDT Findings: No fracture or dislocation. Mild degenerative change, greatest in the lower lumbar spine. No soft tissue swelling. Impression: No acute findings. Mild degenerative change, greatest in the lower lumbar spine. This document has been electronically signed by: Mary Buck MD on 04/22/2025 19:31:29
[2025-04-22 11:16] VITALS: BP 124/69; PULSE 72; RESP 16; TEMP 36; O2SAT 97; BMI 28.3
--- NOTE | 2025-04-22 11:17 | ED.GENADULT ---
HPI - General Adult General Chief complaint: General Medical Stated complaint: mass on groin Time Seen by Provider: 04/22/25 18:38 Source: patient Limitations: no limitations History of Present Illness ED Provider: Marcella Torres PA-C HPI narrative: 59-year-old male with a history of bipolar disorder, depression, hypertension, hyperlipidemia, known coronary artery disease, prior STEMI, prior DVT no longer anticoagulated, known varicose veins, who presents with numerous complaints. Patient states he has been having focal pain within the left inner thigh for unclear duration. Pain is worse with ?crossing his legs?. Denies swelling, overlying redness or warmth, no fevers. Denies new activity which could have exacerbated his symptoms. Patient also complains of ongoing nasal congestion and ear irritation. Patient states he feels as if there is ?grit in his ears, and they are itchy?. Patient complains that there are bumps over left anterior chest wall. Nonpainful, they are simply present. He states the bumps have been there for ?a long time?. Lastly, patient complains of ?bumps under his varicose veins ?. Related Data Home Medications ?Medication ?Instructions ?Recorded ?Confirmed lisinopril 5 mg tablet 5 mg PO DAILY 10/05/20 03/19/25 amlodipine 5 mg tablet 5 mg PO DAILY 09/12/22 03/19/25 clonidine HCl 0.2 mg tablet 0.2 mg PO BID 09/12/22 10/14/24 clopidogrel 75 mg tablet 75 mg PO DAILY 09/12/22 03/19/25 aspirin 81 mg tablet,delayed 81 mg PO DAILY 04/02/25 release (Adult Aspirin Regimen) Previous Rx's ?Medication ?Instructions ?Recorded sdhvmozm-ummfwn-FA-thonzonm 3.3 4 drp otic (ears) QID #10 mL 04/21/25 mg-3 mg-10 mg-0.5 mg/mL ear drops,susp (Cortisporin-TC) qxfokfog-dywqwz-OY-thonzonm 3.3 5 drp otic (ears) QID 7 days #10 mL 04/22/25 mg-3 mg-10 mg-0.5 mg/mL ear drops,susp (Cortisporin-TC) Allergies Allergy/AdvReac Type Severity Reaction Status Date / Time No Known Allergies (No Known Allergy Verified 04/22/25 11:20 Allergies*) Review of Systems Review of Systems: Yes all other systems are reviewed and are negative Constitutional: Constitutional: Denies fatigue and Denies fever(s) ENT: Denies otalgia, Reports nasal congestion and Denies nasal discharge Cardiovascular: Cardiovascular: Denies chest pain and Denies dyspnea Respiratory: Respiratory: Denies dyspnea Musculoskeletal: Musculoskeletal: Denies arthralgias and Denies joint swelling Endocrine: Endocrine: Denies fatigue PMFSH Past Medical History Attestation statement: The following information was validated with the patient. 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 Dysuria Acute otitis media Bipolar disorder Acute pharyngitis Nocturnal hypoxemia Obesity (BMI 30-39.9) History of pneumonia Central sleep apnea Complex sleep apnea syndrome Pneumonitis Atherosclerotic cardiovascular disease WILTON (obstructive sleep apnea) SILVA (nonalcoholic steatohepatitis) History of deep venous thrombosis (DVT) of distal vein of left lower extremity Skin cancer Depression Recurrent kidney stones Dyslipidemia Essential hypertension Central sleep apnea Reid-Demarco breathing disorder Hiatal hernia Degenerative joint disease of left knee Diastolic congestive heart failure STEMI (ST elevation myocardial infarction) CAD (coronary artery disease) Lesion of skin of face Farias's esophagus Chronic idiopathic constipation Surgical History Hx of colonoscopy History of total knee arthroplasty History of esophagogastroduodenoscopy (EGD) Family History Family History Father Brain cancer Lung cancer Substance use disorder Mother Emphysema, unspecified Substance use disorder Mental health disorder Social History Social History Household Members: Children Housing: Apartment Are you a primary customer care assistant to a significant other at home: No Do you presently have visiting nurse or other home services: No Alcohol intake: former Comment: 1 pint vodka/24 hrs Patient Tobacco Use Status: Current someday Tobacco user Tobacco use type: Cigarette Cigarette Packs Per Day: 1 Cigarettes Per Day: 20.0 Years Smoked: 40 Smoked in Last 30 Days: Yes e-Cigarette/Vaping Use: Never Used Second Hand Smoke Exposure: No Use of substances other than those prescribed or required for medical reasons: No Advance Directives: No Advance Directives Information Provided: Yes service: No Current occupational status: unemployed Sexual orientation: Straight/Heterosexual Gender identity: Male Cognitive needs: Yes (Memory Changes) Hearing needs: No Vision needs: Yes Physical Exam ED Vital Signs: Vital Signs - 24 hr 04/22/25 11:16 04/22/25 18:41 04/22/25 19:58 Temperature 96.8 F 97.7 F 98.1 F Pulse Rate 72 56 62 Respiratory Rate 16 18 16 Blood Pressure 124/69 179/88 H 159/88 H Pulse Oximetry 97 98 99 Oxygen Delivery Method Room Air Room Air 04/22/25 20:01 Temperature 98.1 F Pulse Rate 62 Respiratory Rate 16 Blood Pressure 159/88 H Pulse Oximetry 99 Oxygen Delivery Method Room Air BMI result Body Mass Index 28.3 Const Other: Alert, well-appearing Orientation/consciousness: patient oriented x3 HENMT Other: No tragal tenderness, bilateral external ear canals are mildly erythematous and dry, both TMs are intact, subtly dull Chest Other: The bumps which the patient is referring to are his ribs Resp Effort & Inspection: normal respiratory effort Cardio Other: Normal peripheral perfusion Skin Other: Warm dry no rash Neuro General: patient oriented x3, gait normal, no focal motor deficits and CN's II-XI intact bilaterally Extrem Other: Palpable tenderness over medial upper left thigh, no swelling no erythema no warmth no ecchymosis no deformity Psych Other: Cooperative Course Course Course Narrative: RME, this is a rapid medical exam performed by David Raman please refer to primary provider for complete H&P- 59 year old male presents for evaluation of left groin pain and swelling. Symptoms started this morning. He was actually seen yesterday for pain and itching in his ears. He reports a lump in his left groin today that he cannot see but he can feel. Plan for labs, UA, and scrotal ultrasound Medical Decision Making Medical Decision Making MDM Narrative: 59-year-old male with a history of bipolar disorder, depression, hypertension, hyperlipidemia, known coronary artery disease, prior STEMI, prior DVT no longer anticoagulated, known varicose veins, who presents with numerous complaints. Patient states he has been having focal pain within the left inner thigh for unclear duration. Pain is worse with ?crossing his legs?. Denies swelling, overlying redness or warmth, no fevers. Denies new activity which could have exacerbated his symptoms. Patient also complains of ongoing nasal congestion and ear irritation. Patient states he feels as if there is ?grit in his ears, and they are itchy?. Patient complains that there are bumps over left anterior chest wall. Nonpainful, they are simply present. He states the bumps have been there for ?a long time?. Lastly, patient complains of ?bumps under his varicose veins ?. Problem: Psychiatric illness , vascular disease, prior DVT History: Per patient I have considered the following differential diagnoses: Arthritis, fracture, dislocation, DVT, om, OE, cerumen impaction, serous otitis, viral syndrome, rash, chest wall pain, rib fracture, skin cyst Plan: Screening labs an ultrasound of the left lower extremity obtained from triage, there was no DVT his labs were unremarkable. In regard to his nasal congestion and ear irritation, his ears are irritated, we will send with the ear drops, and home care instructions for the congestion. In addition to the bumps on the chest wall, he has palpating his ribs, to a piece him I am ordering a chest x-ray. In regard to the leg pain. His exam is not concerning, we will order an x-ray of the hip. I have independently reviewed the following tests: Labs: No leukocytosis, not anemic, no electrolyte abnormality noted, urine not infected Left extrem US: FINDINGS: On the prior examination, there is evidence of an indirect hernia in the left inguinal region containing adipose tissues. No definite mass or fluid collection was documented on left peroneal region ultrasound. US/US Extremity Nonvas Limited LT IMPRESSION: No mass or fluid collection was demonstrated in the left perineal region on the current study. On the CT scan performed yesterday, there is evidence of a left indirect hernia containing adipose tissue. X-ray left hip pelvis: Findings: No fracture or dislocation. Mild degenerative change, greatest in the lower lumbar spine. No soft tissue swelling. Impression: No acute findings. Mild degenerative change, greatest in the lower lumbar spine. Chest x-ray:Findings: Prominent sized heart. Normal mediastinal contours. No pneumothorax. No opacity. No pleural effusion. Normal upper abdomen. No acute fracture. Impression: No acute findings. Lab Data 04/22/25 12:14 04/22/25 12:14 Labs: Lab Results 04/22/25 04/22/25 Range/Units 12:14 15:55 WBC 7.5 (4.8-10.8) X10*3/uL RBC 5.03 (4.60-5.80) X10*6/uL Hgb 14.9 (14.0-18.0) g/dl Hct 43.2 (42.0-52.0) % MCV 85.9 (80.0-98.0) fL MCH 29.6 (27.0-33.0) pg MCHC 34.5 (31.0-36.0) g/dl RDW 13.2 (11.0-16.0) % Plt Count 130 L (160-400) X10*3/uL MPV 9.8 (9.4-12.4) fL Immature Gran % (Auto) 0.4 (0.0-0.4) % Neut % (Auto) 68.6 (45-73) % Lymph % (Auto) 22.8 (20-40) % Morgan % (Auto) 5.8 (2-11) % Eos % (Auto) 1.7 (0-4) % Baso % (Auto) 0.7 (0-2) % Lymph # (Auto) 1.7 (1.2-4.9) X10*3/uL Morgan # (Auto) 0.4 (0.1-1.2) X10*3/uL Eos # (Auto) 0.1 (0.0-0.4) X10*3/uL Baso # (Auto) 0.1 (0.0-0.2) X10*3/uL Abs Immat Gran (auto) 0.03 (0.00-0.03) X10*3/uL Absolute Neuts (auto) 5.2 (2.0-8.3) x10*3/uL Absolute Nucleated RBC 0.000 (0.0-0.012) X10*3/uL Nucleated RBC % (auto) 0.0 (0.0-0.2) /100WBC Sodium 142 (135-145) mmol/L Potassium 3.8 (3.3-5.1) mmol/L Chloride 108 (96-108) mmol/L Carbon Dioxide 24 (22-29) mmol/L Anion Gap 14 (12-20) BUN 15 (9-16) mg/dL Creatinine 0.80 (0.5-1.4) mg/dL Estim Creat Clear Calc 90.9 Estimated GFR > 60 Random Glucose 171 H (60-115) mg/dL Calcium 9.4 (8.4-10.2) mg/dL Total Bilirubin 0.4 (0.0-1.0) mg/dL AST 42 H (5-37) U/L ALT 69 H (0-40) U/L Alkaline Phosphatase 69 (39-117) U/L Total Protein 7.0 (6.5-8.0) g/dL Albumin 4.5 (3.5-5.0) g/dL Lipase 20 (8-78) U/L Urine Color Yellow Urine Appearance Clear Urine pH 6.5 (5.0-9.0) Ur Specific [place] 1.020 (1.005-1.025) Urine Protein 30 (1+) H (Neg-Trace) mg/dL Urine Glucose (UA) 250 H (Negative) mg/dL Urine Ketones Negative (Negative) mg/dL Urine Blood Negative (Negative) Urine Nitrite Negative (Negative) Ur Leukocyte Esterase Negative (Negative) Urine RBC 0-2 (0-2) /HPF Urine WBC 0-5 (0-5) /HPF Ur Squamous Epith Cells 0-2 (0-2) /HPF Urine Bacteria None Seen (None Seen) Hyaline Casts 0-2 (0-2) /LPF Discharge Plan Discharge Clinical Impression: Nasal congestion, Irritation of external ear canal, Varicose veins of calf, Arthralgia of left thigh Patient Disposition: Home, Self-Care Instructions: Arthralgia (ED) Additional Instructions: All of your screening labs were completely normal. The ultrasound of the left lower extremity was normal as well you do not have a deep vein clot. The x-ray of the upper thigh and hip revealed that you have some degree of arthritic changes, this is the likely cause of your inner thigh pain. See home care instructions. You can use perw-gcr-rxketfo Tylenol 1000 mg taken every 8 hours for your discomfort. In regard to your ear irritation and nasal congestion, this is likely secondary to seasonal allergies. You can use leaf-vtg-joielgu Zyrtec daily indefinitely, this will also help alleviate your congestion. Use the prescribed ear drops as directed for your ear irritation. In regard to the ?bumps on your chest?, you simply have prominent ribs. The chest xray was completely normal. Continue to follow up with your primary care provider. Prescriptions: New Cortisporin-TC 3.3-3-10-0.5 mg/mL drops,suspension 5 drp otic (ears) QID 7 Days Qty: 10 0RF No Action Cortisporin-TC 3.3-3-10-0.5 mg/mL drops,suspension 4 drp otic (ears) QID Qty: 10 0RF lisinopril 5 mg tablet 5 mg PO DAILY clonidine HCl 0.2 mg tablet 0.2 mg PO BID amlodipine 5 mg tablet 5 mg PO DAILY clopidogrel 75 mg tablet 75 mg PO DAILY aspirin [Adult Aspirin Regimen] 81 mg tablet,delayed release (DR/EC) 81 mg PO DAILY Interventions: ED Discharge Assessment Last Done: 04/22/25 20:01 Discharge Date/Time: 04/22/25 20:14 Print Language: Tajik
[2025-04-22 12:26] LABS: MANUAL DIFF FLAG NO
[2025-04-22 12:32] LABS: Hematocrit 43.2 % (42.0-52.0); Hemoglobin 14.9 g/dl (14.0-18.0); Imm Gran Abs Auto 0.03 X10*3/uL (0.00-0.03); Imm Gran Pct Auto 0.4 % (0.0-0.4); Lymphocytes Absolute Auto 1.7 X10*3/uL (1.2-4.9); Mean Corpuscular HGB Conc 34.5 g/dl (31.0-36.0); Mean Corpuscular Hemoglobin 29.6 pg (27.0-33.0); Mean Corpuscular Volume 85.9 fL (80.0-98.0); NRBC Abs Auto 0.000 X10*3/uL (0.0-0.012); NRBC Pct Auto 0.0 /100WBC (0.0-0.2); Platelet Count 130 X10*3/uL (160-400); Red Blood Count 5.03 X10*6/uL (4.60-5.80); White Blood Count 7.5 X10*3/uL (4.8-10.8)
[2025-04-22 12:49] LABS: Alanine Aminotransferase 69 U/L (0-40); Albumin Level 4.5 g/dL (3.5-5.0); Alkaline Phosphatase 69 U/L (39-117); Anion Gap 14 (12-20); Aspartate Amino Transferase 42 U/L (5-37); Blood Urea Nitrogen 15 mg/dL (9-16); Calcium 9.4 mg/dL (8.4-10.2); Carbon Dioxide 24 mmol/L (22-29); Chloride 108 mmol/L (96-108); Creatinine Clr Calc Pharmacy 90.9; Estimated Glomerular Filt Rate > 60; Lipase 20 U/L (8-78); Potassium 3.8 mmol/L (3.3-5.1); Sodium 142 mmol/L (135-145); Total Protein 7.0 g/dL (6.5-8.0)
[2025-04-22 16:09] LABS: Appearance Urine Clear; Glucose Urine UA 250 mg/dL (Negative); PH 6.5 (5.0-9.0); Specific Gravity - Urine 1.020 (1.005-1.025); UMIC TRIGGER UACC YES
[2025-04-22 18:41] VITALS: BP 179/88; PULSE 56; RESP 18; TEMP 36.5; O2SAT 98
[2025-04-22 19:58] VITALS: BP 159/88; PULSE 62; RESP 16; TEMP 36.7; O2SAT 99
[2025-04-22 20:01] VITALS: BP 159/88; PULSE 62; RESP 16; TEMP 36.7; O2SAT 99
== END 2025-04-22 20:14 | disposition home or self-care (01) ==
PROVIDERS: Physician Assistant; Emergency Provider Emergency Medicine
DX: R09.81 Nasal congestion (principal); I10 Essential (primary) hypertension; R19.09 Other intra-abdominal and pelvic swelling, mass and lump; I86.8 Varicose veins of other specified sites; M25.50 Pain in unspecified joint; H93.93 Unspecified disorder of ear, bilateral; I11.0 Hypertensive heart disease with heart failure; I50.32 Chronic diastolic (congestive) heart failure; Z86.718 Personal history of other venous thrombosis and embolism; Z79.899 Other long term (current) drug therapy
CPT/HCPCS: 36415; 71045; 73502; 76882; 80053; 81001; 83690; 85025; 99284

== ENCOUNTER → 2025-04-22 11:18 | Outpatient (BNV) | payer MEDICARE, MEDICAID, SELFPAY | PROVIDERS: Visit Provider Radiology Diagnostic Radiology | DX: R10.2 Pelvic and perineal pain (principal); M25.552 Pain in left hip; R07.89 Other chest pain | CPT/HCPCS: 71045; 73502; 76882 ==

== ENCOUNTER 2025-04-29 09:18 | Outpatient (AMB) | payer MEDICARE, MEDICAID, SELFPAY ==
[2025-04-29 09:37] VITALS: BP 128/80; PULSE 88; RESP 15; TEMP 36.8; O2SAT 98; BMI 28.8
--- NOTE | 2025-04-29 09:37 | A.OFFPC_ITS ---
Vital Signs 04/29/25 09:37 Height 5 ft 4 in Weight 168 lb BMI 28.8 BP 128/80 Blood Pressure Location Lt brachial Position Sitting Respiration 15 Pulse 88 Pulse Source Pulse Oximeter Temp 98.3 F Temp Source Oral Pulse Oximetry (%) 98 Oxygen Delivery Method Room Air Intake Visit Reasons: 1m f/u-labs Intake Note: Pt is here today for his 1mo. f/u labs Allergies No Known Allergies (No Known Allergies*) Allergy (Verified 04/22/25 11:20) Medication List - Last Reconciled 04/29/25 by Franchesca Batista MD amlodipine 5 mg PO DAILY aspirin (Adult Aspirin Regimen) 81 mg PO DAILY cetirizine 10 mg PO DAILY PRN clonidine HCl 0.2 mg PO BID clopidogrel 75 mg PO DAILY lisinopril 5 mg PO DAILY Tobacco use date assessed: 04/29/25 Dental Screening Dental Screen Date: 03/23/25 [facility] Medical History (Updated 04/29/25 @ 10:17 by Franchesca Batista MD) Bilateral finger arthralgia Mixed dyslipidemia Impaired fasting glucose Varicose veins of both lower extremities Localized swelling of both lower legs Urinary frequency Memory deficit Left leg swelling Evaluation of hearing impairment 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 Dysuria Acute otitis media Bipolar disorder Acute pharyngitis Nocturnal hypoxemia Obesity (BMI 30-39.9) History of pneumonia Central sleep apnea Complex sleep apnea syndrome Pneumonitis Atherosclerotic cardiovascular disease WILTON (obstructive sleep apnea) SILVA (nonalcoholic steatohepatitis) History of deep venous thrombosis (DVT) of distal vein of left lower extremity Skin cancer Depression Recurrent kidney stones Dyslipidemia Essential hypertension Central sleep apnea Reid-Demarco breathing disorder Hiatal hernia Degenerative joint disease of left knee Diastolic congestive heart failure STEMI (ST elevation myocardial infarction) CAD (coronary artery disease) Lesion of skin of face Farias's esophagus Chronic idiopathic constipation Surgical History Hx of colonoscopy History of total knee arthroplasty History of esophagogastroduodenoscopy (EGD) Family History Father Brain cancer Lung cancer Substance use disorder Mother Emphysema, unspecified Substance use disorder Mental health disorder Social History Household Members: Children Housing: Apartment Are you a primary healthcare management consultant to a significant other at home: No Do you presently have visiting nurse or other home services: No Alcohol intake: former Comment: 1 pint vodka/24 hrs Patient Tobacco Use Status: Current someday Tobacco user Tobacco use type: Cigarette Cigarette Packs Per Day: 1 Cigarettes Per Day: 20.0 Years Smoked: 40 e-Cigarette/Vaping Use: Never Used Second Hand Smoke Exposure: No service: No Current occupational status: unemployed Sexual orientation: Straight/Heterosexual Gender identity: Male Cognitive needs: Yes (Memory Changes) Hearing needs: No Vision needs: Yes Questionnaire PHQ-9 Over the last 2 weeks, how often have you been bothered by any of the following problems? 1. Little interest or pleasure in doing things: nearly every day 2. Feeling down, depressed, or hopeless: several days 3. Trouble falling or staying asleep, or sleeping too much: nearly every day 4. Feeling tired or having little energy: nearly every day 5. Poor appetite or overeating: nearly every day 6. Feeling bad about yourself - or that you are a failure or have let yourself or your family down: not at all 7. Trouble concentrating on things, such as reading the newspaper or watching television: several days 8. Moving or speaking so slowly that other people could have noticed. Or the opposite - being so fidgety or restless that you have been moving around a lot more than usual: several days 9. Thoughts that you would be better off or of hurting yourself in some way: not at all Total score: 15 Source: Developed by Drs. Satinder Borrero, Winsome Yip, Jon Tai and colleagues, with an educational helen from [employer]. Thrive Questionnaire Date Thrive assessed: 03/23/25 I am a: Patient What is your living situation today?: I have a steady place to live Within the past 12 months, did the food you bought not last and you didn't have the money to get more?: Never true Within the past 12 months, did you worry whether your food would run out before you got money to buy more?: Sometimes True Do you have trouble paying for medicines?: No Do you have trouble getting transportation to medical appointments?: Yes Do you have trouble paying your heating and electricity bill?: No Do you have trouble taking care of your child, family member or friend?: No Do you have trouble with day-to-day activities such as bathing, preparing meals, shopping, managing finances, etc.?: No Are you currently unemployed and looking for a job?: Yes Are you interested in more education?: No Please select the resources that you would like help with: Transportation Currently or been in a relationship where the following occur: No concerns reported THRIVE Score: 2 AUDIT C Alcohol Use Questionnaire (AUDIT-C) 1. How often do you have a drink containing alcohol?: Monthly or less Total Score: 1 KAITLYNN-7 AMB Questionnaire KAITLYNN-7 Date KAITLYNN - 7 assessed: 04/03/25 (patient declined ) Feeling nervous, anxious, or on edge: 1 = Several days Not being able to stop or control worryin = Nearly every day Worrying too much about different things: 3 = Nearly every day Trouble relaxin = Nearly every day Being so restless that it is hard to sit still: 3 = Nearly every day Becoming easily annoyed or irritable: 3 = Nearly every day Feeling afraid as if something awful might happen: 3 = Nearly every day Total KAITLYNN-7 score (0-4 normal; 5-9 mild; 10-14 moderate; 15-21 severe): 19 Source: Developed by Drs. Satinder Borrero, Winsome Yip, Jon Tai and colleagues, with an educational helen from [employer]. Physical exam (Primary Care) Vital Signs: Last Vital Signs Temp 98.3 F 04/29/25 09:37 Pulse 88 04/29/25 09:37 Resp 15 04/29/25 09:37 BP 128/80 04/29/25 09:37 Pulse Ox 98 04/29/25 09:37 Oxygen Delivery Method Room Air 04/29/25 09:37 BMI result Body Mass Index 28.8 Tobacco/Smoking Status: Tobacco use Status Tobacco use date assessed 04/29/25 04/29/25 09:41 Patient Tobacco Use Status Current someday Tobacco 04/29/25 09:41 Tobacco use type Cigarette 04/29/25 09:41 e-Cigarette/Vaping Use Never Used 04/29/25 09:41 PHQ-9: PHQ-9 Score PHQ-9: Total score 15 04/29/25 09:54 Thrive Assessment: Date of Thrive Assessment Date Thrive assessed 03/23/25 04/29/25 09:41 Currently or been in a relationship where the following occur: No concerns reported Results AMB Hemoglobin A1c AMB Hemoglobin A1c 5.8 % Last Edit by Bridget Bynum CMA on 04/29/25 10:16 Results Reviewed Results Reviewed: Name: Carlin Diaz Age/Sex: 59/M : 1965 Unit#: [id number] Attend Dr: Wagner Castro DO Re04/22/25 Status: [facility] Disch: SPEC : [id number] DREW: 04/22/25 STATUS: COMP REQ : [id number] RECD: 04/22/[address]: Demarco Raman COMP: 04/22/25 ENTERED: 04/22/[address]: Physician,Unknown ORDERED: CBC Auto Diff Test Result Flag Reference WBC 7.5 4.8-10.8 X10*3/uL RBC 5.03 4.60-5.80 X10*6/uL HGB 14.9 14.0-18.0 g/dl HCT 43.2 42.0-52.0 % MCV 85.9 80.0-98.0 fL MCH 29.6 27.0-33.0 pg MCHC 34.5 31.0-36.0 g/dl RDW 13.2 11.0-16.0 % PLT 130 L 160-400 X10*3/uL MPV 9.8 9.4-12.4 fL Neut Pct Auto 68.6 45-73 % ImGran Pct Auto 0.4 0.0-0.4 % Lymp Pct Auto 22.8 20-40 % Bay Pct Auto 5.8 2-11 % Eos Pct Auto 1.7 0-4 % Baso Pct Auto 0.7 0-2 % NRBC Pct Auto 0.0 0.0-0.2 /100WBC ANC Neut Abs # 5.2 2.0-8.3 x10*3/uL ImGran Abs Auto 0.03 0.00-0.03 X10*3/uL Lymph Abs Auto 1.7 1.2-4.9 X10*3/uL Bay Abs Auto 0.4 0.1-1.2 X10*3/uL Eos Abs Auto 0.1 0.0-0.4 X10*3/uL Baso Abs Auto 0.1 0.0-0.2 X10*3/uL NRBC Abs Auto 0.000 0.0-0.012 X10*3/uL tiana: Carlin Diaz Age/Sex: 59/M : 1965 Unit#: [id number] Attend Dr: Franchesca Batista MD Re03/31/25 Status: DEP REF Location: [facility] Disch: SPEC : [id number] DREW: 03/31/25 STATUS: COMP REQ : [id number] RECD: 03/31/[address]: Franchesca Batista MD COMP: 03/31/256 ENTERED: 03/31/25 [facility] DR: ORDERED: Met Prof Fast, AST, ALT, Lipid Panel Test Result Flag Reference Sodium 139 135-145 mmol/L Potassium 4.0 3.3-5.1 mmol/L CL 104 96-108 mmol/L CO2 25 22-29 mmol/L Gap 14 12-20 BUN 10 9-16 mg/dL Creat 0.93 0.5-1.4 mg/dL eGFR > 60 Chronic Kidney Disease: Estimated GFR < 60 mL/min/1.73m2 Severe Kidney Disease: Estimated GFR < 15 mL/min/1.73m2 FBS 121 H 60-99 mg/dL A fasting glucose from 100-125 mg/dl is considered impaired (pre-diabetes). CA 9.4 8.4-10.2 mg/dL AST (GOT) 38 H 5-37 U/L ALT (GPT) 39 0-40 U/L Triglyceride 175 H <150 mg/dL Desirable Triglyceride: less than 150 mg/dL Borderline High Triglyceride 150-199 mg/dL High Triglyceride: 200-499 mg/dL Very High Triglyceride: greater than or equal to 5OO mg/dL Cholesterol 198 <200 mg/dL Desirable Cholesterol: less than 200 mg/dL Borderline High Cholesterol: 200-239 mg/dL High Cholesterol: greater than 239 mg/dL LDL Calculated 133 H <100 mg/dL Desirable LDL: less than 100 mg/dL Near Optimal/Above Optimal LDL: 110-129 mg/dL Borderline High LDL: 130-159 mg/dL High LDL: 160-189 mg/dL Very High LDL: greater than or equal to 190 mg/dL HDL 30 L >40 mg/dL Coding Diagnoses Impaired fasting glucose R73.01 Mixed dyslipidemia E78.2 Essential hypertension I10 Bilateral finger arthralgia M25.541; M25.542 Assessment & Plan Assessment & Plan (1) Impaired fasting glucose: Code(s): R73.01 - Impaired fasting glucose Category: Medical Plan: Your previous fasting blood sugars were elevated above 100 mg/dL. Hemoglobin A1c today is at 5.8%. Impaired glucose metabolism increases the risk for developing diabetes mellitus type 2, as well as heart attack and stroke later on. Lifestyle changes that promotes weight loss, healthy eating habits, and regular exercise are important, and can prevent the progression to diabetes (2) Mixed dyslipidemia: Code(s): E78.2 - Mixed hyperlipidemia Category: Medical Plan: Reviewed recent fasting lipid profile with patient with mild elevation tri glycerides and LDL cholesterol. . Reinforced importance of following a low- cholesterol diet and regular exercise, at least 30 minutes 3 to 4 times a week. Advised patient to make healthy food choices, eat more fruits, vegetables, whole grains, wild caught fish and low-fat dairy. Limit amount of meat and fried or fatty food products, as well as processed foods and fast foods. (3) Essential hypertension: Code(s): I10 - Essential (primary) hypertension Category: Medical Plan: Blood pressure at goal of less than 130/80. Continue with current medication. Reinforced importance of following a low sodium diet, getting regular exercise, and lowering stress levels. (4) Bilateral finger arthralgia: Code(s): M25.541 - Pain in joints of right hand; M25.542 - Pain in joints of left hand Category: Medical Plan: Prescription sent for absorbing derek, massaged to affected joints to 2 3 times a day as needed for joint pain/stiffness Orders: Orders AMB Hemoglobin A1c Today R73.01 - Impaired fasting glucose Medications: New menthol-thymol (Absorbine Jr. Original topical liniment) 1 appl topical BID-TID PRN 120 mL 0RF pain
--- OUTSIDE RECORDS SUMMARY | 2025-04-29 09:50 | XMS_ITS | Clinical Summary ---
Author Organization [facility] Address [address] [place] [address] Care Team Providers Care Club Steward Name Role Phone Unavailable Primary Care Provider [...]
== END 2025-04-29 16:53 | disposition home or self-care (01) ==
LOC: HO.HMCC 09:19
PROVIDERS: PCP Internal Medicine; Visit Provider Internal Medicine
DX: R73.01 Impaired fasting glucose (principal)

== ENCOUNTER → 2025-04-29 09:18 | Outpatient (BNVA) | payer MEDICARE, MEDICAID, SELFPAY | PROVIDERS: PCP Internal Medicine; Visit Provider Internal Medicine | DX: R73.01 Impaired fasting glucose (principal); E78.2 Mixed hyperlipidemia; I10 Essential (primary) hypertension; M25.541 Pain in joints of right hand; M25.542 Pain in joints of left hand | CPT/HCPCS: 83036; 99212 ==

== ENCOUNTER 2025-05-19 07:57 | Outpatient (REF) | payer MEDICARE, MEDICAID, SELFPAY ==
--- OUTSIDE RECORDS SUMMARY | 2025-05-19 08:05 | XMS_ITS | Clinical Summary ---
Author Organization [facility] Address [address] [place] [address] Care Team Providers Care Obstetrics And Gynecology Professor Name Role Phone Unavailable Primary Care Provider Unavailabl e Surgical History Surgery Date Site/Laterality Comments OTHER SURGICAL HISTORY PROCEDURE: ---- OTHER ----; COMMENT: R inguinal hernia COLONOSCOPY February PROCEDURE: HISTORICAL COLONOSCOPY; COMMENT: hemorrhoids; repeat in ten years ESOPHAGOGASTRODUODENOSCOPY 02/07/10 PROCEDURE: [place] ESOPHAGOGASTRODUODENOSCOPY TRANSORAL DIAGNOSTIC; COMMENT: Farias's esophagus and Schatzki ring; 50 F dilator passed; repeat in two yrs ESOPHAGOGASTRODUODENOSCOPY 04/09/12 PROCEDURE: MO EGD TRANSORAL BIOPSY SINGLE/MULTIPLE; COMMENT: Farias's esophagus and non-critical Schatzki ring; repeat in 3 yrs OTHER SURGICAL HISTORY 06/25/13 PROCEDURE: MO EGD BALLOON DILATION ESOPHAGUS <30 MM DIAM; COMMENT: Schatzki ring dilated to 54 F; Farias's esophagus (not biopsied) with erosions; HH ESOPHAGOGASTRODUODENOSCOPY 21/03/15 PROCEDURE: MO ESOPHAGOGASTRODUODENOSCOPY TRANSORAL DIAGNOSTIC; COMMENT: Farias's esophagus and [...] (2 - Td or Tdap) 11/10/2018 11/10/2008 Depression Screening 09/03/2024 COVID-19 Vaccine (1 - 2023-2 5 season) 2025 Influenza Vaccine (#1) 2025 RSV Immunization Adult [...]
== END 2025-05-19 07:58 | disposition home or self-care (01) ==
LOC: HO.SH 07:57
PROVIDERS: Visit Provider Internal Medicine
DX: Z01.118 Encounter for examination of ears and hearing with other abnormal findings (principal); H93.293 Other abnormal auditory perceptions, bilateral
CPT/HCPCS: 92557; 92567

== ENCOUNTER 2025-05-26 09:45 | Outpatient (AMB) | payer MEDICARE, MEDICAID, SELFPAY ==
--- NOTE | 2025-05-26 10:01 | A.OFFVIS_ITS ---
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 He has a cluster of veins on his left leg. Bilateral foot numbness. 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 Complaints include pain over varicosities, swelling of lower extremities, cramping, fatigue, and heaviness of the lower extremities. 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 It is noted more so in left leg. Of note he reports that he quit 3-1/2 weeks ago smoking prior to that he was smoking a proximally a half a pack per day Patient d reports that he had a prior ablation at [facility] over 7 years ago. Unclear what was done Patient denies any history of DVT/ PE. Patient denies any history of phlebitis. Trial of compression includes - [id number] They now present for vascular evaluation regarding their varicose veins. 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 Dysuria Acute otitis media Bipolar disorder Acute pharyngitis Nocturnal hypoxemia Obesity (BMI 30-39.9) History of pneumonia Central sleep apnea Complex sleep apnea syndrome Pneumonitis Atherosclerotic cardiovascular disease WILTON (obstructive sleep apnea) SILVA (nonalcoholic steatohepatitis) History of deep venous thrombosis (DVT) of distal vein of left lower extremity Skin cancer Depression Recurrent kidney stones Dyslipidemia Essential hypertension Central sleep apnea Reid-Demarco breathing disorder Hiatal hernia Degenerative joint disease of left knee Diastolic congestive heart failure STEMI (ST elevation myocardial infarction) CAD (coronary artery disease) Lesion of skin of face Farias's esophagus Chronic idiopathic constipation Surgical History Hx of colonoscopy History of total knee arthroplasty History of esophagogastroduodenoscopy (EGD) Family History Father Brain cancer Lung cancer Substance use disorder Mother Emphysema, unspecified Substance use disorder Mental health disorder Social History Household Members: Children Housing: Apartment Are you a primary care management associate to a significant other at home: No Do you presently have visiting nurse or other home services: No Alcohol intake: former Comment: 1 pint vodka/24 hrs Patient Tobacco Use Status: Current someday Tobacco user Tobacco use type: Cigarette Cigarette Packs Per Day: 1 Cigarettes Per Day: 20.0 Years Smoked: 40 e-Cigarette/Vaping Use: Never Used Second Hand Smoke Exposure: No service: No Current occupational status: unemployed Sexual orientation: Straight/Heterosexual Gender identity: Male Cognitive needs: Yes (Memory Changes) Hearing needs: No Vision needs: Yes Review of Systems Const Reports as per HPI ENT Reports no additional complaints Card Denies chest pain, Denies chest pain at rest and Denies chest pain with activity Resp Denies chest congestion and Denies cough GI Reports no additional complaints Musc Details: pain over varicosities, aching of lower extremities, swelling, cramping, heaviness and tiredness, itching Denies abnormal gait Skin/Breast Reports pruritus and Denies wounds Neuro Reports no additional complaints and Denies abnormal gait Psych Denies no additional complaints Physical Exam Const General: cooperative, healthy appearing and comfortable Orientation/consciousness: oriented to person, oriented to place and oriented to time Neck Carotids: no bruits Chest Chest palpation & inspection: normal inspection of the chest and normal palpation of entire chest wall Resp Effort & Inspection: normal respiratory effort and able to speak in complete sentences Cardio Rate: regular rate Heart sounds: S1 normal heart sound present and S2 normal heart sound present Peripheral pulses: Peripheral pulses 2+ throughout GI Inspection: Yes normal to inspection Skin Other: +2 edema, large rope-like varicosities greater than 4 mm left pretibial surface and groin CEAP Classification C4 - skin color changes Ep - Etiology Primary As - superficial veins P - reflux General skin exam: dry skin Neuro General: oriented to person, oriented to place and oriented to time Extrem Right lower extremity: full ROM, normal capillary refill and edema Left lower extremity: full ROM, normal capillary refill and edema Psych Mental Status: mental status grossly normal Assessment & Plan Assessment & Plan (1) Varicose veins of left lower extremity with inflammation: Code(s): I83.12 - Varicose veins of left lower extremity with inflammation Category: Medical Plan: In short, the patient has evidence of venous insufficiency. I have discussed the pathophysiology with the patient. In addition I have provided informational material regarding venous disease to the patient. We have discussed conservative measures including compression, elevation, and exercise. I have also provided a handout regarding appropriate use of compression stockings and where to purchase good compression stockings as well. I have taken the liberty of ordering venous insufficiency testing with the patient. They will follow up with me after testing. The patient had an opportunity to ask questions regarding the treatment plan. All questions were answered. Imaging studies, laboratory studies and physical exam results were discussed and reviewed in detail. No major barriers to understanding were identified. The patient expressed understanding and agreement with the above treatment plan. The patient is aware they should contact our office by phone for worsening of the current condition or the appearance of new symptoms. Thank you for allowing me to participate in the [facility] care of this patient. If you have any questions or concerns regarding the treatment for the above condition please do not hesitate to contact me. The office telephone contact is [phone]. This note is constructed using voice recognition software. While every effort has been made to ensure accuracy, events traffic controller errors may have been included. Thank you for allowing me to participate in the care of your patient. Yours sincerely, Lance Rodriguez MD, FACS, R.P.V.I. Orders: Orders US venous duplex LE BI Today I83.12 - Varicose veins of left lower extremity with inflammation Coding Level of Care Code New Pt Level 4 (19027) Diagnoses Varicose veins of left lower extremity with inflammation I83.12
--- OUTSIDE RECORDS SUMMARY | 2025-05-26 11:41 | XMS_ITS | Clinical Summary ---
Author Organization [facility] Address [address] [place] [address] Care Team Providers Care Machine Inspector Name Role Phone Unavailable Primary Care [...] Date Smoking Tobacco: Every Day Cigarettes 0.5 43.5 Started: 1981 Smokeless Tobacco: Never Alcohol Use [...]
== END 2025-05-26 10:53 | disposition home or self-care (01) ==
LOC: HO.HVS 09:46
PROVIDERS: PCP Internal Medicine; Visit Provider Surgery Vascular Surgery
DX: I83.12 Varicose veins of left lower extremity with inflammation (principal)
CPT/HCPCS: 99204

== ENCOUNTER → 2025-05-26 09:45 | Outpatient (BNVA) | payer MEDICARE, MEDICAID, SELFPAY | PROVIDERS: PCP Internal Medicine; Visit Provider Surgery Vascular Surgery | DX: I83.12 Varicose veins of left lower extremity with inflammation (principal) | CPT/HCPCS: 99202 ==

== ENCOUNTER 2025-06-24 08:07 | Outpatient (REF) | payer MEDICARE, MEDICAID, SELFPAY ==
--- NOTE | ~2025-06-24 | US_ITS ---
EXAMINATION: US LOWER EXTREMITY VENOUS (REFLUX EXAM), BILATERAL CLINICAL INFORMATION: Prior surgery left lower extremity. COMPARISON: None. TECHNIQUE: Color flow triplex imaging and compression Doppler was performed to evaluate both the deep and the superficial systems bilaterally. To evaluate the superficial system, the examination was performed in the upright position. Color-flow Doppler ultrasound and compression ultrasound were utilized. In addition, maneuvers were utilized to demonstrate reflux. FINDINGS: 1. DEEP VENOUS ULTRASOUND OF THE RIGHT LOWER EXTREMITY: Common Femoral Vein: Compressible, normal respiratory variation and augmented flow. Femoral Vein: Compressible, normal color flow and augmentation. Popliteal Vein: Compressible, normal augmentation. Deep Reflux: There is no evidence of reflux in the deep system in either the common femoral vein, superficial femoral or the popliteal vein. There is no evidence of a Gooden's cyst. 2. SUPERFICIAL ULTRASOUND WITH DOPPLER OF RIGHT LOWER EXTREMITY: GREAT SAPHENOUS VEIN: Saphenofemoral Junction: 0.6 cm; Reflux: 0 ms Proximal Thigh: 0.5 cm; Reflux: 0 ms Mid Thigh: 0.4 cm; Reflux: 0 ms Distal Thigh: 0.3 cm; Reflux: 0 ms At Knee: 0.3 cm; Reflux: 0 ms Proximal Calf: 0.3 cm; Reflux: 0 ms Mid Calf: 0.4 cm; Reflux: 0 ms Distal Calf: 0.4 cm; Reflux: 0 ms DUPLICATED MEDIAL GREAT SAPHENOUS VEIN: Diameter: 0.3 cm. Reflux: NA DUPLICATED LATERAL GREAT SAPHENOUS VEIN: Diameter: None imaged Reflux: NA SMALL SAPHENOUS VEIN: Saphenopopliteal Junction: 0.15 cm; Reflux: 0 ms Proximal: 0.2 cm; Reflux: 0 ms Distal: 0.2 cm; Reflux: 0 ms VEIN OF GIACOMINI: Size: NA Reflux: NA PERFORATORS: Location: Proximal, Mid and distal calf. Size: 0.2-0.4 cm. Reflux: NA VARICOSITIES: Location: None imaged. Size: NA Reflux: NA 3. DEEP VENOUS ULTRASOUND OF THE LEFT LOWER EXTREMITY: Common Femoral Vein: Compressible, normal respiratory variation and augmented flow. Femoral Vein: Compressible, normal color flow and augmentation. Popliteal Vein: Compressible, normal augmentation. Deep Reflux: There is no evidence of reflux in the deep system in either the common femoral vein, superficial femoral or the popliteal vein. There is no evidence of a Gooden's cyst. 4. SUPERFICIAL ULTRASOUND WITH DOPPLER OF LEFT LOWER EXTREMITY: GREAT SAPHENOUS VEIN: Saphenofemoral Junction: 0.8 cm; Reflux: 0 ms Proximal Thigh: 0.7 cm; Reflux: 2480 ms Mid Thigh: 0.5 cm; Reflux: 2144 ms Distal Thigh: 0.7 cm; Reflux: 2532 ms At Knee: 0.5 cm; Reflux: 2224 ms Proximal Calf: 0.4 cm; Reflux: 0 ms Mid Calf: 0.2 cm; Reflux: 0 ms Distal Calf: 0.4 cm; Reflux: 408 ms DUPLICATED MEDIAL GREAT SAPHENOUS VEIN: Diameter: 0.7 cm Reflux: NA DUPLICATED LATERAL GREAT SAPHENOUS VEIN: Diameter: None imaged. Reflux: NA SMALL SAPHENOUS VEIN: Saphenopopliteal Junction: 0.3 cm; Reflux: 0 ms Proximal: 0.3 cm; Reflux: 0 ms Distal: 0.3 cm; Reflux: 0 ms VEIN OF GIACOMINI: Size: NA Reflux: NA PERFORATORS: Location: Proximal, mid and distal calf and at the knee. Size: 0.3 cm. Reflux: NA VARICOSITIES: Location: Proximal thigh, proximal calf and at the knee. Size: 0.3-0.4 cm. Reflux: 2452 ms in the proximal thigh. 2020 ms at the knee. 952 ms in the proximal calf. US/US venous insuf bilat IMPRESSION: Right: No venous insufficiency. Perforators without reflux. Left: Venous insufficiency, great saphenous vein from the proximal thigh to the ankle. Varices with reflux in the proximal thigh, at the knee and proximal calf. Perforators without reflux. Electronically signed by: Marlon Rodriguez MD 06/24/2025 09:46 AM EDT
--- OUTSIDE RECORDS SUMMARY | 2025-06-24 08:12 | XMS_ITS | Clinical Summary ---
Author Organization [facility] Address [address] [place] [address] Care Team Providers Care Family Law Legal Assistant Name Role Phone Unavailable Primary Care Provider Unavailabl e Surgical History Surgery Date Site/Laterality Comments OTHER SURGICAL HISTORY PROCEDURE: ---- OTHER ----; COMMENT: R inguinal hernia COLONOSCOPY February PROCEDURE: HISTORICAL COLONOSCOPY; COMMENT: hemorrhoids; repeat in ten years ESOPHAGOGASTRODUODENOSCOPY 02/07/10 PROCEDURE: [place] ESOPHAGOGASTRODUODENOSCOPY TRANSORAL DIAGNOSTIC; COMMENT: Farias's esophagus and Schatzki ring; 50 F dilator passed; repeat in two yrs ESOPHAGOGASTRODUODENOSCOPY 04/09/12 PROCEDURE: [place] EGD TRANSORAL BIOPSY SINGLE/MULTIPLE; COMMENT: Farias's esophagus and non-critical Schatzki ring; repeat in 3 yrs OTHER SURGICAL HISTORY 06/25/13 PROCEDURE: [place] EGD BALLOON DILATION ESOPHAGUS <30 MM DIAM; COMMENT: Schatzki ring dilated to 54 F; Farias's esophagus (not biopsied) with erosions; HH ESOPHAGOGASTRODUODENOSCOPY 21/03/15 PROCEDURE: [place] ESOPHAGOGASTRODUODENOSCOPY TRANSORAL DIAGNOSTIC; COMMENT: Farias's esophagus and [...]
== END 2025-06-24 08:08 | disposition home or self-care (01) ==
LOC: HO.US 08:07
PROVIDERS: PCP Internal Medicine; Visit Provider Surgery Vascular Surgery
DX: I83.12 Varicose veins of left lower extremity with inflammation (principal)
CPT/HCPCS: 93970

== ENCOUNTER → 2025-06-24 08:23 | Outpatient (BNV) | payer MEDICARE, MEDICAID, SELFPAY | PROVIDERS: PCP Internal Medicine; Visit Provider Radiology Diagnostic Radiology | DX: I83.12 Varicose veins of left lower extremity with inflammation (principal) | CPT/HCPCS: 93970 ==

== ENCOUNTER 2025-07-01 08:23 | Outpatient (AMB) | payer MEDICARE, MEDICAID, SELFPAY ==
--- NOTE | 2025-07-01 08:34 | A.OFFVIS_ITS ---
Intake Visit Reasons: Urinary incontinence Intake Note: Patient is present for URINARY INCONTINENCE Urology Medication:NONE Antibiotic Allergy:NONE Blood Thinner:ASPIRIN TODAY'S PVR:0ML'S Education General Manager Required: No Allergies No Known Allergies (No Known Allergies*) Allergy (Verified 07/01/25 08:34) HPI Comments Details: Jeyson is a very pleasant 59-year-old male patient of [facility]. He has a past medical history of mixed dyslipidemia, bipolar disorder, obesity, central sleep apnea, complex sleep apnea syndrome, ACD, WILTON, SILVA, DVT, skin cancer, depression, nephrolithiasis, hypertension, diastolic congestive heart failure, NSTEMI, coronary artery disease, chronic idiopathic constipation,and Farias's esophagus. He presents to the office today as a new patient for ongoing lower urinary tract symptoms (urinary frequency and nocturia) and erectile dysfunction. In discussion with the patient today he reports lower urinary tract symptoms have been present for 1-2 years however feels they are worsening. He also reports erectile dysfunction. He is able to obtain erections at times however they are not adequate for penetration. When asked he does report a history of sleep apnea however does not have a sleep apnea machine. He reports he is scheduled to follow-up with sleep medicine/Neurology later today. We did discuss importance of compliance with CPAP/Bipap in relation to urological health as well as overall health and well-being. In office urinalysis results reviewed with the patient today. PVR 0 mL. We did discuss proteinuria. 2+ noted on urinalysis today. He denies any previous history of Nephrology referral. In review of patient's chart it appears 03/27 0.5. He denies hematuria, dysuria, foul smelling urine, changes to urinary stream, flank pain, fever, and or chills. We did discussed potential causes of these urological conditions and further intervention. We discussed risks and benefits of these interventions. All questions were answered. He otherwise offers no other issues or concerns at this time. History of Present Illness The patient is a 59-year-old male presenting with frequent urination and suspected enlarged prostate. He reports frequent urination both during the day and night, with nocturia occurring at least three times per night, progressively worsening over the past 1-2 years. The patient also reports erectile dysfunction, which has been a concern for over a year, without any specific treatment. He has a history of kidney stones, treated with a procedure likely involving ureteroscopy, and does not currently see a mainstreaming facilitator. Proteinuria was noted in the urine sample, potentially related to borderline diabetes or hypertension. The patient acknowledges being borderline diabetic. He experienced a major myocardial infarction five years ago and is on heart medication and blood thinners. The patient reports symptoms of sleep apnea but does not have a CPAP machine, and a sleep study was ordered many years ago however never completed. 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 Dysuria Acute otitis media Bipolar disorder Acute pharyngitis Nocturnal hypoxemia Obesity (BMI 30-39.9) History of pneumonia Central sleep apnea Complex sleep apnea syndrome Pneumonitis Atherosclerotic cardiovascular disease WILTON (obstructive sleep apnea) SILVA (nonalcoholic steatohepatitis) History of deep venous thrombosis (DVT) of distal vein of left lower extremity Skin cancer Depression Recurrent kidney stones Dyslipidemia Essential hypertension Central sleep apnea Reid-Demarco breathing disorder Hiatal hernia Degenerative joint disease of left knee Diastolic congestive heart failure STEMI (ST elevation myocardial infarction) CAD (coronary artery disease) Lesion of skin of face Farias's esophagus Chronic idiopathic constipation Surgical History Hx of colonoscopy History of total knee arthroplasty History of esophagogastroduodenoscopy (EGD) Family History Father Brain cancer Lung cancer Substance use disorder Mother Emphysema, unspecified Substance use disorder Mental health disorder Social History Household Members: Children Housing: Apartment Are you a primary healthcare technician to a significant other at home: No Do you presently have visiting nurse or other home services: No Alcohol intake: former Comment: 1 pint vodka/24 hrs Patient Tobacco Use Status: Current someday Tobacco user Tobacco use type: Cigarette Cigarette Packs Per Day: 1 Cigarettes Per Day: 20.0 Years Smoked: 40 e-Cigarette/Vaping Use: Never Used Second Hand Smoke Exposure: No service: No Current occupational status: unemployed Sexual orientation: Straight/Heterosexual Gender identity: Male Cognitive needs: Yes (Memory Changes) Hearing needs: No Vision needs: Yes Review of Systems Const All systems reviewed & are unremarkable except as noted in HPI and below Physical Exam Const General: cooperative, healthy appearing, comfortable, no acute distress, well developed, alert and awake Orientation/consciousness: patient oriented x3 Limitations: no limitations HEENT Head: Yes normal to inspection, Yes normocephalic and Yes atraumatic Ears: hearing grossly normal bilaterally Eyes General: appearance normal, both eyes and all related structures Neck Neck: Yes normal visual inspection and Yes trachea midline Chest Chest palpation & inspection: normal inspection of the chest Resp Effort & Inspection: normal respiratory effort and able to speak in complete sentences Cardio Rate: regular rate GI Inspection: Yes normal to inspection General: Yes no CVA tenderness Back/Spine/Pelvis Back: no CVA tenderness Skin General skin exam: no rashes or lesions noted Neuro General: patient oriented x3 Extrem General: Yes normal to inspection Psych Appearance: grossly normal and well kempt Mental Status: mental status grossly normal Speech and movement: Normal speech and movement present and Clear speech present Affect: normal affect Attitude: cooperative Thought process: Normal thought process present Thought content: Normal thought content present Insight: Fair insight present (Psych) Judgement: Fair judgement present (Psych) Office Procedures Post Void Residual Post Residual Void Post Void Residual (PVR): 0 [id number]-[id number] Void Residual by ultrasound Results AMB Urinalysis, Automated UA Leukoctes 0 Jeanne/uL Last Edit by MILES Blanchard on 07/01/25 08:49 UA Nitrite Negative Last Edit by MILES Blanchard on 07/01/25 08:49 UA Urobilinogen 0.2 mg/dL Last Edit by MILES Blanchard on 07/01/25 08:4 9 UA Protein 100 mg/dL Last Edit by MILES Blanchard on 07/01/25 08:49 UA pH 6.0 Last Edit by MILES Blanchard on 07/01/25 08:49 UA Blood 0 Vikas/uL Last Edit by MILES Blanchadr on 07/01/25 08:49 UA Specific [place] 1.030 Last Edit by MILES Blanchard on 07/01/25 08: 49 UA Ketone Negative Last Edit by MILES Blanchard on 07/01/25 08:49 UA Bilirubin 0 mg/dL Last Edit by MILES Blanchard on 07/01/25 08:49 UA Glucose 100 mg/dL Last Edit by MILES Blanchard on 07/01/25 08:49 Results Reviewed Results Reviewed: Laboratory Last Values Urine pH (Auto) 6.0 07/01/25 08:48 Specific [place] (Auto) 1.030 07/01/25 08:48 Urine Protein (Auto) 100 mg/dL 07/01/25 08:48 Glucose (UA)(Auto) 100 mg/dL 07/01/25 08:48 Urine Ketones (Auto) Negative 07/01/25 08:48 Urine Blood (Auto) 0 Vikas/uL 07/01/25 08:48 Urine Nitrite (Auto) Negative 07/01/25 08:48 Urine Bilirubin (Auto) 0 mg/dL 07/01/25 08:48 Urine Urobilinogen (Auto) 0.2 mg/dL 07/01/25 08:48 Leukocyte Esterase (Auto) 0 Jeanne/uL 07/01/25 08:48 Assessment & Plan Assessment & Plan (1) Proteinuria: Code(s): R80.9 - Proteinuria, unspecified Category: Medical (2) Urinary frequency: Code(s): R35.0 - Frequency of micturition Category: Medical (3) Nocturia: Code(s): R35.1 - Nocturia Category: Medical (4) Erectile dysfunction: Code(s): N52.9 - Male erectile dysfunction, unspecified Category: Medical Plan In office urinalysis results reviewed the patient today; as noted above. Will refer to Nephrology for further assessment evaluation of proteinuria. Patient with upcoming appointment with neurology and sleep medicine will discuss sleep study at this appointment per patient. We did discussed the importance of limiting fluids 2-3 hours prior to bed to decrease episodes of nocturia. We also discussed lifestyle modifications to assist with ED as well as lower urinary tract symptoms. We did discussed further treatment options of these urological conditions as well as ED and risks and benefits of these interventions. ANTWON was offered however deferred. Will obtain retroperitoneal ultrasound for further assessment evaluation. All questions were answered. Follow-up in 1-3 months with imaging and PVR; or sooner with any issues, concerns, and or questions Orders: Orders AMB Urinalysis Automated Today Z13.9 - Encounter for screening, unspecified US retroperitoneal comp Today R35.0 - Frequency of micturition, R35.1 - Nocturia, R80.9 - Proteinuria, unspecified Referrals Nephrology Referral R80.9 - Proteinuria, unspecified Patient Instructions: The patient had an opportunity to ask questions regarding the treatment plan. All questions were answered. Physical exam, labs, and imaging were discussed and reviewed in detail. As well as risks, benefits, and discussion of treatment choices. No major barriers to understanding were identified. The patient expressed understanding and agreement with the above treatment plan. The patient was made aware they should contact our office by phone for worsening of their current condition, the appearance of new symptoms, or with any questions or concerns. Compliance is encouraged with any medications and follow up testing that is ordered. It is a privilege to be allowed the opportunity to participate in? your urological care.? Again, if you have any questions or concerns If you have any questions or concerns please do not hesitate to contact me. The office is [phone]. This note is constructed using voice recognition software. While every effort has been made to ensure accuracy manager knowledge errors may have been included. Yours sincerely, PARVEEN Lieberman Coding Level of Care Code New Pt Level 4 (85693) Diagnoses Proteinuria R80.9 Urinary frequency R35.0 Nocturia R35.1 Erectile dysfunction N52.9 CPT Codes Post Residual Void - PVR CPT Code: 46802-[id number] Void Residual by ultrasound ([id number]) Time Spent (min) 40
--- OUTSIDE RECORDS SUMMARY | 2025-07-01 08:50 | XMS_ITS | Clinical Summary ---
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
== END 2025-07-01 09:19 | disposition home or self-care (01) ==
LOC: HO.HUSH 08:24
PROVIDERS: PCP Internal Medicine; Visit Provider Nurse Practitioner Family
DX: R80.9 Proteinuria, unspecified (principal); R35.0 Frequency of micturition; R35.1 Nocturia; N52.9 Male erectile dysfunction, unspecified; Z13.9 Encounter for screening, unspecified
CPT/HCPCS: 99204

== ENCOUNTER 2025-07-01 08:23 | Outpatient (REF) | payer MEDICARE, MEDICAID, SELFPAY ==
[2025-07-01 12:50] LABS: Thyroid Stimulating Hormone 2.05 uIU/mL (0.32-4.0)
[2025-07-01 12:51] LABS: Folate 5.3 ng/mL (> or = 4.0); Vitamin B12 381 pg/mL (200-900)
== END 2025-07-01 08:24 | disposition home or self-care (01) ==
LOC: HO.LAB 08:23
PROVIDERS: Psychiatry & Neurology Neurology; PCP Internal Medicine; Visit Provider Nurse Practitioner Family
DX: G47.33 Obstructive sleep apnea (adult) (pediatric) (principal); G31.84 Mild cognitive impairment of uncertain or unknown etiology; R80.9 Proteinuria, unspecified; R35.0 Frequency of micturition; R35.1 Nocturia; N52.9 Male erectile dysfunction, unspecified; Z79.82 Long term (current) use of aspirin
CPT/HCPCS: 36415; 51798; 81003; 82607; 82746; 84443; 99202

== ENCOUNTER 2025-07-01 09:31 | Outpatient (AMB) | payer MEDICARE, MEDICAID, SELFPAY ==
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
== END 2025-07-01 10:35 | disposition home or self-care (01) ==
LOC: HO.HSM 09:32
PROVIDERS: PCP Internal Medicine; Visit Provider Psychiatry & Neurology Neurology
DX: G47.33 Obstructive sleep apnea (adult) (pediatric) (principal); G31.84 Mild cognitive impairment of uncertain or unknown etiology
CPT/HCPCS: 99204

== ENCOUNTER 2025-07-15 10:59 | Outpatient (AMB) | payer MEDICARE, MEDICAID, SELFPAY ==
--- NOTE | 2025-07-15 11:01 | HO.NEPHOV ---
Vital Signs 07/15/25 11:08 Height 5 ft 4 in Weight 164 lb 4 oz BMI 28.2 BP 110/60 Blood Pressure Location Lt brachial Position Sitting Pulse 63 Pulse Source Pulse Oximeter Pulse Oximetry (%) 97 Oxygen Delivery Method Room Air Intake Visit Reasons: INP: Proteinuria-Conf Nsh Teacher Required: No Accompanied by: Self / Same As Patient Allergies No Known Allergies (No Known Allergies*) Allergy (Verified 07/15/25 11:10) HPI Comments Details: Carlin is a 59-year-old male whom I had the privilege of seeing in consultation for proteinuria on a backdrop of hypertension. He was diagnosed with hypertension for sometime . He is on amlodipine 5 mg daily, lisinopril 5 mg once a day as well as clonidine 0.2 mg 1 tablet twice a day which is helping his BP as well as bipolar disorder. He has a fasting glucose level of 121 mg/dL with a A1c of 5.8%. He has no edema or hematuria. His renal functions are normal. He has H/O renal calculus as well as WILTON. He has no hearing deficits. He has no H/O epistaxis, skin rashes, photosensitivity, CVA, CHF, SAMUEL, PAD or known carotid stenosis. He had CAD and underwent PCI and stenting 5 years ago. He has H/O dyslipidemia. He denies new back/bone pain, H/O para proteinemia, hypercalcemia or renal dysfunction in his family. 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 Dysuria Acute otitis media Bipolar disorder Acute pharyngitis Nocturnal hypoxemia Obesity (BMI 30-39.9) History of pneumonia Central sleep apnea Complex sleep apnea syndrome Pneumonitis Atherosclerotic cardiovascular disease WILTON (obstructive sleep apnea) SILVA (nonalcoholic steatohepatitis) History of deep venous thrombosis (DVT) of distal vein of left lower extremity Skin cancer Depression Recurrent kidney stones Dyslipidemia Essential hypertension Central sleep apnea Reid-Demarco breathing disorder Hiatal hernia Degenerative joint disease of left knee Diastolic congestive heart failure STEMI (ST elevation myocardial infarction) CAD (coronary artery disease) Lesion of skin of face Farias's esophagus Chronic idiopathic constipation Surgical History Hx of colonoscopy History of total knee arthroplasty History of esophagogastroduodenoscopy (EGD) Family History Father Brain cancer Lung cancer Substance use disorder Mother Emphysema, unspecified Substance use disorder Mental health disorder Social History Household Members: Children Housing: Apartment Are you a primary child care education coordinator to a significant other at home: No Do you presently have visiting nurse or other home services: No Alcohol intake: former Comment: 1 pint vodka/24 hrs Patient Tobacco Use Status: Current someday Tobacco user Tobacco use type: Cigarette Cigarette Packs Per Day: 1 Cigarettes Per Day: 20.0 Years Smoked: 40 e-Cigarette/Vaping Use: Never Used Second Hand Smoke Exposure: No service: No Current occupational status: unemployed Sexual orientation: Straight/Heterosexual Gender identity: Male Cognitive needs: Yes (Memory Changes) Hearing needs: No Vision needs: Yes Review of Systems Const All systems reviewed & are unremarkable except as noted in HPI and below Physical Exam Const General: comfortable and no acute distress Orientation/consciousness: patient oriented x3 HEENT Head: Yes normocephalic Mouth: Normal oral and palatal mucosa present Eyes EOM: EOMs intact bilaterally Neck Neck: Yes supple Resp Auscultation: clear to auscultation bilaterally Cardio Jugular venous distension: no JVD Rate: regular rate GI Palpation (GI): Soft to palpation Auscultation: normal bowel sounds General: Yes no CVA tenderness Back/Spine/Pelvis Back: no CVA tenderness Skin General skin exam: no rashes or lesions noted Neuro General: patient oriented x3 and moves all extremities Extrem General: Yes no pedal edema Results Reviewed Nephrology Results: Hgb, (14.0-18.0) 14.9 g/dl 04/22/25 WBC, (4.8-10.8) 7.5 X10*3/uL 04/22/25 Plt Count, (160-400) 130 X10*3/uL L 04/22/25 Sodium, (135-145) 142 mmol/L 04/22/25 Potassium, (3.3-5.1) 3.8 mmol/L 04/22/25 Chloride, (96-108) 108 mmol/L 04/22/25 Carbon Dioxide, (22-29) 24 mmol/L 04/22/25 BUN, (9-16) 15 mg/dL 04/22/25 Creatinine, (0.5-1.4) 0.80 mg/dL 04/22/25 Calcium, (8.4-10.2) 9.4 mg/dL 04/22/25 Urine Protein, (Neg-Trace) 30 (1+) mg/dL H 04/22/25 Assessment & Plan Assessment & Plan (1) Essential hypertension: Code(s): I10 - Essential (primary) hypertension Category: Medical (2) Proteinuria: Code(s): R80.9 - Proteinuria, unspecified Category: Medical Qualifiers: Proteinuria type: other Qualified Code(s): R80.8 - Other proteinuria (3) Recurrent kidney stones: Code(s): N20.0 - Calculus of kidney Category: Medical Plan Low sodium diet & continued life style modifications 24 hour urine for protein along with labs ordered Will be a candidate for HCTZ; Shall increase ACEI with time When the above will be done, shall discontinue Amlodipine Good hydration and minimize NSAID's; Ordered renal doppler Renal USS pending as ordered by Urology Answered all questions and F/U given Orders: Orders US renal doppler 2 Weeks I10 - Essential (primary) hypertension Protein, 24 Hr Urine Group 3 Weeks I10 - Essential (primary) hypertension, N20.0 - Calculus of kidney, R80.8 - Other proteinuria Myeloperoxidase Antibody 3 Weeks I10 - Essential (primary) hypertension, N20.0 - Calculus of kidney, R80.8 - Other proteinuria Proteinase 3 PR3 Antibodies 3 Weeks I10 - Essential (primary) hypertension, N20.0 - Calculus of kidney, R80.8 - Other proteinuria Phospholipase A2 Receptor Pnl 3 Weeks I10 - Essential (primary) hypertension, N20.0 - Calculus of kidney, R80.8 - Other proteinuria Immunofixation, Random Urine 3 Weeks I10 - Essential (primary) hypertension, N20.0 - Calculus of kidney, R80.8 - Other proteinuria UA and rflx microscopic 3 Weeks I10 - Essential (primary) hypertension, N20.0 - Calculus of kidney, R80.8 - Other proteinuria Immunofixation Pnl, Serum 3 Weeks I10 - Essential (primary) hypertension, N20.0 - Calculus of kidney, R80.8 - Other proteinuria Protein Creatinine Ratio, Ur 3 Weeks I10 - Essential (primary) hypertension, N20.0 - Calculus of kidney, R80.8 - Other proteinuria Coding Level of Care Code New Pt Level 4 (07530) Diagnoses Essential hypertension I10 Other proteinuria R80.8 Proteinuria type: other Recurrent kidney stones N20.0
[2025-07-15 11:08] VITALS: BP 110/60; PULSE 63; O2SAT 97; BMI 28.2
--- OUTSIDE RECORDS SUMMARY | 2025-07-15 13:33 | XMS_ITS | Clinical Summary ---
Author Organization [facility] Address [address] [place] [address] Care Team Providers Care Processing Spec Name Role Phone Unavailable Primary Care Provider Unavailabl e Surgical History Surgery Date Site/Laterality Comments OTHER SURGICAL HISTORY PROCEDURE: ---- OTHER ----; COMMENT: R inguinal hernia COLONOSCOPY February PROCEDURE: HISTORICAL COLONOSCOPY; COMMENT: hemorrhoids; repeat in ten years ESOPHAGOGASTRODUODENOSCOPY 02/07/10 PROCEDURE: MD ESOPHAGOGASTRODUODENOSCOPY TRANSORAL DIAGNOSTIC; COMMENT: Farias's esophagus and Schatzki ring; 50 F dilator passed; repeat in two yrs ESOPHAGOGASTRODUODENOSCOPY 04/09/12 PROCEDURE: MD EGD TRANSORAL BIOPSY SINGLE/MULTIPLE; COMMENT: Farias's esophagus and non-critical Schatzki ring; repeat in 3 yrs OTHER SURGICAL HISTORY 06/25/13 PROCEDURE: MD EGD BALLOON DILATION ESOPHAGUS <30 MM DIAM; COMMENT: Schatzki ring dilated to 54 F; Farias's esophagus (not biopsied) with erosions; HH ESOPHAGOGASTRODUODENOSCOPY 21/03/15 PROCEDURE: MD ESOPHAGOGASTRODUODENOSCOPY TRANSORAL DIAGNOSTIC; COMMENT: Farias's esophagus and [...] Depression Screening 09/03/2024 COVID-19 Vaccine (1 - 2024-2 6 season) 2025 Influenza Vaccine (#1) 2025 RSV [...]
== END 2025-07-15 11:33 | disposition home or self-care (01) ==
LOC: HO.HKA 11:00
PROVIDERS: PCP Internal Medicine; Referring Provider Nurse Practitioner Family; Visit Provider Internal Medicine Nephrology
DX: I10 Essential (primary) hypertension (principal); R80.8 Other proteinuria; N20.0 Calculus of kidney
CPT/HCPCS: 99204

== ENCOUNTER → 2025-07-15 10:59 | Outpatient (BNVA) | payer MEDICARE, MEDICAID, SELFPAY | PROVIDERS: PCP Internal Medicine; Referring Provider Nurse Practitioner Family; Visit Provider Internal Medicine Nephrology | DX: I10 Essential (primary) hypertension (principal); N20.0 Calculus of kidney; R80.8 Other proteinuria; Z72.0 Tobacco use | CPT/HCPCS: 99202 ==

== ENCOUNTER 2025-07-20 08:00 | Outpatient (REF) | payer MEDICARE, MEDICAID, SELFPAY ==
[2025-07-20 10:15] LABS: Creatinine, mg/dL 201.88
[2025-07-20 10:27] LABS: Total Volume 24 Hour Urine 675 mL
== END 2025-07-20 08:01 | disposition home or self-care (01) ==
LOC: HO.LNP 08:00
PROVIDERS: Visit Provider Internal Medicine Nephrology
DX: I10 Essential (primary) hypertension (principal); R80.8 Other proteinuria; N20.0 Calculus of kidney
CPT/HCPCS: 84156

== ENCOUNTER 2025-07-23 09:29 | Outpatient (AMB) | payer MEDICARE, MEDICAID, SELFPAY ==
--- NOTE | 2025-07-23 10:02 | MHC.OFFVIS ---
Intake Visit Reasons: follow up US 06/24/25 Intake Note: Patient presents for follow up US, performed on 06/24/25. Patient has been experiencing bilateral foot numbness, has been going on for about a month. Accompanied by: Self / Same As Patient Allergies No Known Allergies (No Known Allergies*) Allergy (Verified 07/23/25 10:05) HPI HPI follow up US 06/24/25: Details: The patient is a 59 year old individual presenting for a follow-up visit for venous insufficiency. The patient reports the right leg is more bothersome at this time, whereas the left leg was the primary concern during a previous visit. A procedure was performed on the left leg many years ago at [facility], which the patient recalls being a laser treatment. Current symptoms include a burning sensation in the right leg and numbness in both feet. The numbness is thought to potentially be a nerve issue related to the patient's standing job. The patient's past medical history is significant for a myocardial infarction. The patient reports being borderline diabetic or prediabetic and acknowledges poor dietary habits. He notes significant swelling in the left lower extremity. 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 Dysuria Acute otitis media Bipolar disorder Acute pharyngitis Nocturnal hypoxemia Obesity (BMI 30-39.9) History of pneumonia Central sleep apnea Complex sleep apnea syndrome Pneumonitis Atherosclerotic cardiovascular disease WILTON (obstructive sleep apnea) SILVA (nonalcoholic steatohepatitis) History of deep venous thrombosis (DVT) of distal vein of left lower extremity Skin cancer Depression Recurrent kidney stones Dyslipidemia Essential hypertension Central sleep apnea Reid-Demarco breathing disorder Hiatal hernia Degenerative joint disease of left knee Diastolic congestive heart failure STEMI (ST elevation myocardial infarction) CAD (coronary artery disease) Lesion of skin of face Farias's esophagus Chronic idiopathic constipation Surgical History Hx of colonoscopy History of total knee arthroplasty History of esophagogastroduodenoscopy (EGD) Family History Father Brain cancer Lung cancer Substance use disorder Mother Emphysema, unspecified Substance use disorder Mental health disorder Social History Household Members: Children Housing: Apartment Are you a primary career development director to a significant other at home: No Do you presently have visiting nurse or other home services: No Alcohol intake: current Alcohol intake frequency: 3 or more drinks per day Alcohol type: hard liquor Comment: 1 pint vodka/24 hrs Patient Tobacco Use Status: Former Tobacco user Tobacco use type: Cigarette Cigarette Packs Per Day: 1 Cigarettes Per Day: 20.0 Years Smoked: 40 e-Cigarette/Vaping Use: Never Used Second Hand Smoke Exposure: No service: No Current occupational status: unemployed Sexual orientation: Straight/Heterosexual Gender identity: Male Cognitive needs: Yes (Memory Changes) Hearing needs: No Vision needs: Yes Review of Systems Const Reports as per HPI ENT Reports no additional complaints Card Denies chest pain, Denies chest pain at rest and Denies chest pain with activity Resp Denies chest congestion and Denies cough GI Reports no additional complaints Musc Details: pain over varicosities, aching of lower extremities, swelling, cramping, heaviness and tiredness, itching Denies abnormal gait Skin/Breast Reports pruritus and Denies wounds Neuro Reports no additional complaints and Denies abnormal gait Psych Denies no additional complaints Physical Exam Const General: cooperative, healthy appearing and comfortable Orientation/consciousness: oriented to person, oriented to place and oriented to time Neck Carotids: no bruits Chest Chest palpation & inspection: normal inspection of the chest and normal palpation of entire chest wall Resp Effort & Inspection: normal respiratory effort and able to speak in complete sentences Cardio Rate: regular rate Heart sounds: S1 normal heart sound present and S2 normal heart sound present Peripheral pulses: Peripheral pulses 2+ throughout GI Inspection: Yes normal to inspection Skin Other: +2 edema, large rope-like varicosities greater than 4 mm CEAP Classification C4 - skin color changes Ep - Etiology Primary As - superficial veins P - reflux General skin exam: dry skin Neuro General: oriented to person, oriented to place and oriented to time Extrem Right lower extremity: full ROM, normal capillary refill and edema Left lower extremity: full ROM, normal capillary refill and edema Psych Mental Status: mental status grossly normal Results Reviewed Results Reviewed: Brief summary of venous insufficiency testing is as follows: right great saphenous vein: negative right small saphenous vein: negative right accessory vein: none present left great saphenous vein: Positive left small saphenous vein: negative left accessory vein: none present Please note there is no evidence of any venous aneurysms or significant tortuosity Assessment & Plan Assessment & Plan (1) Varicose veins of left lower extremity with inflammation: Code(s): I83.12 - Varicose veins of left lower extremity with inflammation Category: Medical Plan: This patient has varicose veins with inflammation. They continue to be a source of discomfort for the patient. The patient has tried conservative treatment with compression, leg elevation and exercise program for over 3 months time. They have been compliant with all treatment. This has provided minimal relief for the patient. I do not anticipate this course of treatment will alter the underlying etiology. The patient has been scheduled for lower extremity venous treatment inclusive of --- left great saphenous vein Cyanoacralate ablation. Risks, benefits, and complications of this procedure has been discussed in detail with the patient including but not limited to bleeding, infection, and the development of a DVT. The patient has demonstrated a clear understanding and has consented. We will schedule the patient as soon as possible. Thank you for allowing us to participate in this patient's care. If there are any questions or concerns please do not hesitate to contact us. Coding Level of Care Code Est Pt Level 4 (49317) Diagnoses Varicose veins of left lower extremity with inflammation I83.12
== END 2025-07-23 10:32 | disposition home or self-care (01) ==
LOC: HO.HVS 09:30
PROVIDERS: PCP Internal Medicine; Visit Provider Surgery Vascular Surgery
DX: I83.12 Varicose veins of left lower extremity with inflammation (principal)
CPT/HCPCS: 99214

== ENCOUNTER → 2025-07-23 09:29 | Outpatient (BNVA) | payer MEDICARE, MEDICAID, SELFPAY | PROVIDERS: PCP Internal Medicine; Visit Provider Surgery Vascular Surgery | DX: I83.12 Varicose veins of left lower extremity with inflammation (principal); R20.0 Anesthesia of skin; F10.10 Alcohol abuse, uncomplicated; Z87.891 Personal history of nicotine dependence | CPT/HCPCS: 99212 ==

== ENCOUNTER 2025-08-01 10:22 | Inpatient (IN) | payer MEDICARE, MEDICAID, SELFPAY ==
[2025-08-01] VITALS (10 sets, daily range): BP systolic 107–199; BP diastolic 48–89; PULSE 39–48; RESP 13–18; TEMP 36.2–36.6; O2SAT 95–97; BMI 28.2; BMI 27.5
--- NOTE | ~2025-08-01 | XR_ITS ---
CLINICAL HISTORY: leg pain Pelvis and bilateral hips. Comparison 04/22/2025. Findings: No acute fractures are seen. Alignment is normal. The soft tissues are unremarkable. Impression: No acute fractures. This document has been electronically signed by: Jose Alberto Polanco MD on 08/03/2025 18:25:06
--- NOTE | ~2025-08-01 | CT_ITS ---
CLINICAL HISTORY: head strike, fall, pain CT head without contrast Comparison: None provided Findings: No intra-axial mass, midline shift, hydrocephalus, or acute hemorrhage. Mild age-related cerebral hemispheric white matter ischemic changes. Small perivascular space versus old lacunar infarct in the inferior aspect of the left lentiform nucleus. Small right maxillary sinus polyp/retention cyst. The orbits are within normal limits. No skull fracture. IMPRESSION: 1. No acute intracranial findings. This document has been electronically signed by: Carolina Mcnair MD on 08/01/2025 12:37:35
--- NOTE | ~2025-08-01 | CT_ITS ---
CLINICAL HISTORY: head strike, fall, pain CT cervical spine without contrast Comparison: None provided Findings: Mild right-sided cervical spine curvature. Chronic appearing [id number] height loss of the C7 superior and inferior endplates. No acute fracture. Normal alignment. Up to 5 mm anterior vertebral body osteophytes/anterior disc calcification at C5/C6 and C6/C7. Unremarkable prevertebral soft tissues and visualized upper lungs. IMPRESSION: No acute fracture This document has been electronically signed by: Carolina Mcnair MD on 08/01/2025 12:46:29
--- NOTE | 2025-08-01 10:43 | ECG_ITS ---
Test Reason : OVERDOSE Blood Pressure : */* mmHG Vent. Rate : 38 BPM Atrial Rate : 38 BPM P-R Int : 226 ms QRS Dur : 90 ms QT Int : 514 ms P-R-T Axes : 4 -30 71 degrees QTcB Int : 408 ms Marked sinus bradycardia with 1st degree A-V block Left axis deviation Septal infarct (cited on or before 15-Apr-2024) Abnormal ECG When compared with ECG of 15-Apr-2024 21:13, NC interval has increased Vent. rate has decreased by 42 bpm Questionable change in initial forces of Anterior leads Inverted T waves have replaced nonspecific T wave abnormality in Lateral leads QT has shortened Referred By: Yane Shipley Electronically Signed By: ELVIS SHERWOOD
--- NOTE | 2025-08-01 10:43 | ED_ITS ---
HPI - General Adult General Chief complaint: Psychiatric Symptoms Stated complaint: General Medical Time Seen by Provider: 08/01/25 10:43 Source: patient Mode of arrival: ambulatory Limitations: no limitations History of Present Illness ED Provider: Yane Shipley PA-C HPI narrative: Patient is a 59 year old assigned male at with a history of mild cognitive impairment, WILTON, dyslipidemia, depression, kidney stones, HTN, CHF, alcohol use disorder with seizures during withdrawal, and GERD presenting to the emergency department today with suicidal ideation s/p overdose. Patient states that he has been in a bad place for several weeks and it is only getting worse. Patient states that he is suicidal and has been taking a lot of clonidine over the last several days including approximately 10 tabs this morning of 0.2mg clonidine. Patient states that he has been drinking alcohol way too much lately and was kicked out of his friends house this morning for his behavior. Patient states that he also had a recent fall and hit his head. Patient denies any other complaints at this time. Relieving factors: none Exacerbating factors: none Treatments prior to arrival: none Related Data Home Medications ?Medication ?Instructions ?Recorded ?Confirmed lisinopril 5 mg tablet 5 mg PO DAILY 10/05/2004/29 amlodipine 5 mg tablet 5 mg PO DAILY 09/12/2204/29 clonidine HCl 0.2 mg tablet 0.2 mg PO BID 09/12/22 clopidogrel 75 mg tablet 75 mg PO DAILY 09/12/2204/04 aspirin 81 mg tablet,delayed 81 mg PO DAILY 04/02/25 0 04/29/25 release (Adult Aspirin Regimen) Allergies Allergy/AdvReac Type Severity Reaction Status Date / Time No Known Allergies (No Known Allergy Verified 08/01/25 10:35 Allergies*) Review of Systems 2 Constitutional: Constitutional: Reports as per HPI Eyes: Eyes: Reports as per HPI ENT: Reports as per HPI Cardiovascular: Cardiovascular: Reports as per HPI Respiratory: Respiratory: Reports as per HPI Gastrointestinal: Gastrointestinal: Reports as per HPI Genitourinary: Genitourinary: Reports as per HPI Musculoskeletal: Musculoskeletal: Reports as per HPI Integumentary/Breasts: Skin/Breast: Reports as per HPI Neurologic: Reports as per HPI Psychiatric: Psychiatric: Reports as per HPI Endocrine: Endocrine: Reports as per HPI Hematologic/Lymphatic: Hematologic/Lymphatic: Reports as per HPI Allergic/Immunologic: Allergic/Immunologic: Reports as per HPI [facility] Past Medical History Attestation statement: The following information was validated with the patient. 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 Dysuria Acute otitis media Bipolar disorder Acute pharyngitis Nocturnal hypoxemia Obesity (BMI 30-39.9) History of pneumonia Central sleep apnea Complex sleep apnea syndrome Pneumonitis Atherosclerotic cardiovascular disease WILTON (obstructive sleep apnea) SILVA (nonalcoholic steatohepatitis) History of deep venous thrombosis (DVT) of distal vein of left lower extremity Skin cancer Depression Recurrent kidney stones Dyslipidemia Essential hypertension Central sleep apnea Reid-Demarco breathing disorder Hiatal hernia Degenerative joint disease of left knee Diastolic congestive heart failure STEMI (ST elevation myocardial infarction) CAD (coronary artery disease) Lesion of skin of face Farias's esophagus Chronic idiopathic constipation Surgical History Hx of colonoscopy (~10/02/19) History of total knee arthroplasty History of esophagogastroduodenoscopy (EGD) Family History Family History Father Brain cancer Lung cancer Substance use disorder Mother Emphysema, unspecified Substance use disorder Mental health disorder Social History Social History Household Members: Children Housing: Apartment Are you a primary emergency care attendant to a significant other at home: No Do you presently have visiting nurse or other home services: No Alcohol intake: current Alcohol intake frequency: 3 or more drinks per day Alcohol type: hard liquor Comment: 1 pint vodka/24 hrs Patient Tobacco Use Status: Former Tobacco user Tobacco use type: Cigarette Cigarette Packs Per Day: 1 Cigarettes Per Day: 20.0 Years Smoked: 40 e-Cigarette/Vaping Use: Never Used Second Hand Smoke Exposure: No Advance Directives: No Advance Directives Information Provided: Yes Do you have a plan to hurt others: No Plan Nutrition Risks: No Nutritional Risk service: No Current occupational status: unemployed Sexual orientation: Straight/Heterosexual Gender identity: Male Cognitive needs: Yes (Memory Changes) Hearing needs: No Vision needs: Yes Physical Exam ED Vital Signs: Vital Signs - 24 hr 08/01/25 10:30 08/01/25 11:38 08/01/25 12:25 Temperature 97.9 F Pulse Rate 40 L 41 L 40 L Respiratory Rate 18 13 15 Blood Pressure 126/64 145/77 H 128/76 Pulse Oximetry 97 97 95 Oxygen Delivery Method Room Air Room Air Room Air BMI result Body Mass Index 28.2 Const General: cooperative, no acute distress, alert and awake Nutritional Appearance: well nourished Orientation/consciousness: patient oriented x3 HENMT Head: Yes normal to inspection and Yes atraumatic Ears: hearing grossly normal bilaterally and external ears normal General nose exam: Normal external nose present, no nasal discharge noted and no epistaxis Face and sinus: Yes normal facial exam, No abrasion and No laceration Mouth: Normal oral and palatal mucosa present, no drooling and no muffled voice Eyes General: appearance normal, both eyes and all related structures Periorbital: periorbital findings normal Eyelids: Yes eyelids normal Conjunctivae: conjunctivae normal Pupils: Equal, round and reactive pupils present EOM: EOMs intact bilaterally Neck Neck: Yes normal visual inspection and Yes full ROM Resp Effort & Inspection: normal respiratory effort and able to speak in complete sentences Cardio Rate: bradycardic Rhythm: regular rhythm Neuro General: patient oriented x3, moves all extremities and CN's II-XI intact bilaterally Cranial nerves: Yes Equal, round and reactive pupils present Cognition (Neuro): normal cognition Extrem General: Yes normal to inspection, Yes full ROM and Yes capillary refill normal Psych Appearance: grossly normal Mental Status: mental status grossly normal Attitude: cooperative Thought content: Suicidality present Medications Administered Discontinued Medications Generic Name Dose Route Start Last Admin Trade Name Freq PRN Reason Stop Dose Admin Sodium Chloride 1,000 mls @ 999 mls/hr 08/01/25 12:15 08/01/25 13:29 Ns IV 08/01/25 13:15 Infused .Q1H1M ALEC Infusion Medical Decision Making Medical Decision Making MDM Narrative: Patient is a 59 year old assigned male at with a history of mild cognitive impairment, WILTON, dyslipidemia, depression, kidney stones, HTN, CHF, alcohol use disorder with seizures during withdrawal, and GERD presenting to the emergency department today with suicidal ideation s/p overdose. Patient's physical exam was as noted in the physical exam portion of this note. Patient's blood work showed a WBC count of 13.9, BUN 21, CR of 1.72, AST 54, ALT 90. Patient's urine showed no acute process. Patient's EKG showed sinus bradycardia. Patient's CT head and c-spine showed no acute process. Spoke with poison control who recommended monitoring the patient's heart rate until it returns to normal. Stated that if the patient were to become unresponsive / less alert or not maintaining his airway - Narcan can be considered. I spoke with the hosptialist team who agreed to admission for continued monitoring, SHAJI, and probable impending alcohol withdrawal. I explained my physical exam findings as well as all test results to the patient. I answered all questions asked by the patient. Patient verbalized agreement and understanding with this treatment plan and admission. Differential Diagnosis Differential Diagnoses: The differential diagnosis associated with the presentation includes SHAJI SI Overdose Suicide attempt Bradycardia Admission/Observation Consideration of admission/observation: Escalation of care including admission/observation considered Patient admitted as noted in the MDM Rationale portion of this note. Consult Healthcare Provider Management of the patient was discussed with: Hospitalist (agreed to admission as noted in the MDM Rationale portion of this note. ) and Start Up Specialist (spoke with Poison control as noted in the MDM Rationale portion of this note. ) Lab Data [facility] Lab Attestation statement: I reviewed the patient's lab results. My interpretation of these results are in the MDM Rationale portion of this note. 08/01/25 11:34 08/01/25 11:34 Labs: Lab Results 08/01/25 Range/Units 11:34 WBC 13.9 H (4.8-10.8) X10*3/uL RBC 5.81 H (4.60-5.80) X10*6/uL Hgb 16.9 (14.0-18.0) g/dl Hct 48.1 (42.0-52.0) % MCV 82.8 (80.0-98.0) fL MCH 29.1 (27.0-33.0) pg MCHC 35.1 (31.0-36.0) g/dl RDW 13.4 (11.0-16.0) % Plt Count 229 D (160-400) X10*3/uL MPV 9.2 L (9.4-12.4) fL Immature Gran % (Auto) 0.9 H (0.0-0.4) % Neut % (Auto) 72.9 (45-73) % Lymph % (Auto) 17.8 L (20-40) % [place] % (Auto) 6.5 (2-11) % Eos % (Auto) 1.0 (0-4) % Baso % (Auto) 0.9 (0-2) % Lymph # (Auto) 2.5 (1.2-4.9) X10*3/uL [place] # (Auto) 0.9 (0.1-1.2) X10*3/uL Eos # (Auto) 0.1 (0.0-0.4) X10*3/uL Baso # (Auto) 0.1 (0.0-0.2) X10*3/uL Abs Immat Gran (auto) 0.12 H (0.00-0.03) X10*3/uL Absolute Neuts (auto) 10.2 H (2.0-8.3) x10*3/uL Absolute Nucleated RBC 0.000 (0.0-0.012) X10*3/uL Nucleated RBC % (auto) 0.0 (0.0-0.2) /100WBC Sodium 137 (135-145) mmol/L Potassium 4.0 (3.3-5.1) mmol/L Chloride 103 (96-108) mmol/L Carbon Dioxide 21 L (22-29) mmol/L Anion Gap 17 (12-20) BUN 21 H (9-16) mg/dL Creatinine 1.72 H (0.5-1.4) mg/dL Estim Creat Clear Calc 42.2 Estimated GFR 41 Random Glucose 163 H (60-115) mg/dL Calcium 9.3 (8.4-10.2) mg/dL Magnesium 1.8 (1.6-2.6) mg/dL Total Bilirubin 0.7 (0.0-1.0) mg/dL AST 54 H (5-37) U/L ALT 90 H (0-40) U/L Alkaline Phosphatase 91 (39-117) U/L Troponin I High Sens 4.5 (<3.5-35.0) ng/L Total Protein 7.7 (6.5-8.0) g/dL Albumin 4.7 (3.5-5.0) g/dL Urine Color Yellow Urine Appearance Clear Urine pH 6.0 (5.0-9.0) Ur Specific [place] 1.010 (1.005-1.025) Urine Protein 100 (2+) H (Neg-Trace) mg/dL Urine Glucose (UA) 250 H (Negative) mg/dL Urine Ketones Negative (Negative) mg/dL Urine Blood Negative (Negative) Urine Nitrite Negative (Negative) Ur Leukocyte Esterase Negative (Negative) Urine RBC 0-2 (0-2) /HPF Urine WBC 0-5 (0-5) /HPF Ur Squamous Epith Cells 0-2 (0-2) /HPF Urine Bacteria None Seen (None Seen) Hyaline Casts 3-5 (0-2) /LPF Salicylates < 5.0 L (15-30) mg/dL Acetaminophen < 3 (<30) mcg/mL Ethyl Alcohol 72 mg/dL Independent Interpretation I performed an independent interpretation of an: EKG and CT Scan Interpretation: My interpretation is in agreement with the radiologist's impression of these imaging studies as written below. CLINICAL HISTORY: head strike, fall, pain CT cervical spine without contrast Comparison: None provided Findings: Mild right-sided cervical spine curvature. Chronic appearing [id number] height loss of the C7 superior and inferior endplates. No acute fracture. Normal alignment. Up to 5 mm anterior vertebral body osteophytes/anterior disc calcification at C5/C6 and C6/C7. Unremarkable prevertebral soft tissues and visualized upper lungs. IMPRESSION: No acute fracture This document has been electronically signed by: Carolina Mcnair MD on 08/01/2025 12:46:29 Dictated By: Carolina Mcnair MD Signed By: Electronically signed by Carolina Mcnair MD 08/01/25 1247 CLINICAL HISTORY: head strike, fall, pain CT head without contrast Comparison: None provided Findings: No intra-axial mass, midline shift, hydrocephalus, or acute hemorrhage. Mild age-related cerebral hemispheric white matter ischemic changes. Small perivascular space versus old lacunar infarct in the inferior aspect of the left lentiform nucleus. Small right maxillary sinus polyp/retention cyst. The orbits are within normal limits. No skull fracture. IMPRESSION: 1. No acute intracranial findings. This document has been electronically signed by: Carolina Mcnair MD on 08/01/2025 12:37:35 Dictated By: Carolina Mcnair MD Signed By: Electronically signed by Carolina Mcnair MD 08/01/25 1239 I independently interpreted this EKG and am in agreement with the below findings: Vent. Rate: 38 BPM Atrial Rate: 38 BPM P-R Int: 226 ms QRS Dur: 90 ms QT Int: 514 ms P-R-T Axes: 4 -30 71 degrees QTcB Int: 408 ms Marked sinus bradycardia with 1st degree A-V block When compared with ECG of 15-Apr-2024 21:13, [place] interval has increased Vent. rate has decreased by 42 bpm QT has shortened DD/ 1117 Radiology Impression Discussion of test interpretation with radiology: I have reviewed the radiologist's reading. Critical Care Time Critical Care Time Critical Care Time: Yes Total Critical Care Time: 46 Attestation: I spent 46 minutes of Critical Care Time with this patient. This does not include time spent on separately reported billable procedures. Discharge Plan Discharge Clinical Impression: Clonidine overdose, SHAJI (acute kidney injury), Feeling suicidal, Bradycardia Patient Disposition: Admitted As Inpatient Interventions: [place]-Suicide Risk Severity Scale Last Done: 08/01/25 11:38
--- NOTE | 2025-08-01 11:31 | PC.NURSE ---
This RN spoke with poison control- recommending supportive care and monitor till pt/vitals returns to baseline.
[2025-08-01 11:37] LABS: MANUAL DIFF FLAG NO
[2025-08-01 11:39] LABS: Hematocrit 48.1 % (42.0-52.0); Hemoglobin 16.9 g/dl (14.0-18.0); Imm Gran Abs Auto 0.12 X10*3/uL (0.00-0.03); Imm Gran Pct Auto 0.9 % (0.0-0.4); Lymphocytes Absolute Auto 2.5 X10*3/uL (1.2-4.9); Mean Corpuscular HGB Conc 35.1 g/dl (31.0-36.0); Mean Corpuscular Hemoglobin 29.1 pg (27.0-33.0); Mean Corpuscular Volume 82.8 fL (80.0-98.0); NRBC Abs Auto 0.000 X10*3/uL (0.0-0.012); NRBC Pct Auto 0.0 /100WBC (0.0-0.2); Platelet Count 229 X10*3/uL (160-400); Red Blood Count 5.81 X10*6/uL (4.60-5.80); White Blood Count 13.9 X10*3/uL (4.8-10.8)
[2025-08-01 11:41] LABS: Appearance Urine Clear; Glucose Urine UA 250 mg/dL (Negative); PH 6.0 (5.0-9.0); Specific Gravity - Urine 1.010 (1.005-1.025); UMIC TRIGGER UACC YES
[2025-08-01 11:53] LABS: Alanine Aminotransferase 90 U/L (0-40); Albumin Level 4.7 g/dL (3.5-5.0); Alkaline Phosphatase 91 U/L (39-117); Anion Gap 17 (12-20); Aspartate Amino Transferase 54 U/L (5-37); Blood Urea Nitrogen 21 mg/dL (9-16); Calcium 9.3 mg/dL (8.4-10.2); Carbon Dioxide 21 mmol/L (22-29); Chloride 103 mmol/L (96-108); Creatinine Clr Calc Pharmacy 42.2; Estimated Glomerular Filt Rate 41; Magnesium 1.8 mg/dL (1.6-2.6); Potassium 4.0 mmol/L (3.3-5.1); Sodium 137 mmol/L (135-145); Total Protein 7.7 g/dL (6.5-8.0)
[2025-08-01 11:54] LABS: Acetaminophen LAB < 3 mcg/mL (<30); Salicylate < 5.0 mg/dL (15-30)
[2025-08-01 12:00] LABS: Troponin-I High Sensitivity 4.5 ng/L (<3.5-35.0)
--- OUTSIDE RECORDS SUMMARY | 2025-08-01 12:21 | XMS_ITS | Clinical Summary ---
Author Organization [facility] Address [address] [place] [address] Care Team Providers Care Oversize Load Pilot Escort Name Role Phone Unavailable Primary Care Provider Unavailabl e Surgical History Surgery Date Site/Laterality Comments OTHER SURGICAL HISTORY PROCEDURE: ---- OTHER ----; COMMENT: R inguinal hernia COLONOSCOPY February PROCEDURE: HISTORICAL COLONOSCOPY; COMMENT: hemorrhoids; repeat in ten years ESOPHAGOGASTRODUODENOSCOPY 02/07/10 PROCEDURE: PA ESOPHAGOGASTRODUODENOSCOPY TRANSORAL DIAGNOSTIC; COMMENT: Farias's esophagus and Schatzki ring; 50 F dilator passed; repeat in two yrs ESOPHAGOGASTRODUODENOSCOPY 04/09/12 PROCEDURE: PA EGD TRANSORAL BIOPSY SINGLE/MULTIPLE; COMMENT: Farias's esophagus and non-critical Schatzki ring; repeat in 3 yrs OTHER SURGICAL HISTORY 06/25/13 PROCEDURE: PA EGD BALLOON DILATION ESOPHAGUS <30 MM DIAM; COMMENT: Schatzki ring dilated to 54 F; Farias's esophagus (not biopsied) with erosions; HH ESOPHAGOGASTRODUODENOSCOPY 21/03/15 PROCEDURE: PA ESOPHAGOGASTRODUODENOSCOPY TRANSORAL DIAGNOSTIC; COMMENT: Farias's esophagus and [...]
--- NOTE | 2025-08-01 13:44 | PHA.MEDREC ---
Pharmacy Consult ? Medication Reconciliation Pharmacy has completed the medication reconciliation. Spoke with pt to confirm medications.
--- NOTE | 2025-08-01 13:52 | PM.IMHP ---
History of Present Illness Date of Service: 08/01/25 Attending physician on admission: Isabel Pal Chief Complaint: SI, intentional overdose This is a 59-year-old male with history of hypertension, bipolar disorder, coronary artery disease who presents to the emergency department with SI. He reports that he wants to kill himself and took 10 tabs of 0.2 mg clonidine this morning. He reports a downward spiral over the past 1 year to multiple social stressors. He drinks alcohol daily, over the last 2 weeks he has been drinking half a pt of alcohol daily. He has also been taking multiple extra doses of clonidine daily and has had intermittent dizziness. Patient denies ingestion of any other drugs or alcohol other than his regularly prescribed medication. In the emergency department heart rate was in the 30s, blood pressure has remained stable. EKG showing sinus bradycardia. Lab work significant for SHAJI with creatinine of 1.72. ED provider discussed case with poison control who recommended cardiac monitoring in until heart rate returns to normal rate. patient denies sob or chest pain. Review of Systems Review of Systems: Yes all other systems are reviewed and are negative Constitutional: Constitutional: Denies chills and Denies fever(s) Cardiovascular: Cardiovascular: Denies chest pain and Denies palpitations Gastrointestinal: Gastrointestinal: Denies abdominal pain Endocrine: Endocrine: Denies palpitations [facility] Medical History Blocked ear Bilateral finger arthralgia Mixed dyslipidemia Impaired fasting glucose Varicose veins of both lower extremities Localized swelling of both lower legs Urinary frequency Memory deficit Left leg swelling Evaluation of hearing impairment 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 Dysuria Acute otitis media Bipolar disorder Acute pharyngitis Nocturnal hypoxemia Obesity (BMI 30-39.9) History of pneumonia Central sleep apnea Complex sleep apnea syndrome Pneumonitis Atherosclerotic cardiovascular disease WILTON (obstructive sleep apnea) SILVA (nonalcoholic steatohepatitis) History of deep venous thrombosis (DVT) of distal vein of left lower extremity Skin cancer Depression Recurrent kidney stones Dyslipidemia Essential hypertension Central sleep apnea Reid-Demarco breathing disorder Hiatal hernia Degenerative joint disease of left knee Diastolic congestive heart failure STEMI (ST elevation myocardial infarction) CAD (coronary artery disease) Lesion of skin of face Farias's esophagus Chronic idiopathic constipation Family History Father Brain cancer Lung cancer Substance use disorder Mother Emphysema, unspecified Substance use disorder Mental health disorder Surgical History Hx of colonoscopy (~10/02/19) History of total knee arthroplasty History of esophagogastroduodenoscopy (EGD) Social History Household Members: Children Housing: Apartment Are you a primary career development director to a significant other at home: No Do you presently have visiting nurse or other home services: No Alcohol intake: current Alcohol intake frequency: 3 or more drinks per day Alcohol type: hard liquor Comment: 1 pint vodka/24 hrs Patient Tobacco Use Status: Former Tobacco user Tobacco use type: Cigarette Cigarette Packs Per Day: 1 Cigarettes Per Day: 20.0 Years Smoked: 40 e-Cigarette/Vaping Use: Never Used Second Hand Smoke Exposure: No Advance Directives: No Advance Directives Information Provided: Yes Do you have a plan to hurt others: No Plan Nutrition Risks: No Nutritional Risk service: No Current occupational status: unemployed Sexual orientation: Straight/Heterosexual Gender identity: Male Cognitive needs: Yes (Memory Changes) Hearing needs: No Vision needs: Yes Meds Allergies Allergy/AdvReac Type Severity Reaction Status Date / Time No Known Allergies (No Known Allergy Verified 08/01/25 10:35 Allergies*) Active Medications: Current Medications Acetaminophen (Acetaminophen 325 Mg Tablet) 650 mg PO Q6H PRN PRN Reason: Pain, Mild 1-3,fever,headache Calcium Carbonate (Calcium Carbonate 750 Mg Tab.Chew) 750 mg PO Q4H PRN PRN Reason: Heartburn Enoxaparin Sodium (Enoxaparin Sodium 40 Mg/0.4 Ml Syringe) 40 mg SUBCUT Q24H ALEC Lactated Ringer's (Lr) 1,000 mls @ 125 mls/hr IVCONT .Q8H ALEC Magnesium Hydroxide (Milk Of Magnesia 30 Ml Oral.Susp) 30 ml PO DAILY PRN PRN Reason: Constipation Sodium Chloride (0.9 % Sodium Chloride Flush 3 Ml Syringe) 3 ml IVFLUSH QSHIFT ALEC Home Medications ?Medication ?Instructions ?Recorded ?Confirmed ?Last Taken ?Type lisinopril 5 mg tablet 5 mg PO DAILY 10/05/20 08/01/25 08/01/25 History amlodipine 5 mg tablet 5 mg PO DAILY 09/12/22 08/01/25 08/01/25 History clonidine HCl 0.2 mg tablet 0.2 mg PO BID 09/12/22 08/01/25 08/01/25 History clopidogrel 75 mg tablet 75 mg PO DAILY 09/12/22 08/01/25 08/01/25 History aspirin 81 mg tablet,delayed 81 mg PO DAILY 04/02/25 08/01/25 08/01/25 History release (Adult Aspirin Regimen) hydroxyzine HCl 25 mg tablet 25 - 50 mg PO BID PRN Anxiety 08/01/25 08/01/25 08/01/25 History venlafaxine 37.5 mg tablet 37.5 mg PO DAILY 08/01/25 08/01/25 08/01/25 History Physical Exam Vital Signs and Narrative: Vital Signs: Last Vital Signs Temp 97.8 F 08/01/25 13:29 Pulse 39 L 08/01/25 13:29 Resp 16 08/01/25 13:29 BP 107/48 L 08/01/25 13:29 Pulse Ox 95 08/01/25 13:29 O2 Del Method Room Air 08/01/25 13:29 BMI result Body Mass Index 28.2 Const: General: cooperative, comfortable, alert and awake Nutritional Appearance: average body habitus Orientation/consciousness: patient oriented x3 Resp: Effort & Inspection: normal respiratory effort, able to speak in complete sentences, no respiratory distress and no use of accessory muscles Cardio: Rate: bradycardic GI: Inspection: No distended Palpation (GI): Soft to palpation Neuro: General: patient oriented x3, moves all extremities and CN's II-XI intact bilaterally Results Labs 08/01/25 11:34 08/01/25 11:34 Labs: Laboratory Results - last 24 hr 08/01/25 11:34 MCV 82.8 MCH 29.1 MCHC 35.1 RDW 13.4 Plt Count 229 D MPV 9.2 L Immature Gran % (Auto) 0.9 H Neut % (Auto) 72.9 Lymph % (Auto) 17.8 L [place] % (Auto) 6.5 Eos % (Auto) 1.0 Baso % (Auto) 0.9 Lymph # (Auto) 2.5 [place] # (Auto) 0.9 Eos # (Auto) 0.1 Baso # (Auto) 0.1 Abs Immat Gran (auto) 0.12 H Absolute Neuts (auto) 10.2 H Absolute Nucleated RBC 0.000 Nucleated RBC % (auto) 0.0 Anion Gap 17 Estim Creat Clear Calc 42.2 Estimated GFR 41 Random Glucose 163 H Calcium 9.3 Magnesium 1.8 Total Bilirubin 0.7 AST 54 H ALT 90 H Alkaline Phosphatase 91 Troponin I High Sens 4.5 Total Protein 7.7 Albumin 4.7 Urine Color Yellow Urine Appearance Clear Urine pH 6.0 Ur Specific [place] 1.010 Urine Protein 100 (2+) H Urine Glucose (UA) 250 H Urine Ketones Negative Urine Blood Negative Urine Nitrite Negative Ur Leukocyte Esterase Negative Urine RBC 0-2 Urine WBC 0-5 Ur Squamous Epith Cells 0-2 Urine Bacteria None Seen Hyaline Casts 3-5 Salicylates < 5.0 L Acetaminophen < 3 Ethyl Alcohol 72 Assessment and Plan (1) SHAJI (acute kidney injury): Status: Acute (2) Bradycardia: Status: Acute Plan This is a 59-year-old male with history of hypertension, bipolar disorder, coronary artery disease, WILTON not on CPAP who presents to the emergency department with suicidal ideation after intentional ingestion of clonidine found to have bradycardia Sinus bradycardia due to clonidine overdose BP currently stable tele monitoring, pacer pads on, atropine prn if develops symptoms hold clonidine or any meds that can affect HR Depression with SI with intentional drug OD Sitter for safety check tox screen care team eval when medically clear Alcohol dependence with risk for alcohol withdrawal etoh 72 does not appear to be in withdrawal at this time monitor on CIWA SHAJI IV fluid Avoid nephrotoxins Follow BMP WILTON does not have cpap at home CPAP if able to tolerate while inpatient HTN hold meds for now to avoid hypotension in setting of clonidine overdose CAD continue asa, plavix mood hold meds for now DVT ppx - lovenox Patient will likely require 2 midnight stay in the hospital for management of intentional drug overdose resulting in severe sinus bradycardia requiring close cardiac monitoring and high risk for alcohol withdrawal as well as depression with suicidal ideation require care team evaluation Quality Stroke Does the patient have a stroke diagnosis?: No VTE Prior VTE?: No VTE Risk Level:: Medical - moderate - high VTE Device Contraindication: N/A - Device Ordered VTE Drug Contraindication: Treatment Not Indicated
--- NOTE | 2025-08-01 14:18 | ECG_ITS ---
Test Reason : repeat Blood Pressure : */* mmHG Vent. Rate : 42 BPM Atrial Rate : 42 BPM P-R Int : 222 ms QRS Dur : 82 ms QT Int : 492 ms P-R-T Axes : 7 -27 71 degrees QTcB Int : 410 ms Marked sinus bradycardia with 1st degree A-V block Septal infarct (cited on or before 15-Apr-2024) Abnormal ECG When compared with ECG of 01-Aug-2025 11:17, No significant change was found Referred By: Nettie Mac Electronically Signed By: ELVIS SHERWOOD
[2025-08-01] MEDS: Lactated Ringers 1,000 ML 125 ML IVCONT (15:13)
[2025-08-01 15:32] LABS: Alanine Aminotransferase 83 U/L (0-40); Albumin Level 4.4 g/dL (3.5-5.0); Alkaline Phosphatase 90 U/L (39-117); Anion Gap 17 (12-20); Aspartate Amino Transferase 52 U/L (5-37); Blood Urea Nitrogen 20 mg/dL (9-16); Calcium 9.0 mg/dL (8.4-10.2); Carbon Dioxide 20 mmol/L (22-29); Chloride 106 mmol/L (96-108); Creatinine Clr Calc Pharmacy 42.9; Estimated Glomerular Filt Rate 42; Potassium 4.3 mmol/L (3.3-5.1); Sodium 139 mmol/L (135-145); Total Protein 7.1 g/dL (6.5-8.0)
--- NOTE | 2025-08-01 16:46 | PC.NURSE ---
Christianne from Poison control called an updated on repeat labs. She recommends repeating EKG q 6 hours and replacing magnesium to 2.0. [place] text with recommendations sent to provider Estefania
[2025-08-01] MEDS: Magnesium Sulfate/H2O 2 GM/50 ML PIGGYBACK IV (17:08)
[2025-08-01 18:42] LABS: Cannabinoid Screen Urine Not Detected (Not Detect)
--- NOTE | 2025-08-01 21:00 | ECG_ITS ---
Test Reason : OVERDOSE Blood Pressure : */* mmHG Vent. Rate : 43 BPM Atrial Rate : 43 BPM P-R Int : 228 ms QRS Dur : 90 ms QT Int : 514 ms P-R-T Axes : 23 -27 47 degrees QTcB Int : 434 ms Marked sinus bradycardia with 1st degree A-V block Abnormal ECG When compared with ECG of 01-Aug-2025 14:59, No significant change was found Referred By: Nettie Mac Electronically Signed By: ELVIS SHERWOOD
[2025-08-02] MEDS: Lactated Ringers 1,000 ML 125 ML IVCONT ×4 (00:36→21:18)
[2025-08-02 03:34] VITALS: BP 181/80; PULSE 42; RESP 18; TEMP 36.4; O2SAT 96
--- NOTE | 2025-08-02 04:29 | ECG_ITS ---
Test Reason : OVERDOSE Blood Pressure : */* mmHG Vent. Rate : 41 BPM Atrial Rate : 41 BPM P-R Int : 234 ms QRS Dur : 84 ms QT Int : 500 ms P-R-T Axes : 7 -28 73 degrees QTcB Int : 412 ms Marked sinus bradycardia with 1st degree A-V block Septal infarct (cited on or before 01-Aug-2025) Abnormal ECG When compared with ECG of 01-Aug-2025 21:08, No significant change was found Referred By: Isabel Pal Electronically Signed By: ELVIS SHERWOOD
[2025-08-02 07:20] VITALS: BP 148/86; PULSE 39; RESP 16; TEMP 37; O2SAT 95
[2025-08-02 07:42] LABS: Alanine Aminotransferase 68 U/L (0-40); Albumin Level 4.2 g/dL (3.5-5.0); Alkaline Phosphatase 84 U/L (39-117); Anion Gap 14 (12-20); Aspartate Amino Transferase 40 U/L (5-37); Blood Urea Nitrogen 18 mg/dL (9-16); Calcium 9.2 mg/dL (8.4-10.2); Carbon Dioxide 24 mmol/L (22-29); Chloride 104 mmol/L (96-108); Creatinine Clr Calc Pharmacy 64.6; Estimated Glomerular Filt Rate > 60; Potassium 4.1 mmol/L (3.3-5.1); Sodium 138 mmol/L (135-145); Total Protein 6.9 g/dL (6.5-8.0)
[2025-08-02] MEDS: Aspirin Enteric Coated 81 MG TABLET.DR PO (08:50)
--- NOTE | 2025-08-02 08:51 | P.PNIM_ITS ---
Subjective Subjective Date of Service: 08/02/25 Interval History: Persistent sinus bradycardia Poison control suggested continuing checking EKG q.6 hours Review of Systems Review of Systems: Yes all other systems are reviewed and are negative Physical Exam 2 Exam: Exam: General: AOx3, no acute distress Resp: CTA bilaterally CVS: Sinus bradycardia GI: +BS, NT, no distention Vital Signs: Vital Signs: Last Vital Signs Temp 98.6 F 08/02/25 07:20 Pulse 39 L 08/02/25 07:20 Resp 16 08/02/25 07:20 BP 148/86 H 08/02/25 07:20 Pulse Ox 95 08/02/25 07:20 O2 Del Method Room Air 08/02/25 07:20 BMI result Body Mass Index 27.5 Objective Data Active Medications Acetaminophen (Acetaminophen 325 Mg Tablet) 650 mg PO Q6H PRN PRN Reason: Pain, Mild 1-3,fever,headache Last Admin: 08/01/25 17:52 Dose: 650 mg Documented By: SASHA Amlodipine Besylate (Amlodipine Besylate 5 Mg Tablet) 5 mg PO DAILY [facility]; Protocol Last Admin: 08/02/25 00:36 Dose: 5 mg Documented By: NENA Aspirin (Aspirin Enteric Coated 81 Mg Tablet.Dr) 81 mg PO DAILY [facility] Atropine Sulfate (Atropine Sulfate 1 Mg/10 Ml Syringe) 1 mg IVPUSH ONCE PRN PRN Reason: symptomatic bradycardia Calcium Carbonate (Calcium Carbonate 750 Mg Tab.Chew) 750 mg PO Q4H PRN PRN Reason: Heartburn Clopidogrel Bisulfate (Clopidogrel Bisulfate 75 Mg Tablet) 75 mg PO DAILY [facility] Enoxaparin Sodium (Enoxaparin Sodium 40 Mg/0.4 Ml Syringe) 40 mg SUBCUT Q24H [facility] Last Admin: 08/01/25 16:27 Dose: 40 mg Documented By: SASHA Lactated Ringer's (Lr) 1,000 mls @ 125 mls/hr IVCONT .Q8H [facility] Last Admin: 08/02/25 00:36 Dose: 125 mls/hr Documented By: NENA Magnesium Hydroxide (Milk Of Magnesia 30 Ml Oral.Susp) 30 ml PO DAILY PRN PRN Reason: Constipation Sodium Chloride (0.9 % Sodium Chloride Flush 3 Ml Syringe) 3 ml IVFLUSH QSHIFT [facility] Last Admin: 08/02/25 01:12 Dose: Not Given Documented By: NENA Non-Admin Reason: IV Running Labs 08/01/25 11:34 08/02/25 06:41 Labs: Laboratory Results - last 24 hr 08/01/25 08/01/25 08/01/25 11:34 15:04 18:09 MCV 82.8 MCH 29.1 MCHC 35.1 RDW 13.4 Plt Count 229 D MPV 9.2 L Immature Gran % (Auto) 0.9 H Neut % (Auto) 72.9 Lymph % (Auto) 17.8 L [facility] % (Auto) 6.5 Eos % (Auto) 1.0 Baso % (Auto) 0.9 Lymph # (Auto) 2.5 [facility] # (Auto) 0.9 Eos # (Auto) 0.1 Baso # (Auto) 0.1 Abs Immat Gran (auto) 0.12 H Absolute Neuts (auto) 10.2 H Absolute Nucleated RBC 0.000 Nucleated RBC % (auto) 0.0 Anion Gap 17 17 Estim Creat Clear Calc 42.2 42.9 Estimated GFR 41 42 Random Glucose 163 H 187 H Calcium 9.3 9.0 Magnesium 1.8 Total Bilirubin 0.7 0.7 Direct Bilirubin 0.2 AST 54 H 52 H ALT 90 H 83 H Alkaline Phosphatase 91 90 Total Creatine Kinase 46 Troponin I High Sens 4.5 Total Protein 7.7 7.1 Albumin 4.7 4.4 Urine Color Yellow Urine Appearance Clear Urine pH 6.0 Ur Specific [place] 1.010 Urine Protein 100 (2+) H Urine Glucose (UA) 250 H Urine Ketones Negative Urine Blood Negative Urine Nitrite Negative Ur Leukocyte Esterase Negative Urine RBC 0-2 Urine WBC 0-5 Ur Squamous Epith Cells 0-2 Urine Bacteria None Seen Hyaline Casts 3-5 Salicylates < 5.0 L Urine Opiates Screen Not Detected Ur Buprenorphine Scrn Not Detected Ur Oxycodone Screen Not Detected Urine Methadone Screen Not Detected Urine Fentanyl Screen Not Detected Acetaminophen < 3 Ur Barbiturates Screen Not Detected Ur Phencyclidine Scrn Not Detected Ur Amphetamines Screen Not Detected U Benzodiazepines Scrn Not Detected Urine Cocaine Screen Not Detected U Marijuana (THC) Screen Not Detected Ethyl Alcohol 72 08/02/25 06:41 MCV MCH MCHC RDW Plt Count MPV Immature Gran % (Auto) Neut % (Auto) Lymph % (Auto) [facility] % (Auto) Eos % (Auto) Baso % (Auto) Lymph # (Auto) [facility] # (Auto) Eos # (Auto) Baso # (Auto) Abs Immat Gran (auto) Absolute Neuts (auto) Absolute Nucleated RBC Nucleated RBC % (auto) Anion Gap 14 Estim Creat Clear Calc 64.6 Estimated GFR > 60 Random Glucose 148 H Calcium 9.2 Magnesium Total Bilirubin 0.8 Direct Bilirubin AST 40 H ALT 68 H Alkaline Phosphatase 84 Total Creatine Kinase Troponin I High Sens Total Protein 6.9 Albumin 4.2 Urine Color Urine Appearance Urine pH Ur Specific [place] Urine Protein Urine Glucose (UA) Urine Ketones Urine Blood Urine Nitrite Ur Leukocyte Esterase Urine RBC Urine WBC Ur Squamous Epith Cells Urine Bacteria Hyaline Casts Salicylates Urine Opiates Screen Ur Buprenorphine Scrn Ur Oxycodone Screen Urine Methadone Screen Urine Fentanyl Screen Acetaminophen Ur Barbiturates Screen Ur Phencyclidine Scrn Ur Amphetamines Screen U Benzodiazepines Scrn Urine Cocaine Screen U Marijuana (THC) Screen Ethyl Alcohol Assessment and Plan (1) Clonidine overdose: Status: Acute Assessment and Plan: 59-year-old male with history of hypertension, bipolar disorder, coronary artery disease, WILTON not on CPAP who presents to the emergency department with suicidal ideation after intentional ingestion of clonidine found to have sinus bradycardia, needs to be monitored with serial EKG q.6 hours for sinus bradycardia Sinus bradycardia due to clonidine overdose BP currently stable tele monitoring, pacer pads on, atropine prn if develops symptoms hold clonidine or and tabatha blocking agents Continue q.6 hours EKGs Depression with SI with intentional drug OD Patient states ?I will not survive outside, hence send me to inpatient voluntary psych Sitter for safety check tox screen care team eval when medically clear Alcohol dependence with risk for alcohol withdrawal etoh 72 does not appear to be in withdrawal at this time monitor on CIWA SHAJI IV fluid Avoid nephrotoxins Follow BMP WILTON does not have cpap at home CPAP if able to tolerate while inpatient HTN hold meds for now to avoid hypotension in setting of clonidine overdose CAD continue asa, plavix mood hold meds for now DVT ppx - lovenox Once he has resolution of sinus bradycardia due to clonidine overdose, we will have care team evaluation psychiatry evaluation and he wants to have voluntary psych admission This note is constructed using voice recognition software. While every effort has been made to ensure accuracy, consulting systems engineer errors may have been included. Quality Stroke Does the patient have a stroke diagnosis?: No VTE Prior VTE?: No VTE Risk Level:: Medical - moderate - high VTE Device Contraindication: N/A - Device Ordered VTE Drug Contraindication: Treatment Not Indicated
--- NOTE | 2025-08-02 09:10 | MHC.CM.PN ---
CM met with Patient and addressed IMM with him. Patient is homeless and functionally independent. Patient will benefit from a Care Tram Consult R/T SI, to assist with disposition. CM has initiated and will follow for dc planning. PCP was Dr. Franchesca Batista; Patient had an initial appointment scheduled with Dr. Osvaldo Chow for tomorrow.
[2025-08-02 10:55] VITALS: BP 134/76; PULSE 39; RESP 16; TEMP 36.8; O2SAT 95
--- NOTE | 2025-08-02 11:50 | MHC.RECOVRN ---
Addendum entered by Sara Nolan RN 08/02/25 12:14: Add: for todays visit pt. declined YOSHI or appointment related to AUD. Further information is needed re: medical status, YOSHI provider consult and Care Team eval before decision can be made Original Note: T/W met with pt in 467 following consult received for daily ETOH use. Pt arrived at ED on 08/01 @ 10:30AM reporting he wanted to kill himself and that he took 10 tabs of 0.2mg clonidine and ETOH. Pt was admitted to medical floor with 24 hour sitter for medical stabilization including management of intentional OD resulting in severe bradycardia. Information for this assessment was obtained from chart review and pt. interview. Pt laying in bed awake, alert and oriented and appears comfortable Pt's most recent CIWA was 1 and no current pheno taper ordered. No W/D reported or observed during my visit. Pt did report h/o seizures with ETOH detox. ETOH level upon arrival was 72 and no other substances found in tox screen. Labs reveal elevated liver and kidney function tests. Pt stated to this underwriter mortgage loan I want to get better , I don't want to get sick . Pt reports that he has been drinking ETOH since he was 12. He describes his drinking and episodic and binge. He drinks with stressors and to cope and is able to stop when things are good. Pt's most recent episode was 1/2 pint vodka daily for 2 weeks and prior to that it was 1/2 pt. vodka per week. Pt reports his last use was 07/31. He came to the ED as he was kicked out of his current house due to drinking and behaviors. He described the episode to me as my house mate/friend does not believe in rehab so i drank and took the pills to find another way for treatment. Pt also reports h/o misusing all prescription pills. Pt reports intermittent THC use. He reports 1 OD on ETOH and pain meds about 7-8 years ago. He reports trying Naltrexone and Antabuse in the past. He reports approx 5 completed rehab stays and a period of 1 year of sobriety following one of the stays. When asked what helped him stay sober he replied I just did it . Pt currently denies any recovery supports. He Has dx of HTN, Bipolar, CAD, GERD and is now without longterm. Pt continues to endorse SI and states If I could I would run for that window right now . Sitter at bedside. Plan: pt needs to be medically stable then C/T to assess for placement. Pt wants substance use treatment. Once placement determined [facility] will better be able to assist with any resources needed. [facility] provider consult placed for potential YOSHI. Pt provided with resources for pathways to recovery and encouraged to consider sober living down the road. Pt provided with education on YOSHI and safer use strategies r/t ETOH. [facility] available PRN
--- NOTE | 2025-08-02 12:51 | ECG_ITS ---
Test Reason : QTC Blood Pressure : */* mmHG Vent. Rate : 41 BPM Atrial Rate : 41 BPM P-R Int : 210 ms QRS Dur : 84 ms QT Int : 478 ms P-R-T Axes : 6 -24 105 degrees QTcB Int : 394 ms Poor data quality, interpretation may be adversely affected Marked sinus bradycardia with 1st degree A-V block Septal infarct (cited on or before 02-Aug-2025) Abnormal ECG When compared with ECG of 02-Aug-2025 04:29, T wave inversion more evident in Anterolateral leads Referred By: Isabel Pal Electronically Signed By: ELVIS SHERWOOD
[2025-08-02 16:00] VITALS: BP 158/85; PULSE 47; RESP 16; TEMP 36.7; O2SAT 97
--- NOTE | 2025-08-02 18:51 | ECG_ITS ---
Test Reason : QTC Blood Pressure : */* mmHG Vent. Rate : 42 BPM Atrial Rate : 42 BPM P-R Int : 208 ms QRS Dur : 84 ms QT Int : 476 ms P-R-T Axes : 8 -25 109 degrees QTcB Int : 397 ms Marked sinus bradycardia Septal infarct (cited on or before 02-Aug-2025) T wave abnormality, consider lateral ischemia Abnormal ECG When compared with ECG of 02-Aug-2025 14:56, No significant change was found Referred By: Isabel Pal Electronically Signed By: ELVIS SHERWOOD
[2025-08-02 19:23] VITALS: BP 156/82; PULSE 50; RESP 16; TEMP 36.9; O2SAT 95
[2025-08-02 23:06] VITALS: BP 148/83; PULSE 47; RESP 16; TEMP 36.4; O2SAT 96
[2025-08-03] VITALS (7 sets, daily range): BP systolic 128–160; BP diastolic 67–85; PULSE 43–56; RESP 18–20; TEMP 36.4–37.4; O2SAT 94–98
--- NOTE | 2025-08-03 00:51 | ECG_ITS ---
Test Reason : Overdose of Clonidine with sinus bradycardia Blood Pressure : */* mmHG Vent. Rate : 46 BPM Atrial Rate : 46 BPM P-R Int : 206 ms QRS Dur : 84 ms QT Int : 456 ms P-R-T Axes : 11 -31 108 degrees QTcB Int : 399 ms Sinus bradycardia Left axis deviation Possible Anterolateral infarct (cited on or before 02-Aug-2025) Abnormal ECG When compared with ECG of 02-Aug-2025 14:57, Questionable change in initial forces of Septal leads Questionable change in initial forces of Lateral leads Referred By: Isabel Pal Electronically Signed By: ELVIS SHERWOOD
[2025-08-03] MEDS: Lactated Ringers 1,000 ML 125 ML IVCONT (05:28)
[2025-08-03] MEDS: Aspirin Enteric Coated 81 MG TABLET.DR PO (09:35)
--- NOTE | 2025-08-03 12:51 | ECG_ITS ---
Test Reason : clonidine OD - poision control rec Blood Pressure : */* mmHG Vent. Rate : 41 BPM Atrial Rate : 49 BPM P-R Int : 218 ms QRS Dur : 84 ms QT Int : 468 ms P-R-T Axes : 13 -25 89 degrees QTcB Int : 386 ms Sinus bradycardia with 1st degree A-V block Possible Anterolateral infarct , age undetermined Abnormal ECG No previous ECGs available Referred By: Isabel Pal Electronically Signed By: LEVIS SHERWOOD
--- NOTE | 2025-08-03 15:11 | MHC.CM.PN ---
PER MD ROUNDS, PLAN IS FOR Q6H EKG AND THEN VOLUNTARY PSYCH ADMISSION.
[2025-08-03] MEDS: Lidocaine 4 % Patch ADH..PATCH 2 PATCH TRANSDERMA (16:34)
--- NOTE | 2025-08-03 17:05 | HO.PM.IMPN ---
Subjective Subjective Date of Service: 08/03/25 Interval History: Persistent sinus bradycardia Poison control suggested continuing checking EKG q.6 hours Complains of tailbone pain and hip pain-we will check x-rays to rule out pathology Review of Systems Review of Systems: Yes all other systems are reviewed and are negative Physical Exam Exam: Exam: General: AOx3, no acute distress Resp: CTA bilaterally CVS: Sinus bradycardia GI: +BS, NT, no distention Neuro: Patient able to ambulate without any difficulty Psych: Appears quite tearful today Vital Signs: Vital Signs: Last Vital Signs Temp 97.6 F 08/03/25 15:56 Pulse 56 08/03/25 15:56 Resp 18 08/03/25 15:56 BP 132/74 08/03/25 15:56 Pulse Ox 97 08/03/25 15:56 O2 Del Method Room Air 08/03/25 15:56 BMI result Body Mass Index 27.5 Objective Data Active Medications Acetaminophen (Acetaminophen 325 Mg Tablet) 975 mg PO Q6H PRN PRN Reason: Pain, Mild (Pain Scale 1-3) Last Admin: 08/03/25 16:33 Dose: 975 mg Documented By: AKILA Amlodipine Besylate (Amlodipine Besylate 5 Mg Tablet) 5 mg PO DAILY [facility]; Protocol Last Admin: 08/03/25 09:35 Dose: 5 mg Documented By: AKILA Aspirin (Aspirin Enteric Coated 81 Mg Tablet.Dr) 81 mg PO DAILY [facility] Last Admin: 08/03/25 09:35 Dose: 81 mg Documented By: AKILA Atropine Sulfate (Atropine Sulfate 1 Mg/10 Ml Syringe) 1 mg IVPUSH ONCE PRN PRN Reason: symptomatic bradycardia Calcium Carbonate (Calcium Carbonate 750 Mg Tab.Chew) 750 mg PO Q4H PRN PRN Reason: Heartburn Clopidogrel Bisulfate (Clopidogrel Bisulfate 75 Mg Tablet) 75 mg PO DAILY [facility] Last Admin: 08/03/25 09:35 Dose: 75 mg Documented By: AKILA Enoxaparin Sodium (Enoxaparin Sodium 40 Mg/0.4 Ml Syringe) 40 mg SUBCUT Q24H [facility] Last Admin: 08/03/25 14:37 Dose: 40 mg Documented By: AKILA Lidocaine (Lidocaine 4 % Patch Adh..Patch) 2 patch TRANSDERMA DAILY [facility]; Protocol Last Admin: 08/03/25 16:34 Dose: 2 patch Documented By: AKILA Magnesium Hydroxide (Milk Of Magnesia 30 Ml Oral.Susp) 30 ml PO DAILY PRN PRN Reason: Constipation Prochlorperazine Edisylate (Prochlorperazine Edisylate 10 Mg/2 Ml Vial) 5 mg IVPUSH Q6H PRN PRN Reason: Nausea and Vomiting Last Admin: 08/02/25 21:16 Dose: 5 mg Documented By: FOGARTRadha Sodium Chloride (0.9 % Sodium Chloride Flush 3 Ml Syringe) 3 ml IVFLUSH QSHIFT [facility] Last Admin: 08/03/25 14:40 Dose: Not Given Documented By: AKILA Non-Admin Reason: IV Running Labs 08/01/25 11:34 08/02/25 06:41 Assessment and Plan (1) Clonidine overdose: Status: Acute Assessment and Plan: 59-year-old male with history of hypertension, bipolar disorder, coronary artery disease, WILTON not on CPAP who presents to the emergency department with suicidal ideation after intentional ingestion of clonidine found to have sinus bradycardia, needs to be monitored with serial EKG q.6 hours for sinus bradycardia Sinus bradycardia due to clonidine overdose BP currently stable tele monitoring, pacer pads on, atropine prn if becomes symptomatic hold clonidine or and tabatha blocking agents Continue q.6 hours EKGs Complains of tailbone pain with shooting pain Patient is ambulating without any difficulty Likely sciatic in etiology We will check x-rays of the hip and pelvis PT eval likely not indicated as the patient is ambulatory without any concerns Depression with SI with intentional drug OD Patient states ?I will not survive outside, hence send me to inpatient voluntary psych Sitter for safety check tox screen care team eval when medically clear Alcohol dependence with risk for alcohol withdrawal etoh 72 does not appear to be in withdrawal at this time monitor on CIWA SHAJI IV fluid Avoid nephrotoxins Follow BMP WILTON does not have cpap at home CPAP if able to tolerate while inpatient HTN hold meds for now to avoid hypotension in setting of clonidine overdose CAD continue asa, plavix mood hold meds for now DVT ppx - lovenox Once he has resolution of sinus bradycardia due to clonidine overdose, we will have care team evaluation psychiatry evaluation and he wants to have voluntary psych admission This note is constructed using voice recognition software. While every effort has been made to ensure accuracy, vault person errors may have been included. Quality Stroke Does the patient have a stroke diagnosis?: No VTE Prior VTE?: No VTE Risk Level:: Medical - moderate - high VTE Device Contraindication: N/A - Device Ordered VTE Drug Contraindication: Treatment Not Indicated
--- NOTE | 2025-08-03 18:51 | ECG_ITS ---
Test Reason : Overdose of Clonidine with sinus bradycardia Blood Pressure : */* mmHG Vent. Rate : 48 BPM Atrial Rate : 48 BPM P-R Int : 182 ms QRS Dur : 84 ms QT Int : 464 ms P-R-T Axes : 11 -18 115 degrees QTcB Int : 414 ms Sinus bradycardia Cannot rule out Anterior infarct , age undetermined Nonspecific ST and T wave abnormality Abnormal ECG No significant changes when compared with the previous EKG of aug 03 2025 Referred By: Isabel Pal Electronically Signed By: ELVIS SHERWOOD
--- NOTE | 2025-08-03 18:51 | ECG_ITS ---
Test Reason : Overdose of Clonidine with sinus bradycardia Blood Pressure : */* mmHG Vent. Rate : 47 BPM Atrial Rate : 47 BPM P-R Int : 206 ms QRS Dur : 82 ms QT Int : 460 ms P-R-T Axes : 15 -27 108 degrees QTcB Int : 407 ms Sinus bradycardia Cannot rule out Anterior infarct (cited on or before 02-Aug-2025) Nonspecific ST and T wave abnormality Abnormal ECG When compared with ECG of 03-Aug-2025 09:25, No significant change was found Referred By: Isabel Pal Electronically Signed By: ELVIS SHERWOOD
[2025-08-04] VITALS (7 sets, daily range): BP systolic 125–165; BP diastolic 69–88; PULSE 50–82; RESP 14–18; TEMP 36.5–37; O2SAT 93–97
--- NOTE | 2025-08-04 00:51 | ECG_ITS ---
Test Reason : low heart rate Blood Pressure : */* mmHG Vent. Rate : 50 BPM Atrial Rate : 50 BPM P-R Int : 202 ms QRS Dur : 84 ms QT Int : 464 ms P-R-T Axes : 26 -18 108 degrees QTcB Int : 423 ms Sinus bradycardia Low voltage QRS Nonspecific T wave abnormality Abnormal ECG When compared with ECG of 03-Aug-2025 20:01, No significant change was found Referred By: Isabel Pal Electronically Signed By: ELVIS SHERWOOD
[2025-08-04] MEDS: Aspirin Enteric Coated 81 MG TABLET.DR PO (09:38)
[2025-08-04] MEDS: 0.9 % Sodium Chloride Flush 3 ML SYRINGE IVFLUSH ×2 (09:47→15:50)
--- NOTE | 2025-08-04 12:51 | ECG_ITS ---
Test Reason : Overdose of Clonidine with sinus bradycardia Blood Pressure : */* mmHG Vent. Rate : 48 BPM Atrial Rate : 48 BPM P-R Int : 218 ms QRS Dur : 84 ms QT Int : 466 ms P-R-T Axes : 37 -26 109 degrees QTcB Int : 416 ms Sinus bradycardia with 1st degree A-V block Cannot rule out Anterior infarct (cited on or before 02-Aug-2025) T wave abnormality, consider lateral ischemia Abnormal ECG When compared with ECG of 03-Aug-2025 20:01, No significant change was found Referred By: Isabel Pal Electronically Signed By: ELVIS SHERWOOD
--- NOTE | 2025-08-04 14:24 | P.PNIM_ITS ---
Subjective Subjective Date of Service: 08/04/25 Interval History: sinus bradycardia improving , but v slowly (50s-60s) having psychosomatic compliants - addressing ass medically appropriate pt quite tearful Review of Systems Review of Systems: Yes all other systems are reviewed and are negative Physical Exam 2 Exam: Exam: General: AOx3, no acute distress Resp: CTA bilaterally CVS: Sinus bradycardia GI: +BS, NT, no distention Neuro: Patient able to ambulate without any difficulty Psych: Appears quite tearful today Vital Signs: Vital Signs: Last Vital Signs Temp 98.6 F 08/04/25 11:47 Pulse 82 08/04/25 11:47 Resp 14 08/04/25 11:47 BP 138/74 08/04/25 11:47 Pulse Ox 94 08/04/25 11:47 O2 Del Method Room Air 08/04/25 11:47 BMI result Body Mass Index 27.5 Objective Data Active Medications Acetaminophen (Acetaminophen 325 Mg Tablet) 975 mg PO Q6H PRN PRN Reason: Pain, Mild (Pain Scale 1-3) Last Admin: 08/04/25 09:42 Dose: 975 mg Documented By: AKILA Amlodipine Besylate (Amlodipine Besylate 5 Mg Tablet) 5 mg PO DAILY [facility]; Protocol Last Admin: 08/04/25 09:38 Dose: 5 mg Documented By: AKILA Aspirin (Aspirin Enteric Coated 81 Mg Tablet.Dr) 81 mg PO DAILY [facility] Last Admin: 08/04/25 09:38 Dose: 81 mg Documented By: AKILA Atropine Sulfate (Atropine Sulfate 1 Mg/10 Ml Syringe) 1 mg IVPUSH ONCE PRN PRN Reason: symptomatic bradycardia Calcium Carbonate (Calcium Carbonate 750 Mg Tab.Chew) 750 mg PO Q4H PRN PRN Reason: Heartburn Clopidogrel Bisulfate (Clopidogrel Bisulfate 75 Mg Tablet) 75 mg PO DAILY [facility] Last Admin: 08/04/25 09:38 Dose: 75 mg Documented By: AKILA Enoxaparin Sodium (Enoxaparin Sodium 40 Mg/0.4 Ml Syringe) 40 mg SUBCUT Q24H [facility] Last Admin: 08/03/25 14:37 Dose: 40 mg Documented By: AKILA Lidocaine (Lidocaine 4 % Patch Adh..Patch) 2 patch TRANSDERMA DAILY [facility]; Protocol Last Admin: 08/04/25 09:40 Dose: Not Given Documented By: AKILA Non-Admin Reason: Patient Refused Magnesium Hydroxide (Milk Of Magnesia 30 Ml Oral.Susp) 30 ml PO DAILY PRN PRN Reason: Constipation Prochlorperazine Edisylate (Prochlorperazine Edisylate 10 Mg/2 Ml Vial) 5 mg IVPUSH Q6H PRN PRN Reason: Nausea and Vomiting Last Admin: 08/02/25 21:16 Dose: 5 mg Documented By: FOGARTRadha Sodium Chloride (0.9 % Sodium Chloride Flush 3 Ml Syringe) 3 ml IVFLUSH QSHIFT [facility] Last Admin: 08/04/25 09:47 Dose: 3 ml Documented By: AKILA Labs 08/01/25 11:34 08/02/25 06:41 Assessment and Plan (1) Clonidine overdose: Status: Acute Assessment and Plan: 59-year-old male with history of hypertension, bipolar disorder, coronary artery disease, WILTON not on CPAP who presents to the emergency department with suicidal ideation after intentional ingestion of clonidine found to have sinus bradycardia, needs to be monitored with serial EKG q.6 hours for sinus bradycardia Sinus bradycardia due to clonidine overdose BP currently stable tele monitoring, pacer pads on, atropine prn if becomes symptomatic hold clonidine or and tabatha blocking agents Continue q.6 hours EKGs Complains of tailbone pain with shooting pain xrays unremarkable c/o ear ache - exam unremakable c/o epistaxsis - likely psychosomatic , cont DVT px PT eval likely not indicated as the patient is ambulatory without any concerns Depression with SI with intentional drug OD Patient states ?I will not survive outside, hence send me to inpatient voluntary psych [facility] for safety check tox screen care team eval when medically clear Alcohol dependence with risk for alcohol withdrawal etoh 72 does not appear to be in withdrawal at this time monitor on CIWA SHAJI encourage po intake Avoid nephrotoxins Follow BMP WILTON does not have cpap at home CPAP if able to tolerate while inpatient HTN hold meds for now to avoid hypotension in setting of clonidine overdose CAD continue asa, plavix mood hold meds for now CARE team eval once sinus bradycardia resolved DVT ppx - lovenox Once he has resolution of sinus bradycardia due to clonidine overdose, we will have care team evaluation psychiatry evaluation and he wants to have voluntary psych admission This note is constructed using voice recognition software. While every effort has been made to ensure accuracy, psychological anthropologist errors may have been included. Quality Stroke Does the patient have a stroke diagnosis?: No VTE Prior VTE?: No VTE Risk Level:: Medical - moderate - high VTE Device Contraindication: N/A - Device Ordered VTE Drug Contraindication: Treatment Not Indicated
--- NOTE | 2025-08-04 18:51 | ECG_ITS ---
Test Reason : low heart rate Blood Pressure : */* mmHG Vent. Rate : 47 BPM Atrial Rate : 47 BPM P-R Int : 202 ms QRS Dur : 84 ms QT Int : 452 ms P-R-T Axes : 12 -17 107 degrees QTcB Int : 400 ms Sinus bradycardia Cannot rule out Anterior infarct , age undetermined Abnormal ECG No previous ECGs available Referred By: Isabel Pal Electronically Signed By: ELVIS SHERWOOD
[2025-08-05] VITALS: BP 162/80; PULSE 57; RESP 18; TEMP 36.1; O2SAT 93
[2025-08-05 03:51] VITALS: BP 158/84; PULSE 53; RESP 18; TEMP 36.3; O2SAT 93
[2025-08-05 07:17] LABS: MANUAL DIFF FLAG NO
--- NOTE | 2025-08-05 07:19 | HO.PM.IMPN ---
Subjective Subjective Date of Service: 08/05/25 Interval History: Care team accepted, awaiting a bed Review of Systems Review of Systems: Yes all other systems are reviewed and are negative Physical Exam Exam: Exam: General: AOx3, no acute distress Resp: CTA bilaterally CVS: Sinus bradycardia GI: +BS, NT, no distention Neuro: Patient able to ambulate without any difficulty Psych: Appears quite tearful today Vital Signs: Vital Signs: Last Vital Signs Temp 97.4 F 08/05/25 03:51 Pulse 53 08/05/25 03:51 Resp 18 08/05/25 03:51 BP 158/84 H 08/05/25 03:51 Pulse Ox 93 08/05/25 03:51 O2 Del Method Room Air 08/05/25 03:51 BMI result Body Mass Index 27.5 Objective Data Active Medications Acetaminophen (Acetaminophen 325 Mg Tablet) 975 mg PO Q6H PRN PRN Reason: Pain, Mild (Pain Scale 1-3) Last Admin: 08/04/25 09:42 Dose: 975 mg Documented By: AKILA Amlodipine Besylate (Amlodipine Besylate 5 Mg Tablet) 5 mg PO DAILY [facility]; Protocol Last Admin: 08/04/25 09:38 Dose: 5 mg Documented By: AKILA Artificial Tears (Artificial Tears 15 Ml Drops) 2 drop EYE-BOTH Q4H PRN PRN Reason: Dry Eyes Aspirin (Aspirin Enteric Coated 81 Mg Tablet.Dr) 81 mg PO DAILY [facility] Last Admin: 08/04/25 09:38 Dose: 81 mg Documented By: AKILA Atropine Sulfate (Atropine Sulfate 1 Mg/10 Ml Syringe) 1 mg IVPUSH ONCE PRN PRN Reason: symptomatic bradycardia Calcium Carbonate (Calcium Carbonate 750 Mg Tab.Chew) 750 mg PO Q4H PRN PRN Reason: Heartburn Clopidogrel Bisulfate (Clopidogrel Bisulfate 75 Mg Tablet) 75 mg PO DAILY [facility] Last Admin: 08/04/25 09:38 Dose: 75 mg Documented By: AKILA Enoxaparin Sodium (Enoxaparin Sodium 40 Mg/0.4 Ml Syringe) 40 mg SUBCUT Q24H [facility] Last Admin: 08/04/25 15:49 Dose: Not Given Documented By: AKILA Non-Admin Reason: Nose bleed Lidocaine (Lidocaine 4 % Patch Adh..Patch) 2 patch TRANSDERMA DAILY [facility]; Protocol Last Admin: 08/04/25 09:40 Dose: Not Given Documented By: AKILA Non-Admin Reason: Patient Refused Magnesium Hydroxide (Milk Of Magnesia 30 Ml Oral.Susp) 30 ml PO DAILY PRN PRN Reason: Constipation Prochlorperazine Edisylate (Prochlorperazine Edisylate 10 Mg/2 Ml Vial) 5 mg IVPUSH Q6H PRN PRN Reason: Nausea and Vomiting Last Admin: 08/02/25 21:16 Dose: 5 mg Documented By: EMETERIO Sodium Chloride (0.9 % Sodium Chloride Flush 3 Ml Syringe) 3 ml IVFLUSH QSHIFT [facility] Last Admin: 08/05/25 00:00 Dose: Not Given Documented By: AMANDEEP Non-Admin Reason: Previously Administered Labs 08/05/25 07:09 08/05/25 07:09 Assessment and Plan (1) Clonidine overdose: Status: Acute Assessment and Plan: 59-year-old male with history of hypertension, bipolar disorder, coronary artery disease, WILTON not on CPAP who presents to the emergency department with suicidal ideation after intentional ingestion of clonidine found to have sinus bradycardia, needs to be monitored with serial EKG q.6 hours for sinus bradycardia Sinus bradycardia due to clonidine overdose BP currently stable tele monitoring, pacer pads on, atropine prn if becomes symptomatic hold clonidine or and tabatha blocking agents Continue q.6 hours EKGs Complains of tailbone pain with shooting pain Likely sciatica versus psychosomatic xrays unremarkable c/o ear ache - exam unremakable c/o epistaxsis - likely psychosomatic , cont DVT px PT eval likely not indicated as the patient is ambulatory without any concerns Depression with SI with intentional drug OD Patient states ?I will not survive outside, hence send me to inpatient voluntary psych [facility] for safety check tox screen Currently awaiting a bed at psych, medically cleared Alcohol dependence with risk for alcohol withdrawal etoh 72 does not appear to be in withdrawal at this time monitor on CIWA SHAJI encourage po intake Avoid nephrotoxins Follow BMP WILTON does not have cpap at home CPAP if able to tolerate while inpatient HTN hold meds for now to avoid hypotension in setting of clonidine overdose CAD continue asa, plavix mood disorder hold meds for now CARE team eval today Stated history by a friend-justa Reece- I spoke with Carlin?s bestfriend/landlord Sourav Briceno (pt asked me to). He let me know that Carlin was prescribed Seroquel in December. He ended up taking the entire script within 5-7 days and developed what sounds like tardive dyskinesia- uncontrolled tongue, inability to talk. This lasted for about 1 week, and improved. Brandon reported this to Carlin?s psychiatrist and the med was stopped. Since then, Brandon reports that Carlin has been more paranoid, irritable, reports feeling like he has things crawling on his skin and in his ears, and hyperfocused on his various health ailments (where as he never cared about his physical health before). He has not been on any psych meds since December up until about 1 week ago when he was started on Effexor. Brandon also reports that Carlin has a long history of alcohol abuse- but it?s not consistent? as in he has bouts of heavy drinking and periods of sobriety. He only recently started heavily drinking again, and that might be why he hasn?t had any s/s of withdrawal DVT ppx - lovenox Medically cleared, care team accepted the patient This note is constructed using voice recognition software. While every effort has been made to ensure accuracy, labor supervisor errors may have been included. Quality Stroke Does the patient have a stroke diagnosis?: No VTE Prior VTE?: No VTE Risk Level:: Medical - moderate - high VTE Device Contraindication: N/A - Device Ordered VTE Drug Contraindication: Treatment Not Indicated
[2025-08-05 07:31] LABS: Hematocrit 47.4 % (42.0-52.0); Hemoglobin 16.1 g/dl (14.0-18.0); Imm Gran Abs Auto 0.04 X10*3/uL (0.00-0.03); Imm Gran Pct Auto 0.5 % (0.0-0.4); Lymphocytes Absolute Auto 1.6 X10*3/uL (1.2-4.9); Mean Corpuscular HGB Conc 34.0 g/dl (31.0-36.0); Mean Corpuscular Hemoglobin 28.7 pg (27.0-33.0); Mean Corpuscular Volume 84.5 fL (80.0-98.0); NRBC Abs Auto 0.000 X10*3/uL (0.0-0.012); NRBC Pct Auto 0.0 /100WBC (0.0-0.2); Platelet Count 125 X10*3/uL (160-400); Red Blood Count 5.61 X10*6/uL (4.60-5.80); White Blood Count 7.6 X10*3/uL (4.8-10.8)
[2025-08-05 07:36] VITALS: BP 160/82; PULSE 55; RESP 18; TEMP 36.7; O2SAT 96
[2025-08-05 07:43] LABS: Alanine Aminotransferase 121 U/L (0-40); Albumin Level 4.6 g/dL (3.5-5.0); Alkaline Phosphatase 98 U/L (39-117); Anion Gap 14 (12-20); Aspartate Amino Transferase 99 U/L (5-37); Blood Urea Nitrogen 15 mg/dL (9-16); Calcium 9.6 mg/dL (8.4-10.2); Carbon Dioxide 24 mmol/L (22-29); Chloride 107 mmol/L (96-108); Creatinine Clr Calc Pharmacy 74.7; Estimated Glomerular Filt Rate > 60; Magnesium 1.8 mg/dL (1.6-2.6); Potassium 3.9 mmol/L (3.3-5.1); Sodium 141 mmol/L (135-145); Total Protein 7.3 g/dL (6.5-8.0)
[2025-08-05] MEDS: Aspirin Enteric Coated 81 MG TABLET.DR PO (09:01)
[2025-08-05] MEDS: 0.9 % Sodium Chloride Flush 3 ML SYRINGE IVFLUSH (09:02)
--- NOTE | 2025-08-05 10:52 | MHC.CM.PN ---
Per MD in [facility]OUNDS, Care Team has deemed Patient to be appropriate for [facility], pending bed availability.
--- NOTE | 2025-08-05 10:55 | MHC.CARE ---
Pt will be an inpatient bedsearch.
[2025-08-05 11:29] VITALS: BP 147/88; PULSE 60; RESP 18; TEMP 36.6; O2SAT 96
--- NOTE | 2025-08-05 11:43 | PM.DS ---
DS: Providers Provider Date of Service: 08/05/25 Date of admission: 08/01/25 13:24 Date of discharge: 08/05/25 Primary care physician: Franchesca Batista MD Consults: 08/01/25 13:49 Consult for S[facility] Routine Reason for consultation: safety Has provider been notified: No 08/01/25 13:50 Addiction Medicine Provider Routine Consulting Provider: Addiction Covering Reason for consultation: daily etoh Has provider been notified: No 08/01/25 16:18 Addiction Medicine Provider Routine Consulting Provider: Addiction Covering Reason for consultation: high risk screen 08/05/25 07:37 Inpt CARE Team Crisis Consult Routine Comment: Reason for consultation: medically optimized DS: Diagnosis Discharge Diagnosis (1) Clonidine overdose: Status: Acute DS: Summary Hospital Course Hospital Course: Chief Complaint: SI, intentional overdose This is a 59-year-old male with history of hypertension, bipolar disorder, coronary artery disease who presents to the emergency department with SI. He reports that he wants to kill himself and took 10 tabs of 0.2 mg clonidine this morning. He reports a downward spiral over the past 1 year to multiple social stressors. He drinks alcohol daily, over the last 2 weeks he has been drinking half a pt of alcohol daily. He has also been taking multiple extra doses of clonidine daily and has had intermittent dizziness. Patient denies ingestion of any other drugs or alcohol other than his regularly prescribed medication. In the emergency department heart rate was in the 30s, blood pressure has remained stable. EKG showing sinus bradycardia. Lab work significant for SHAJI with creatinine of 1.72. ED provider discussed case with poison control who recommended cardiac monitoring in until heart rate returns to normal rate. patient denies sob or chest pain. elevated LFTs, likely due to SILVA noted on problem list appears similar to previous per ED nurse poison control called requesting repeat BMP, LFTs, CPK and repeat EKG - all have been ordered Hospital course: This is a 59-year-old male with history of hypertension, bipolar disorder, coronary artery disease, WILTON not on CPAP who presents to the emergency department with suicidal ideation after intentional ingestion of clonidine found to have bradycardia #Sinus bradycardia due to clonidine overdose, poison control was contacted and we did serial q.6 hours EKGs Patient remained hemodynamically stable, tele monitoring, had the pacer pads on the entire time, atropine p.r.n. but never needed to be used We DC clonidine from home med Medically he has been in the 60s for the past 24 hours and hence we deemed him hemodynamically stable and transferred to psych #Depression with SI with intentional drug OD Patient had [facility] for safety care team eval when medically clear #Alcohol dependence with risk for alcohol withdrawal etoh 72 , was monitored on CIWA, did not require any withdrawal taper does not appear to be in withdrawal at this time #SHAJI Resolved with fluids #WILTON does not have cpap at home CPAP if able to tolerate while inpatient -can be done outpatient, did not need CPAP throughout this hospitalization #HTN Held currently can resume when hypertensive #CAD continue asa, plavix #mood hold meds for now, resume per psych DVT ppx - was monitored on Lovenox while inpatient Patient deemed hemodynamically stable and is being transferred [facility] for further medical management This note is constructed using voice recognition software. While every effort has been made to ensure accuracy, leasing specialist errors may have been included. Time spent discussing smoking cessation with patient: more than 10 minutes Status at Discharge Functional status at discharge: independent ambulation Overall status at discharge: patient is back to baseline Time Attestation Discharge Coordination Time (in mins): 65 Quality: Safe Use of Opioids Does Pt have an Active Cancer Diagnosis on the Problem List?: No Quality: Stroke Does the patient have a stroke diagnosis?: No Physical Exam Vital Signs: Vital Signs: Last Vital Signs Temp 97.8 F 08/05/25 11:29 Pulse 60 08/05/25 11:29 Resp 18 08/05/25 11:29 BP 147/88 H 08/05/25 11:29 Pulse Ox 96 08/05/25 11:29 O2 Del Method Room Air 08/05/25 11:29 BMI result Body Mass Index 27.5 DS: Data Data Completed and Pending Labs on day of discharge: Laboratory Results - last 24 hr 08/05/25 07:09 WBC 7.6 RBC 5.61 Hgb 16.1 Hct 47.4 MCV 84.5 MCH 28.7 MCHC 34.0 RDW 13.2 Plt Count 125 L D MPV 9.7 Immature Gran % (Auto) 0.5 H Neut % (Auto) 70.1 Lymph % (Auto) 21.2 Pender % (Auto) 5.9 Eos % (Auto) 1.8 Baso % (Auto) 0.5 Lymph # (Auto) 1.6 Pender # (Auto) 0.5 Eos # (Auto) 0.1 Baso # (Auto) 0.0 Abs Immat Gran (auto) 0.04 H Absolute Neuts (auto) 5.3 Absolute Nucleated RBC 0.000 Nucleated RBC % (auto) 0.0 Sodium 141 Potassium 3.9 Chloride 107 Carbon Dioxide 24 Anion Gap 14 BUN 15 Creatinine 0.96 Estim Creat Clear Calc 74.7 Estimated GFR > 60 Random Glucose 129 H Calcium 9.6 Magnesium 1.8 Total Bilirubin 0.9 AST 99 H ALT 121 H Alkaline Phosphatase 98 Total Protein 7.3 Albumin 4.6 Discharge Plan Discharge Patient Disposition: Xfer Psychiatric Hosp Discharge Diagnosis: Sinus bradycardia clonidine overdose due to SI Referrals: Franchesca Batista MD [Primary Care Provider, Internal Medicine] - 1 Week Discharge Medications: Continued venlafaxine 37.5 mg tablet 37.5 mg PO DAILY hydroxyzine HCl 25 mg tablet 25 - 50 mg PO BID PRN (Reason: Anxiety) lisinopril 5 mg tablet 5 mg PO DAILY amlodipine 5 mg tablet 5 mg PO DAILY clopidogrel 75 mg tablet 75 mg PO DAILY aspirin [Adult Aspirin Regimen] 81 mg tablet,delayed release (DR/EC) 81 mg PO DAILY Discontinued clonidine HCl 0.2 mg tablet 0.2 mg PO BID Discharge Orders: Discharge Order (Routine); Ordered 08/05/25 Ordered By: Isabel Pal Diet: Low salt diet Activity on Discharge: As tolerated Stand Alone Forms: Patient Portal Discharge page Print Language: Frisian
--- NOTE | 2025-08-05 15:07 | HO.ADDICT_ITS ---
History of Present Illness Date of Service: 08/05/2025 Chief Complaint: overdose, cora Reason for Consult: AUD HPI Narrative: Patient is a 59 year old Caucaasian male with history that includes, Bipolar disorder, MCI, AUD and HTN. Medically admitted after clonidine overdose. Consult requested for AUD, seen by electronic development technician during admission and expressed interest in initiating YOSHI. Chart reviewed, including Recovery Note: Pt reports that he has been drinking ETOH since he was 12. He describes his drinking and episodic and binge. He drinks with stressors and to cope and is able to stop when things are good. Pt's most recent episode was 1/2 pint vodka daily for 2 weeks and prior to that it was 1/2 pt. vodka per week. Pt reports his last use was 07/31. He came to the ED as he was kicked out of his current house due to drinking and behaviors. He described the episode to me as my house mate/friend does not believe in rehab so i drank and took the pills to find another way for treatment. Pt also reports h/o misusing all prescription pills. Pt reports intermittent THC use. He reports 1 OD on ETOH and pain meds about 7-8 years ago. He reports trying Naltrexone and Antabuse in the past. He reports approx 5 completed rehab stays and a period of 1 year of sobriety following one of the stays. When asked what helped him stay sober he replied I just did it . Patient seen in room 467. He has been medically cleared and is awaiting transfer to unit. He is awake, alert, pleasant and engaged in interview. No withdrawal sx noted or reported. Completed phenobarbital taper. He states that he would like to re-start Naltrexone. Reports that when he took it in the past it was helpful. Denies any side effects. He is familiar with medication and has no questions about it. He verbalizes motivation for change, and is optimistic about admission and support he will recieve. Labs reviewed--LFTS slightly elevated today compared to admission. Medical Evaluation Reviewed: Yes Review of Systems Constitutional: Reports as per HPI and Reports no additional constitutional complaints Diagnostics Vital Signs (24Hr): Vital Signs - 24 hr 08/04/25 15:36 08/04/25 19:10 08/05/25 00:00 Temperature 97.7 F 98.4 F 96.9 F Pulse Rate 56 60 57 Respiratory Rate 18 18 18 Blood Pressure 152/84 H 153/84 H 162/80 H Pulse Oximetry 95 93 93 Oxygen Delivery Method Room Air Room Air Room Air 08/05/25 03:51 08/05/25 07:36 08/05/25 11:29 Temperature 97.4 F 98.0 F 97.8 F Pulse Rate 53 55 60 Respiratory Rate 18 18 18 Blood Pressure 158/84 H 160/82 H 147/88 H Pulse Oximetry 93 96 96 Oxygen Delivery Method Room Air Room Air Room Air BMI result Body Mass Index 27.5 Labs 08/05/25 07:09 08/05/25 07:09 Labs: Laboratory Results - last 48 hr 08/05/25 07:09 WBC 7.6 RBC 5.61 Hgb 16.1 Hct 47.4 MCV 84.5 MCH 28.7 MCHC 34.0 RDW 13.2 Plt Count 125 L D MPV 9.7 Immature Gran % (Auto) 0.5 H Neut % (Auto) 70.1 Lymph % (Auto) 21.2 Elk % (Auto) 5.9 Eos % (Auto) 1.8 Baso % (Auto) 0.5 Lymph # (Auto) 1.6 Elk # (Auto) 0.5 Eos # (Auto) 0.1 Baso # (Auto) 0.0 Abs Immat Gran (auto) 0.04 H Absolute Neuts (auto) 5.3 Absolute Nucleated RBC 0.000 Nucleated RBC % (auto) 0.0 Sodium 141 Potassium 3.9 Chloride 107 Carbon Dioxide 24 Anion Gap 14 BUN 15 Creatinine 0.96 Estim Creat Clear Calc 74.7 Estimated GFR > 60 Random Glucose 129 H Calcium 9.6 Magnesium 1.8 Total Bilirubin 0.9 AST 99 H ALT 121 H Alkaline Phosphatase 98 Total Protein 7.3 Albumin 4.6 Mental Status Exam Mental Status Exam Level of Consciousness: Awake, Appropriate and Alert Patient Behavior: Appropriate, Talkative and Cooperative Affect Description: Calm Speech Pattern: Clear Hallucinations: None Thought Process: Intact Thought Content: positive for Intact, positive for [place] and positive for Circumstantial Judgement: Good Medications Medications Current Medications Acetaminophen (Acetaminophen 325 Mg Tablet) 975 mg PO Q6H PRN PRN Reason: Pain, Mild (Pain Scale 1-3) Last Admin: 08/05/25 09:01 Dose: 975 mg Amlodipine Besylate (Amlodipine Besylate 5 Mg Tablet) 5 mg PO DAILY [facility]; Protocol Last Admin: 08/05/25 09:01 Dose: 5 mg Artificial Tears (Artificial Tears 15 Ml Drops) 2 drop EYE-BOTH Q4H PRN PRN Reason: Dry Eyes Aspirin (Aspirin Enteric Coated 81 Mg Tablet.Dr) 81 mg PO DAILY [facility] Last Admin: 08/05/25 09:01 Dose: 81 mg Atropine Sulfate (Atropine Sulfate 1 Mg/10 Ml Syringe) 1 mg IVPUSH ONCE PRN PRN Reason: symptomatic bradycardia Calcium Carbonate (Calcium Carbonate 750 Mg Tab.Chew) 750 mg PO Q4H PRN PRN Reason: Heartburn Clopidogrel Bisulfate (Clopidogrel Bisulfate 75 Mg Tablet) 75 mg PO DAILY [facility] Last Admin: 08/05/25 09:01 Dose: 75 mg Enoxaparin Sodium (Enoxaparin Sodium 40 Mg/0.4 Ml Syringe) 40 mg SUBCUT Q24H [facility] Last Admin: 08/05/25 14:31 Dose: Not Given Lidocaine (Lidocaine 4 % Patch Adh..Patch) 2 patch TRANSDERMA DAILY [facility]; Protocol Last Admin: 08/05/25 08:53 Dose: Not Given Lorazepam (Lorazepam 0.5 Mg Tablet) 0.25 mg PO Q6H PRN PRN Reason: anxiety and agitation Last Admin: 08/05/25 12:42 Dose: 0.25 mg Magnesium Hydroxide (Milk Of Magnesia 30 Ml Oral.Susp) 30 ml PO DAILY PRN PRN Reason: Constipation Prochlorperazine Edisylate (Prochlorperazine Edisylate 10 Mg/2 Ml Vial) 5 mg IVPUSH Q6H PRN PRN Reason: Nausea and Vomiting Last Admin: 08/02/25 21:16 Dose: 5 mg Sodium Chloride (0.9 % Sodium Chloride Flush 3 Ml Syringe) 3 ml IVFLUSH QSHIFT [facility] Last Admin: 08/05/25 09:02 Dose: 3 ml Allergies Allergies Allergy/AdvReac Type Severity Reaction Status Date / Time No Known Allergies (No Known Allergy Verified 08/01/25 10:35 Allergies*) Assessment & Plan Assessment & Plan (1) Alcohol use disorder, moderate, dependence: Status: Acute Code(s): F10.20 - Alcohol dependence, uncomplicated Assessment and Plan: * naltrexone 50mg QD to start in AM --patient familiar with medication, no questions about dosing, side effects or goals of medication. * electronic development technician to check in while on Total time managing care of this patient today ___25_ minutes. 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 Dysuria Acute otitis media Bipolar disorder Acute pharyngitis Nocturnal hypoxemia Obesity (BMI 30-39.9) History of pneumonia Central sleep apnea Complex sleep apnea syndrome Pneumonitis Atherosclerotic cardiovascular disease WILTON (obstructive sleep apnea) SILVA (nonalcoholic steatohepatitis) History of deep venous thrombosis (DVT) of distal vein of left lower extremity Skin cancer Depression Recurrent kidney stones Dyslipidemia Essential hypertension Central sleep apnea Reid-Demarco breathing disorder Hiatal hernia Degenerative joint disease of left knee Diastolic congestive heart failure STEMI (ST elevation myocardial infarction) CAD (coronary artery disease) Lesion of skin of face Farias's esophagus Chronic idiopathic constipation Family History Family History Father Brain cancer Lung cancer Substance use disorder Mother Emphysema, unspecified Substance use disorder Mental health disorder Surgical History Surgical History Hx of colonoscopy (~10/02/19) History of total knee arthroplasty History of esophagogastroduodenoscopy (EGD) Social History Social History Household Members: Children Household Members Other:: Son, Sushil Housing: Apartment Are you a primary director of health care marketing to a significant other at home: No Do you presently have visiting nurse or other home services: No Alcohol intake: current Alcohol intake frequency: 3 or more drinks per day Alcohol type: hard liquor Comment: 1:1 sitter present Patient Tobacco Use Status: Former Tobacco user Tobacco use type: Cigarette Cigarette Packs Per Day: 1 Cigarettes Per Day: 20.0 Years Smoked: 40 e-Cigarette/Vaping Use: Never Used Second Hand Smoke Exposure: No Advance Directives: No Advance Directives Information Provided: Yes service: No Current occupational status: unemployed Sexual orientation: Straight/Heterosexual Gender identity: Male Cognitive needs: Yes (Memory Changes) Hearing needs: No Vision needs: Yes
[2025-08-05 15:21] VITALS: BP 156/91; PULSE 60; RESP 18; TEMP 36.8; O2SAT 95
== END 2025-08-05 15:30 | DRG 918 ==
LOC: HO.ED 12:58 → HO.EDOVER 13:26 → HO.IMC 14:02
PROVIDERS: Physician Assistant Medical; Admitting Provider Physician Assistant Medical; Emergency Provider Emergency Medicine; PCP Internal Medicine; Visit Provider Student in an Organized Health Care Education/Training Program
DX: T42.4X2A Poisoning by benzodiazepines, intentional self-harm, initial encounter (principal); N17.9 Acute kidney failure, unspecified; I25.10 Atherosclerotic heart disease of native coronary artery without angina pectoris; F17.210 Nicotine dependence, cigarettes, uncomplicated; Y90.3 Blood alcohol level of 60-79 mg/100 ml; G47.33 Obstructive sleep apnea (adult) (pediatric); K75.81 Nonalcoholic steatohepatitis (NASH); R00.1 Bradycardia, unspecified; F10.20 Alcohol dependence, uncomplicated; F32.A Depression, unspecified; Z71.6 Tobacco abuse counseling; Z79.02 Long term (current) use of antithrombotics/antiplatelets; Z79.82 Long term (current) use of aspirin; Z79.899 Other long term (current) drug therapy
CPT/HCPCS: 36415; 70450; 72125; 73521; 80048; 80053; 80076; 80143; 80179; 80307; 81001; 82550; 83735; 84484; 85025; 93005; 99285; J0737; J1200; J1650; J3475; J7120; S9485

== ENCOUNTER → 2025-08-01 10:43 | Outpatient (BNV) | payer MEDICARE, MEDICAID, SELFPAY | PROVIDERS: Admitting Provider Physician Assistant Medical; Emergency Provider Emergency Medicine; PCP Internal Medicine; Visit Provider Internal Medicine | DX: I44.0 Atrioventricular block, first degree (principal); I25.2 Old myocardial infarction; R00.1 Bradycardia, unspecified | CPT/HCPCS: 93010 ==

== ENCOUNTER 2025-08-01 13:24 | Outpatient (BNV) | payer MEDICARE, MEDICAID, SELFPAY | END 2025-08-03 00:51 | PROVIDERS: Admitting Provider Physician Assistant Medical; Emergency Provider Emergency Medicine; PCP Internal Medicine; Visit Provider Internal Medicine | DX: R00.1 Bradycardia, unspecified (principal) | CPT/HCPCS: 93010 ==

== ENCOUNTER 2025-08-01 13:24 | Outpatient (BNV) | payer MEDICARE, MEDICAID, SELFPAY | END 2025-08-04 12:51 | PROVIDERS: Admitting Provider Physician Assistant Medical; Emergency Provider Emergency Medicine; PCP Internal Medicine; Visit Provider Internal Medicine | DX: R00.1 Bradycardia, unspecified (principal); I44.0 Atrioventricular block, first degree | CPT/HCPCS: 93010 ==

== ENCOUNTER 2025-08-01 13:24 | Outpatient (BNV) | payer MEDICARE, MEDICAID, SELFPAY | END 2025-08-02 04:29 | PROVIDERS: Admitting Provider Physician Assistant Medical; Emergency Provider Emergency Medicine; PCP Internal Medicine; Visit Provider Internal Medicine | DX: R00.1 Bradycardia, unspecified (principal); I44.0 Atrioventricular block, first degree; I21.09 ST elevation (STEMI) myocardial infarction involving other coronary artery of anterior wall | CPT/HCPCS: 93010 ==

== ENCOUNTER 2025-08-01 13:24 | Outpatient (BNV) | payer MEDICARE, MEDICAID, SELFPAY | END 2025-08-03 18:08 | PROVIDERS: Admitting Provider Physician Assistant Medical; Emergency Provider Emergency Medicine; PCP Internal Medicine; Visit Provider Radiology Diagnostic Radiology | DX: M79.606 Pain in leg, unspecified (principal) | CPT/HCPCS: 73521 ==

== ENCOUNTER → 2025-08-01 13:24 | Outpatient (BNV) | payer MEDICARE, MEDICAID, SELFPAY | PROVIDERS: Admitting Provider Physician Assistant Medical; Emergency Provider Emergency Medicine; PCP Internal Medicine; Visit Provider Nurse Practitioner Psychiatric/Mental Health | DX: F10.20 Alcohol dependence, uncomplicated (principal) | CPT/HCPCS: 99221 ==

== ENCOUNTER → 2025-08-01 13:24 | Outpatient (BNV) | payer MEDICARE, MEDICAID, SELFPAY | PROVIDERS: Admitting Provider Physician Assistant Medical; Emergency Provider Emergency Medicine; PCP Internal Medicine; Visit Provider Physician Assistant Medical | DX: N17.9 Acute kidney failure, unspecified (principal); R00.1 Bradycardia, unspecified | CPT/HCPCS: 99223 ==

== ENCOUNTER 2025-08-05 14:12 | Inpatient (IN) | payer MEDICARE, MEDICAID, SELFPAY ==
[2025-08-05 15:45] VITALS: BP 180/90; PULSE 64; RESP 18; TEMP 36.9; O2SAT 97
[2025-08-05 16:13] VITALS: BMI 26.8
--- NOTE | 2025-08-05 17:00 | PC.NURSE ---
Pt declined flu vaccine at this time
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
--- NOTE | 2025-08-05 17:45 | PC.NURSE ---
pt is a former smoker and declined NRT at this time
[2025-08-05 21:06] VITALS: BP 155/103; PULSE 69; RESP 18; TEMP 36.9; O2SAT 96
[2025-08-06 07:00] VITALS: BMI 26.8
[2025-08-06 08:13] LABS: Alanine Aminotransferase 105 U/L (0-40); Albumin Level 5.0 g/dL (3.5-5.0); Alkaline Phosphatase 97 U/L (39-117); Anion Gap 16 (12-20); Aspartate Amino Transferase 64 U/L (5-37); Blood Urea Nitrogen 19 mg/dL (9-16); Calcium 9.9 mg/dL (8.4-10.2); Carbon Dioxide 24 mmol/L (22-29); Chloride 108 mmol/L (96-108); Cholesterol 226 mg/dL (<200); Creatinine Clr Calc Pharmacy 57.1; Estimated Glomerular Filt Rate > 60; HDL Cholesterol 33 mg/dL (>40); Potassium 4.0 mmol/L (3.3-5.1); Sodium 144 mmol/L (135-145); Total Protein 8.1 g/dL (6.5-8.0); Triglycerides 218 mg/dL (<150)
--- NOTE | 2025-08-06 08:20 | P.CONHOSP_ITS ---
History of Present Illness Data of Consult Service Date: 08/06/25 Primary Care Provider: Unknown Physician HPI Reason for consult: Medical consult 59-year-old male with a past medical history of hypertension, bipolar disorder, coronary artery disease presented to the emergency room with suicide ideation. Patient took an intentional overdose of 10 tablets of 0.2 mg of clonidine. In the emergency room patient's heart rate was noted to be in 30s, his blood pressure was stable his EKG confirms sinus bradycardia. He was also found to have an acute kidney injury with a creatinine of 1.72. Poison control was consulted, patient was admitted for continuous cardiac monitoring until his heart returned to normal limits. Patient also noted to have elevated LFTs secondary to SILVA. Patient was admitted to inpatient, remained high hemodynamically stable, he was on continuous tele monitoring with pacer pads and atropine as needed but this did not need to be used. His heart rate was consistently in the 60s and he was hemodynamically stable and found to be appropriate for psychiatric admission. On exam he reports that he feels like a spider crawled in his ear. On exam there is a small amount of wax adhered to his ear canal on the left ear. Otherwise ears without any redness, drainage, or abnormalities. Review of Systems 2 Review of Systems: Denies any shortness of breath, chest pain, headaches, dysuria, abdominal pain or discomfort, nausea, vomiting or diarrhea. Denies fever or chills. 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 Dysuria Acute otitis media Bipolar disorder Acute pharyngitis Nocturnal hypoxemia Obesity (BMI 30-39.9) History of pneumonia Central sleep apnea Complex sleep apnea syndrome Pneumonitis Atherosclerotic cardiovascular disease WILTON (obstructive sleep apnea) SILVA (nonalcoholic steatohepatitis) History of deep venous thrombosis (DVT) of distal vein of left lower extremity Skin cancer Depression Recurrent kidney stones Dyslipidemia Essential hypertension Central sleep apnea Reid-Demarco breathing disorder Hiatal hernia Degenerative joint disease of left knee Diastolic congestive heart failure STEMI (ST elevation myocardial infarction) CAD (coronary artery disease) Lesion of skin of face Farias's esophagus Chronic idiopathic constipation Family History Father Brain cancer Lung cancer Substance use disorder Mother Emphysema, unspecified Substance use disorder Mental health disorder Surgical History Hx of colonoscopy (~10/02/19) History of total knee arthroplasty History of esophagogastroduodenoscopy (EGD) Social History Household Members: Children Household Members Other:: Son, Sushil Housing: Apartment Are you a primary healthcare risk control consultant to a significant other at home: No Do you presently have visiting nurse or other home services: No Alcohol intake: current Alcohol intake frequency: 3 or more drinks per day Alcohol type: hard liquor Comment: 1:1 sitter present Patient Tobacco Use Status: Former Tobacco user Tobacco use type: Cigarette Cigarette Packs Per Day: 1 Cigarettes Per Day: 20.0 Years Smoked: 40 e-Cigarette/Vaping Use: Never Used Second Hand Smoke Exposure: No Currently Displaying Signs/Symptoms of Drug Intoxication Withdrawal: No Have you been hit, kicked, punched, or otherwise hurt by someone within the past year? If so, by whom?: No Do you feel safe in your current relationship?: No Current Relationship Is there a partner from a previous relationship who is making you feel unsafe now?: No Advance Directives: No Advance Directives Information Provided: Yes Do you have thoughts of harming others: None Do you have a plan to hurt others: No Plan Recently lost weight without trying: Yes How much weight loss: 2-13 pounds Eating poorly because of decreased appetite: Yes Nutrition screen score: 4 Nutrition Risks: No Nutritional Risk Poor oral hygiene: No service: No Current occupational status: unemployed Sexual orientation: Straight/Heterosexual Gender identity: Male Cognitive needs: Yes (Memory Changes) Hearing needs: No Vision needs: Yes Meds Allergies Allergy/AdvReac Type Severity Reaction Status Date / Time No Known Allergies (No Known Allergy Verified 08/01/25 10:35 Allergies*) Active Medications: Current Medications Acetaminophen (Acetaminophen 325 Mg Tablet) 650 mg PO Q6H PRN PRN Reason: Headache/Pain, Scale 1-10 Al Hydroxide/Mg Hydroxide (Magnesium Hydrox/Alum Hydrox 30 Ml Oral.Susp) 30 ml PO Q6H PRN PRN Reason: Heartburn/Nausea Amlodipine Besylate (Amlodipine Besylate 5 Mg Tablet) 5 mg PO DAILY [facility]; Protocol Aspirin (Aspirin Enteric Coated 81 Mg Tablet.Dr) 81 mg PO DAILY [facility] Clopidogrel Bisulfate (Clopidogrel Bisulfate 75 Mg Tablet) 75 mg PO DAILY [facility] Hydroxyzine HCl (Hydroxyzine Hcl 50 Mg Tablet) 50 mg PO Q6H PRN PRN Reason: mild anxiety Lisinopril (Lisinopril 5 Mg Tablet) 5 mg PO DAILY [facility]; Protocol Magnesium Hydroxide (Milk Of Magnesia 30 Ml Oral.Susp) 30 ml PO DAILY PRN PRN Reason: Constipation Naltrexone HCl (Naltrexone Hcl 50 Mg Tablet) 50 mg PO DAILY [facility] Nicotine (Nicotine 21 Mg Patch.Td24) 21 mg TRANSDERMA DAILY [facility] Nicotine Polacrilex (Nicotine Polacrilex 2 Mg Gum) 4 mg BUCCAL Q2H PRN PRN Reason: Nicotine Cravings Olanzapine (Olanzapine 5 Mg Tablet) 5 mg PO BID PRN PRN Reason: agitation Last Admin: 08/05/25 22:42 Dose: 5 mg Trazodone HCl (Trazodone Hcl 50 Mg Tablet) 50 mg PO BEDTIME MRX1 PRN PRN Reason: Insomnia Last Admin: 08/05/25 22:42 Dose: 50 mg Home Medications ?Medication ?Instructions ?Recorded ?Confirmed ?Last Taken ?Type lisinopril 5 mg tablet 5 mg PO DAILY 10/05/2008/0508/01/25 History amlodipine 5 mg tablet 5 mg PO DAILY 09/12/2208/0508/05/25 History clopidogrel 75 mg tablet 75 mg PO DAILY 09/12/2211/2508/05/25 History aspirin 81 mg tablet,delayed 81 mg PO DAILY 04/02/25 1 10/06/24 08/05/25 History release (Adult Aspirin Regimen) hydroxyzine HCl 25 mg tablet 25 - 50 mg PO BID PRN Anx iety 08/01/25 08/05/25 08/01/25 History Physical Exam 2 Vital Signs and Narrative: Vital Signs: Last Vital Signs Temp 98.4 F 08/05/25 21:06 Pulse 69 08/05/25 21:06 Resp 18 08/05/25 21:06 BP 155/103 H 08/05/25 21:06 Pulse Ox 96 12/03/25 21:06 O2 Del Method Room Air 12/03/25 21:06 BMI result Body Mass Index 26.8 Alert and oriented X3, calm and cooperative. Answers questions. Neuro: CN II-X11 intact, no deficits, visual acuity intact EYES: PERRLA, EOM intact ENT: Hearing intact, MMM Cardiac: S1 S2 RRR, No ectopy Pulmonary: lungs clear to auscultation, No increased WOB. Abdominal: BS active in all 4 quadrants, no guarding or tenderness MSK: Strength 5/5 upper and lower extremities : Deferred Extremities: No edema in lower extremities Psych: Mood stable, Quiet and cooperative. Skin: Warm and dry, Intact Results Labs 08/06/25 07:28 Labs: Laboratory Results - last 24 hr 08/06/25 07:28 Anion Gap 16 Estim Creat Clear Calc 57.1 Estimated GFR > 60 Random Glucose 126 H Estimat Average Glucose 128 Hemoglobin A1c % 6.1 H Calcium 9.9 Total Bilirubin 0.8 AST 64 H ALT 105 H Alkaline Phosphatase 97 Total Protein 8.1 H Albumin 5.0 Triglycerides 218 H Cholesterol 226 H LDL Cholesterol, Calc 150 H HDL Cholesterol 33 L Assessment and Plan (1) Essential hypertension: Status: Acute Plan 59-year-old male with past medical history of depression and suicidal ideation presented to the emergency room after an intentional overdose of clonidine. Patient was admitted to the hospital now medically cleared and transferred to the inpatient psychiatric unit. Depression with SI/intentional overdose/ETOH dependence Treatment per psychiatric team Patient was monitored in the hospital for bradycardia secondary to clonidine overdose. He remained hemodynamically stable Recommend discontinuing clonidine. Did not require any withdrawal taper Acute kidney injury/proteinuria Resolved with fluids Follow up outpatient by Nephrology. WILTON Does not have a CPAP at home, we will need outpatient sleep study Hypertension Continue amlodipine, lisinopril CAD/dyslipidemia/CHF/history of angioplasty and stents. Continue aspirin and Plavix Appears euvolemic on exam Previously atorvastatin 80 mg We will restart 40 mg daily, we will need outpatient follow up. Check LFTs in 1 week. Thank you for allowing me to participate in the care of this patient. Will follow with you, please notify medical provider with any changes in condition or concerns.
[2025-08-06 08:53] VITALS: BP 182/92; PULSE 69; RESP 18; TEMP 36.8; O2SAT 98
[2025-08-06] MEDS: Aspirin Enteric Coated 81 MG TABLET.DR PO (08:59)
--- NOTE | 2025-08-06 10:00 | P.HPPS_ITS ---
HPI Date of Service: 08/06/25 Chief Complaint: crisis Sources of Information: patient interviewed, chart reviewed and crisis/core team assessment reviewed HPI Subjective Notes: [place] Warning and Conditional Voluntary Narrative: Patient is a 59 year old male with hx of Bipolar d/o and alcohol use d/o who presented to ER due to suicidal ideation, drinking in excess and taking an overdose of clonidine secondary to life stressors. Per crisis report, patient presented to with a complaint of being a bad place mentally for several weeks. Reported suicidal ideation, drinking in excess and taking 10 tablets 0.2 mg clonidine the morning he presented to ER. Patient denies this was a suicide attempt. History inpatient psychiatric hospitalizations, detox admissions and medication nonadherence. Patient reports he has been off his medications for almost a year. He reports he recently restarted the week of . patient reports he has been drinking in excess for about a week. When asked why he was overtaking medication, he stated, I wanted to stop feeling this way . Patient reports poor sleep and appetite. He reports feeling anxious and depressed but not suicidal ; denies HI/VH/AH. He has outpatient providers through [facility]. Patient was prescribed Seroquel in December 2024 and he took the entire script within 5-7 days and developed uncontrolled tongue movements, inability to talk, which lasted for about a week. Patient's landlord reported he has been presenting as paranoid and irritable; feeling like he has things crawling on his skin and in his ears. History of withdrawal seizures. Utox positive for alcohol. During admission assessment, pt presents alert and oriented x3. calm and cooperative. Patient reports feeling depressed ; pt stated, I hate this time of year. I lost my first to cancer and this weekend it will be 30 years. I've had so much on my mind between that and trying to find work and missing my son who moved to [place] . Patient reports he took handfuls of clonidine not in a suicide attempt but to get high ; pt stated, all week I would take handfuls of it and it would adelaida give me a high . Patient reports in December 2024, he took his 30 day prescription of Seroquel over a weeks time d/t trying to get high . Patient stated, I took all the Seroquel out of stupidity. I was probably trying to get high . Utox positive for alcohol; negative for other substances. Patient reports hx of 3-4 suicide attempts via cutting. denies hx of SIB. He reports poor sleep but good appetite. He reports having outpatient psychiatric providers through [facility]. hx of taking Effexor and hydroxyzine; he can not recall other medication trials. Patient reports he would like to start on a medication to help with his mood; when asked if he would be interested in going to a substance abuse program, pt stated, I probably would benefit from going to a program for my drinking but I don't think I'm ready for that . Patient denies SI/HI/VH/AH. Discussed starting on Latuda; risks/benefits reviewed, pt agreed to trial. Past Psychiatric History: hx of 3 other inpatient psychiatric appointments; last time being in the 90s hx of 3-4 suicide attempts via cutting. denies hx of SIB. hx of taking Effexor and hydroxyzine; he can not recall other medication trials. hx of going to substance abuse program. Outpatient psychiatric providers through [facility]. He does not recall the name of his provider. 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 Dysuria Acute otitis media Bipolar disorder Acute pharyngitis Nocturnal hypoxemia Obesity (BMI 30-39.9) History of pneumonia Central sleep apnea Complex sleep apnea syndrome Pneumonitis Atherosclerotic cardiovascular disease WILTON (obstructive sleep apnea) SILVA (nonalcoholic steatohepatitis) History of deep venous thrombosis (DVT) of distal vein of left lower extremity Skin cancer Depression Recurrent kidney stones Dyslipidemia Essential hypertension Central sleep apnea Reid-Demarco breathing disorder Hiatal hernia Degenerative joint disease of left knee Diastolic congestive heart failure STEMI (ST elevation myocardial infarction) CAD (coronary artery disease) Lesion of skin of face Farias's esophagus Chronic idiopathic constipation Surgical History Hx of colonoscopy (~10/02/19) History of total knee arthroplasty History of esophagogastroduodenoscopy (EGD) Family History: Parents: Alcoholism Social History: Lives with friend. . 2 adult children. Disability. Bachelors degree. Substance History: Pt reports drinking a pint of alcohol daily for a week. Diagnostics Vital Signs (24Hr): Vital Signs - 24 hr 08/05/25 15:45 08/05/25 21:06 08/06/25 08:53 Temperature 98.4 F 98.4 F 98.3 F Pulse Rate 64 69 69 Respiratory Rate 18 18 18 Blood Pressure 180/90 H 155/103 H 182/92 H Pulse Oximetry 97 96 98 Oxygen Delivery Method Room Air Room Air Room Air BMI result Body Mass Index 26.8 Labs 08/06/25 07:28 Labs: Laboratory Results - last 48 hr 08/06/25 07:28 Sodium 144 Potassium 4.0 Chloride 108 Carbon Dioxide 24 Anion Gap 16 BUN 19 H Creatinine 1.15 Estim Creat Clear Calc 57.1 Estimated GFR > 60 Random Glucose 126 H Estimat Average Glucose 128 Hemoglobin A1c % 6.1 H Calcium 9.9 Total Bilirubin 0.8 AST 64 H ALT 105 H Alkaline Phosphatase 97 Total Protein 8.1 H Albumin 5.0 Triglycerides 218 H Cholesterol 226 H LDL Cholesterol, Calc 150 H HDL Cholesterol 33 L Meds/Allergies Meds Home Medications ?Medication ?Instructions ?Recorded ?Confirmed ?Type lisinopril 5 mg tablet 5 mg PO DAILY 10/05/2008/05 History amlodipine 5 mg tablet 5 mg PO DAILY 09/12/2208/05 History clopidogrel 75 mg tablet 75 mg PO DAILY 09/12/2211/25 History aspirin 81 mg tablet,delayed 81 mg PO DAILY 04/02/25 1 10/06/24 History release (Adult Aspirin Regimen) hydroxyzine HCl 25 mg tablet 25 - 50 mg PO BID PRN Anx iety 08/01/25 08/05/25 History Allergies Allergies Allergy/AdvReac Type Severity Reaction Status Date / Time No Known Allergies (No Known Allergy Verified 08/01/25 10:35 Allergies*) Mental Status Exam Mental Status Exam Patient Appearance: Appropriate Patient Orientation: Person, Place, Time and Situation Level of Consciousness: Awake and Alert Patient Behavior: Appropriate, Cooperative and Good Eye Contact Mood Description: Calm and Depressed Affect Description: Depressed Ability to Follow Directions: Good Speech Pattern: Clear Memory Description: Intact Hallucinations: None Delusions: Not Present Thought Process: Intact and Goal Oriented Thought Content: positive for Intact Assessment & Plan Assessment & Plan (1) Bipolar disorder: Status: Acute Qualifiers: Active/Remission status: currently active Current episode severity: u nspecified Code(s): F31.9 - Bipolar disorder, unspecified (2) Alcohol use disorder, moderate, dependence: Status: Acute Code(s): F10.20 - Alcohol dependence, uncomplicated (3) Clonidine overdose: Status: Acute Qualifiers: Encounter type: initial encounter Injury intent: intentional self-harm Qualified Code(s): T46.5X2A - Poisoning by other antihypertensive drugs, intentional self-harm, initial encounter Code(s): T46.5X1A - Poisoning by other antihypertensive drugs, accidental (unintentional), initial encounter Plan Patient is a 59 year old male with hx of Bipolar d/o and alcohol use d/o who presented to ER due to suicidal ideation, drinking in excess and taking an overdose of clonidine secondary to life stressors. Plan: CV 15 minute safety checks Obtain collateral Start: Latuda 20mg PO daily@1700 Encourage groups discharge planning Patient educated on: diagnosis and medication risk/benefits Reason for continued inpatient stay Substantial Risk for: harm to self and med/psych decompensation Statement Statement: I have reviewed the history and physical and performed a pertinent examination on my patient. No changes have occurred unless specified. If the History and Physical was not performed prior to admission, the Hospitalist's service will be consulted for completing the admission physical. Time Spent With Patient Time: Total time managing care of this patient today _60___ minutes.
[2025-08-06 19:25] VITALS: BP 134/82; PULSE 85; RESP 18; TEMP 36.7; O2SAT 97
[2025-08-06] MEDS: Carbamide Peroxide 6.5% Otic 15 ML DRPBTL 5 DROP EAR-BOTH (21:57)
[2025-08-07 07:39] VITALS: BP 152/92; PULSE 90; RESP 20; TEMP 36.4; O2SAT 98
[2025-08-07] MEDS: Aspirin Enteric Coated 81 MG TABLET.DR PO (08:24)
--- NOTE | 2025-08-07 13:26 | P.PNPSI_ITS ---
Subjective Subjective Date of Service: 08/07/25 Reason For Visit: crisis Subjective Notes: Conditional Voluntary Interim History: Active on unit. social with peers. attending groups. Patient reports he woke up feeling depressed ; pt stated, I'm trying to process my bad behavior and realizing I can't keep running away from stuff . denies any side effects from medications. denies SI/HI/VH/AH. Future oriented. Pt reports he plans on attending AA meetings and being medication compliant to maintain his sobriety. He reports sleeping well last night. continue tx plan. Medication Compliance: Yes Side effects from medications: No Attending Groups: Yes Mental Status Exam Mental Status Exam Patient Appearance: Appropriate Patient Orientation: Person, Place, Time and Situation Level of Consciousness: Awake and Alert Patient Behavior: Appropriate, Cooperative and Good Eye Contact Mood Description: Calm and Depressed Affect Description: Calm Ability to Follow Directions: Good Speech Pattern: Clear Memory Description: Intact Hallucinations: None Delusions: Not Present Thought Process: Intact Thought Content: positive for Intact Diagnostics Vital Signs (24Hr): Vital Signs - 24 hr 08/06/25 19:25 08/07/25 07:39 Temperature 98.1 F 97.6 F Pulse Rate 85 90 Respiratory Rate 18 20 Blood Pressure 134/82 152/92 H Pulse Oximetry 97 98 Oxygen Delivery Method Room Air Room Air BMI result Body Mass Index 26.8 Labs 08/06/25 07:28 Labs: Laboratory Results - last 48 hr 08/06/25 07:28 Sodium 144 Potassium 4.0 Chloride 108 Carbon Dioxide 24 Anion Gap 16 BUN 19 H Creatinine 1.15 Estim Creat Clear Calc 57.1 Estimated GFR > 60 Random Glucose 126 H Estimat Average Glucose 128 Hemoglobin A1c % 6.1 H Calcium 9.9 Total Bilirubin 0.8 AST 64 H ALT 105 H Alkaline Phosphatase 97 Total Protein 8.1 H Albumin 5.0 Triglycerides 218 H Cholesterol 226 H LDL Cholesterol, Calc 150 H HDL Cholesterol 33 L Medications Medications Current Medications Acetaminophen (Acetaminophen 325 Mg Tablet) 650 mg PO Q6H PRN PRN Reason: Headache/Pain, Scale 1-10 Al Hydroxide/Mg Hydroxide (Magnesium Hydrox/Alum Hydrox 30 Ml Oral.Susp) 30 ml PO Q6H PRN PRN Reason: Heartburn/Nausea Amlodipine Besylate (Amlodipine Besylate 5 Mg Tablet) 5 mg PO DAILY [facility]; Protocol Last Admin: 08/07/25 08:23 Dose: 5 mg Aspirin (Aspirin Enteric Coated 81 Mg Tablet.Dr) 81 mg PO DAILY [facility] Last Admin: 08/07/25 08:24 Dose: 81 mg Atorvastatin Calcium (Atorvastatin Calcium 40 Mg Tablet) 40 mg PO BEDTIME [facility] Last Admin: 08/06/25 21:56 Dose: 40 mg Carbamide Peroxide (Carbamide Peroxide 6.5% Otic 15 Ml Drpbtl) 5 drop EAR-BOTH BEDTIME [facility] Stop: 08/11/25 20:59 Last Admin: 08/06/25 21:57 Dose: 5 drop Clopidogrel Bisulfate (Clopidogrel Bisulfate 75 Mg Tablet) 75 mg PO DAILY [facility] Last Admin: 08/07/25 08:23 Dose: 75 mg Hydroxyzine HCl (Hydroxyzine Hcl 50 Mg Tablet) 50 mg PO Q6H PRN PRN Reason: mild anxiety Last Admin: 08/07/25 12:27 Dose: 50 mg Lisinopril (Lisinopril 5 Mg Tablet) 5 mg PO DAILY [facility]; Protocol Last Admin: 08/07/25 08:23 Dose: 5 mg Lurasidone HCl (Lurasidone Hcl 20 Mg Tablet) 20 mg PO DAILY@1700 [facility] Last Admin: 08/06/25 18:17 Dose: 20 mg Magnesium Hydroxide (Milk Of Magnesia 30 Ml Oral.Susp) 30 ml PO DAILY PRN PRN Reason: Constipation Naltrexone HCl (Naltrexone Hcl 50 Mg Tablet) 50 mg PO DAILY [facility] Last Admin: 08/07/25 08:23 Dose: 50 mg Nicotine Polacrilex (Nicotine Polacrilex 2 Mg Gum) 4 mg BUCCAL Q2H PRN PRN Reason: Nicotine Cravings Olanzapine (Olanzapine 5 Mg Tablet) 5 mg PO BID PRN PRN Reason: agitation Last Admin: 08/07/25 08:27 Dose: 5 mg Trazodone HCl (Trazodone Hcl 50 Mg Tablet) 50 mg PO BEDTIME MRX1 PRN PRN Reason: Insomnia Last Admin: 08/07/25 02:34 Dose: 50 mg Allergies Allergies Allergy/AdvReac Type Severity Reaction Status Date / Time No Known Allergies (No Known Allergy Verified 08/01/25 10:35 Allergies*) Assessment & Plan Assessment & Plan (1) Bipolar disorder: Qualifiers: Active/Remission status: currently active Current episode severity: u nspecified Status: Acute Code(s): F31.9 - Bipolar disorder, unspecified (2) Alcohol use disorder, moderate, dependence: Status: Acute Code(s): F10.20 - Alcohol dependence, uncomplicated (3) Clonidine overdose: Qualifiers: Encounter type: initial encounter Injury intent: intentional self-harm Qualified Code(s): T46.5X2A - Poisoning by other antihypertensive drugs, intentional self-harm, initial encounter Status: Acute Code(s): T46.5X1A - Poisoning by other antihypertensive drugs, accidental (unintentional), initial encounter (4) Essential hypertension: Status: Acute Code(s): I10 - Essential (primary) hypertension Plan Patient is a 59 year old male with hx of Bipolar d/o and alcohol use d/o who presented to ER due to suicidal ideation, drinking in excess and taking an overdose of clonidine secondary to life stressors. Plan: CV 15 minute safety checks Obtain collateral Start: Latuda 20mg PO daily@1700 Encourage groups discharge planning 08/07: Active on unit. social with peers. attending groups. Patient reports he woke up feeling depressed ; pt stated, I'm trying to process my bad behavior and realizing I can't keep running away from stuff . denies any side effects from medications. denies SI/HI/VH/AH. Future oriented. Pt reports he plans on attending AA meetings and being medication compliant to maintain his sobriety. He reports sleeping well last night. continue tx plan. Patient educated on: diagnosis, medication risk/benefits and therapeutic strategies Reason for continued inpatient stay Substantial Risk for: med/psych decompensation Time Spent With Patient Time: Total time managing care of this patient today _20___ minutes.
[2025-08-07 19:00] VITALS: BP 134/80; PULSE 76; RESP 16; TEMP 36.6; O2SAT 97
[2025-08-07] MEDS: Carbamide Peroxide 6.5% Otic 15 ML DRPBTL 5 DROP EAR-BOTH (23:26)
[2025-08-08 09:15] VITALS: BP 132/94; PULSE 71; RESP 18; TEMP 36.9; O2SAT 98
[2025-08-08] MEDS: Aspirin Enteric Coated 81 MG TABLET.DR PO (09:15)
--- NOTE | 2025-08-08 09:18 | HO.PSYCHPN ---
Subjective Subjective Date of Service: 08/08/25 Reason For Visit: crisis Subjective Notes: Conditional Voluntary Interim History: Active on unit. social with peers. attending groups. reports feeling anxious and down in the context of certain anniversaries which were upsetting. Compared to admission though does report feeling less anxious and less depressed. Sleep improved. Feeling safe and well supported. Would like medication to be further increased prior to discharge after the weekend and we will increase Latuda to 40 mg. Medication Compliance: Yes Side effects from medications: No Attending Groups: Yes Review of Systems Acute medical concerns: No Review of Systems Review of Systems unremarkable Mental Status Exam Mental Status Exam Patient Appearance: Appropriate Patient Orientation: Person, Place, Time and Situation Level of Consciousness: Awake and Alert Patient Behavior: Appropriate, Cooperative and Good Eye Contact Mood Description: Calm and Depressed ( less) Affect Description: Calm Ability to Follow Directions: Good Speech Pattern: Clear Memory Description: Intact Diagnostics Vital Signs (24Hr): Vital Signs - 24 hr 08/07/25 19:00 Temperature 97.9 F Pulse Rate 76 Respiratory Rate 16 Blood Pressure 134/80 Pulse Oximetry 97 Oxygen Delivery Method Room Air BMI result Body Mass Index 26.8 Labs 08/06/25 07:28 Medications Medications Current Medications Acetaminophen (Acetaminophen 325 Mg Tablet) 650 mg PO Q6H PRN PRN Reason: Headache/Pain, Scale 1-10 Al Hydroxide/Mg Hydroxide (Magnesium Hydrox/Alum Hydrox 30 Ml Oral.Susp) 30 ml PO Q6H PRN PRN Reason: Heartburn/Nausea Amlodipine Besylate (Amlodipine Besylate 5 Mg Tablet) 5 mg PO DAILY [facility]; Protocol Last Admin: 08/07/25 08:23 Dose: 5 mg Aspirin (Aspirin Enteric Coated 81 Mg Tablet.Dr) 81 mg PO DAILY [facility] Last Admin: 08/07/25 08:24 Dose: 81 mg Atorvastatin Calcium (Atorvastatin Calcium 40 Mg Tablet) 40 mg PO BEDTIME [facility] Last Admin: 08/07/25 23:22 Dose: 40 mg Carbamide Peroxide (Carbamide Peroxide 6.5% Otic 15 Ml Drpbtl) 5 drop EAR-BOTH BEDTIME [facility] Stop: 08/11/25 20:59 Last Admin: 08/07/25 23:26 Dose: 5 drop Clopidogrel Bisulfate (Clopidogrel Bisulfate 75 Mg Tablet) 75 mg PO DAILY [facility] Last Admin: 08/07/25 08:23 Dose: 75 mg Hydroxyzine HCl (Hydroxyzine Hcl 50 Mg Tablet) 50 mg PO Q6H PRN PRN Reason: mild anxiety Last Admin: 08/08/25 04:32 Dose: 50 mg Lisinopril (Lisinopril 5 Mg Tablet) 5 mg PO DAILY [facility]; Protocol Last Admin: 08/07/25 08:23 Dose: 5 mg Lurasidone HCl (Lurasidone Hcl 20 Mg Tablet) 20 mg PO DAILY@1700 [facility] Last Admin: 08/07/25 17:53 Dose: 20 mg Magnesium Hydroxide (Milk Of Magnesia 30 Ml Oral.Susp) 30 ml PO DAILY PRN PRN Reason: Constipation Naltrexone HCl (Naltrexone Hcl 50 Mg Tablet) 50 mg PO DAILY [facility] Last Admin: 08/07/25 08:23 Dose: 50 mg Nicotine Polacrilex (Nicotine Polacrilex 2 Mg Gum) 4 mg BUCCAL Q2H PRN PRN Reason: Nicotine Cravings Olanzapine (Olanzapine 5 Mg Tablet) 5 mg PO BID PRN PRN Reason: agitation Last Admin: 08/08/25 04:32 Dose: 5 mg Trazodone HCl (Trazodone Hcl 50 Mg Tablet) 50 mg PO BEDTIME MRX1 PRN PRN Reason: Insomnia Last Admin: 08/07/25 23:22 Dose: 50 mg Allergies Allergies Allergy/AdvReac Type Severity Reaction Status Date / Time No Known Allergies (No Known Allergy Verified 08/01/25 10:35 Allergies*) Assessment & Plan Assessment & Plan (1) Bipolar disorder: Qualifiers: Active/Remission status: currently active Current episode severity: unspecified Status: Acute Code(s): F31.9 - Bipolar disorder, unspecified (2) Alcohol use disorder, moderate, dependence: Status: Acute Code(s): F10.20 - Alcohol dependence, uncomplicated (3) Clonidine overdose: Qualifiers: Encounter type: initial encounter Injury intent: intentional self-harm Qualified Code(s): T46.5X2A - Poisoning by other antihypertensive drugs, intentional self-harm, initial encounter Status: Acute Code(s): T46.5X1A - Poisoning by other antihypertensive drugs, accidental (unintentional), initial encounter (4) Essential hypertension: Status: Acute Code(s): I10 - Essential (primary) hypertension Plan Patient is a 59 year old male with hx of Bipolar d/o and alcohol use d/o who presented to ER due to suicidal ideation, drinking in excess and taking an overdose of clonidine secondary to life stressors. Plan: CV 15 minute safety checks Obtain collateral Start: Latuda 20mg PO daily@1700 Encourage groups discharge planning 08/07: Active on unit. social with peers. attending groups. Patient reports he woke up feeling depressed ; pt stated, I'm trying to process my bad behavior and realizing I can't keep running away from stuff . denies any side effects from medications. denies SI/HI/VH/AH. Future oriented. Pt reports he plans on attending AA meetings and being medication compliant to maintain his sobriety. He reports sleeping well last night. continue tx plan. 08/08/2025: Increase Latuda from 20 mg to 40 mg Reason for continued inpatient stay Substantial Risk for: rapid decompensation Time Spent With Patient Time: Total time managing care of this patient today ____ minutes.
--- NOTE | 2025-08-08 15:15 | PC.NURSE ---
Pt reports blood in stool - on tissue and in toilet. Dr Sandoval informed.
[2025-08-08 19:46] VITALS: BP 115/78; PULSE 78; RESP 16; TEMP 37; O2SAT 95
--- NOTE | 2025-08-09 07:50 | HO.PSYCHPN ---
Subjective Subjective Date of Service: 08/09/25 Reason For Visit: crisis Subjective Notes: Conditional Voluntary Interim History: Met with pt. D/w nursing. Bright red blood rectal- stool and paper. Known history of internal hemorrhoids and similar to past. No pain. Declined prep H. VSS. Rec GI/PCP follow up if wants to outside of hospital. No further work up needed. Otherwise social with peers. attending groups. Educated on medications and latuda dosing being increased to 40mg starting today and not increasing until able to fully evaluate efficacy (can also be outside of hospital)- feeling anxious and down at times, but compared to admission though does report feeling less anxious and less depressed. Sleep fair. Feeling safe and well supported. Medication Compliance: Yes Side effects from medications: No Attending Groups: Yes Review of Systems Acute medical concerns: No Review of Systems Review of Systems bright red blood rectal- stool and paper. Known history of internal hemorrhoids and similar to past. No pain. Declined prep H. VSS. Rec GI/PCP follow up if wants to outside of hospital. No further work up needed. Mental Status Exam Mental Status Exam Patient Appearance: Appropriate Patient Orientation: Person, Place, Time and Situation Level of Consciousness: Awake and Alert Patient Behavior: Appropriate, Cooperative and Good Eye Contact Mood Description: Calm and Depressed ( less) Affect Description: Calm Ability to Follow Directions: Good Speech Pattern: Clear Memory Description: Intact Diagnostics Vital Signs (24Hr): Vital Signs - 24 hr 08/08/25 09:15 08/08/25 09:15 08/08/25 19:46 Temperature 98.4 F 98.6 F Pulse Rate 71 78 Respiratory Rate 18 16 Blood Pressure 132/94 H 132/94 H 115/78 Pulse Oximetry 98 95 Oxygen Delivery Method Room Air Room Air BMI result Body Mass Index 26.8 Labs 08/06/25 07:28 Medications Medications Current Medications Acetaminophen (Acetaminophen 325 Mg Tablet) 650 mg PO Q6H PRN PRN Reason: Headache/Pain, Scale 1-10 Al Hydroxide/Mg Hydroxide (Magnesium Hydrox/Alum Hydrox 30 Ml Oral.Susp) 30 ml PO Q6H PRN PRN Reason: Heartburn/Nausea Amlodipine Besylate (Amlodipine Besylate 5 Mg Tablet) 5 mg PO DAILY [facility]; Protocol Last Admin: 08/08/25 09:15 Dose: 5 mg Aspirin (Aspirin Enteric Coated 81 Mg Tablet.) 81 mg PO DAILY [facility] Last Admin: 08/08/25 09:15 Dose: 81 mg Atorvastatin Calcium (Atorvastatin Calcium 40 Mg Tablet) 40 mg PO BEDTIME [facility] Last Admin: 08/08/25 23:03 Dose: 40 mg Carbamide Peroxide (Carbamide Peroxide 6.5% Otic 15 Ml Drpbtl) 5 drop EAR-BOTH BEDTIME [facility] Stop: 08/11/25 20:59 Last Admin: 08/08/25 23:10 Dose: Not Given Clopidogrel Bisulfate (Clopidogrel Bisulfate 75 Mg Tablet) 75 mg PO DAILY [facility] Last Admin: 08/08/25 09:15 Dose: 75 mg Hydroxyzine HCl (Hydroxyzine Hcl 50 Mg Tablet) 50 mg PO Q6H PRN PRN Reason: mild anxiety Last Admin: 08/08/25 23:03 Dose: 50 mg Lisinopril (Lisinopril 5 Mg Tablet) 5 mg PO DAILY [facility]; Protocol Last Admin: 08/08/25 09:15 Dose: 5 mg Lurasidone HCl (Lurasidone Hcl 40 Mg Tablet) 40 mg PO DAILY@1700 [facility] Last Admin: 08/08/25 17:54 Dose: 40 mg Magnesium Hydroxide (Milk Of Magnesia 30 Ml Oral.Susp) 30 ml PO DAILY PRN PRN Reason: Constipation Naltrexone HCl (Naltrexone Hcl 50 Mg Tablet) 50 mg PO DAILY [facility] Last Admin: 08/08/25 09:16 Dose: 50 mg Nicotine Polacrilex (Nicotine Polacrilex 2 Mg Gum) 4 mg BUCCAL Q2H PRN PRN Reason: Nicotine Cravings Olanzapine (Olanzapine 5 Mg Tablet) 5 mg PO Q6H PRN PRN Reason: agitation Trazodone HCl (Trazodone Hcl 50 Mg Tablet) 50 mg PO BEDTIME PRN PRN Reason: Insomnia Last Admin: 08/08/25 23:03 Dose: 50 mg Allergies Allergies Allergy/AdvReac Type Severity Reaction Status Date / Time No Known Allergies (No Known Allergy Verified 08/01/25 10:35 Allergies*) Assessment & Plan Assessment & Plan (1) Bipolar disorder: Qualifiers: Active/Remission status: currently active Current episode severity: unspecified Status: Acute Code(s): F31.9 - Bipolar disorder, unspecified (2) Alcohol use disorder, moderate, dependence: Status: Acute Code(s): F10.20 - Alcohol dependence, uncomplicated (3) Clonidine overdose: Qualifiers: Encounter type: initial encounter Injury intent: intentional self-harm Qualified Code(s): T46.5X2A - Poisoning by other antihypertensive drugs, intentional self-harm, initial encounter Status: Acute Code(s): T46.5X1A - Poisoning by other antihypertensive drugs, accidental (unintentional), initial encounter (4) Essential hypertension: Status: Acute Code(s): I10 - Essential (primary) hypertension Plan Patient is a 59 year old male with hx of Bipolar d/o and alcohol use d/o who presented to ER due to suicidal ideation, drinking in excess and taking an overdose of clonidine secondary to life stressors. Plan: CV 15 minute safety checks Obtain collateral Start: Latuda 20mg PO daily@1700 Encourage groups discharge planning 08/07: Active on unit. social with peers. attending groups. Patient reports he woke up feeling depressed ; pt stated, I'm trying to process my bad behavior and realizing I can't keep running away from stuff . denies any side effects from medications. denies SI/HI/VH/AH. Future oriented. Pt reports he plans on attending AA meetings and being medication compliant to maintain his sobriety. He reports sleeping well last night. continue tx plan. 08/08/2025: Increase Latuda from 20 mg to 40 mg 08/09: No changes- latuda just increased to 40mg. bright red blood rectal- stool and paper. Known history of internal hemorrhoids and similar to past. No pain. Declined prep H. VSS. Rec GI/PCP follow up if wants to outside of hospital. No further work up needed. Reason for continued inpatient stay Substantial Risk for: rapid decompensation Time Spent With Patient Time: Total time managing care of this patient today ____ minutes.
[2025-08-09 08:42] VITALS: BP 157/96; PULSE 79; RESP 14; TEMP 36.7; O2SAT 98
[2025-08-09] MEDS: Aspirin Enteric Coated 81 MG TABLET.DR PO (08:43)
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
[2025-08-09 19:15] VITALS: BP 126/71; PULSE 85; RESP 16; TEMP 36.8; O2SAT 94
[2025-08-10 07:43] LABS: MANUAL DIFF FLAG NO
[2025-08-10 07:48] LABS: Hematocrit 45.9 % (42.0-52.0); Hemoglobin 15.6 g/dl (14.0-18.0); Imm Gran Abs Auto 0.04 X10*3/uL (0.00-0.03); Imm Gran Pct Auto 0.5 % (0.0-0.4); Lymphocytes Absolute Auto 2.1 X10*3/uL (1.2-4.9); Mean Corpuscular HGB Conc 34.0 g/dl (31.0-36.0); Mean Corpuscular Hemoglobin 28.9 pg (27.0-33.0); Mean Corpuscular Volume 85.2 fL (80.0-98.0); NRBC Abs Auto 0.000 X10*3/uL (0.0-0.012); NRBC Pct Auto 0.0 /100WBC (0.0-0.2); Platelet Count 143 X10*3/uL (160-400); Red Blood Count 5.39 X10*6/uL (4.60-5.80); White Blood Count 8.3 X10*3/uL (4.8-10.8)
[2025-08-10 08:00] VITALS: BP 122/82; PULSE 63; RESP 14; TEMP 36.7; O2SAT 96
[2025-08-10 08:06] LABS: Alanine Aminotransferase 88 U/L (0-40); Albumin Level 4.7 g/dL (3.5-5.0); Alkaline Phosphatase 86 U/L (39-117); Anion Gap 16 (12-20); Aspartate Amino Transferase 51 U/L (5-37); Blood Urea Nitrogen 18 mg/dL (9-16); Calcium 9.5 mg/dL (8.4-10.2); Carbon Dioxide 26 mmol/L (22-29); Chloride 105 mmol/L (96-108); Creatinine Clr Calc Pharmacy 54.3; Estimated Glomerular Filt Rate > 60; Potassium 4.5 mmol/L (3.3-5.1); Sodium 142 mmol/L (135-145); Total Protein 7.4 g/dL (6.5-8.0)
[2025-08-10 08:22] VITALS: BP 122/82
[2025-08-10] MEDS: Aspirin Enteric Coated 81 MG TABLET.DR PO (08:22)
[2025-08-10 08:23] VITALS: BP 122/82
--- NOTE | 2025-08-10 09:06 | PM.EVENT ---
Event Note Date of Service: 08/10/25 Event Note: Patient is AST and ALT trending downward. Patient with a history of SILVA, restarted his cholesterol medication due to elevated lipid panel. Continue to monitor LFTs. Time Spent With Patient Time: Total time managing care of this patient today ____ minutes.
--- NOTE | 2025-08-10 11:53 | P.PNPSI_ITS ---
Subjective Subjective Date of Service: 08/10/25 Reason For Visit: crisis Subjective Notes: Conditional Voluntary Interim History: Active on unit. social with peers. Patient reports feeling good ; pt stated, I was really frustrated on Sunday because I found out my son had a green party at my house . denies SI/HI/VH/AH; pt stated, I mentioned a long time ago that I wanted to wrap my car around a tree but no, definitely not now in my life . Patient reports he plans on following up with outpatient providers. Medication Compliance: Yes Side effects from medications: No Attending Groups: Yes Diagnostics Vital Signs (24Hr): Vital Signs - 24 hr 08/09/25 19:15 08/10/25 08:00 08/10/25 08:22 Temperature 98.2 F 98.0 F Pulse Rate 85 63 Respiratory Rate 16 14 Blood Pressure 126/71 122/82 122/82 Pulse Oximetry 94 96 Oxygen Delivery Method Room Air Room Air 08/10/25 08:23 Temperature Pulse Rate Respiratory Rate Blood Pressure 122/82 Pulse Oximetry Oxygen Delivery Method BMI result Body Mass Index 26.8 Labs 08/10/25 07:28 08/10/25 07:28 Labs: Laboratory Results - last 48 hr 08/10/25 07:28 WBC 8.3 RBC 5.39 Hgb 15.6 Hct 45.9 MCV 85.2 MCH 28.9 MCHC 34.0 RDW 13.2 Plt Count 143 L MPV 9.1 L Immature Gran % (Auto) 0.5 H Neut % (Auto) 63.3 Lymph % (Auto) 25.9 [place] % (Auto) 6.8 Eos % (Auto) 3.0 Baso % (Auto) 0.5 Lymph # (Auto) 2.1 [place] # (Auto) 0.6 Eos # (Auto) 0.3 Baso # (Auto) 0.0 Abs Immat Gran (auto) 0.04 H Absolute Neuts (auto) 5.2 Absolute Nucleated RBC 0.000 Nucleated RBC % (auto) 0.0 Sodium 142 Potassium 4.5 Chloride 105 Carbon Dioxide 26 Anion Gap 16 BUN 18 H Creatinine 1.21 Estim Creat Clear Calc 54.3 Estimated GFR > 60 Random Glucose 162 H Calcium 9.5 Total Bilirubin 0.4 AST 51 H ALT 88 H Alkaline Phosphatase 86 Total Protein 7.4 Albumin 4.7 Medications Medications Current Medications Acetaminophen (Acetaminophen 325 Mg Tablet) 650 mg PO Q6H PRN PRN Reason: Headache/Pain, Scale 1-10 Al Hydroxide/Mg Hydroxide (Magnesium Hydrox/Alum Hydrox 30 Ml Oral.Susp) 30 ml PO Q6H PRN PRN Reason: Heartburn/Nausea Amlodipine Besylate (Amlodipine Besylate 5 Mg Tablet) 5 mg PO DAILY [facility]; Protocol Last Admin: 08/10/25 08:23 Dose: 5 mg Aspirin (Aspirin Enteric Coated 81 Mg Tablet.Dr) 81 mg PO DAILY [facility] Last Admin: 08/10/25 08:22 Dose: 81 mg Atorvastatin Calcium (Atorvastatin Calcium 40 Mg Tablet) 40 mg PO BEDTIME [facility] Last Admin: 08/09/25 22:11 Dose: 40 mg Carbamide Peroxide (Carbamide Peroxide 6.5% Otic 15 Ml Drpbtl) 5 drop EAR-BOTH BEDTIME [facility] Stop: 08/11/25 20:59 Last Admin: 08/09/25 22:17 Dose: Not Given Clopidogrel Bisulfate (Clopidogrel Bisulfate 75 Mg Tablet) 75 mg PO DAILY [facility] Last Admin: 08/10/25 08:23 Dose: 75 mg Hydroxyzine HCl (Hydroxyzine Hcl 50 Mg Tablet) 50 mg PO Q6H PRN PRN Reason: mild anxiety Last Admin: 08/10/25 10:49 Dose: 50 mg Lisinopril (Lisinopril 5 Mg Tablet) 5 mg PO DAILY [facility]; Protocol Last Admin: 08/10/25 08:22 Dose: 5 mg Lurasidone HCl (Lurasidone Hcl 40 Mg Tablet) 40 mg PO DAILY@1700 [facility] Last Admin: 08/09/25 17:13 Dose: 40 mg Magnesium Hydroxide (Milk Of Magnesia 30 Ml Oral.Susp) 30 ml PO DAILY PRN PRN Reason: Constipation Naltrexone HCl (Naltrexone Hcl 50 Mg Tablet) 50 mg PO DAILY [facility] Last Admin: 08/10/25 08:23 Dose: 50 mg Nicotine Polacrilex (Nicotine Polacrilex 2 Mg Gum) 4 mg BUCCAL Q2H PRN PRN Reason: Nicotine Cravings Olanzapine (Olanzapine 5 Mg Tablet) 5 mg PO Q6H PRN PRN Reason: agitation Last Admin: 08/09/25 22:11 Dose: 5 mg Trazodone HCl (Trazodone Hcl 50 Mg Tablet) 50 mg PO BEDTIME PRN PRN Reason: Insomnia Last Admin: 08/09/25 22:12 Dose: 50 mg Allergies Allergies Allergy/AdvReac Type Severity Reaction Status Date / Time No Known Allergies (No Known Allergy Verified 08/01/25 10:35 Allergies*) Assessment & Plan Assessment & Plan (1) Bipolar disorder: Qualifiers: Active/Remission status: currently active Current episode severity: u nspecified Status: Acute Code(s): F31.9 - Bipolar disorder, unspecified (2) Alcohol use disorder, moderate, dependence: Status: Acute Code(s): F10.20 - Alcohol dependence, uncomplicated (3) Clonidine overdose: Qualifiers: Encounter type: initial encounter Injury intent: intentional self-harm Qualified Code(s): T46.5X2A - Poisoning by other antihypertensive drugs, intentional self-harm, initial encounter Status: Acute Code(s): T46.5X1A - Poisoning by other antihypertensive drugs, accidental (unintentional), initial encounter (4) Essential hypertension: Status: Acute Code(s): I10 - Essential (primary) hypertension Plan Patient is a 59 year old male with hx of Bipolar d/o and alcohol use d/o who presented to ER due to suicidal ideation, drinking in excess and taking an overdose of clonidine secondary to life stressors. Plan: CV 15 minute safety checks Obtain collateral Start: Latuda 20mg PO daily@1700 Encourage groups discharge planning 08/07: Active on unit. social with peers. attending groups. Patient reports he woke up feeling depressed ; pt stated, I'm trying to process my bad behavior and realizing I can't keep running away from stuff . denies any side effects from medications. denies SI/HI/VH/AH. Future oriented. Pt reports he plans on attending AA meetings and being medication compliant to maintain his sobriety. He reports sleeping well last night. continue tx plan. 08/08/2025: Increase Latuda from 20 mg to 40 mg 08/09: No changes- latuda just increased to 40mg. bright red blood rectal- stool and paper. Known history of internal hemorrhoids and similar to past. No pain. Declined prep H. VSS. Rec GI/PCP follow up if wants to outside of hospital. No further work up needed. 08/10:Active on unit. social with peers. Patient reports feeling good ; pt stated, I was really frustrated on Sunday because I found out my son had a green party at my house . denies SI/HI/VH/AH; pt stated, I mentioned a long time ago that I wanted to wrap my car around a tree but no, definitely not now in my life . Patient reports he plans on following up with outpatient providers. Patient educated on: diagnosis and medication risk/benefits Reason for continued inpatient stay Substantial Risk for: med/psych decompensation Time Spent With Patient Time: Total time managing care of this patient today __20__ minutes.
[2025-08-10 20:00] VITALS: BP 152/91; PULSE 71; RESP 16; TEMP 36.3; O2SAT 95
[2025-08-11] MEDS: Carbamide Peroxide 6.5% Otic 15 ML DRPBTL 5 DROP EAR-BOTH (00:29)
[2025-08-11 08:00] VITALS: BP 140/78; PULSE 68; RESP 16; TEMP 36.2; O2SAT 97
[2025-08-11] MEDS: Aspirin Enteric Coated 81 MG TABLET.DR PO (08:31)
--- NOTE | 2025-08-11 10:44 | PM.PSYDC ---
DS: Providers Provider Date of Service: 08/11/25 Date of admission: 08/05/25 14:12 Date of discharge: 08/11/25 Primary care physician: Unknown Physician Admitting clinician: Conchita Kraus Attending physician on admission: Enmanuel Young Consults: 08/05/25 16:59 Addiction Medicine Provider Routine Consulting Provider: Addiction Covering Reason for consultation: positive audit c Attending physician on discharge: Enmanuel Young Discharging clinician: Conchita Kraus DS: Diagnosis Discharge Diagnosis (1) Bipolar disorder: Status: Acute (2) Alcohol use disorder, moderate, dependence: Status: Acute (3) Clonidine overdose: Status: Acute (4) Essential hypertension: Status: Acute DS: Medications Discharge Medications Home Medications: Home Medications ?Medication ?Instructions ?Recorded ?Confirmed lisinopril 5 mg tablet 5 mg PO DAILY 10/05/20 08/05/25 amlodipine 5 mg tablet 5 mg PO DAILY 09/12/22 08/05/25 clopidogrel 75 mg tablet 75 mg PO DAILY 09/12/22 08/05/25 aspirin 81 mg tablet,delayed 81 mg PO DAILY 04/02/25 08/05/25 release (Adult Aspirin Regimen) Previous Rx's ?Medication ?Instructions ?Recorded atorvastatin 40 mg tablet 40 mg PO BEDTIME 7 days #7 tabs 08/10/25 hydroxyzine HCl 50 mg tablet 50 mg PO BID PRN mild anxiety 7 08/10/25 days #14 tabs lurasidone 40 mg tablet (Latuda) 40 mg PO DAILY@1700 7 days #7 tabs 08/10/25 naltrexone 50 mg tablet 50 mg PO DAILY 7 days #7 tabs 08/10/25 Mental Status Exam Mental Status Exam Narrative: Pt is alert and oriented; behavior is cooperative and calm; dressed in casual attire; mood is described as good ; eye contact appropriate; Speech is normal rate, volume and not pressured; thought process is organized; Thought content is on discharge; denies SI/HI/VH/AH. Data Data Completed and Pending Completed studies during hospitalization [Text1]: 08/06/25 08/10/25 07:28 07:28 WBC 8.3 RBC 5.39 Hgb 15.6 Hct 45.9 MCV 85.2 MCH 28.9 MCHC 34.0 RDW 13.2 Plt Count 143 L MPV 9.1 L Immature Gran % (Auto) 0.5 H Neut % (Auto) 63.3 Lymph % (Auto) 25.9 [place] % (Auto) 6.8 Eos % (Auto) 3.0 Baso % (Auto) 0.5 Lymph # (Auto) 2.1 [place] # (Auto) 0.6 Eos # (Auto) 0.3 Baso # (Auto) 0.0 Abs Immat Gran (auto) 0.04 H Absolute Neuts (auto) 5.2 Absolute Nucleated RBC 0.000 Nucleated RBC % (auto) 0.0 Sodium 144 142 Potassium 4.0 4.5 Chloride 108 105 Carbon Dioxide 24 26 Anion Gap 16 16 BUN 19 H 18 H Creatinine 1.15 1.21 Estim Creat Clear Calc 57.1 54.3 Estimated GFR > 60 > 60 Random Glucose 126 H 162 H Estimat Average Glucose 128 Hemoglobin A1c % 6.1 H Calcium 9.9 9.5 Total Bilirubin 0.8 0.4 AST 64 H 51 H ALT 105 H 88 H Alkaline Phosphatase 97 86 Total Protein 8.1 H 7.4 Albumin 5.0 4.7 Triglycerides 218 H Cholesterol 226 H LDL Cholesterol, Calc 150 H HDL Cholesterol 33 L DS: Summary Hospital Course Hospital Course: Patient is a 59 year old male with hx of Bipolar d/o and alcohol use d/o who presented to ER due to suicidal ideation, drinking in excess and taking an overdose of clonidine secondary to life stressors. Per crisis report, patient presented to with a complaint of being a bad place mentally for several weeks. Reported suicidal ideation, drinking in excess and taking 10 tablets 0.2 mg clonidine the morning he presented to ER. Patient denies this was a suicide attempt. History inpatient psychiatric hospitalizations, detox admissions and medication nonadherence. Patient reports he has been off his medications for almost a year. He reports he recently restarted the week of . patient reports he has been drinking in excess for about a week. When asked why he was overtaking medication, he stated, I wanted to stop feeling this way . Patient reports poor sleep and appetite. He reports feeling anxious and depressed but not suicidal ; denies HI/VH/AH. He has outpatient providers through [facility]. Patient was prescribed Seroquel in December 2024 and he took the entire script within 5-7 days and developed uncontrolled tongue movements, inability to talk, which lasted for about a week. Patient's landlord reported he has been presenting as paranoid and irritable; feeling like he has things crawling on his skin and in his ears. History of withdrawal seizures. Utox positive for alcohol. During admission assessment, pt presents alert and oriented x3. calm and cooperative. Patient reports feeling depressed ; pt stated, I hate this time of year. I lost my first to cancer and this weekend it will be 30 years. I've had so much on my mind between that and trying to find work and missing my son who moved to [place] . Patient reports he took handfuls of clonidine not in a suicide attempt but to get high ; pt stated, all week I would take handfuls of it and it would adelaida give me a high . Patient reports in December 2024, he took his 30 day prescription of Seroquel over a weeks time d/t trying to get high . Patient stated, I took all the Seroquel out of stupidity. I was probably trying to get high . Utox positive for alcohol; negative for other substances. Patient reports hx of 3-4 suicide attempts via cutting. denies hx of SIB. He reports poor sleep but good appetite. He reports having outpatient psychiatric providers through [facility]. hx of taking Effexor and hydroxyzine; he can not recall other medication trials. Patient reports he would like to start on a medication to help with his mood; when asked if he would be interested in going to a substance abuse program, pt stated, I probably would benefit from going to a program for my drinking but I don't think I'm ready for that . Patient denies SI/HI/VH/AH. Discussed starting on Latuda; risks/benefits reviewed, pt agreed to trial. Plan: CV 15 minute safety checks Obtain collateral Start: Latuda 20mg PO daily@1700 Encourage groups discharge planning Active on unit. social with peers. attending groups. Patient reports he woke up feeling depressed ; pt stated, I'm trying to process my bad behavior and realizing I can't keep running away from stuff . denies any side effects from medications. denies SI/HI/VH/AH. Future oriented. Pt reports he plans on attending AA meetings and being medication compliant to maintain his sobriety. He reports sleeping well last night. continue tx plan. Increase Latuda from 20 mg to 40 mg No changes- latuda just increased to 40mg. bright red blood rectal- stool and paper. Known history of internal hemorrhoids and similar to past. No pain. Declined prep H. VSS. Rec GI/PCP follow up if wants to outside of hospital. No further work up needed. Active on unit. social with peers. Patient reports feeling good ; pt stated, I was really frustrated on Sunday because I found out my son had a green party at my house . denies SI/HI/VH/AH; pt stated, I mentioned a long time ago that I wanted to wrap my car around a tree but no, definitely not now in my life . Patient reports he plans on following up with outpatient providers. Status at Discharge Cognitive/behavioral status at discharge: Patient has insight and demonstrates good judgment in terms of wanting to pursue treatment. Patient has a safety plan that includes presenting to the closest ER or calling 911 if feeling unsafe. Functional status at discharge: independent ambulation Overall status at discharge: patient is back to baseline Time Spent with Patient Time attestation: Total time managing care of this patient today _20___ minutes. Time spent: Less than 30 minutes Discharge Plan Discharge Anticipated Discharge Date/Time: 08/11/25 11:00 Patient Disposition: Home, Self-Care Discharge Diagnosis: Bipolar d/o, Alcohol use d/o Referrals: Zuhair Whitlock (Therapy) [Other] - 1 Week Referral Note: *Please reach out to your therapist in order to schedule a follow up appointment. Psychiatry [Other] - 1 Week Referral Note: *You can present to the clinic above, Sunday through Sunday during the hours of 8am and 8pm, in order to obtain an appointment with a psychiatric prescriber. *Your therapist should be able to assist with obtaining a follow up appointment with your psychiatric prescriber as well. Osvaldo Chow MD [Physician, Internal Medicine] - 1 Week Referral Note: 08-10-25 Upon speaking with this primary care provider we were advised you have not been seen by them and are not set up with them at this time. You will need to contact them directly to set up a new patient visit along with your follow up appt. Discharge Medications: New naltrexone 50 mg Tablet 50 mg PO DAILY 7 Days Qty: 7 2RF lurasidone [Latuda] 40 mg Tablet 40 mg PO DAILY@1700 7 Days Qty: 7 2RF hydroxyzine HCl 50 mg Tablet 50 mg PO BID PRN (Reason: mild anxiety) 7 Days Qty: 14 1RF atorvastatin 40 mg Tablet 40 mg PO BEDTIME 7 Days Qty: 7 1RF Continued lisinopril 5 mg tablet 5 mg PO DAILY amlodipine 5 mg tablet 5 mg PO DAILY clopidogrel 75 mg tablet 75 mg PO DAILY aspirin [Adult Aspirin Regimen] 81 mg tablet,delayed release (DR/EC) 81 mg PO DAILY Discontinued hydroxyzine HCl 25 mg tablet 25 - 50 mg PO BID PRN (Reason: Anxiety) Discharge Orders: Discharge Order (Routine); Ordered 08/11/25 Ordered By: Conchita Kraus Diet: Regular diet Activity on Discharge: As tolerated Stand Alone Forms: Patient Portal Discharge page, Community Support Print Language: Kinyarwanda Care Plan Goals: Maintain mood and safe behaviors Take medications as prescribed Continue to pursue sobriety Practice coping skills Continue with outpatient providers and reach out to them as needed Health Concerns: Mood stability and behaviors Sobriety Plan of Treatment: Follow up with your PCP, psychiatric provider and other outpatient providers regarding above concerns Take medications as prescribed Assessment: Patient has insight and demonstrates good judgment in terms of wanting to pursue treatment. Patient has a safety plan that includes presenting to the closest ER or calling 911 if feeling unsafe. Discharge Date/Time: 08/11/25 11:12
== END 2025-08-11 11:12 | disposition home or self-care (01) | DRG 885 ==
PROVIDERS: Nurse Practitioner Family; Admitting Provider Registered Nurse; Responsible Provider Registered Nurse; Visit Provider Psychiatry & Neurology Psychiatry
DX: F31.9 Bipolar disorder, unspecified (principal); N17.9 Acute kidney failure, unspecified; R45.851 Suicidal ideations; F17.210 Nicotine dependence, cigarettes, uncomplicated; Z71.6 Tobacco abuse counseling; F10.20 Alcohol dependence, uncomplicated; Z91.51 Personal history of suicidal behavior; G47.33 Obstructive sleep apnea (adult) (pediatric); Z79.82 Long term (current) use of aspirin; Z79.899 Other long term (current) drug therapy
CPT/HCPCS: 36415; 80053; 80061; 83036; 85025

== ENCOUNTER → 2025-08-05 14:12 | Outpatient (BNV) | payer MEDICARE, MEDICAID, SELFPAY | PROVIDERS: Admitting Provider Registered Nurse; Responsible Provider Registered Nurse; Visit Provider Nurse Practitioner Family | DX: I10 Essential (primary) hypertension (principal) | CPT/HCPCS: 99221; 99499 ==

== ENCOUNTER → 2025-08-05 14:12 | Outpatient (BNV) | payer MEDICARE, MEDICAID, SELFPAY | PROVIDERS: Admitting Provider Registered Nurse; Responsible Provider Registered Nurse; Visit Provider Psychiatry & Neurology Psychiatry | DX: F31.4 Bipolar disorder, current episode depressed, severe, without psychotic features (principal); F10.20 Alcohol dependence, uncomplicated; T46.5X2A Poisoning by other antihypertensive drugs, intentional self-harm, initial encounter; I10 Essential (primary) hypertension | CPT/HCPCS: 90792; 99231; 99232; 99238 ==

== ENCOUNTER 2025-08-14 22:16 | Inpatient (IN) | payer MEDICARE, MEDICAID, SELFPAY ==
[2025-08-14 22:22] VITALS: BP 120/60; BP 99/51; PULSE 65; PULSE 88; RESP 18; TEMP 36.6; O2SAT 96; O2SAT 97; BMI 25.7
--- NOTE | 2025-08-14 22:26 | ED_ITS ---
HPI - Psych General Chief Complaint: Psychiatric Symptoms Stated Complaint: Crisis Time Seen by Provider: 08/14/25 22:26 Source: patient and EMS Mode of arrival: EMS Limitations: no limitations History of Present Illness ED Provider: Dr. Paula Ha HPI Narrative: Patient comes to the emergency room via ambulance. Patient states that he asked his son to call the ambulance to bring him to the hospital and be evaluated for worsening anxiety and depression. Patient denies SI or HI. Patient admits that he has been drinking alcohol. Patient takes medications for anxiety and depression and states he is compliant with his meds. Related Data Home Medications ?Medication ?Instructions ?Recorded ?Confirmed lisinopril 5 mg tablet 5 mg PO DAILY 10/05/2008/15 amlodipine 5 mg tablet 5 mg PO DAILY 09/12/2208/15 clopidogrel 75 mg tablet 75 mg PO DAILY 09/12/2208/03 aspirin 81 mg tablet,delayed 81 mg PO DAILY 04/02/25 1 10/16/24 release (Adult Aspirin Regimen) cetirizine 10 mg tablet 10 mg PO DAILY PRN allergies 08/15/25 08/15/25 clonidine HCl 0.2 mg tablet 0.2 mg PO BID 08/15/25 venlafaxine 37.5 mg tablet 37.5 mg PO DAILY 08/15/25 1 10/16/24 Previous Rx's ?Medication ?Instructions ?Recorded atorvastatin 40 mg tablet 40 mg PO BEDTIME 7 days #7 t abs 08/10/25 hydroxyzine HCl 50 mg tablet 50 mg PO BID PRN mild anx iety 7 08/10/25 days #14 tabs lurasidone 40 mg tablet (Latuda) 40 mg PO DAILY@1700 7 days #7 tabs 08/10/25 naltrexone 50 mg tablet 50 mg PO DAILY 7 days #7 tab s 08/10/25 Allergies Allergy/AdvReac Type Severity Reaction Status Date / Time No Known Allergies (No Known Allergy Verified 08/14/25 22:26 Allergies*) Review of Systems 2 Review of Systems: Constitutional : No Weight loss, No Fever, No Chills, No Night Sweats, No Fatigue, No Malaise ENT/Mouth : No Hearing loss, No Ear Pain, No Nasal Congestion, No Sinus Pain, No Hoarseness, No sore throat, No Rhinorrhea, No Swallowing Difficulty Eyes: No Eye Pain, No Swelling, No Redness, No Foreign Body, No Discharge, No Vision Changes Cardiovascular : No Chest Pain, No SOB, No Dyspnea on Exertion, No Orthopnea, No Edema, No Palpitations Respiratory : No Cough, No Sputum, No Wheezing, No Smoke Exposure, No Dyspnea Gastrointestinal : No Nausea, No Vomiting, No Diarrhea, No Constipation, No abdominal Pain, No Hematochezia, No Melena Genitourinary : no irregular bleeding, No Dysuria, No Urinary Frequency, No Hematuria, No Urinary Incontinence, No Urgency, No Flank Pain, No Urinary Flow Changes, No Hesitancy Musculoskeletal : No joint pain, No Myalgias, No Joint Swelling Skin : No Skin Lesions, No rash Neuro : No Weakness, No Numbness, No Paresthesias, No Loss of Consciousness, No Dizziness, No Headache Psych : Complaining of anxiety and depression Heme/Lymph: No Bruising, No Bleeding,No Lymphadenopathy Endocrine : No Polyuria, No Polydipsia, No Temperature Intolerance PMFSH Past Medical History Medical History Clonidine overdose Blocked ear Bilateral finger arthralgia Mixed dyslipidemia Impaired fasting glucose Varicose veins of both lower extremities Localized swelling of both lower legs Urinary frequency Memory deficit Left leg swelling Evaluation of hearing impairment 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 Dysuria Acute otitis media Bipolar disorder Acute pharyngitis Nocturnal hypoxemia Obesity (BMI 30-39.9) History of pneumonia Central sleep apnea Complex sleep apnea syndrome Pneumonitis Atherosclerotic cardiovascular disease WILTON (obstructive sleep apnea) SILVA (nonalcoholic steatohepatitis) History of deep venous thrombosis (DVT) of distal vein of left lower extremity Skin cancer Depression Recurrent kidney stones Dyslipidemia Essential hypertension Central sleep apnea Reid-Demarco breathing disorder Hiatal hernia Degenerative joint disease of left knee Diastolic congestive heart failure STEMI (ST elevation myocardial infarction) CAD (coronary artery disease) Lesion of skin of face Farias's esophagus Chronic idiopathic constipation Surgical History Hx of colonoscopy (~10/02/19) History of total knee arthroplasty History of esophagogastroduodenoscopy (EGD) Family History Family History Father Brain cancer Lung cancer Substance use disorder Mother Emphysema, unspecified Substance use disorder Mental health disorder Social History Social History Household Members: Children Household Members Other:: Son, Sushil Housing: Apartment Are you a primary clinical manager home care to a significant other at home: No Do you presently have visiting nurse or other home services: No Unable to assess alcohol history related to: Unknown Alcohol intake: current Alcohol intake frequency: a few times a week Alcohol type: hard liquor Comment: 1:1 sitter present Patient Tobacco Use Status: Former Tobacco user Tobacco use type: Cigarette Cigarette Packs Per Day: 1 Cigarettes Per Day: 20.0 Years Smoked: 40 Smoked in Last 30 Days: No e-Cigarette/Vaping Use: Never Used Second Hand Smoke Exposure: No Use of substances other than those prescribed or required for medical reasons: No Advance Directives: No Advance Directives Information Provided: Yes Do you have a plan to hurt others: No Plan service: No Current occupational status: unemployed Sexual orientation: Straight/Heterosexual Gender identity: Male Cognitive needs: Yes (Memory Changes) Hearing needs: No Vision needs: Yes Physical Exam 2 Exam: Exam: Appearance: Alert. Oriented X3. No acute distress. Eyes: Pupils equal, round and reactive to light. ENT: Pharynx normal. Neck: Normal inspection. Neck supple. No lymph nodes noted. No crepitus CVS: Normal heart rate and rhythm. Pulses normal. Normal S1 and S2 Respiratory: No respiratory distress. Breath sounds normal. No Wheezing. No rales Abdomen: Soft and nontender. No rigidity. No distention. Skin: Skin warm and dry. Normal skin color. Normal skin turgor. Extremities: No lower extremity edema. No Lacerations. No Rash Neuro: Oriented X 3. No motor deficit. No sensory deficit. Moving all extremities. No slurred speech. CN 2 through 12 grossly intact Psych: calm, cooperative, a bit anxious Vital Signs: Vital Signs: Last Vital Signs Temp 98.2 F 08/15/25 06:29 Pulse 73 08/15/25 06:29 Resp 17 08/15/25 06:29 BP 136/79 08/15/25 06:29 Pulse Ox 98 08/15/25 06:29 O2 Del Method Room Air 08/15/25 06:29 BMI result Body Mass Index 25.7 Course Course Course Narrative: Patient is here voluntarily, denies SI or HI, admits that worsening anxiety and depression despite taking medications as prescribed All of patient's labs pending Care team consult pending Physician observation started at 23:00 Reevaluation(s) Reevaluation #1: Time: 9:00 Date: 08/15/[address] Vigil Patient in physician observation for psychiatric evaluation.? No acute events reported overnight. No current complaints. VS stable.? Patient is in bed search status Will continue to monitor. Medical Decision Making Medical Decision Making [facility] Narrative: My interpretation of labs: Patient's hemoglobin is a bit lower than usual. Patient asymptomatic, denies any black stool or blood in the stool, chemistry within normal limits, magnesium within normal limits, LFTs at baseline, urine toxicology only positive to marijuana, ETOH 162 The care team evaluated the patient. Although when the patient came in, he denied SI HI, when he spoke to the care team, patient mentioned being SI. Patient now on a section 12, inpatient level of care, bed search pending Differential Diagnosis Differential Diagnoses: The differential diagnosis associated with the presentation includes (Anxiety, depression, polysubstance abuse, alcohol abuse) Admission/Observation Consideration of admission/observation: Escalation of care including admission/observation considered (Patient is on a section 12, patient needs inpatient level of care) Lab Data [facility] Lab Attestation statement: I reviewed the patient's lab results. 08/14/25 23:36 08/14/25 23:36 Labs: Lab Results 08/14/25 Range/Units 23:36 WBC 9.5 (4.8-10.8) X10*3/uL RBC 4.24 L D (4.60-5.80) X10*6/uL Hgb 12.4 L D (14.0-18.0) g/dl Hct 36.1 L D (42.0-52.0) % MCV 85.1 (80.0-98.0) fL MCH 29.2 (27.0-33.0) pg MCHC 34.3 (31.0-36.0) g/dl RDW 13.2 (11.0-16.0) % Plt Count 142 L (160-400) X10*3/uL MPV 9.5 (9.4-12.4) fL Immature Gran % (Auto) 0.7 H (0.0-0.4) % Neut % (Auto) 66.1 (45-73) % Lymph % (Auto) 22.8 (20-40) % [place] % (Auto) 7.8 (2-11) % Eos % (Auto) 2.2 (0-4) % Baso % (Auto) 0.4 (0-2) % Lymph # (Auto) 2.2 (1.2-4.9) X10*3/uL [place] # (Auto) 0.7 (0.1-1.2) X10*3/uL Eos # (Auto) 0.2 (0.0-0.4) X10*3/uL Baso # (Auto) 0.0 (0.0-0.2) X10*3/uL Abs Immat Gran (auto) 0.07 H (0.00-0.03) X10*3/uL Absolute Neuts (auto) 6.3 (2.0-8.3) x10*3/uL Absolute Nucleated RBC 0.000 (0.0-0.012) X10*3/uL Nucleated RBC % (auto) 0.0 (0.0-0.2) /100WBC Sodium 141 (135-145) mmol/L Potassium 4.1 (3.3-5.1) mmol/L Chloride 110 H (96-108) mmol/L Carbon Dioxide 24 (22-29) mmol/L Anion Gap 11 L (12-20) BUN 19 H (9-16) mg/dL Creatinine 1.20 (0.5-1.4) mg/dL Estim Creat Clear Calc 54.8 Estimated GFR > 60 Random Glucose 198 H (60-115) mg/dL Calcium 8.8 D (8.4-10.2) mg/dL Magnesium 2.1 (1.6-2.6) mg/dL Total Bilirubin 0.2 (0.0-1.0) mg/dL Direct Bilirubin < 0.2 (0.0-0.5) mg/dL AST 30 (5-37) U/L ALT 49 H (0-40) U/L Alkaline Phosphatase 66 (39-117) U/L Total Protein 6.0 L (6.5-8.0) g/dL Albumin 3.9 (3.5-5.0) g/dL Urine Color Yellow Urine Appearance Clear Urine pH 5.5 (5.0-9.0) Ur Specific [place] 1.020 (1.005-1.025) Urine Protein Trace (Neg-Trace) mg/dL Urine Glucose (UA) >=1000 H (Negative) mg/dL Urine Ketones Negative (Negative) mg/dL Urine Blood Negative (Negative) Urine Nitrite Negative (Negative) Ur Leukocyte Esterase Negative (Negative) Urine Opiates Screen Not Detected (Not Detect) Ur Buprenorphine Scrn Not Detected (Not Detect) ng/mL Ur Oxycodone Screen Not Detected (Not Detect) ng/mL Urine Methadone Screen Not Detected (Not Detect) ng/mL Urine Fentanyl Screen Not Detected (Not Detect) Ur Barbiturates Screen Not Detected (Not Detect) Ur Phencyclidine Scrn Not Detected (Not Detect) Ur Amphetamines Screen Not Detected (Not Detect) U Benzodiazepines Scrn Not Detected (Not Detect) Urine Cocaine Screen Not Detected (Not Detect) U Marijuana (THC) Screen POSITIVE H (Not Detect) Ethyl Alcohol 162 mg/dL Critical Care Time Critical Care Time Critical Care Time: Yes Total Critical Care Time: 35 Attestation: I have personally provided critical care time. Time includes review of lab data, radiology results, discussion with consultants, and monitoring for potential decompensation. Intervention performed as documented. Discharge Plan Discharge Clinical Impression: Anxiety with depression Prescriptions: No Action cetirizine 10 mg tablet 10 mg PO DAILY PRN (Reason: allergies) clonidine HCl 0.2 mg tablet 0.2 mg PO BID venlafaxine 37.5 mg tablet 37.5 mg PO DAILY naltrexone 50 mg Tablet 50 mg PO DAILY 7 Days Qty: 7 2RF lurasidone [Latuda] 40 mg Tablet 40 mg PO DAILY@1700 7 Days Qty: 7 2RF hydroxyzine HCl 50 mg Tablet 50 mg PO BID PRN (Reason: mild anxiety) 7 Days Qty: 14 1RF atorvastatin 40 mg Tablet 40 mg PO BEDTIME 7 Days Qty: 7 1RF lisinopril 5 mg tablet 5 mg PO DAILY amlodipine 5 mg tablet 5 mg PO DAILY clopidogrel 75 mg tablet 75 mg PO DAILY aspirin [Adult Aspirin Regimen] 81 mg tablet,delayed release (DR/EC) 81 mg PO DAILY Interventions: [place]-Suicide Risk Severity Scale Last Done: 08/14/25 23:21 Print Language: [place]
--- NOTE | 2025-08-14 22:39 | PC.NURSE ---
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
[2025-08-14 23:21] VITALS: BP 99/51; PULSE 65; RESP 18; TEMP 36.6; O2SAT 97
[2025-08-14 23:43] LABS: MANUAL DIFF FLAG NO
[2025-08-14 23:44] LABS: Hematocrit 36.1 % (42.0-52.0); Hemoglobin 12.4 g/dl (14.0-18.0); Imm Gran Abs Auto 0.07 X10*3/uL (0.00-0.03); Imm Gran Pct Auto 0.7 % (0.0-0.4); Lymphocytes Absolute Auto 2.2 X10*3/uL (1.2-4.9); Mean Corpuscular HGB Conc 34.3 g/dl (31.0-36.0); Mean Corpuscular Hemoglobin 29.2 pg (27.0-33.0); Mean Corpuscular Volume 85.1 fL (80.0-98.0); NRBC Abs Auto 0.000 X10*3/uL (0.0-0.012); NRBC Pct Auto 0.0 /100WBC (0.0-0.2); Platelet Count 142 X10*3/uL (160-400); Red Blood Count 4.24 X10*6/uL (4.60-5.80); White Blood Count 9.5 X10*3/uL (4.8-10.8)
[2025-08-14 23:57] LABS: Alanine Aminotransferase 49 U/L (0-40); Albumin Level 3.9 g/dL (3.5-5.0); Alkaline Phosphatase 66 U/L (39-117); Anion Gap 11 (12-20); Aspartate Amino Transferase 30 U/L (5-37); Blood Urea Nitrogen 19 mg/dL (9-16); Calcium 8.8 mg/dL (8.4-10.2); Carbon Dioxide 24 mmol/L (22-29); Chloride 110 mmol/L (96-108); Creatinine Clr Calc Pharmacy 54.8; Estimated Glomerular Filt Rate > 60; Magnesium 2.1 mg/dL (1.6-2.6); Potassium 4.1 mmol/L (3.3-5.1); Sodium 141 mmol/L (135-145); Total Protein 6.0 g/dL (6.5-8.0)
[2025-08-15] LABS: Cannabinoid Screen Urine POSITIVE (Not Detect)
--- OUTSIDE RECORDS SUMMARY | 2025-08-15 00:14 | XMS_ITS | Clinical Summary ---
Author Organization [facility] Address [address] [place] [address] Care Team Providers Care Nursing Assoc Name Role Phone Unavailable Primary Care Provider Unavailabl e Surgical History Surgery Date Site/Laterality Comments OTHER SURGICAL HISTORY PROCEDURE: ---- OTHER ----; COMMENT: R inguinal hernia COLONOSCOPY February PROCEDURE: HISTORICAL COLONOSCOPY; COMMENT: hemorrhoids; repeat in ten years ESOPHAGOGASTRODUODENOSCOPY 02/07/10 PROCEDURE: DC ESOPHAGOGASTRODUODENOSCOPY TRANSORAL DIAGNOSTIC; COMMENT: Farias's esophagus and Schatzki ring; 50 F dilator passed; repeat in two yrs ESOPHAGOGASTRODUODENOSCOPY 04/09/12 PROCEDURE: DC EGD TRANSORAL BIOPSY SINGLE/MULTIPLE; COMMENT: Farias's esophagus and non-critical Schatzki ring; repeat in 3 yrs OTHER SURGICAL HISTORY 06/25/13 PROCEDURE: DC EGD BALLOON DILATION ESOPHAGUS <30 MM DIAM; COMMENT: Schatzki ring dilated to 54 F; Farias's esophagus (not biopsied) with erosions; HH ESOPHAGOGASTRODUODENOSCOPY 21/03/15 PROCEDURE: DC ESOPHAGOGASTRODUODENOSCOPY TRANSORAL DIAGNOSTIC; COMMENT: Farias's esophagus and [...] Date Smoking Tobacco: Every Day Cigarettes 0.5 43.7 Started: 1982 Smokeless Tobacco: Never Alcohol Use Standard Drinks/Week Comments No 0 (1 standard drink = 0.6 oz pur e alcohol) Sex and Gender Information Value Date Recorded Sex Assigned at Not on file Legal Sex Male 6:03 AM EST Gender Identity Not on file Sexual Orientation Not on file Plan of Treatment Health Maintenance Due Date [...]
[2025-08-15 06:29] VITALS: BP 136/79; PULSE 73; RESP 17; TEMP 36.8; O2SAT 98
--- NOTE | 2025-08-15 07:31 | PC.NURSE ---
Assumed care of patient at 0645, patient appears to be in no apparent distress this am, resting in bed, appears to be sleeping, respirations even and unlabored. Continue plan of care for IPLOC
--- NOTE | 2025-08-15 07:37 | PC.NURSE ---
RE: med rec This RN completed med rec with verbal confirmation from patient as well as viewing medical record history
[2025-08-15 08:08] LABS: Appearance Urine Clear; Glucose Urine UA >=1000 mg/dL (Negative); PH 5.5 (5.0-9.0); Specific Gravity - Urine 1.020 (1.005-1.025); UMIC TRIGGER UA YES
--- NOTE | 2025-08-15 08:38 | PHA.MEDREC ---
Pharmacy Consult ? Medication Reconciliation Pharmacy has completed the medication reconciliation. Med rec completed by Esme, reviewed by pharmacy
[2025-08-15 09:01] VITALS: BP 140/82; PULSE 74; RESP 16; TEMP 36.1; O2SAT 98
[2025-08-15 09:02] VITALS: BP 140/82
[2025-08-15] MEDS: Aspirin Enteric Coated 81 MG TABLET.DR PO (09:02)
[2025-08-15 09:03] VITALS: BP 140/82
[2025-08-15 15:56] VITALS: BP 146/76; PULSE 59; RESP 17; TEMP 36.8; O2SAT 95
[2025-08-15 15:57] VITALS: BMI 28.9
--- NOTE | 2025-08-15 16:13 | PC.NURSE ---
Carlin arrived to the on 08/15/25 at 1530 on a CV for treatment of major depression, suicidal ideation and ETOH use. Patient is a 59 year old male who is ? after losing his at the age of 27, remarried and 3 years ago. Patient brought to the ED by his son following an argument while the patient was intoxicated and statements of suicidal ideation with a plan to sourav his vehicle into a semi truck; he reported past attempts but did not provide any more information. Patient was discharged from on 08/11 and reported he was ?having some manic moments before I was discharged but I thought it was just me.? He reports depression as ?more than 10? and anxiety /. He reports suicidal thoughts but with no intent to complete on the floor and would be able to notify staff if unsafe. He reports HI ?last night when I was in the argument? but not during intake. Patient denies A/VH at this time, however endorses a history of ?about 5 years ago sometimes I would see shadows and thought it was just my vision.? Toxicology screen was positive for cannabis, which he started smoking cannabis and cigarettes following his recent discharge as well as began drinking alcohol in excess. He reports he drank a 1 pint of vodka occasionally mixed with beer over a couple of days for a couple of weeks. 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 Patient reports a HTN and his left ear feeling ?itchy and blocked with a lot of wax.? Patient reports he is currently homeless after the argument with his son last night and is feeling hopeless. He also reports this time of year is the anniversary of his first ?s .?
--- NOTE | 2025-08-15 16:22 | P.HPPS_ITS ---
HPI Date of Service: 08/15/25 Chief Complaint: depression Sources of Information: patient interviewed, chart reviewed and crisis/core team assessment reviewed HPI Subjective Notes: Conditional Voluntary and 3 Day Narrative: Patient is a 59-year-old male with history of bipolar disorder, alcohol use disorder, recently discharged from on 08/11 who presents to the ED for ongoing depression and suicidal comment. Patient reports that when he returned home this past Sunday he found that his son had trashed the house they rent and share together. Patient said he felt unwanted and unappreciated on return. He says he continue taking his medication and remained sober but this coming weekend is the anniversary of his 's and patient continued feeling sad and rejected. This Sunday, patient said he thought he could drink get away with it however his son and friend/landlord bound alcohol into his room. Patient reports they had a big argument and patient says I said a lot of things and now I am pretty sure I can not go back... Patient reports he thinks he said something like I will just leave go away for ever... Or something to that effect which his son and friend/landlord took to be a suicidal comment; crisis called and patient reports to the hospital now. Patient reiterates he only drank on this 1 day. Past Psychiatric History: hx of 3 other inpatient psychiatric appointments; last time being in the 90s hx of 3-4 suicide attempts via cutting. denies hx of SIB. hx of taking Effexor and hydroxyzine; he can not recall other medication trials. hx of going to substance abuse program. Outpatient psychiatric providers through [facility]. He does not recall the name of his provider. 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 Dysuria Acute otitis media Bipolar disorder Acute pharyngitis Nocturnal hypoxemia Obesity (BMI 30-39.9) History of pneumonia Central sleep apnea Complex sleep apnea syndrome Pneumonitis Atherosclerotic cardiovascular disease WILTON (obstructive sleep apnea) SILVA (nonalcoholic steatohepatitis) History of deep venous thrombosis (DVT) of distal vein of left lower extremity Skin cancer Depression Recurrent kidney stones Dyslipidemia Essential hypertension Central sleep apnea Reid-Demarco breathing disorder Hiatal hernia Degenerative joint disease of left knee Diastolic congestive heart failure STEMI (ST elevation myocardial infarction) CAD (coronary artery disease) Lesion of skin of face Farias's esophagus Chronic idiopathic constipation Surgical History Hx of colonoscopy (~10/02/19) History of total knee arthroplasty History of esophagogastroduodenoscopy (EGD) Family History: Parents: Alcoholism Social History: Lives with friend. . 2 adult children. Disability. Bachelors degree. Substance History: Alcoholism; relapsed and drank 1 day this past week Trauma History: Not addressed Diagnostics Vital Signs (24Hr): Vital Signs - 24 hr 08/14/25 22:22 08/14/25 23:21 08/15/25 06:29 Temperature 97.8 F 97.8 F 98.2 F Pulse Rate 65 65 73 Respiratory Rate 18 18 17 Blood Pressure 99/51 L 99/51 L 136/79 Pulse Oximetry 97 97 98 Oxygen Delivery Method Room Air Room Air Room Air 08/15/25 09:01 08/15/25 09:02 08/15/25 09:02 Temperature 97 F Pulse Rate 74 Respiratory Rate 16 Blood Pressure 140/82 H 140/82 H 140/82 H Pulse Oximetry 98 Oxygen Delivery Method Room Air 08/15/25 09:03 08/15/25 15:56 Temperature 98.3 F Pulse Rate 59 Respiratory Rate 17 Blood Pressure 140/82 H 146/76 H Pulse Oximetry 95 Oxygen Delivery Method Room Air BMI result Body Mass Index 28.9 Labs 08/14/25 23:36 08/14/25 23:36 Labs: Laboratory Results - last 48 hr 08/14/25 23:36 WBC 9.5 RBC 4.24 L D Hgb 12.4 L D Hct 36.1 L D MCV 85.1 MCH 29.2 MCHC 34.3 RDW 13.2 Plt Count 142 L MPV 9.5 Immature Gran % (Auto) 0.7 H Neut % (Auto) 66.1 Lymph % (Auto) 22.8 [place] % (Auto) 7.8 Eos % (Auto) 2.2 Baso % (Auto) 0.4 Lymph # (Auto) 2.2 [place] # (Auto) 0.7 Eos # (Auto) 0.2 Baso # (Auto) 0.0 Abs Immat Gran (auto) 0.07 H Absolute Neuts (auto) 6.3 Absolute Nucleated RBC 0.000 Nucleated RBC % (auto) 0.0 Sodium 141 Potassium 4.1 Chloride 110 H Carbon Dioxide 24 Anion Gap 11 L BUN 19 H Creatinine 1.20 Estim Creat Clear Calc 54.8 Estimated GFR > 60 Random Glucose 198 H Calcium 8.8 D Magnesium 2.1 Total Bilirubin 0.2 Direct Bilirubin < 0.2 AST 30 ALT 49 H Alkaline Phosphatase 66 Total Protein 6.0 L Albumin 3.9 Urine Color Yellow Urine Appearance Clear Urine pH 5.5 Ur Specific [place] 1.020 Urine Protein Trace Urine Glucose (UA) >=1000 H Urine Ketones Negative Urine Blood Negative Urine Nitrite Negative Ur Leukocyte Esterase Negative Urine RBC 0-2 Urine WBC 0-5 Ur Squamous Epith Cells 0-2 Urine Bacteria None Seen Hyaline Casts 0-2 Urine Opiates Screen Not Detected Ur Buprenorphine Scrn Not Detected Ur Oxycodone Screen Not Detected Urine Methadone Screen Not Detected Urine Fentanyl Screen Not Detected Ur Barbiturates Screen Not Detected Ur Phencyclidine Scrn Not Detected Ur Amphetamines Screen Not Detected U Benzodiazepines Scrn Not Detected Urine Cocaine Screen Not Detected U Marijuana (THC) Screen POSITIVE H Ethyl Alcohol 162 Meds/Allergies Meds Home Medications ?Medication ?Instructions ?Recorded ?Confirmed ?Type lisinopril 5 mg tablet 5 mg PO DAILY 10/05/2008/15 History amlodipine 5 mg tablet 5 mg PO DAILY 09/12/2208/15 History clopidogrel 75 mg tablet 75 mg PO DAILY 09/12/2208/03 History aspirin 81 mg tablet,delayed 81 mg PO DAILY 04/02/25 1 10/16/24 History release (Adult Aspirin Regimen) cetirizine 10 mg tablet 10 mg PO DAILY PRN allergies 08/15/25 08/15/25 History clonidine HCl 0.2 mg tablet 0.2 mg PO BID 08/15/25 History venlafaxine 37.5 mg tablet 37.5 mg PO DAILY 08/15/25 1 10/16/24 History Allergies Allergies Allergy/AdvReac Type Severity Reaction Status Date / Time No Known Allergies (No Known Allergy Verified 08/14/25 22:26 Allergies*) Mental Status Exam Mental Status Exam Narrative: Pt is alert and oriented; behavior is cooperative, on approach; patient is not in distress; dressed in hospital attire adequately groomed; mood is described as depressed... Anxious and affect congruent, downcast; eye contact appropriate; Speech is normal rate, volume and prosody and not pressured; no psychomotor agitation/retardation present; thought process is organized and goal directed; Thought content is on missing his ; feeling rejected by his son; otherwise pertinent to relevant topics and without any delusional content, paranoid ideations or grandiosity; denies any SI/HI. Denies AVH and there is no evidence of perceptual disturbance. Patients insight and judgment impaired Assessment & Plan Assessment & Plan (1) Bipolar disorder: Status: Acute Qualifiers: Active/Remission status: currently active Current episode severity: u nspecified Code(s): F31.9 - Bipolar disorder, unspecified (2) Alcohol use disorder, moderate, dependence: Status: Acute Code(s): F10.20 - Alcohol dependence, uncomplicated (3) Essential hypertension: Status: Acute Code(s): I10 - Essential (primary) hypertension (4) Mixed dyslipidemia: Status: Acute Code(s): E78.2 - Mixed hyperlipidemia Plan Patient is a 59-year-old male with history of bipolar disorder, alcohol use disorder, recently discharged from on 08/11 who presents to the ED for ongoing depression and suicidal comment. Patient reports that when he returned home this past Sunday he found that his son had trashed the house they rent and share together. Patient said he felt unwanted and unappreciated on return. He says he continue taking his medication and remained sober but this coming is the anniversary of his 's and patient continued feeling sad and rejected. This Sunday, patient said he thought he could drink get away with it however his son and friend/landlord bound alcohol into his room. Patient reports they had a big argument and patient says I said a lot of things and now I am pretty sure I can not go back... Patient reports he thinks he said something like I will just leave go away for ever... Or something to that effect which his son and friend/landlord took to be a suicidal comment; crisis called and patient reports to the hospital now. Patient reiterates he only drank on this 1 day. Plan: CV Q 15 minute checks Restart home medications Patient only drank for 1 day and does not require CIWA Patient educated on: diagnosis, medication risk/benefits, substance abuse and therapeutic strategies Informed Consent: understands Reason for continued inpatient stay Substantial Risk for: rapid decompensation Statement Statement: I have reviewed the history and physical and performed a pertinent examination on my patient. No changes have occurred unless specified. If the History and Physical was not performed prior to admission, the Hospitalist's service will be consulted for completing the admission physical. Time Spent With Patient Time: Total time managing care of this patient today ____ minutes.
[2025-08-16 07:47] LABS: Alanine Aminotransferase 42 U/L (0-40); Albumin Level 4.1 g/dL (3.5-5.0); Alkaline Phosphatase 74 U/L (39-117); Anion Gap 12 (12-20); Aspartate Amino Transferase 26 U/L (5-37); Blood Urea Nitrogen 17 mg/dL (9-16); Calcium 9.0 mg/dL (8.4-10.2); Carbon Dioxide 26 mmol/L (22-29); Chloride 107 mmol/L (96-108); Creatinine Clr Calc Pharmacy 69.9; Estimated Glomerular Filt Rate > 60; Potassium 4.1 mmol/L (3.3-5.1); Sodium 141 mmol/L (135-145); Total Protein 6.5 g/dL (6.5-8.0)
[2025-08-16 08:00] VITALS: BP 147/83; PULSE 57; RESP 16; TEMP 36.7; O2SAT 97
[2025-08-16] MEDS: Aspirin Enteric Coated 81 MG TABLET.DR PO (08:52)
[2025-08-16] MEDS: Carbamide Peroxide 6.5% Otic 15 ML DRPBTL 5 DROP EAR-LEFT (13:06)
--- NOTE | 2025-08-16 13:38 | HO.PSYCHPN ---
Subjective Subjective Date of Service: 08/16/25 Reason For Visit: depression Interim History: met with patient; discussed with team discussed hx manic episode, 1hour sleep, hyperverbal, mind going fast, going from task to task and not finishing, trying to get women on internet; spending money on stuff does not need; not attending to no adl's; ends up relapsing with alcohol Discussed medications and patient agreed to get off Latuda as it does not strongly prevent manic episodes Reviewed risks/side effects of lithium and patient agrees to start Given starting lithium, he would like to get off lisinopril and agrees to instead increase amlodipine for hypertension Mental Status Exam Mental Status Exam Narrative: Pt is alert and oriented; behavior is cooperative, on approach; patient is not in distress; dressed in hospital attire adequately groomed; mood is described as depressed... Anxious and affect congruent, downcast; eye contact appropriate; Speech is normal rate, volume and prosody and not pressured; no psychomotor agitation/retardation present; thought process is organized and goal directed; Thought content is on missing his ; feeling rejected by his son; otherwise pertinent to relevant topics and without any delusional content, paranoid ideations or grandiosity; denies any SI/HI. Denies AVH and there is no evidence of perceptual disturbance. Patients insight and judgment impaired Diagnostics Vital Signs (24Hr): Vital Signs - 24 hr 08/15/25 15:56 08/16/25 08:00 Temperature 98.3 F 98.1 F Pulse Rate 59 57 Respiratory Rate 17 16 Blood Pressure 146/76 H 147/83 H Pulse Oximetry 95 97 Oxygen Delivery Method Room Air Room Air BMI result Body Mass Index 28.9 Labs 08/14/25 23:36 08/16/25 07:15 Labs: Laboratory Results - last 48 hr 08/14/25 08/16/25 23:36 07:15 WBC 9.5 RBC 4.24 L D Hgb 12.4 L D Hct 36.1 L D MCV 85.1 MCH 29.2 MCHC 34.3 RDW 13.2 Plt Count 142 L MPV 9.5 Immature Gran % (Auto) 0.7 H Neut % (Auto) 66.1 Lymph % (Auto) 22.8 [place] % (Auto) 7.8 Eos % (Auto) 2.2 Baso % (Auto) 0.4 Lymph # (Auto) 2.2 [place] # (Auto) 0.7 Eos # (Auto) 0.2 Baso # (Auto) 0.0 Abs Immat Gran (auto) 0.07 H Absolute Neuts (auto) 6.3 Absolute Nucleated RBC 0.000 Nucleated RBC % (auto) 0.0 Sodium 141 141 Potassium 4.1 4.1 Chloride 110 H 107 Carbon Dioxide 24 26 Anion Gap 11 L 12 BUN 19 H 17 H Creatinine 1.20 1.05 Estim Creat Clear Calc 54.8 69.9 Estimated GFR > 60 > 60 Random Glucose 198 H 177 H Calcium 8.8 D 9.0 Magnesium 2.1 Total Bilirubin 0.2 0.6 Direct Bilirubin < 0.2 AST 30 26 ALT 49 H 42 H Alkaline Phosphatase 66 74 Total Protein 6.0 L 6.5 Albumin 3.9 4.1 TSH 1.84 Urine Color Yellow Urine Appearance Clear Urine pH 5.5 Ur Specific [place] 1.020 Urine Protein Trace Urine Glucose (UA) >=1000 H Urine Ketones Negative Urine Blood Negative Urine Nitrite Negative Ur Leukocyte Esterase Negative Urine RBC 0-2 Urine WBC 0-5 Ur Squamous Epith Cells 0-2 Urine Bacteria None Seen Hyaline Casts 0-2 Urine Opiates Screen Not Detected Ur Buprenorphine Scrn Not Detected Ur Oxycodone Screen Not Detected Urine Methadone Screen Not Detected Urine Fentanyl Screen Not Detected Ur Barbiturates Screen Not Detected Ur Phencyclidine Scrn Not Detected Ur Amphetamines Screen Not Detected U Benzodiazepines Scrn Not Detected Urine Cocaine Screen Not Detected U Marijuana (THC) Screen POSITIVE H Ethyl Alcohol 162 Medications Medications Current Medications Acetaminophen (Acetaminophen 325 Mg Tablet) 650 mg PO Q6H PRN PRN Reason: Headache/Pain, Scale 1-10 Al Hydroxide/Mg Hydroxide (Magnesium Hydrox/Alum Hydrox 30 Ml Oral.Susp) 30 ml PO Q6H PRN PRN Reason: Heartburn/Nausea Amlodipine Besylate (Amlodipine Besylate 5 Mg Tablet) 5 mg PO DAILY [facility]; Protocol Last Admin: 08/16/25 08:52 Dose: 5 mg Aspirin (Aspirin Enteric Coated 81 Mg Tablet.Dr) 81 mg PO DAILY [facility] Last Admin: 08/16/25 08:52 Dose: 81 mg Atorvastatin Calcium (Atorvastatin Calcium 40 Mg Tablet) 40 mg PO BEDTIME [facility] Last Admin: 08/15/25 23:05 Dose: 40 mg Clonidine HCl (Clonidine Hcl 0.2 Mg Tablet) 0.2 mg PO BID [facility]; Protocol Last Admin: 08/16/25 08:52 Dose: 0.2 mg Clopidogrel Bisulfate (Clopidogrel Bisulfate 75 Mg Tablet) 75 mg PO DAILY [facility] Last Admin: 08/16/25 08:52 Dose: 75 mg Hydroxyzine HCl (Hydroxyzine Hcl 50 Mg Tablet) 50 mg PO BID PRN PRN Reason: mild anxiety Last Admin: 08/16/25 08:59 Dose: 50 mg Hydroxyzine HCl (Hydroxyzine Hcl 25 Mg Tablet) 25 mg PO Q6H PRN PRN Reason: mild anxiety Last Admin: 08/15/25 17:23 Dose: 25 mg Lisinopril (Lisinopril 5 Mg Tablet) 5 mg PO DAILY [facility]; Protocol Last Admin: 08/16/25 08:53 Dose: 5 mg Loratadine (Loratadine 10 Mg Tablet) 10 mg PO DAILY PRN PRN Reason: allergies Lurasidone HCl (Lurasidone Hcl 40 Mg Tablet) 40 mg PO DAILY@1700 [facility] Last Admin: 08/15/25 17:23 Dose: 40 mg Magnesium Hydroxide (Milk Of Magnesia 30 Ml Oral.Susp) 30 ml PO DAILY PRN PRN Reason: Constipation Naltrexone HCl (Naltrexone Hcl 50 Mg Tablet) 50 mg PO DAILY [facility] Last Admin: 08/16/25 08:52 Dose: 50 mg Nicotine (Nicotine 21 Mg Patch.Td24) 21 mg TRANSDERMA DAILY PRN PRN Reason: smoking cessation Nicotine Polacrilex (Nicotine Polacrilex 2 Mg Gum) 4 mg BUCCAL Q2H PRN PRN Reason: Nicotine Cravings Olanzapine (Olanzapine 5 Mg Tablet) 5 mg PO TID PRN PRN Reason: agitation Last Admin: 08/16/25 11:22 Dose: 5 mg Trazodone HCl (Trazodone Hcl 50 Mg Tablet) 50 mg PO BEDTIME MRX1 PRN PRN Reason: Insomnia Venlafaxine HCl (Venlafaxine Hcl 25 Mg Tablet) 37.5 mg PO DAILY [facility] Last Admin: 08/16/25 13:24 Dose: Not Given Allergies Allergies Allergy/AdvReac Type Severity Reaction Status Date / Time No Known Allergies (No Known Allergy Verified 08/14/25 22:26 Allergies*) Assessment & Plan Assessment & Plan (1) Bipolar disorder: Qualifiers: Active/Remission status: currently active Current episode severity: unspecified Status: Acute Code(s): F31.9 - Bipolar disorder, unspecified (2) Alcohol use disorder, moderate, dependence: Status: Acute Code(s): F10.20 - Alcohol dependence, uncomplicated (3) Essential hypertension: Status: Acute Code(s): I10 - Essential (primary) hypertension (4) Mixed dyslipidemia: Status: Acute Code(s): E78.2 - Mixed hyperlipidemia Plan Patient is a 59-year-old male with history of bipolar disorder, alcohol use disorder, recently discharged from on 08/11 who presents to the ED for ongoing depression and suicidal comment. Patient reports that when he returned home this past Sunday he found that his son had trashed the house they rent and share together. Patient said he felt unwanted and unappreciated on return. He says he continue taking his medication and remained sober but this coming is the anniversary of his 's and patient continued feeling sad and rejected. This Sunday, patient said he thought he could drink get away with it however his son and friend/landlord bound alcohol into his room. Patient reports they had a big argument and patient says I said a lot of things and now I am pretty sure I can not go back... Patient reports he thinks he said something like I will just leave go away for ever... Or something to that effect which his son and friend/landlord took to be a suicidal comment; crisis called and patient reports to the hospital now. Patient reiterates he only drank on this 1 day. Hospital course: 08/16 discussed hx manic episode, 1hour sleep, hyperverbal, mind going fast, going from task to task and not finishing, trying to get women on internet; spending money on stuff does not need; not attending to no adl's; ends up relapsing with alcohol Discussed medications and patient agreed to get off Latuda as it does not strongly prevent manic episodes Reviewed risks/side effects of lithium and patient agrees to start Given starting lithium, he would like to get off lisinopril and agrees to instead increase amlodipine for hypertension Plan: CV Q 15 minute checks Start [place] [facility] 600 DC latuda DC lisinopril Increase amlodipine to 10mg Patient only drank for 1 day and does not require CIWA Patient educated on: diagnosis, medication risk/benefits, substance abuse and therapeutic strategies Informed Consent: understands Reason for continued inpatient stay Substantial Risk for: rapid decompensation Time Spent With Patient Time: Total time managing care of this patient today ____ minutes.
[2025-08-16 20:00] VITALS: BP 126/69; PULSE 59; RESP 18; TEMP 36.4; O2SAT 96
[2025-08-16 21:34] VITALS: BP 126/71
--- NOTE | 2025-08-17 | ECG_ITS ---
Test Reason : qtc check Blood Pressure : */* mmHG Vent. Rate : 48 BPM Atrial Rate : 48 BPM P-R Int : 198 ms QRS Dur : 90 ms QT Int : 476 ms P-R-T Axes : 7 -19 41 degrees QTcB Int : 425 ms Sinus bradycardia Septal infarct (cited on or before 04-Aug-2025) Abnormal ECG When compared with ECG of 04-Aug-2025 06:42, Questionable change in initial forces of Anteroseptal leads Nonspecific T wave abnormality, worse in Lateral leads Referred By: Jennifer Beal Electronically Signed By: Michi Roy
[2025-08-17 08:00] VITALS: BP 154/84; PULSE 57; RESP 16; TEMP 36.4; O2SAT 97
[2025-08-17 09:08] VITALS: BP 116/66; PULSE 63; RESP 18
[2025-08-17] MEDS: Aspirin Enteric Coated 81 MG TABLET.DR PO (09:16)
--- NOTE | 2025-08-17 10:05 | HO.PSYCHPN ---
Subjective Subjective Date of Service: 08/17/25 Reason For Visit: depression Subjective Notes: Conditional Voluntary Healthcare Proxy: No Guardianship: No Medical Problems Affecting Mental Status: No Interim History: Denies SI,HI,AH,VH. Slept 8 hours Review of precipitants to admission- agrees he needs to go to [facility] and begin there-drinking for over 35 years, starting at age 11. Reports 10 years of sobriety with first marriage. Anniversary of first 's was this past weekend- a difficult time of year for pt. Reports he feels he needs to get away from his friend whom he has lived with for several years and his son. Wants to be happy with himself and sober. Upset that therapist, Zuhair Whitlock of [facility] did not respond to him when he was in crisis prior to admit. I have been on the run with alcohol too long. I have to do something different. Pt requests we ask son to bring in some clothing, that L ear be evaluated due to pain and wax buildup, that we medicate anxiety-will trial olanzapine. He agrees to addiction medicine consult. Medication Compliance: Yes Side effects from medications: No Review of Systems Acute medical concerns: No Medical Review of Systems: unchanged Review of Systems Review of Systems L ear pain Mental Status Exam Mental Status Exam Patient Appearance: Fatigued Patient Orientation: Person, Place, Time and Situation Level of Consciousness: Alert Patient Behavior: Talkative and Good Eye Contact Mood Description: Depressed and Angry Affect Description: Flat Patient Cognition Impaired: No Ability to Follow Directions: Good Speech Pattern: Spontaneous Speech Memory Description: Episodic Impaired Hallucinations: None Delusions: Not Present Thought Process: Intact and Goal Oriented Thought Content: positive for Intact and positive for Goal Oriented Depressive Symptoms: Thoughts of /Suicide (denies) Judgement: Fair Diagnostics Vital Signs (24Hr): Vital Signs - 24 hr 08/16/25 20:00 08/16/25 21:34 08/17/25 08:00 Temperature 97.5 F 97.5 F Pulse Rate 59 57 Respiratory Rate 18 16 Blood Pressure 126/69 126/71 154/84 H Pulse Oximetry 96 97 Oxygen Delivery Method Room Air Room Air 08/17/25 09:08 Temperature Pulse Rate 63 Respiratory Rate 18 Blood Pressure 116/66 Pulse Oximetry Oxygen Delivery Method BMI result Body Mass Index 28.9 Labs 08/14/25 23:36 08/16/25 07:15 Labs: Laboratory Results - last 48 hr 08/16/25 07:15 Sodium 141 Potassium 4.1 Chloride 107 Carbon Dioxide 26 Anion Gap 12 BUN 17 H Creatinine 1.05 Estim Creat Clear Calc 69.9 Estimated GFR > 60 Random Glucose 177 H Calcium 9.0 Total Bilirubin 0.6 AST 26 ALT 42 H Alkaline Phosphatase 74 Total Protein 6.5 Albumin 4.1 TSH 1.84 EKG EKG Comment: QTc 425 Septal infarct on or before 08/04/25. Medications Medications Current Medications Acetaminophen (Acetaminophen 325 Mg Tablet) 650 mg PO Q6H PRN PRN Reason: Headache/Pain, Scale 1-10 Last Admin: 08/16/25 21:33 Dose: 650 mg Al Hydroxide/Mg Hydroxide (Magnesium Hydrox/Alum Hydrox 30 Ml Oral.Susp) 30 ml PO Q6H PRN PRN Reason: Heartburn/Nausea Amlodipine Besylate (Amlodipine Besylate 10 Mg Tablet) 10 mg PO DAILY [facility]; Protocol Last Admin: 08/17/25 09:16 Dose: 10 mg Aspirin (Aspirin Enteric Coated 81 Mg Tablet.Dr) 81 mg PO DAILY [facility] Last Admin: 08/17/25 09:16 Dose: 81 mg Atorvastatin Calcium (Atorvastatin Calcium 40 Mg Tablet) 40 mg PO BEDTIME [facility] Last Admin: 08/16/25 21:33 Dose: 40 mg Clonidine HCl (Clonidine Hcl 0.2 Mg Tablet) 0.2 mg PO BID [facility]; Protocol Last Admin: 08/17/25 09:16 Dose: 0.2 mg Clopidogrel Bisulfate (Clopidogrel Bisulfate 75 Mg Tablet) 75 mg PO DAILY [facility] Last Admin: 08/17/25 09:16 Dose: 75 mg Hydroxyzine HCl (Hydroxyzine Hcl 50 Mg Tablet) 50 mg PO BID PRN PRN Reason: mild anxiety Last Admin: 08/17/25 04:46 Dose: 50 mg [place] Carbonate ([place] Carbonate Er 300 Mg Tablet.Er) 600 mg PO BEDTIME [facility] Last Admin: 08/16/25 21:33 Dose: 600 mg Loratadine (Loratadine 10 Mg Tablet) 10 mg PO DAILY PRN PRN Reason: allergies Magnesium Hydroxide (Milk Of Magnesia 30 Ml Oral.Susp) 30 ml PO DAILY PRN PRN Reason: Constipation Naltrexone HCl (Naltrexone Hcl 50 Mg Tablet) 50 mg PO DAILY [facility] Last Admin: 08/17/25 09:17 Dose: 50 mg Nicotine (Nicotine 21 Mg Patch.Td24) 21 mg TRANSDERMA DAILY PRN PRN Reason: smoking cessation Nicotine Polacrilex (Nicotine Polacrilex 2 Mg Gum) 4 mg BUCCAL Q2H PRN PRN Reason: Nicotine Cravings Trazodone HCl (Trazodone Hcl 50 Mg Tablet) 50 mg PO BEDTIME MRX1 PRN PRN Reason: Insomnia Allergies Allergies Allergy/AdvReac Type Severity Reaction Status Date / Time No Known Allergies (No Known Allergy Verified 08/14/25 22:26 Allergies*) Assessment & Plan Assessment & Plan (1) Bipolar disorder: Qualifiers: Active/Remission status: currently active Current episode severity: unspecified Status: Acute Code(s): F31.9 - Bipolar disorder, unspecified (2) Alcohol use disorder, moderate, dependence: Status: Acute Code(s): F10.20 - Alcohol dependence, uncomplicated (3) Essential hypertension: Status: Acute Code(s): I10 - Essential (primary) hypertension (4) Mixed dyslipidemia: Status: Acute Code(s): E78.2 - Mixed hyperlipidemia Plan Patient is a 59-year-old male with history of bipolar disorder, alcohol use disorder, recently discharged from on 08/11 who presents to the ED for ongoing depression and suicidal comment. Patient reports that when he returned home this past Sunday he found that his son had trashed the house they rent and share together. Patient said he felt unwanted and unappreciated on return. He says he continue taking his medication and remained sober but this coming weekend is the anniversary of his 's and patient continued feeling sad and rejected. This Sunday, patient said he thought he could drink get away with it however his son and friend/landlord bound alcohol into his room. Patient reports they had a big argument and patient says I said a lot of things and now I am pretty sure I can not go back... Patient reports he thinks he said something like I will just leave go away for ever... Or something to that effect which his son and friend/landlord took to be a suicidal comment; crisis called and patient reports to the hospital now. Patient reiterates he only drank on this 1 day. Hospital course: 08/16 discussed hx manic episode, 1hour sleep, hyperverbal, mind going fast, going from task to task and not finishing, trying to get women on internet; spending money on stuff does not need; not attending to no adl's; ends up relapsing with alcohol Discussed medications and patient agreed to get off Latuda as it does not strongly prevent manic episodes Reviewed risks/side effects of lithium and patient agrees to start Given starting lithium, he would like to get off lisinopril and agrees to instead increase amlodipine for hypertension 08/17: Denies SI,HI,AH,VH. Slept 8 hours Review of precipitants to admission- agrees he needs to go to [facility] and begin there-drinking for over 35 years, starting at age 11. Reports 10 years of sobriety with first marriage. Anniversary of first 's was this past weekend- a difficult time of year for pt. Reports he feels he needs to get away from his friend whom he has lived with for several years and his son. Wants to be happy with himself and sober. Upset that therapist, Zuhair Whitlock of [facility] did not respond to him when he was in crisis prior to admit. I have been on the run with alcohol too long. I have to do something different. Pt requests we ask son to bring in some clothing, that L ear be evaluated due to pain and wax buildup, that we medicate anxiety-will trial olanzapine. He agrees to addiction medicine consult. Plan: CV Q 15 minute checks Start [place]-Ne[place] ER 600 DC latuda DC lisinopril Increase amlodipine to 10mg Patient only drank for 1 day and does not require CIWA Reason for continued inpatient stay Substantial Risk for: rapid decompensation Time Spent With Patient Time: Total time managing care of this patient today ____ minutes.
--- NOTE | 2025-08-17 12:17 | HO.PM.IMPN ---
Subjective Subjective Date of Service: 08/17/25 Interval History: Patient is reporting left ear comfort and itch. Per outside records this has been an ongoing concern for patient. Patient was recently treated with Debrox kind of he reports that his ear is unchanged. Upon exam his ear canal has some redness consistent with otitis media externa. No pain in tragus, no pain in pinnae, eardrums are within normal limits. He denies any recent cold symptoms. Denies nasal congestion, headaches or any other concerning symptoms. Review of Systems Denies any shortness of breath, chest pain, headaches, dysuria, abdominal pain or discomfort, nausea, vomiting or diarrhea. Denies fever or chills. Physical Exam Exam: Exam: Appearance: Alert. Oriented X3. No acute distress. Eyes: Pupils equal, round and reactive to light. ENT: Pharynx normal. Mild redness to bilateral ear canal. CVS: Normal heart rate and rhythm. Respiratory: Lungs clear. NAD Abdomen: Soft and nontender. Skin: Skin warm and dry. Normal skin color. Normal skin turgor. Extremities: No lower extremity edema. Neuro: Oriented X 3. Psych: calm, cooperative, a bit anxious Vital Signs: Vital Signs: Last Vital Signs Temp 97.5 F 08/17/25 08:00 Pulse 63 08/17/25 09:08 Resp 18 08/17/25 09:08 BP 116/66 08/17/25 09:08 Pulse Ox 97 08/17/25 08:00 O2 Del Method Room Air 08/17/25 08:00 BMI result Body Mass Index 28.9 Objective Data Active Medications Acetaminophen (Acetaminophen 325 Mg Tablet) 650 mg PO Q6H PRN PRN Reason: Headache/Pain, Scale 1-10 Last Admin: 08/16/25 21:33 Dose: 650 mg Documented By: JESSICA Al Hydroxide/Mg Hydroxide (Magnesium Hydrox/Alum Hydrox 30 Ml Oral.Susp) 30 ml PO Q6H PRN PRN Reason: Heartburn/Nausea Amlodipine Besylate (Amlodipine Besylate 10 Mg Tablet) 10 mg PO DAILY [facility]; Protocol Last Admin: 08/17/25 09:16 Dose: 10 mg Documented By: LUIZA Aspirin (Aspirin Enteric Coated 81 Mg Tablet.) 81 mg PO DAILY [facility] Last Admin: 08/17/25 09:16 Dose: 81 mg Documented By: LUIZA Atorvastatin Calcium (Atorvastatin Calcium 40 Mg Tablet) 40 mg PO BEDTIME [facility] Last Admin: 08/16/25 21:33 Dose: 40 mg Documented By: JESSICA Clonidine HCl (Clonidine Hcl 0.2 Mg Tablet) 0.2 mg PO BID [facility]; Protocol Last Admin: 08/17/25 09:16 Dose: 0.2 mg Documented By: LUIZA Clopidogrel Bisulfate (Clopidogrel Bisulfate 75 Mg Tablet) 75 mg PO DAILY [facility] Last Admin: 08/17/25 09:16 Dose: 75 mg Documented By: LUIZA Hydroxyzine HCl (Hydroxyzine Hcl 50 Mg Tablet) 50 mg PO BID PRN PRN Reason: mild anxiety Last Admin: 08/17/25 04:46 Dose: 50 mg Documented By: JESSICA [place] Carbonate ([place] Carbonate Er 300 Mg Tablet.Er) 600 mg PO BEDTIME [facility] Last Admin: 08/16/25 21:33 Dose: 600 mg Documented By: JESSICA Loratadine (Loratadine 10 Mg Tablet) 10 mg PO DAILY PRN PRN Reason: allergies Magnesium Hydroxide (Milk Of Magnesia 30 Ml Oral.Susp) 30 ml PO DAILY PRN PRN Reason: Constipation Naltrexone HCl (Naltrexone Hcl 50 Mg Tablet) 50 mg PO DAILY [facility] Last Admin: 08/17/25 09:17 Dose: 50 mg Documented By: LUIZA Nicotine (Nicotine 21 Mg Patch.Td24) 21 mg TRANSDERMA DAILY PRN PRN Reason: smoking cessation Nicotine Polacrilex (Nicotine Polacrilex 2 Mg Gum) 4 mg BUCCAL Q2H PRN PRN Reason: Nicotine Cravings Olanzapine (Olanzapine 5 Mg Tablet) 5 mg PO Q4H PRN PRN Reason: anxiety, agitation Trazodone HCl (Trazodone Hcl 50 Mg Tablet) 50 mg PO BEDTIME MRX1 PRN PRN Reason: Insomnia Labs 08/14/25 23:36 08/16/25 07:15 Assessment and Plan (1) Otitis externa: Status: Acute Plan 59-year-old male with past medical history of depression and suicidal ideation presented to the emergency room after an intentional overdose of clonidine. Patient was admitted to the hospital now medically cleared and transferred to the inpatient psychiatric unit. Patient is seen today for otitis externa. Otitis Externa Polymyxin/RENNY/HC gtts TID for 5 days Depression with SI/intentional overdose/ETOH dependence Treatment per psychiatric team Patient was monitored in the hospital for bradycardia secondary to clonidine overdose. He has remained hemodynamically stable Acute kidney injury/proteinuria Resolved with fluids Will need OP FU with Nephrology. WILTON Does not have a CPAP at home, we will need outpatient sleep study Hypertension Continue amlodipine, lisinopril CAD/dyslipidemia/CHF/history of angioplasty and stents. Continue aspirin and Plavix Appears euvolemic on exam Atorvastatin 40 mg daily, we will need outpatient follow up. Check LFTs in 1 week. Thank you for allowing me to participate in the care of this patient. Will follow with you, please notify medical provider with any changes in condition or concerns. Quality Stroke Does the patient have a stroke diagnosis?: No VTE Prior VTE?: No VTE Risk Level:: Medical - low VTE Device Contraindication: Treatment Not Indicated VTE Drug Contraindication: Treatment Not Indicated
[2025-08-17] MEDS: NeoMYCIN/Polymyxin/HC Otic Sol BOTTLE 4 DROP EAR-BOTH (16:23)
[2025-08-17 20:00] VITALS: BP 114/62; PULSE 59; RESP 18; TEMP 36.8; O2SAT 97
[2025-08-17 21:48] VITALS: BP 114/62
[2025-08-18 08:00] VITALS: BP 137/74; PULSE 58; RESP 20; TEMP 37.1; O2SAT 98
[2025-08-18] MEDS: Aspirin Enteric Coated 81 MG TABLET.DR PO (08:32)
[2025-08-18 08:34] VITALS: BP 137/68
[2025-08-18] MEDS: NeoMYCIN/Polymyxin/HC Otic Sol BOTTLE 4 DROP EAR-BOTH (08:35)
[2025-08-18 09:52] LABS: Alanine Aminotransferase 42 U/L (0-40); Albumin Level 4.5 g/dL (3.5-5.0); Alkaline Phosphatase 78 U/L (39-117); Anion Gap 10 (12-20); Aspartate Amino Transferase 33 U/L (5-37); Blood Urea Nitrogen 16 mg/dL (9-16); Calcium 9.6 mg/dL (8.4-10.2); Carbon Dioxide 27 mmol/L (22-29); Chloride 107 mmol/L (96-108); Creatinine Clr Calc Pharmacy 67.9; Estimated Glomerular Filt Rate > 60; Potassium 4.1 mmol/L (3.3-5.1); Sodium 140 mmol/L (135-145); Total Protein 7.1 g/dL (6.5-8.0)
--- NOTE | 2025-08-18 10:21 | HO.PSYCHPN ---
Subjective Subjective Date of Service: 08/18/25 Reason For Visit: depression Subjective Notes: Conditional Voluntary Healthcare Proxy: No Guardianship: No Medical Problems Affecting Mental Status: No Interim History: Pt was offered admission today with [facility]- their bed is available on 08/19. 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 Denies SI,HI,AH,VH. Continues to be upset, angry with argument with son, friend prior to admit- I am going to call my friend, but I am just going to leave my son out of it. Review of meds, need for [place] level prior to DC- will trial prn increase of Olanzapine to 10 mg prior to DC and Trazodone increase to 100. Will have labs 08/19. Medication Compliance: Yes Side effects from medications: No Attending Groups: Intermittent Review of Systems Acute medical concerns: No Review of Systems Review of Systems Denied Mental Status Exam Mental Status Exam Patient Appearance: Fatigued Patient Orientation: Person, Place, Time and Situation Level of Consciousness: Alert Patient Behavior: Talkative and Good Eye Contact Mood Description: Sad Affect Description: Flat Patient Cognition Impaired: No Ability to Follow Directions: Good Speech Pattern: Spontaneous Speech Memory Description: Episodic Impaired Hallucinations: None Delusions: Not Present Thought Process: Intact and Goal Oriented Thought Content: positive for Intact and positive for Goal Oriented Depressive Symptoms: Thoughts of /Suicide (denies) Judgement: Good Diagnostics Vital Signs (24Hr): Vital Signs - 24 hr 08/17/25 20:00 08/17/25 21:48 08/18/25 08:00 Temperature 98.2 F 98.8 F Pulse Rate 59 58 Respiratory Rate 18 20 Blood Pressure 114/62 114/62 137/74 Pulse Oximetry 97 98 Oxygen Delivery Method Room Air Room Air 08/18/25 08:34 Temperature Pulse Rate Respiratory Rate Blood Pressure 137/68 Pulse Oximetry Oxygen Delivery Method BMI result Body Mass Index 28.9 Labs 08/14/25 23:36 08/18/25 09:18 Labs: Laboratory Results - last 48 hr 08/18/25 09:18 Sodium 140 Potassium 4.1 Chloride 107 Carbon Dioxide 27 Anion Gap 10 L BUN 16 Creatinine 1.08 Estim Creat Clear Calc 67.9 Estimated GFR > 60 Random Glucose 239 H Calcium 9.6 D Total Bilirubin 0.5 AST 33 ALT 42 H Alkaline Phosphatase 78 Total Protein 7.1 Albumin 4.5 Medications Medications Current Medications Acetaminophen (Acetaminophen 325 Mg Tablet) 650 mg PO Q6H PRN PRN Reason: Headache/Pain, Scale 1-10 Last Admin: 08/18/25 05:54 Dose: 650 mg Al Hydroxide/Mg Hydroxide (Magnesium Hydrox/Alum Hydrox 30 Ml Oral.Susp) 30 ml PO Q6H PRN PRN Reason: Heartburn/Nausea Amlodipine Besylate (Amlodipine Besylate 10 Mg Tablet) 10 mg PO DAILY [facility]; Protocol Last Admin: 08/18/25 08:34 Dose: 10 mg Aspirin (Aspirin Enteric Coated 81 Mg Tablet.Dr) 81 mg PO DAILY [facility] Last Admin: 08/18/25 08:32 Dose: 81 mg Atorvastatin Calcium (Atorvastatin Calcium 40 Mg Tablet) 40 mg PO BEDTIME [facility] Last Admin: 08/17/25 21:48 Dose: 40 mg Clonidine HCl (Clonidine Hcl 0.2 Mg Tablet) 0.2 mg PO BID [facility]; Protocol Last Admin: 08/18/25 08:34 Dose: 0.2 mg Clopidogrel Bisulfate (Clopidogrel Bisulfate 75 Mg Tablet) 75 mg PO DAILY [facility] Last Admin: 08/18/25 08:34 Dose: 75 mg Hydroxyzine HCl (Hydroxyzine Hcl 50 Mg Tablet) 50 mg PO BID PRN PRN Reason: mild anxiety Last Admin: 08/17/25 23:35 Dose: 50 mg [place] Carbonate ([place] Carbonate Er 300 Mg Tablet.Er) 600 mg PO BEDTIME [facility] Last Admin: 08/17/25 21:48 Dose: 600 mg Loratadine (Loratadine 10 Mg Tablet) 10 mg PO DAILY PRN PRN Reason: allergies Magnesium Hydroxide (Milk Of Magnesia 30 Ml Oral.Susp) 30 ml PO DAILY PRN PRN Reason: Constipation Naltrexone HCl (Naltrexone Hcl 50 Mg Tablet) 50 mg PO DAILY [facility] Last Admin: 08/18/25 08:33 Dose: 50 mg Neomycin/Polymyxin/Hydrocortisone (Neomycin/Polymyxin/Hc Otic Kell Bottle) 4 drop EAR-BOTH TID [facility] Stop: 08/22/25 14:59 Last Admin: 08/18/25 08:35 Dose: 4 drop Nicotine (Nicotine 21 Mg Patch.Td24) 21 mg TRANSDERMA DAILY PRN PRN Reason: smoking cessation Nicotine Polacrilex (Nicotine Polacrilex 2 Mg Gum) 4 mg BUCCAL Q2H PRN PRN Reason: Nicotine Cravings Olanzapine (Olanzapine 5 Mg Tablet) 5 mg PO Q4H PRN PRN Reason: anxiety, agitation Last Admin: 08/18/25 08:38 Dose: 5 mg Trazodone HCl (Trazodone Hcl 50 Mg Tablet) 50 mg PO BEDTIME MRX1 PRN PRN Reason: Insomnia Last Admin: 08/17/25 23:35 Dose: 50 mg Allergies Allergies Allergy/AdvReac Type Severity Reaction Status Date / Time No Known Allergies (No Known Allergy Verified 08/14/25 22:26 Allergies*) Assessment & Plan Assessment & Plan (1) Bipolar disorder: Qualifiers: Active/Remission status: currently active Current episode severity: unspecified Status: Acute Code(s): F31.9 - Bipolar disorder, unspecified (2) Alcohol use disorder, moderate, dependence: Status: Acute Code(s): F10.20 - Alcohol dependence, uncomplicated (3) Essential hypertension: Status: Acute Code(s): I10 - Essential (primary) hypertension (4) Mixed dyslipidemia: Status: Acute Code(s): E78.2 - Mixed hyperlipidemia Plan Patient is a 59-year-old male with history of bipolar disorder, alcohol use disorder, recently discharged from on 08/11 who presents to the ED for ongoing depression and suicidal comment. Patient reports that when he returned home this past Sunday he found that his son had trashed the house they rent and share together. Patient said he felt unwanted and unappreciated on return. He says he continue taking his medication and remained sober but this coming weekend is the anniversary of his 's and patient continued feeling sad and rejected. This Sunday, patient said he thought he could drink get away with it however his son and friend/landlord bound alcohol into his room. Patient reports they had a big argument and patient says I said a lot of things and now I am pretty sure I can not go back... Patient reports he thinks he said something like I will just leave go away for ever... Or something to that effect which his son and friend/landlord took to be a suicidal comment; crisis called and patient reports to the hospital now. Patient reiterates he only drank on this 1 day. Hospital course: 08/16 discussed hx manic episode, 1hour sleep, hyperverbal, mind going fast, going from task to task and not finishing, trying to get women on internet; spending money on stuff does not need; not attending to no adl's; ends up relapsing with alcohol Discussed medications and patient agreed to get off Latuda as it does not strongly prevent manic episodes Reviewed risks/side effects of lithium and patient agrees to start Given starting lithium, he would like to get off lisinopril and agrees to instead increase amlodipine for hypertension 08/17: Denies AINSLEY,HI,AH,VH. Slept 8 hours Review of precipitants to admission- agrees he needs to go to [facility] and begin there-drinking for over 35 years, starting at age 11. Reports 10 years of sobriety with first marriage. Anniversary of first 's was this past weekend- a difficult time of year for pt. Reports he feels he needs to get away from his friend whom he has lived with for several years and his son. Wants to be happy with himself and sober. Upset that therapist, Zuhair Whitlock of [facility] did not respond to him when he was in crisis prior to admit. I have been on the run with alcohol too long. I have to do something different. Pt requests we ask son to bring in some clothing, that L ear be evaluated due to pain and wax buildup, that we medicate anxiety-will trial olanzapine. He agrees to addiction medicine consult. 08/18:Pt was offered admission today with [facility]- their bed is available on 08/19. 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 Denies AINSLEY,BANDAR,AH,VH. Continues to be upset, angry with argument with son, friend prior to admit- I am going to call my friend, but I am just going to leave my son out of it. Review of meds, need for [place] level prior to DC- will trial prn increase of Olanzapine to 10 mg prior to DC and Trazodone increase to 100. Will have labs 08/19. Plan: Discharge to [facility] on 08/19/25 for ongoing addictions treatment. Plan: CV Q 15 minute checks Start [place] ER 600 DC latuda DC lisinopril Increase amlodipine to 10mg Patient only drank for 1 day and does not require CIWA Reason for continued inpatient stay Substantial Risk for: stable for discharge Time Spent With Patient Time: Total time managing care of this patient today ____ minutes.
--- NOTE | 2025-08-18 18:03 | MHC.RECOVRN ---
Consult received by Addiction Medicine for pt needing recovery support? Pt was previously assessed by Addiction Medicine while on the medical floor.? Current plan is for pt to discharge to a [facility] program and pt has been initiated on Naltrexone.? Pt encouraged to explore pathways to recovery and utilize recovery supports? Pt provided ACS team contact information for questions or concerns related to recovery.?
[2025-08-18 20:00] VITALS: BP 115/64; PULSE 60; TEMP 36.8; O2SAT 95
[2025-08-19 08:00] VITALS: BP 127/71; PULSE 58; TEMP 36.4; O2SAT 97
[2025-08-19 08:30] LABS: Lithium 0.72 mmol/L (0.60-1.20)
[2025-08-19 08:40] VITALS: BP 127/71
[2025-08-19] MEDS: Aspirin Enteric Coated 81 MG TABLET.DR PO (08:40)
--- NOTE | 2025-08-19 10:02 | P.DS_ITS ---
DS: Providers Provider Date of admission: 08/15/25 14:08 Date of discharge: 08/19/25 Primary care physician: Franchesca Batista MD Admitting clinician: Matt Hewitt Attending physician on admission: Matt Hewitt Consults: 08/17/25 11:35 Consult to Hospitalist Routine Comment: Consulting Provider: [facility] Hospitalists Reason For Exam: Left ear pain-pressure,debrox not helpful per pt 08/17/25 11:36 Addiction Medicine Provider Routine Consulting Provider: Addiction Covering Reason for consultation: recovery support Has provider been notified: No Attending physician on discharge: Enmanuel Young Discharging clinician: Jennifer Beal DS: Diagnosis Discharge Diagnosis (1) Bipolar disorder: Status: Acute (2) Alcohol use disorder, moderate, dependence: Status: Acute (3) Essential hypertension: Status: Acute (4) Mixed dyslipidemia: Status: Acute DS: Medications Discharge Medications Home Medications: Previous Rx's ?Medication ?Instructions ?Recorded acetaminophen 325 mg tablet 650 mg (2 x 325 mg) PO Q6H PRN 08/18/25 Headache/Pain, Scale 1-10 #60 tabs amlodipine 10 mg tablet 10 mg PO DAILY #30 tabs 08/03 02/25 aspirin 81 mg tablet,delayed 81 mg PO DAILY #30 tabs 1 10/19/24 release (Adult Aspirin Regimen) atorvastatin 40 mg tablet 40 mg PO BEDTIME 7 days #30 tabs 08/18/25 cetirizine 10 mg tablet 10 mg PO DAILY PRN allergies #30 08/18/25 tabs clonidine HCl 0.2 mg tablet 0.2 mg PO BID #60 tabs clopidogrel 75 mg tablet 75 mg PO DAILY #30 tabs 08/03 02/25 hydroxyzine HCl 50 mg tablet 50 mg PO BID PRN mild anx iety 7 08/18/25 days #60 tabs lithium carbonate 300 mg 600 mg (2 x 300 mg) PO BEDTI ME #60 08/18/25 tablet,extended release tabs naltrexone 50 mg tablet 50 mg PO DAILY 7 days #30 ta bs 08/18/25 [id number] 3.5 4 drp otic (ears) TID #10 mL 08/18/25 mg/mL-10,000 unit/mL-1 % ear solution olanzapine 5 mg tablet 5 mg PO Q4H PRN anxiety, jaycee tation 08/18/25 #15 tabs trazodone 50 mg tablet 50 mg PO BEDTIME MRX1 PRN In somnia 08/18/25 #30 tabs Mental Status Exam Mental Status Exam Patient Appearance: Appropriate Patient Orientation: Person, Place, Time and Situation Level of Consciousness: Alert Patient Behavior: Talkative and Good Eye Contact Mood Description: Flat Affect Description: Flat Patient Cognition Impaired: No Ability to Follow Directions: Good Speech Pattern: Spontaneous Speech Memory Description: Episodic Impaired Hallucinations: None Delusions: Not Present Thought Process: Intact and Goal Oriented Thought Content: positive for Intact and positive for Goal Oriented Depressive Symptoms: Thoughts of /Suicide (denies) Judgement: Good Data Data Completed and Pending Completed studies during hospitalization [Text1]: 08/14/25 08/16/25 08/18/25 23:36 07:15 09:18 WBC 9.5 RBC 4.24 L D Hgb 12.4 L D Hct 36.1 L D MCV 85.1 MCH 29.2 MCHC 34.3 RDW 13.2 Plt Count 142 L MPV 9.5 Immature Gran % (Auto) 0.7 H Neut % (Auto) 66.1 Lymph % (Auto) 22.8 [place] % (Auto) 7.8 Eos % (Auto) 2.2 Baso % (Auto) 0.4 Lymph # (Auto) 2.2 [place] # (Auto) 0.7 Eos # (Auto) 0.2 Baso # (Auto) 0.0 Abs Immat Gran (auto) 0.07 H Absolute Neuts (auto) 6.3 Absolute Nucleated RBC 0.000 Nucleated RBC % (auto) 0.0 Sodium 141 141 140 Potassium 4.1 4.1 4.1 Chloride 110 H 107 107 Carbon Dioxide 24 26 27 Anion Gap 11 L 12 10 L BUN 19 H 17 H 16 Creatinine 1.20 1.05 1.08 Estim Creat Clear Calc 54.8 69.9 67.9 Estimated GFR > 60 > 60 > 60 Random Glucose 198 H 177 H 239 H Calcium 8.8 D 9.0 9.6 D Magnesium 2.1 Total Bilirubin 0.2 0.6 0.5 Direct Bilirubin < 0.2 AST 30 26 33 ALT 49 H 42 H 42 H Alkaline Phosphatase 66 74 78 Total Protein 6.0 L 6.5 7.1 Albumin 3.9 4.1 4.5 TSH 1.84 Urine Color Yellow Urine Appearance Clear Urine pH 5.5 Ur Specific [place] 1.020 Urine Protein Trace Urine Glucose (UA) >=1000 H Urine Ketones Negative Urine Blood Negative Urine Nitrite Negative Ur Leukocyte Esterase Negative Urine RBC 0-2 Urine WBC 0-5 Ur Squamous Epith Cells 0-2 Urine Bacteria None Seen Hyaline Casts 0-2 Urine Opiates Screen Not Detected Ur Buprenorphine Scrn Not Detected Ur Oxycodone Screen Not Detected Urine Methadone Screen Not Detected Urine Fentanyl Screen Not Detected Ur Barbiturates Screen Not Detected Ur Phencyclidine Scrn Not Detected Ur Amphetamines Screen Not Detected U Benzodiazepines Scrn Not Detected [place] Urine Cocaine Screen Not Detected U Marijuana (THC) Screen POSITIVE H Ethyl Alcohol 162 08/19/25 07:40 WBC RBC Hgb Hct MCV MCH MCHC RDW Plt Count MPV Immature Gran % (Auto) Neut % (Auto) Lymph % (Auto) [place] % (Auto) Eos % (Auto) Baso % (Auto) Lymph # (Auto) [place] # (Auto) Eos # (Auto) Baso # (Auto) Abs Immat Gran (auto) Absolute Neuts (auto) Absolute Nucleated RBC Nucleated RBC % (auto) Sodium Potassium Chloride Carbon Dioxide Anion Gap BUN Creatinine Estim Creat Clear Calc Estimated GFR Random Glucose Calcium Magnesium Total Bilirubin Direct Bilirubin AST ALT Alkaline Phosphatase Total Protein Albumin TSH Urine Color Urine Appearance Urine pH Ur Specific [place] Urine Protein Urine Glucose (UA) Urine Ketones Urine Blood Urine Nitrite Ur Leukocyte Esterase Urine RBC Urine WBC Ur Squamous Epith Cells Urine Bacteria Hyaline Casts Urine Opiates Screen Ur Buprenorphine Scrn Ur Oxycodone Screen Urine Methadone Screen Urine Fentanyl Screen Ur Barbiturates Screen Ur Phencyclidine Scrn Ur Amphetamines Screen U Benzodiazepines Scrn [place] 0.72 Urine Cocaine Screen U Marijuana (THC) Screen Ethyl Alcohol DS: Summary Hospital Course Hospital Course: Patient is a 59-year-old male with history of bipolar disorder, alcohol use disorder, recently discharged from on 08/11 who presents to the ED for ongoing depression and suicidal comment. Patient reports that when he returned home this past Sunday he found that his son had trashed the house they rent and share together. Patient said he felt unwanted and unappreciated on return. He says he continue taking his medication and remained sober but this coming weekend is the anniversary of his 's and patient continued feeling sad and rejected. This Sunday, patient said he thought he could drink get away with it however his son and friend/landlord bound alcohol into his room. Patient reports they had a big argument and patient says I said a lot of things and now I am pretty sure I can not go back... Patient reports he thinks he said something like I will just leave go away for ever... Or something to that effect which his son and friend/landlord took to be a suicidal comment; crisis called and patient reports to the hospital now. Patient reiterates he only drank on this 1 day. Past Psychiatric History: hx of 3 other inpatient psychiatric appointments; last time being in the 90s hx of 3-4 suicide attempts via cutting. denies hx of SIB. hx of taking Effexor and hydroxyzine; he can not recall other medication trials. hx of going to substance abuse program. Outpatient psychiatric providers through [facility]. He does not recall the name of his provider. Medical Evaluation Reviewed: Yes Medications were evaluated and adjusted. Olanzapine was trialed for anxiety. Pt discussed needing to have longer term sobriety as he has been struggling with alcohol for 35+ years, having only~ 10 years sobriety when he was younger and first . Pt agreed to [facility] applications and was accepted on 08/19 with [facility] program for ongoing treatment which he agreed to attend. Status at Discharge Functional status at discharge: independent ambulation Overall status at discharge: patient is progressing back to baseline Time Spent with Patient Time attestation: Total time managing care of this patient today ____ minutes. Time spent: Less than 30 minutes Discharge Plan Discharge Anticipated Discharge Date/Time: 08/19/25 11:00 Patient Disposition: Xfer Inpatient Rehab Fac Discharge Diagnosis: Bipolar Disorder Alcohol Use Disorder Dyslipidemia HTN Referrals: [facility] [Other] - 08/19/25 12:00 pm Referral Note: You have been accepted to [facility] for substance use and addiction treatment. Good luck! Clinical & Support Options [Other] - 1 Week Referral Note: Walk in time for therapy and medication management: M-F from 8 am - 7 pm Weekends from 9 am - 5 pm Franchesca Batista MD [Primary Care Provider, Internal Medicine] - 1 Week Discharge Medications: New xargaqmh-oebdhqzsn-PJ 3.5-10,000-1 mg/mL-unit/mL-% Solution 4 drp otic (ears) TID Qty: 10 0RF acetaminophen 325 mg Tablet 650 mg PO Q6H PRN (Reason: Headache/Pain, Scale 1-10) Qty: 60 0RF trazodone 50 mg Tablet 50 mg PO BEDTIME MRX1 PRN (Reason: Insomnia) Qty: 30 0RF olanzapine 5 mg Tablet 5 mg PO Q4H PRN (Reason: anxiety, agitation) Qty: 15 0RF lithium carbonate 300 mg Tablet Extended Release 600 mg PO BEDTIME Qty: 60 0RF amlodipine 10 mg Tablet 10 mg PO DAILY Qty: 30 0RF Protocol: Hold for SBP< HOLD for SBP < : 90 Continued atorvastatin 40 mg Tablet 40 mg PO BEDTIME 7 Days Qty: 30 1RF cetirizine 10 mg tablet 10 mg PO DAILY PRN (Reason: allergies) Qty: 30 0RF naltrexone 50 mg Tablet 50 mg PO DAILY 7 Days Qty: 30 2RF hydroxyzine HCl 50 mg Tablet 50 mg PO BID PRN (Reason: mild anxiety) 7 Days Qty: 60 1RF clopidogrel 75 mg tablet 75 mg PO DAILY Qty: 30 0RF aspirin [Adult Aspirin Regimen] 81 mg tablet,delayed release (DR/EC) 81 mg PO DAILY Qty: 30 0RF clonidine HCl 0.2 mg tablet 0.2 mg PO BID Qty: 60 0RF Discontinued venlafaxine 37.5 mg tablet 37.5 mg PO DAILY lurasidone [Latuda] 40 mg Tablet 40 mg PO DAILY@1700 7 Days Qty: 7 2RF lisinopril 5 mg tablet 5 mg PO DAILY amlodipine 5 mg tablet 5 mg PO DAILY Discharge Orders: Discharge Order (Routine); Ordered 08/19/25 Ordered By: Jennifer Beal Diet: Advance to usual diet Activity on Discharge: As tolerated Stand Alone Forms: Patient Portal Discharge page, Community Support Print Language: Guinean Care Plan Goals: Maintain mood and safe behaviors Take medications as prescribed Continue to pursue sobriety Practice coping skills Health Concerns: Sobriety Mood and behavioral stability Plan of Treatment: Take medicines as prescribed Follow plan of care with CSS team Assessment: Pt is fully oriented and without SI/HI. Pt has improved insight and judgment and wants to continue treatment Pt is not in imminent risk of harm to self or others and has a safety plan that includes presenting to the closest ER or calling 911 if feeling unsafe. Pt has been observed closely by nursing and unit staff throughout admission. Pt has not engaged in any behaviors that suggest dangerousness to self or others and has demonstrated appropriate behaviors and impulse control.
== END 2025-08-19 10:52 | DRG 885 ==
LOC: HO.ED 08-15 14:07 → HO.PM5 08-15 14:08
PROVIDERS: Nurse Practitioner Family; Admitting Provider Psychiatry & Neurology Psychiatry; Emergency Provider Emergency Medicine; PCP Internal Medicine; Visit Provider Clinical Nurse Specialist Psychiatric/Mental Health, Adult
DX: F31.9 Bipolar disorder, unspecified (principal); N17.9 Acute kidney failure, unspecified; I25.10 Atherosclerotic heart disease of native coronary artery without angina pectoris; F17.210 Nicotine dependence, cigarettes, uncomplicated; F10.20 Alcohol dependence, uncomplicated; G47.33 Obstructive sleep apnea (adult) (pediatric); I10 Essential (primary) hypertension; H60.92 Unspecified otitis externa, left ear; Y90.6 Blood alcohol level of 120-199 mg/100 ml; Z63.4 Disappearance and death of family member; E78.2 Mixed hyperlipidemia; Z71.6 Tobacco abuse counseling; Z79.02 Long term (current) use of antithrombotics/antiplatelets; Z79.899 Other long term (current) drug therapy
CPT/HCPCS: 36415; 80048; 80053; 80076; 80178; 80307; 81001; 83735; 84443; 85025; 93005; 99285; S9485

== ENCOUNTER 2025-08-15 14:08 | Outpatient (BNV) | payer MEDICARE, MEDICAID, SELFPAY | END 2025-08-17 10:57 | PROVIDERS: Admitting Provider Psychiatry & Neurology Psychiatry; Emergency Provider Emergency Medicine; PCP Internal Medicine; Visit Provider Internal Medicine Cardiovascular Disease | DX: R00.1 Bradycardia, unspecified (principal); I21.29 ST elevation (STEMI) myocardial infarction involving other sites | CPT/HCPCS: 93010 ==

== ENCOUNTER → 2025-08-15 14:08 | Outpatient (BNV) | payer MEDICARE, MEDICAID, SELFPAY | PROVIDERS: Admitting Provider Psychiatry & Neurology Psychiatry; Emergency Provider Emergency Medicine; PCP Internal Medicine; Visit Provider Psychiatry & Neurology Psychiatry | DX: F31.4 Bipolar disorder, current episode depressed, severe, without psychotic features (principal); F10.20 Alcohol dependence, uncomplicated; I10 Essential (primary) hypertension; E78.2 Mixed hyperlipidemia | CPT/HCPCS: 90792; 99238 ==

== ENCOUNTER → 2025-08-15 14:08 | Outpatient (BNV) | payer MEDICARE, MEDICAID, SELFPAY | PROVIDERS: Admitting Provider Psychiatry & Neurology Psychiatry; Emergency Provider Emergency Medicine; PCP Internal Medicine; Visit Provider Nurse Practitioner Family | DX: H60.93 Unspecified otitis externa, bilateral (principal) | CPT/HCPCS: 99231 ==